=== PATIENT | female | born 1965 | race African-American/Black ===

== ENCOUNTER 2017-07-26 10:49 | Inpatient (IN) ==
[2017-07-26] MEDS ORDERED: DEXTROSE 50% 25 GM/50 ML VIAL IV PRN (11:08)
[2017-07-26] MEDS ORDERED: GLUCAGON 1 MG VIAL IM PRN (11:08)
[2017-07-26 11:20] LABS: Basophils % 0.2 % (0.0-0.8); Eosinophils # 0.2 10*3/uL (0.0-0.87); Eosinophils % 2.7 % (0.00-10.9); Hematocrit 28.1 VOL% (35.7-47.0); Hemoglobin 8.8 GM/DL (12.0-16.0); Immature Granulocytes % 0.4 %; Immature Granulocytes Absolute 0.03 #; Lymphocytes # 1.5 10*3/uL (1.4-4.0); Lymphocytes % 17.8 % (21.3-54.2); Mean Corpuscular HGB Conc 31.3 GM/DL (32-36); Mean Corpuscular Hemoglobin 27 PG (27-34); Mean Corpuscular Volume 84.9 FL (87-102); Mean Platelet Volume 12.2 FL (9.6-12.0); Monocytes # 0.7 10*3/uL (0.11-0.8); Monocytes % 8.3 % (1.7-12.7); Neutrophils # 5.8 10*3/uL (1.4-7.4); Neutrophils % 70.6 % (38.7-73.9); Platelet Count 317 T/CUMM (130-400); Red Blood Count 3.31 MC/CUMM (3.8-5.5); White Blood Count 8.2 T/CUMM (4-12)
[2017-07-26 11:27] LABS: PT Patient Result 10.2 SECS
[2017-07-26 11:50] LABS: Alanine Aminotransferase 20 U/L (13-56); Albumin 2.9 G/DL (3.4-5.0); Alkaline Phosphatase 105 U/L (45-117); Aspartate Amino Transferase 25 U/L (0-37); Bilirubin,Total < 0.39 MG/DL (0.2-1.0); Blood Urea Nitrogen 36 MG/DL (7-18); Calcium 8.4 MG/DL (8.5-10.1); Glucose 142 MG/DL (74-106); Osmolality,Calculated 290.3 MOS/KG (273-304); Sodium 141 MMOL/L (136-145); Total Protein 7.3 G/DL (6.4-8.3)
[2017-07-26 11:57] LABS: Apearance,Urine CLEAR (Clear); Bilirubin,Urine Negative (Negative); Blood, Urine Small mg/dL (Negative); Glucose,Urine (UA) 50 mg/dL (Negative); Ketones,Urine Negative (Negative); Nitrite,Urine Negative (Negative); Protein,Urine 100 MG/DL; RBC,Urine 1 /HPF (0-4); Squamous Epithelial Cell,Urine Occasional /HPF (0-10); Urine Color Straw (Yellow); Urine Specific Gravity 1.006 (1.001-1.035); Urine Urobilinogen < 2.0 EU/DL (0.2-1.0); WBC,Urine <1 /HPF (0-6)
[2017-07-26 12:37] LABS: Barbiturates Screen,Urine Negative (Negative); Benzodiazepines Screen,Urine Negative (Negative); Cannabinoid Screen,Urine Positive (Negative); Opiate Screen,Urine Negative (Negative); Phencyclidine Screen,Urine Negative (Negative)
[2017-07-26] MEDS ORDERED: DEXTROSE 50% 25 GM/50 ML SYRINGE IV ONE (13:14)
[2017-07-26] MEDS ORDERED: DEXTROSE 5% NACL 0.45% 1,000 ML IV SCH (14:00)
[2017-07-26] MEDS ORDERED: LABETALOL 20 MG/4 ML SYRINGE IV PRN ×2 (17:27→19:54)
[2017-07-26] MEDS ORDERED: amLODIPine 10 MG TABLET PO SCH (18:00)
[2017-07-26 18:25] LABS: Microalbum/Creat Ratio Random 2052.6 RATIO (0-30)
[2017-07-26] MEDS ORDERED: MORPHINE 4 MG/1 ML VIAL IV PRN (19:54)
[2017-07-26] MEDS ORDERED: DOCUSATE SODIUM 100 MG CAPSULE PO PRN (19:54)
[2017-07-26] MEDS ORDERED: ACETAMINOPHEN 325 MG TABLET PO PRN (19:54)
[2017-07-26] MEDS ORDERED: LACTULOSE 20 GM/30 ML UDCUP PO PRN (19:54)
[2017-07-26] MEDS: PANTOPRAZOLE 40 MG TABLET PO SCH (20:47)
[2017-07-27] MEDS: OLOPATADINE 0.1% OPH SOLN 5 ML BOTTLE LEFT EYE SCH ×4 (00:36→21:02)
[2017-07-27 05:57] LABS: Basophils % 0.4 % (0.0-0.8); Eosinophils # 0.3 10*3/uL (0.0-0.87); Eosinophils % 3.3 % (0.00-10.9); Eosinophils % 4.2 % (0.00-10.9); Hematocrit 25.9 VOL% (35.7-47.0); Hematocrit 26.5 VOL% (35.7-47.0); Hemoglobin 8.4 GM/DL (12.0-16.0); Immature Granulocytes % 0.3 %; Immature Granulocytes % 0.8 %; Immature Granulocytes Absolute 0.02 #; Immature Granulocytes Absolute 0.06 #; Lymphocytes # 1.7 10*3/uL (1.4-4.0); Lymphocytes # 1.8 10*3/uL (1.4-4.0); Lymphocytes % 23.5 % (21.3-54.2); Lymphocytes % 23.8 % (21.3-54.2); Mean Corpuscular HGB Conc 30.9 GM/DL (32-36); Mean Corpuscular HGB Conc 31.7 GM/DL (32-36); Mean Corpuscular Hemoglobin 27 PG (27-34); Mean Corpuscular Volume 85.8 FL (87-102); Mean Platelet Volume 11.8 FL (9.6-12.0); Mean Platelet Volume 12.1 FL (9.6-12.0); Monocytes # 0.6 10*3/uL (0.11-0.8); Monocytes # 0.7 10*3/uL (0.11-0.8); Monocytes % 8.4 % (1.7-12.7); Monocytes % 9.2 % (1.7-12.7); Neutrophils # 4.5 10*3/uL (1.4-7.4); Neutrophils # 4.7 10*3/uL (1.4-7.4); Neutrophils % 62.8 % (38.7-73.9); Neutrophils % 62.9 % (38.7-73.9); Platelet Count 264 T/CUMM (130-400); Platelet Count 272 T/CUMM (130-400); Red Blood Count 3.02 MC/CUMM (3.8-5.5); Red Blood Count 3.09 MC/CUMM (3.8-5.5); Red Cell Distribution Width 16.7 % (9.3-17.3); Red Cell Distribution Width 16.9 % (9.3-17.3); White Blood Count 7.2 T/CUMM (4-12); White Blood Count 7.5 T/CUMM (4-12)
[2017-07-27 06:19] LABS: % Iron Saturation 7.6 % (18-50); Ferritin 8.2 ng/ml (8-252)
[2017-07-27 06:26] LABS: Calcium 7.6 MG/DL (8.5-10.1); Osmolality,Calculated 300.8 MOS/KG (273-304); Potassium 4.4 MMOL/L (3.5-5.1); Thyroid Stimulating Hormone 1.92 uIU/ml (0.358-3.74)
[2017-07-27 06:27] LABS: Hypochromasia 2+; Microcytosis 2+; Platelet Estimate Adequate
[2017-07-27 06:36] LABS: Folate 9.3 NG/ML (5.4-24.0); Vitamin B12 313 PG/ML (211-911)
[2017-07-27 08:21] LABS: Sedimentation Rate-Westergren 118 MM/HR (0-30)
[2017-07-27 08:54] LABS: Hemoglobin A1 (Alkaline) 98.2 % (96.5-98.5); Hemoglobin A2 (Alkaline) 1.8 % (1.5-3.5)
[2017-07-27] MEDS: amLODIPine 10 MG TABLET PO SCH (09:07)
[2017-07-27] MEDS: VALSARTAN 160 MG TABLET PO SCH (09:08)
[2017-07-27] MEDS: INSULIN REGULAR 100 UNIT/ML SUBCUT SCH ×4 (09:09→21:02)
[2017-07-27] MEDS: PANTOPRAZOLE 40 MG TABLET PO SCH (09:09)
[2017-07-27] MEDS ORDERED: INSULIN NPH 100 UNIT/ML SUBCUT ONE (10:30)
[2017-07-27] MEDS ORDERED: FERROUS GLUCONATE 240 MG TABLET PO SCH (10:30)
[2017-07-27] MEDS: NICOTINE 21 MG/24 HR PATCH TRANSDERM SCH (13:03)
[2017-07-27] MEDS: INSULIN NPH/REGULAR 70/30 100 UNIT/ML SUBCUT SCH ×2 (13:10→17:01)
[2017-07-27] MEDS: CARVEDILOL 12.5 MG TABLET PO SCH (21:01)
[2017-07-28] MEDS: INSULIN REGULAR 100 UNIT/ML SUBCUT SCH ×5 (00:39→21:25)
[2017-07-28] MEDS: amLODIPine 10 MG TABLET PO SCH (08:41)
[2017-07-28] MEDS: VALSARTAN 160 MG TABLET PO SCH (08:42)
[2017-07-28] MEDS: PANTOPRAZOLE 40 MG TABLET PO SCH (08:42)
[2017-07-28] MEDS: NICOTINE 21 MG/24 HR PATCH TRANSDERM SCH (08:42)
[2017-07-28] MEDS: CARVEDILOL 12.5 MG TABLET PO SCH ×2 (08:42→17:13)
[2017-07-28] MEDS: ONDANSETRON 4 MG/2 ML VIAL IV PRN (08:42)
[2017-07-28] MEDS: OLOPATADINE 0.1% OPH SOLN 5 ML BOTTLE LEFT EYE SCH ×2 (08:57→21:25)
[2017-07-28] MEDS: CALCITRIOL 0.25 MCG CAPSULE PO SCH (13:10)
[2017-07-28] MEDS ORDERED: SODIUM PHOSPHATE ENEMA 133 ML BOTTLE RECTAL ONE (13:40)
[2017-07-28] MEDS ORDERED: SENNA 8.6 MG TABLET PO ONE (13:40)
[2017-07-28] MEDS: DOCUSATE SODIUM 100 MG CAPSULE PO SCH ×2 (14:20→21:25)
[2017-07-28] MEDS: IRON SUCROSE 200 MG in SODIUM CHLORIDE 0.9% 100 ML IV SCH (14:20)
[2017-07-28] MEDS: POLYETHYLENE GLYCOL POWDER 17 GM PACK PO SCH (21:25)
[2017-07-29 05:33] LABS: Basophils % 0.1 % (0.0-0.8); Eosinophils # 0.3 10*3/uL (0.0-0.87); Eosinophils % 2.5 % (0.00-10.9); Hematocrit 26.4 VOL% (35.7-47.0); Hemoglobin 8.1 GM/DL (12.0-16.0); Immature Granulocytes % 0.3 %; Immature Granulocytes Absolute 0.03 #; Lymphocytes # 1.3 10*3/uL (1.4-4.0); Lymphocytes % 12.8 % (21.3-54.2); Mean Corpuscular HGB Conc 30.7 GM/DL (32-36); Mean Corpuscular Hemoglobin 26 PG (27-34); Mean Corpuscular Volume 84.3 FL (87-102); Mean Platelet Volume 12.4 FL (9.6-12.0); Monocytes # 0.6 10*3/uL (0.11-0.8); Monocytes % 5.6 % (1.7-12.7); Neutrophils % 78.7 % (38.7-73.9); Platelet Count 306 T/CUMM (130-400); Red Blood Count 3.13 MC/CUMM (3.8-5.5); Red Cell Distribution Width 16.7 % (9.3-17.3); White Blood Count 10.2 T/CUMM (4-12)
[2017-07-29 06:02] LABS: Calcium 7.9 MG/DL (8.5-10.1); Osmolality,Calculated 294.8 MOS/KG (273-304); Potassium 4.5 MMOL/L (3.5-5.1)
[2017-07-29] MEDS: POLYETHYLENE GLYCOL POWDER 17 GM PACK PO SCH ×2 (08:22→22:40)
[2017-07-29] MEDS: CARVEDILOL 12.5 MG TABLET PO SCH (08:59)
[2017-07-29] MEDS: DOCUSATE SODIUM 100 MG CAPSULE PO SCH ×2 (08:59→21:10)
[2017-07-29] MEDS ORDERED: SODIUM PHOSPHATE ENEMA 133 ML BOTTLE RECTAL ONE (09:00)
[2017-07-29] MEDS: CALCITRIOL 0.25 MCG CAPSULE PO SCH (09:00)
[2017-07-29] MEDS: PANTOPRAZOLE 40 MG TABLET PO SCH (09:00)
[2017-07-29] MEDS: VALSARTAN 160 MG TABLET PO SCH (09:01)
[2017-07-29] MEDS: amLODIPine 10 MG TABLET PO SCH (09:01)
[2017-07-29] MEDS: NICOTINE 21 MG/24 HR PATCH TRANSDERM SCH (09:02)
[2017-07-29] MEDS: IRON SUCROSE 200 MG in SODIUM CHLORIDE 0.9% 100 ML IV SCH (09:03)
[2017-07-29] MEDS: INSULIN REGULAR 100 UNIT/ML SUBCUT SCH ×4 (09:03→22:40)
[2017-07-29] MEDS: INSULIN NPH/REGULAR 70/30 100 UNIT/ML SUBCUT SCH (09:04)
[2017-07-29] MEDS: OLOPATADINE 0.1% OPH SOLN 5 ML BOTTLE LEFT EYE SCH ×2 (09:05→21:13)
[2017-07-29] MEDS ORDERED: EPOETIN ALFA 10,000 UNIT/1 ML VIAL SUBCUT ONE (09:22)
[2017-07-29] MEDS: ONDANSETRON 4 MG/2 ML VIAL IV PRN (14:15)
[2017-07-29] MEDS ORDERED: INSULIN NPH 100 UNIT/ML SUBCUT ONE ×2 (16:25)
[2017-07-29] MEDS ORDERED: INSULIN NPH/REGULAR 70/30 100 UNIT/ML SUBCUT SCH (16:30)
[2017-07-29] MEDS: CARVEDILOL 6.25 MG TABLET PO SCH (17:10)
[2017-07-30] MEDS: INSULIN REGULAR 100 UNIT/ML SUBCUT SCH ×2 (09:41→11:51)
[2017-07-30] MEDS: INSULIN NPH/REGULAR 70/30 100 UNIT/ML SUBCUT SCH (09:42)
[2017-07-30] MEDS: DOCUSATE SODIUM 100 MG CAPSULE PO SCH (09:43)
[2017-07-30] MEDS: CALCITRIOL 0.25 MCG CAPSULE PO SCH (09:43)
[2017-07-30] MEDS: amLODIPine 10 MG TABLET PO SCH (09:43)
[2017-07-30] MEDS: PANTOPRAZOLE 40 MG TABLET PO SCH (09:43)
[2017-07-30] MEDS: CARVEDILOL 6.25 MG TABLET PO SCH (09:43)
[2017-07-30] MEDS: VALSARTAN 160 MG TABLET PO SCH (09:43)
[2017-07-30] MEDS: NICOTINE 21 MG/24 HR PATCH TRANSDERM SCH (09:44)
[2017-07-30] MEDS: IRON SUCROSE 200 MG in SODIUM CHLORIDE 0.9% 100 ML IV SCH (09:44)
[2017-07-30] MEDS: POLYETHYLENE GLYCOL POWDER 17 GM PACK PO SCH (09:45)
[2017-07-30] MEDS: OLOPATADINE 0.1% OPH SOLN 5 ML BOTTLE LEFT EYE SCH (09:45)
[2017-07-30 13:43] VITALS: BP 122/63
== END 2017-07-30 14:45 | disposition home or self-care (01) | DRG 638 ==
LOC: EDUNIT# → EDBD → N.ED 10:49 → N.EDINP 13:27 → N.ICU 14:30 → N.4E 19:47
PROVIDERS: ADMIT Hospitalist; ATTEND Hospitalist

== ENCOUNTER 2018-06-04 13:04 | Inpatient (IN) ==
[2018-06-04] MEDS ORDERED: ASPIRIN 325 MG TABLET PO STA (13:45)
[2018-06-04] MEDS ORDERED: METOPROLOL TARTRATE 5 MG/5 ML VIAL IV STA (13:45)
[2018-06-04 14:21] LABS: Basophils % 0.3 % (0.0-0.8); Eosinophils # 0.2 10*3/uL (0.0-0.87); Eosinophils % 2.6 % (0.00-10.9); Hemoglobin 9.3 GM/DL (12.0-16.0); Immature Granulocytes % 0.3 %; Immature Granulocytes Absolute 0.02 #; Lymphocytes # 1.7 10*3/uL (1.4-4.0); Mean Corpuscular Hemoglobin 27 PG (27-34); Mean Corpuscular Volume 86.2 FL (87-102); Mean Platelet Volume 11.7 FL (9.6-12.0); Monocytes # 0.5 10*3/uL (0.11-0.8); Monocytes % 6.7 % (1.7-12.7); Neutrophils # 5.3 10*3/uL (1.4-7.4); Neutrophils % 68.1 % (38.7-73.9); Platelet Count 304 T/CUMM (130-400); Red Blood Count 3.48 MC/CUMM (3.8-5.5); Red Cell Distribution Width 15.7 % (9.3-17.3); White Blood Count 7.7 T/CUMM (4-12)
[2018-06-04 14:30] LABS: Apearance,Urine CLEAR (Clear); Bilirubin,Urine Negative (Negative); Blood, Urine Small mg/dL (Negative); Glucose,Urine (UA) 150 mg/dL (Negative); Ketones,Urine Negative (Negative); Nitrite,Urine Negative (Negative); Protein,Urine 100 MG/DL; RBC,Urine 1 /HPF (0-4); Squamous Epithelial Cell,Urine Occasional /HPF (0-10); Urine Color Straw (Yellow); Urine Specific Gravity 1.009 (1.001-1.035); Urine Urobilinogen < 2.0 EU/DL (0.2-1.0); WBC,Urine 1 /HPF (0-6)
[2018-06-04 14:36] LABS: Barbiturates Screen,Urine Negative (Negative); Benzodiazepines Screen,Urine Negative (Negative); Cannabinoid Screen,Urine Negative (Negative); Opiate Screen,Urine Negative (Negative); Phencyclidine Screen,Urine Negative (Negative)
[2018-06-04 14:40] LABS: INR 0.9; PT Patient Result 10.1 SECS; Partial Thromboplastin Time 25.2 SECS (0-40)
[2018-06-04 14:46] LABS: Alanine Aminotransferase 25 U/L (13-56); Albumin 3.6 G/DL (3.4-5.0); Alkaline Phosphatase 131 U/L (45-117); Aspartate Amino Transferase 11 U/L (0-37); Bilirubin,Total < 0.39 MG/DL (0.2-1.0); Blood Urea Nitrogen 60 MG/DL (7-18); Calcium 7.1 MG/DL (8.5-10.1); Glucose 142 MG/DL (74-106); Osmolality,Calculated 299.3 MOS/KG (273-304); Potassium 4.2 MMOL/L (3.5-5.1); Sodium 141 MMOL/L (136-145); Total Protein 7.3 G/DL (6.4-8.3)
[2018-06-04] MEDS ORDERED: GLUCAGON 1 MG VIAL IM PRN (15:02)
[2018-06-04] MEDS ORDERED: ACETAMINOPHEN 325 MG TABLET PO PRN (15:02)
[2018-06-04] MEDS ORDERED: PROMETHAZINE 25 MG/1 ML VIAL IM PRN (15:02)
[2018-06-04] MEDS ORDERED: DEXTROSE 50% 25 GM/50 ML VIAL IV PRN (15:02)
[2018-06-04] MEDS ORDERED: ISOSORBIDE MONONITRATE 30 MG TABLET PO SCH (17:07)
[2018-06-04] MEDS: INSULIN LISPRO 100 UNIT/ML SUBCUT SCH ×2 (17:20→21:54)
[2018-06-04] MEDS: SODIUM CHLORIDE 0.9% 1,000 ML IV SCH (17:21)
[2018-06-04] MEDS: ISOSORBIDE MONONITRATE 30 MG TABLET PO SCH (18:14)
[2018-06-04] MEDS: HEPARIN 5,000 UNIT/1 ML VIAL SUBCUT SCH (18:14)
[2018-06-04] MEDS ORDERED: CARVEDILOL 12.5 MG TABLET PO SCH (21:00)
[2018-06-04] MEDS: ATORVASTATIN 40 MG TABLET PO SCH (21:55)
[2018-06-04] MEDS: CARVEDILOL 25 MG TABLET PO SCH (21:55)
[2018-06-05] MEDS: HEPARIN 5,000 UNIT/1 ML VIAL SUBCUT SCH ×3 (01:55→16:47)
[2018-06-05 05:16] LABS: Basophils % 0.5 % (0.0-0.8); Eosinophils # 0.2 10*3/uL (0.0-0.87); Eosinophils % 3.2 % (0.00-10.9); Hematocrit 23.5 VOL% (35.7-47.0); Immature Granulocytes % 0.2 %; Immature Granulocytes Absolute 0.01 #; Lymphocytes # 2.4 10*3/uL (1.4-4.0); Lymphocytes % 36.8 % (21.3-54.2); Mean Corpuscular HGB Conc 30.6 GM/DL (32-36); Mean Corpuscular Hemoglobin 27 PG (27-34); Mean Corpuscular Volume 88.3 FL (87-102); Mean Platelet Volume 12.3 FL (9.6-12.0); Monocytes # 0.5 10*3/uL (0.11-0.8); Monocytes % 7.7 % (1.7-12.7); Neutrophils # 3.3 10*3/uL (1.4-7.4); Neutrophils % 51.6 % (38.7-73.9); White Blood Count 6.5 T/CUMM (4-12)
[2018-06-05 05:38] LABS: Hemoglobin 7.2 GM/DL (12.0-16.0); Platelet Count 241 T/CUMM (130-400); Red Blood Count 2.66 MC/CUMM (3.8-5.5)
[2018-06-05 05:46] LABS: Calcium 6.4 MG/DL (8.5-10.1); Osmolality,Calculated 306.4 MOS/KG (273-304); Potassium 4.6 MMOL/L (3.5-5.1); Risk Ratio 2.69; VLDL CHOLESTEROL 24.6 MG/DL
[2018-06-05] MEDS: SODIUM CHLORIDE 0.9% 1,000 ML IV SCH (06:40)
[2018-06-05] MEDS ORDERED: INSULIN NPH/REGULAR 70/30 100 UNIT/ML SUBCUT SCH (07:30)
[2018-06-05] MEDS ORDERED: ASPIRIN 325 MG TABLET PO SCH (09:00)
[2018-06-05] MEDS ORDERED: VALSARTAN 160 MG TABLET PO SCH (09:00)
[2018-06-05] MEDS: INSULIN LISPRO 100 UNIT/ML SUBCUT SCH ×4 (09:05→21:32)
[2018-06-05] MEDS: amLODIPine 10 MG TABLET PO SCH (09:06)
[2018-06-05] MEDS: ISOSORBIDE MONONITRATE 30 MG TABLET PO SCH (09:06)
[2018-06-05] MEDS: CARVEDILOL 25 MG TABLET PO SCH ×2 (09:07→21:32)
[2018-06-05] MEDS: PANTOPRAZOLE 40 MG TABLET PO SCH (09:07)
[2018-06-05] MEDS: ONDANSETRON 4 MG/2 ML VIAL IV PRN (11:41)
[2018-06-05 12:49] LABS: Hematocrit 25.1 VOL% (35.7-47.0); Hemoglobin 7.7 GM/DL (12.0-16.0)
[2018-06-05] MEDS ORDERED: SODIUM CHLORIDE 0.9% 1,000 ML IV PRN (13:04)
[2018-06-05 14:23] LABS: % Iron Saturation 11.3 % (18-50); Ferritin 3.4 ng/ml (8-252)
[2018-06-05 14:30] LABS: Folate 7.7 NG/ML (5.4-24.0)
[2018-06-05] MEDS: INSULIN NPH/REGULAR 70/30 100 UNIT/ML SUBCUT SCH (15:56)
[2018-06-05 20:34] LABS: Hematocrit 28.1 VOL% (35.7-47.0); Hemoglobin 8.7 GM/DL (12.0-16.0)
[2018-06-05] MEDS: ATORVASTATIN 40 MG TABLET PO SCH (21:31)
[2018-06-06] MEDS: HEPARIN 5,000 UNIT/1 ML VIAL SUBCUT SCH ×3 (01:02→18:34)
[2018-06-06 04:44] LABS: Basophils % 0.1 % (0.0-0.8); Eosinophils # 0.2 10*3/uL (0.0-0.87); Hematocrit 26.5 VOL% (35.7-47.0); Hemoglobin 8.1 GM/DL (12.0-16.0); Immature Granulocytes % 0.6 %; Immature Granulocytes Absolute 0.05 #; Lymphocytes # 2.2 10*3/uL (1.4-4.0); Lymphocytes % 24.3 % (21.3-54.2); Mean Corpuscular HGB Conc 30.6 GM/DL (32-36); Mean Corpuscular Hemoglobin 27 PG (27-34); Mean Corpuscular Volume 89.5 FL (87-102); Mean Platelet Volume 12.6 FL (9.6-12.0); Monocytes # 0.6 10*3/uL (0.11-0.8); Monocytes % 7.1 % (1.7-12.7); Neutrophils # 5.8 10*3/uL (1.4-7.4); Neutrophils % 65.9 % (38.7-73.9); Platelet Count 238 T/CUMM (130-400); Red Blood Count 2.96 MC/CUMM (3.8-5.5); Red Cell Distribution Width 15.7 % (9.3-17.3); White Blood Count 8.8 T/CUMM (4-12)
[2018-06-06] MEDS: INSULIN LISPRO 100 UNIT/ML SUBCUT SCH ×4 (07:17→21:14)
[2018-06-06] MEDS: amLODIPine 10 MG TABLET PO SCH (08:49)
[2018-06-06] MEDS: ISOSORBIDE MONONITRATE 30 MG TABLET PO SCH (08:50)
[2018-06-06] MEDS: CARVEDILOL 25 MG TABLET PO SCH ×2 (08:50→21:14)
[2018-06-06] MEDS: PANTOPRAZOLE 40 MG TABLET PO SCH (08:50)
[2018-06-06] MEDS: IRON SUCROSE 200 MG in SODIUM CHLORIDE 0.9% 100 ML IV SCH (08:53)
[2018-06-06] MEDS: INSULIN NPH/REGULAR 70/30 100 UNIT/ML SUBCUT SCH ×2 (09:10→18:34)
[2018-06-06] MEDS: ASPIRIN EC 81 MG TABLET PO SCH (10:04)
[2018-06-06] MEDS: ONDANSETRON 4 MG/2 ML VIAL IV PRN (11:02)
[2018-06-06] MEDS: SODIUM CHLORIDE 0.9% 1,000 ML IV SCH (11:17)
[2018-06-06] MEDS: ATORVASTATIN 40 MG TABLET PO SCH (21:14)
[2018-06-07] MEDS: HEPARIN 5,000 UNIT/1 ML VIAL SUBCUT SCH ×2 (02:01→08:35)
[2018-06-07 05:13] LABS: Basophils % 0.3 % (0.0-0.8); Eosinophils # 0.2 10*3/uL (0.0-0.87); Eosinophils % 1.7 % (0.00-10.9); Hematocrit 25.1 VOL% (35.7-47.0); Hemoglobin 7.6 GM/DL (12.0-16.0); Immature Granulocytes % 0.5 %; Immature Granulocytes Absolute 0.05 #; Lymphocytes # 1.8 10*3/uL (1.4-4.0); Lymphocytes % 19.7 % (21.3-54.2); Mean Corpuscular HGB Conc 30.3 GM/DL (32-36); Mean Corpuscular Hemoglobin 27 PG (27-34); Mean Corpuscular Volume 89.6 FL (87-102); Mean Platelet Volume 12.3 FL (9.6-12.0); Monocytes # 0.8 10*3/uL (0.11-0.8); Monocytes % 8.6 % (1.7-12.7); Neutrophils # 6.4 10*3/uL (1.4-7.4); Neutrophils % 69.2 % (38.7-73.9); Platelet Count 230 T/CUMM (130-400); Red Cell Distribution Width 15.7 % (9.3-17.3); White Blood Count 9.3 T/CUMM (4-12)
[2018-06-07 05:40] LABS: Osmolality,Calculated 305.4 MOS/KG (273-304); Potassium 4.6 MMOL/L (3.5-5.1)
[2018-06-07] MEDS ORDERED: INSULIN NPH/REGULAR 70/30 100 UNIT/ML SUBCUT SCH (08:04)
[2018-06-07] MEDS: INSULIN NPH/REGULAR 70/30 100 UNIT/ML SUBCUT SCH (08:33)
[2018-06-07] MEDS: SODIUM CHLORIDE 0.9% 1,000 ML IV SCH ×2 (08:35→13:05)
[2018-06-07] MEDS: INSULIN LISPRO 100 UNIT/ML SUBCUT SCH ×3 (08:51→16:23)
[2018-06-07] MEDS: CARVEDILOL 25 MG TABLET PO SCH (08:52)
[2018-06-07] MEDS: IRON SUCROSE 200 MG in SODIUM CHLORIDE 0.9% 100 ML IV SCH (08:52)
[2018-06-07] MEDS: PANTOPRAZOLE 40 MG TABLET PO SCH (08:52)
[2018-06-07] MEDS: ISOSORBIDE MONONITRATE 30 MG TABLET PO SCH (08:52)
[2018-06-07] MEDS: ASPIRIN EC 81 MG TABLET PO SCH (08:52)
[2018-06-07 11:10] VITALS: BP 103/52
[2018-06-07] MEDS ORDERED: INSULIN ASPART PROTAMINE/ASPART 70/30 100 UNIT/ML SUBCUT SCH (11:30)
[2018-06-07] MEDS ORDERED: INSULIN LISPRO 100 UNIT/ML SUBCUT SCH (12:00)
[2018-06-07] MEDS ORDERED: INSULIN REGULAR 100 UNIT/ML IV ONE (12:51)
== END 2018-06-07 16:59 | disposition home or self-care (01) | DRG 812 ==
LOC: N.ED 13:04 → N.EDINP 13:04 → N.3E 16:45 → SUATTDRO 06-06 14:49
PROVIDERS: ADMIT Emergency Medicine; ATTEND Internal Medicine

== ENCOUNTER 2019-02-10 09:10 | Observation (INO) ==
[2019-02-10] MEDS ORDERED: SODIUM CHLORIDE 0.9% 1,000 ML IV STA (10:25)
[2019-02-10 10:35] LABS: Basophils % 0.3 % (0.0-0.8); Eosinophils # 0.1 10*3/uL (0.0-0.87); Eosinophils % 1.3 % (0.00-10.9); Hematocrit 26.8 VOL% (35.7-47.0); Hemoglobin 7.8 GM/DL (12.0-16.0); Immature Granulocytes % 0.3 %; Immature Granulocytes Absolute 0.02 #; Lymphocytes % 13.7 % (21.3-54.2); Mean Corpuscular HGB Conc 29.1 GM/DL (32-36); Mean Corpuscular Volume 79.8 FL (87-102); Mean Platelet Volume 12.4 FL (9.6-12.0); Monocytes % 4.2 % (1.7-12.7); Neutrophils % 80.2 % (38.7-73.9); Platelet Count 276 T/CUMM (130-400); Red Blood Count 3.36 MC/CUMM (3.8-5.5); Red Cell Distribution Width 19.5 % (9.3-17.3); White Blood Count 7.5 T/CUMM (4-12)
[2019-02-10 11:03] LABS: Alanine Aminotransferase 24 U/L (13-56); Albumin 2.9 G/DL (3.4-5.0); Alkaline Phosphatase 135 U/L (45-117); Aspartate Amino Transferase 25 U/L (0-37); Bilirubin,Total < 0.39 MG/DL (0.2-1.0); Blood Urea Nitrogen 74 MG/DL (7-18); Estimated Glom Filtration Rate 5 ML/MIN; Osmolality,Calculated 316.8 MOS/KG (273-304); Total Protein 6.6 G/DL (6.4-8.3)
[2019-02-10 11:06] LABS: Calcium 5.8 MG/DL (8.5-10.1); Glucose 730 MG/DL (74-106)
[2019-02-10] MEDS ORDERED: INSULIN REGULAR 100 UNIT/ML IV STA (11:07)
[2019-02-10 11:25] LABS: % Iron Saturation 7.3 % (18-50)
[2019-02-10] MEDS ORDERED: NICOTINE 21 MG/24 HR PATCH TRANSDERM PRN (12:08)
[2019-02-10] MEDS ORDERED: ACETAMINOPHEN 325 MG TABLET PO PRN (12:08)
[2019-02-10] MEDS ORDERED: GLUCAGON 1 MG VIAL IM PRN (12:08)
[2019-02-10] MEDS ORDERED: DEXTROSE 50% 25 GM/50 ML VIAL IV PRN (12:08)
[2019-02-10] MEDS ORDERED: ONDANSETRON 4 MG/2 ML VIAL IV PRN (12:08)
[2019-02-10] MEDS ORDERED: hydrALAZINE 20 MG/1 ML VIAL IV PRN (12:12)
[2019-02-10] MEDS ORDERED: PROMETHAZINE 25 MG TABLET PO PRN (12:13)
[2019-02-10] MEDS ORDERED: IRON SUCROSE 200 MG IV SCH (12:15)
[2019-02-10] MEDS ORDERED: ERGOCALCIFEROL 50,000 UNIT CAPSULE PO SCH (12:30)
[2019-02-10] MEDS ORDERED: hydrALAZINE 20 MG/1 ML VIAL ONE (12:53)
[2019-02-10] MEDS ORDERED: IRON SUCROSE 200 MG in SODIUM CHLORIDE 0.9% 100 ML IV ONE (13:00)
[2019-02-10] MEDS: SODIUM CHLORIDE 0.9% 1,000 ML IV SCH ×2 (13:45→21:41)
[2019-02-10 14:43] LABS: Folate 7.7 NG/ML (5.4-24.0)
[2019-02-10] MEDS: INSULIN REGULAR 100 UNIT/ML SUBCUT SCH ×3 (15:34→21:40)
[2019-02-10] MEDS: METOCLOPRAMIDE 10 MG TABLET PO SCH ×2 (16:21→21:37)
[2019-02-10] MEDS: carvediloL 25 MG TABLET PO SCH (21:37)
[2019-02-10] MEDS: CALCIUM CARBONATE CHEW 500 MG TABLET PO SCH (21:38)
[2019-02-11] MEDS: INSULIN REGULAR 100 UNIT/ML SUBCUT SCH ×8 (02:41→22:15)
[2019-02-11] MEDS: SODIUM CHLORIDE 0.9% 1,000 ML IV SCH ×3 (05:20→21:35)
[2019-02-11 05:52] LABS: Calcium 5.9 MG/DL (8.5-10.1); Osmolality,Calculated 309.4 MOS/KG (273-304)
[2019-02-11] MEDS: INSULIN NPH/REGULAR 70/30 100 UNIT/ML SUBCUT SCH (08:42)
[2019-02-11] MEDS: carvediloL 25 MG TABLET PO SCH ×2 (09:34→20:30)
[2019-02-11] MEDS: METOCLOPRAMIDE 10 MG TABLET PO SCH ×4 (09:34→20:30)
[2019-02-11] MEDS: amLODIPine 10 MG TABLET PO SCH (09:34)
[2019-02-11 12:50] LABS: ABG Base Excess -11.1 MMOL/L (-2.5-2.5); ABG HCO3 15.5 MMOL/L (20-26); ABG PH 7.312 (7.35-7.45); ABG TCO2 13.6 MMOL/L (23-27)
[2019-02-11] MEDS: CYANOCOBALAMIN 500 MCG TABLET PO SCH (12:58)
[2019-02-11] MEDS: ASCORBIC ACID 500 MG TABLET PO SCH (12:59)
[2019-02-11] MEDS: CALCIUM CARBONATE CHEW 500 MG TABLET PO SCH ×2 (12:59→20:29)
[2019-02-11] MEDS: PANTOPRAZOLE 40 MG TABLET PO SCH (12:59)
[2019-02-11 15:38] LABS: Calcium 6.1 MG/DL (8.5-10.1); Osmolality,Calculated 296.8 MOS/KG (273-304)
[2019-02-11] MEDS ORDERED: PROMETHAZINE INJ 12.5 MG in SODIUM CHLORIDE 0.9% 50 ML IV PRN (16:27)
[2019-02-11] MEDS ORDERED: INSULIN NPH/REGULAR 70/30 100 UNIT/ML SUBCUT SCH (16:30)
[2019-02-12] MEDS: INSULIN REGULAR 100 UNIT/ML SUBCUT SCH ×3 (02:10→10:05)
[2019-02-12] MEDS: SODIUM CHLORIDE 0.9% 1,000 ML IV SCH (07:40)
[2019-02-12] MEDS: METOCLOPRAMIDE 10 MG TABLET PO SCH (07:48)
[2019-02-12 07:56] VITALS: BP 117/64
[2019-02-12] MEDS: INSULIN NPH/REGULAR 70/30 100 UNIT/ML SUBCUT SCH (10:03)
[2019-02-12] MEDS: amLODIPine 10 MG TABLET PO SCH (10:04)
[2019-02-12] MEDS: carvediloL 25 MG TABLET PO SCH (10:04)
[2019-02-12] MEDS: CYANOCOBALAMIN 500 MCG TABLET PO SCH (10:05)
[2019-02-12] MEDS: CALCIUM CARBONATE CHEW 500 MG TABLET PO SCH (10:05)
[2019-02-12] MEDS: PANTOPRAZOLE 40 MG TABLET PO SCH (10:05)
[2019-02-12] MEDS: ASCORBIC ACID 500 MG TABLET PO SCH (10:06)
[2019-02-15] MEDS ORDERED: IRON SUCROSE 200 MG in SODIUM CHLORIDE 0.9% 100 ML IV SCH (09:00)
== END 2019-02-12 11:10 | disposition home or self-care (01) ==
LOC: N.ED 09:10 → N.EDINP 09:10 → N.2W 12:46
PROVIDERS: ADMIT Internal Medicine Geriatric Medicine; ATTEND Internal Medicine Geriatric Medicine

== ENCOUNTER 2019-04-17 10:08 | Inpatient (IN) ==
[2019-04-17] MEDS ORDERED: ONDANSETRON 4 MG/2 ML VIAL IV STA (10:45)
[2019-04-17] MEDS ORDERED: SODIUM CHLORIDE 0.9% 1,000 ML IV STA ×2 (10:45→11:13)
[2019-04-17] MEDS ORDERED: METOCLOPRAMIDE 10 MG/2 ML VIAL IV STA (10:47)
[2019-04-17 10:56] LABS: Basophils % 0.2 % (0.0-0.8); Eosinophils # 0.1 10*3/uL (0.0-0.87); Eosinophils % 1.5 % (0.00-10.9); Hematocrit 24.6 VOL% (35.7-47.0); Hemoglobin 7.4 GM/DL (12.0-16.0); Immature Granulocytes % 0.2 %; Immature Granulocytes Absolute 0.02 #; Lymphocytes # 1.1 10*3/uL (1.4-4.0); Lymphocytes % 13.7 % (21.3-54.2); Mean Corpuscular HGB Conc 30.1 GM/DL (32-36); Mean Corpuscular Volume 78.1 FL (87-102); Mean Platelet Volume 11.6 FL (9.6-12.0); Monocytes % 7.1 % (1.7-12.7); Neutrophils % 77.3 % (38.7-73.9); Platelet Count 379 T/CUMM (130-400); Red Blood Count 3.15 MC/CUMM (3.8-5.5); Red Cell Distribution Width 19.5 % (9.3-17.3); White Blood Count 8.2 T/CUMM (4-12)
[2019-04-17 11:02] LABS: Apearance,Urine CLEAR (Clear); Bacteria,Urine Occasional /HPF (Few); Bilirubin,Urine Negative (Negative); Blood, Urine Small mg/dL (Negative); Glucose,Urine (UA) >=500 mg/dL (Negative); Ketones,Urine 5 mg/dL (Negative); Mucus,Urine Occasional /LPF (Occasional); Nitrite,Urine Negative (Negative); Protein,Urine 30 MG/DL; RBC,Urine <1 /HPF (0-4); Squamous Epithelial Cell,Urine Occasional /HPF (0-10); Urine Color Straw (Yellow); Urine Specific Gravity 1.013 (1.001-1.035); Urine Urobilinogen < 2.0 EU/DL (0.2-1.0); WBC,Urine <1 /HPF (0-6)
[2019-04-17 11:06] LABS: INR 0.9; PT Patient Result 10.2 SECS (9.6-12.2); Partial Thromboplastin Time 22.4 SECS (20.8-36.0)
[2019-04-17 11:08] LABS: Alanine Aminotransferase 15 U/L (13-56); Albumin 2.4 G/DL (3.4-5.0); Alkaline Phosphatase 87 U/L (45-117); Aspartate Amino Transferase 12 U/L (0-37); Bilirubin,Total < 0.39 MG/DL (0.2-1.0); Blood Urea Nitrogen 72 MG/DL (7-18); Calcium 5.9 MG/DL (8.5-10.1); Estimated Glom Filtration Rate 6 ML/MIN; Osmolality,Calculated 313.9 MOS/KG (273-304); Total Protein 5.7 G/DL (6.4-8.3)
[2019-04-17 11:10] LABS: Troponin I 0.162 NG/ML (0.00-0.045)
[2019-04-17 11:11] LABS: Glucose 732 MG/DL (74-106)
[2019-04-17] MEDS ORDERED: INSULIN REGULAR 100 UNIT/ML IV ONE (11:13)
[2019-04-17 11:23] LABS: Barbiturates Screen,Urine Negative (Negative); Benzodiazepines Screen,Urine Negative (Negative); Cannabinoid Screen,Urine Negative (Negative); Opiate Screen,Urine Negative (Negative); Phencyclidine Screen,Urine Negative (Negative)
[2019-04-17] MEDS ORDERED: MAGNESIUM SULF RIDER 2 GM in PREMIX 1 EACH IV PRN (12:07)
[2019-04-17] MEDS ORDERED: SODIUM BICARB INJ 100 MEQ in STERILE WATER INJ 400 ML IV PRN (12:07)
[2019-04-17] MEDS ORDERED: MAGNESIUM SULF RIDER 4 GM in PREMIX 1 EACH IV PRN (12:07)
[2019-04-17] MEDS ORDERED: SODIUM PHOSPHATE INJ 15 MMOL in SODIUM CHLORIDE 0.9% 250 ML IV PRN (12:07)
[2019-04-17] MEDS ORDERED: DEXTROSE 10% 25 GM/250 ML BAG IV PRN ×2 (12:07)
[2019-04-17] MEDS ORDERED: ONDANSETRON 4 MG/2 ML VIAL IV PRN (12:12)
[2019-04-17] MEDS ORDERED: MORPHINE 4 MG/1 ML VIAL IV PRN (12:12)
[2019-04-17] MEDS: SODIUM CHLORIDE 0.9% 1,000 ML IV SCH ×4 (13:10→17:42)
[2019-04-17] MEDS: HEPARIN 5,000 UNIT/1 ML VIAL SUBCUT SCH (13:15)
[2019-04-17] MEDS: amLODIPine 10 MG TABLET PO SCH (13:15)
[2019-04-17] MEDS ORDERED: hydrALAZINE 20 MG/1 ML VIAL IV PRN (13:17)
[2019-04-17] MEDS: SODIUM CHLORIDE 0.45% 1,000 ML IV SCH ×2 (13:17→17:42)
[2019-04-17] MEDS ORDERED: INSULIN REGULAR DRIP 100 ML IV SCH (13:30)
[2019-04-17 14:05] LABS: Calcium 5.6 MG/DL (8.5-10.1)
[2019-04-17] MEDS ORDERED: METOCLOPRAMIDE 10 MG/10 ML UDCUP PO SCH (16:30)
[2019-04-17] MEDS ORDERED: SODIUM CHLORIDE 0.9% 1,000 ML IV SCH (17:07)
[2019-04-17 17:18] LABS: Osmolality,Calculated 317.5 MOS/KG (273-304)
[2019-04-17 17:23] LABS: Calcium 5.7 MG/DL (8.5-10.1)
[2019-04-17] MEDS: METOCLOPRAMIDE 10 MG/10 ML UDCUP PO SCH ×2 (18:06→20:51)
[2019-04-17 19:57] LABS: Osmolality,Calculated 303.7 MOS/KG (273-304)
[2019-04-17 20:00] LABS: Calcium 5.1 MG/DL (8.5-10.1)
[2019-04-17] MEDS ORDERED: CALCIUM GLUCONATE 2,000 MG in SODIUM CHLORIDE 0.9% 100 ML IV ONE (20:33)
[2019-04-17] MEDS: SODIUM CHLOR 0.45% KCL 20 MEQ 20 MEQ/1,000 ML BAG IV SCH (20:48)
[2019-04-17] MEDS: POTASSIUM CHLORIDE RIDER 10 MEQ in PREMIX 1 EACH IV PRN ×3 (21:02→23:11)
[2019-04-17 22:10] LABS: ABG Base Excess -8.6 MMOL/L (-2.5-2.5); ABG HCO3 17.4 MMOL/L (20-26); ABG Oxygen Saturation 98.7 % (95-100); ABG PCO2 31.4 MM HG (35-48); ABG PH 7.329 (7.35-7.45); ABG TCO2 15.6 MMOL/L (23-27); Allen Test Positive; Pt O2 Delivery Device Room Air
[2019-04-17] MEDS: DEXT 5% NACL 0.45% KCL 20 MEQ 20 MEQ/1,000 ML BAG IV SCH (22:25)
[2019-04-18 00:44] LABS: Osmolality,Calculated 304.4 MOS/KG (273-304)
[2019-04-18 00:48] LABS: Calcium 5.8 MG/DL (8.5-10.1)
[2019-04-18] MEDS: HEPARIN 5,000 UNIT/1 ML VIAL SUBCUT SCH ×2 (01:09→14:01)
[2019-04-18 01:44] LABS: Amorphous Crystals,Urine Moderate /HPF (Few); Apearance,Urine Slightly Hazy (Clear); Bilirubin,Urine Negative (Negative); Blood, Urine Small mg/dL (Negative); Glucose,Urine (UA) 150 mg/dL (Negative); Ketones,Urine Negative (Negative); Mucus,Urine Occasional /LPF (Occasional); Nitrite,Urine Negative (Negative); Protein,Urine 30 MG/DL; RBC,Urine 1 /HPF (0-4); Squamous Epithelial Cell,Urine Occasional /HPF (0-10); Urine Color Straw (Yellow); Urine Specific Gravity 1.009 (1.001-1.035); Urine Urobilinogen < 2.0 EU/DL (0.2-1.0); WBC,Urine 1 /HPF (0-6)
[2019-04-18 04:51] LABS: Basophils % 0.4 % (0.0-0.8); Eosinophils # 0.2 10*3/uL (0.0-0.87); Eosinophils % 2.4 % (0.00-10.9); Hemoglobin 7.2 GM/DL (12.0-16.0); Immature Granulocytes % 0.3 %; Immature Granulocytes Absolute 0.02 #; Lymphocytes # 2.1 10*3/uL (1.4-4.0); Lymphocytes % 27.7 % (21.3-54.2); Mean Corpuscular Volume 77.7 FL (87-102); Mean Platelet Volume 11.8 FL (9.6-12.0); Monocytes % 8.1 % (1.7-12.7); Neutrophils % 61.1 % (38.7-73.9); Platelet Count 350 T/CUMM (130-400); Red Blood Count 3.09 MC/CUMM (3.8-5.5); Red Cell Distribution Width 18.5 % (9.3-17.3); White Blood Count 7.6 T/CUMM (4-12)
[2019-04-18] MEDS ORDERED: SODIUM CHLORIDE 0.45% 1,000 ML IV SCH (05:07)
[2019-04-18] MEDS: SODIUM CHLOR 0.45% KCL 20 MEQ 20 MEQ/1,000 ML BAG IV SCH (05:15)
[2019-04-18 05:22] LABS: Calcium 6.2 MG/DL (8.5-10.1); Osmolality,Calculated 301.8 MOS/KG (273-304)
[2019-04-18 05:42] LABS: Parathyroid Hormone Intact 571.8 PG/ML (18.4-80.1)
[2019-04-18] MEDS: DEXT 5% NACL 0.45% KCL 20 MEQ 20 MEQ/1,000 ML BAG IV SCH (05:59)
[2019-04-18] MEDS ORDERED: DEXTROSE 50% 25 GM/50 ML VIAL IV PRN (07:46)
[2019-04-18] MEDS ORDERED: GLUCAGON 1 MG VIAL IM PRN (07:46)
[2019-04-18] MEDS: METOCLOPRAMIDE 10 MG/10 ML UDCUP PO SCH ×4 (08:46→20:10)
[2019-04-18] MEDS: amLODIPine 10 MG TABLET PO SCH (08:46)
[2019-04-18] MEDS: INSULIN NPH/REGULAR 70/30 100 UNIT/ML SUBCUT SCH ×2 (08:46→21:48)
[2019-04-18] MEDS: ASCORBIC ACID 500 MG TABLET PO SCH (08:46)
[2019-04-18 09:30] LABS: Calcium 5.9 MG/DL (8.5-10.1); Osmolality,Calculated 295.5 MOS/KG (273-304)
[2019-04-18] MEDS: INSULIN LISPRO 100 UNIT/ML SUBCUT SCH ×3 (12:15→21:47)
[2019-04-19] MEDS: HEPARIN 5,000 UNIT/1 ML VIAL SUBCUT SCH ×2 (04:38→15:17)
[2019-04-19 05:40] LABS: Basophils % 0.2 % (0.0-0.8); Eosinophils # 0.1 10*3/uL (0.0-0.87); Eosinophils % 2.1 % (0.00-10.9); Hematocrit 19.8 VOL% (35.7-47.0); Immature Granulocytes % 0.5 %; Immature Granulocytes Absolute 0.03 #; Lymphocytes # 1.6 10*3/uL (1.4-4.0); Lymphocytes % 25.9 % (21.3-54.2); Mean Corpuscular HGB Conc 30.3 GM/DL (32-36); Mean Corpuscular Volume 77.6 FL (87-102); Mean Platelet Volume 11.5 FL (9.6-12.0); Monocytes % 9.4 % (1.7-12.7); Neutrophils % 61.9 % (38.7-73.9); Platelet Count 288 T/CUMM (130-400); Red Blood Count 2.55 MC/CUMM (3.8-5.5); Red Cell Distribution Width 18.8 % (9.3-17.3); White Blood Count 6.3 T/CUMM (4-12)
[2019-04-19 05:43] LABS: Osmolality,Calculated 298.5 MOS/KG (273-304)
[2019-04-19] MEDS ORDERED: SODIUM CHLORIDE 0.9% 1,000 ML IV PRN ×2 (06:06→08:48)
[2019-04-19] MEDS: INSULIN LISPRO 100 UNIT/ML SUBCUT SCH ×4 (08:29→20:28)
[2019-04-19] MEDS: amLODIPine 10 MG TABLET PO SCH (08:56)
[2019-04-19] MEDS: METOCLOPRAMIDE 10 MG/10 ML UDCUP PO SCH ×4 (08:56→20:13)
[2019-04-19] MEDS: ASCORBIC ACID 500 MG TABLET PO SCH (08:56)
[2019-04-19] MEDS: PANTOPRAZOLE 40 MG TABLET PO SCH ×2 (08:56→20:12)
[2019-04-19] MEDS: INSULIN NPH/REGULAR 70/30 100 UNIT/ML SUBCUT SCH (08:58)
[2019-04-19] MEDS ORDERED: IRON SUCROSE 200 MG in SODIUM CHLORIDE 0.9% 100 ML IV ONE (09:30)
[2019-04-19] MEDS ORDERED: INSULIN NPH/REGULAR 70/30 100 UNIT/ML SUBCUT SCH (16:30)
[2019-04-20] MEDS: HEPARIN 5,000 UNIT/1 ML VIAL SUBCUT SCH (02:06)
[2019-04-20 05:06] LABS: Basophils % 0.3 % (0.0-0.8); Eosinophils # 0.2 10*3/uL (0.0-0.87); Eosinophils % 2.5 % (0.00-10.9); Hematocrit 23.7 VOL% (35.7-47.0); Hemoglobin 7.1 GM/DL (12.0-16.0); Immature Granulocytes % 0.8 %; Immature Granulocytes Absolute 0.06 #; Lymphocytes # 1.8 10*3/uL (1.4-4.0); Lymphocytes % 23.4 % (21.3-54.2); Mean Corpuscular Volume 79.3 FL (87-102); Mean Platelet Volume 11.4 FL (9.6-12.0); NRBC # 0.02 10*3/uL; Platelet Count 276 T/CUMM (130-400); Red Blood Count 2.99 MC/CUMM (3.8-5.5); Red Cell Distribution Width 18.2 % (9.3-17.3); White Blood Count 7.6 T/CUMM (4-12)
[2019-04-20] MEDS: PANTOPRAZOLE 40 MG TABLET PO SCH (06:10)
[2019-04-20] MEDS: INSULIN LISPRO 100 UNIT/ML SUBCUT SCH ×2 (08:32→11:07)
[2019-04-20] MEDS: ASCORBIC ACID 500 MG TABLET PO SCH (09:05)
[2019-04-20] MEDS: amLODIPine 10 MG TABLET PO SCH (09:06)
[2019-04-20] MEDS: METOCLOPRAMIDE 10 MG/10 ML UDCUP PO SCH ×2 (09:07→11:07)
[2019-04-20] MEDS: INSULIN NPH/REGULAR 70/30 100 UNIT/ML SUBCUT SCH (11:00)
[2019-04-20 12:19] VITALS: BP 139/83
== END 2019-04-20 14:20 | disposition home or self-care (01) | DRG 638 ==
LOC: N.ED 10:08 → N.EDINP 12:07 → N.CC 14:47 → N.4E 04-18 10:45
PROVIDERS: ADMIT Internal Medicine; ATTEND Internal Medicine

== ENCOUNTER 2019-10-20 10:30 | Inpatient (IN) ==
[2019-10-20 11:33] LABS: Basophils % 0.1 % (0.0-0.8); Eosinophils % 0.4 % (0.00-10.9); Immature Granulocytes % 0.9 %; Immature Granulocytes Absolute 0.07 #; Lymphocytes # 0.8 10*3/uL (1.4-4.0); Lymphocytes % 10.2 % (21.3-54.2); Mean Corpuscular HGB Conc 24.7 GM/DL (32-36); Mean Corpuscular Volume 64.2 FL (87-102); Monocytes % 8.1 % (1.7-12.7); NRBC # 0.27 10*3/uL; Neutrophils % 80.3 % (38.7-73.9); Osmolality,Calculated 315.7 MOS/KG (273-304); Platelet Count 363 T/CUMM (130-400); Red Blood Count 2.46 MC/CUMM (3.8-5.5); Red Cell Distribution Width 22.2 % (9.3-17.3); White Blood Count 8.1 T/CUMM (4-12)
[2019-10-20 11:37] LABS: Hematocrit 15.8 VOL% (35.7-47.0); Hemoglobin 3.9 GM/DL (12.0-16.0)
[2019-10-20 11:40] LABS: Burr Cells Slight; Hypochromasia 2+; Ovalocytes Slight; Platelet Estimate Adequate
[2019-10-20 11:41] LABS: Microcytosis Slight
[2019-10-20] MEDS ORDERED: INSULIN REGULAR 100 UNIT/ML IV STA (11:52)
[2019-10-20 12:32] LABS: Albumin 2.8 G/DL (3.4-5.0); Bilirubin,Total 1.1 MG/DL (0.2-1.0); Osmolality,Calculated 317.5 MOS/KG (273-304); Total Protein 6.9 G/DL (6.4-8.3)
[2019-10-20] MEDS ORDERED: hydrALAZINE 20 MG/1 ML VIAL IV PRN (12:38)
[2019-10-20] MEDS ORDERED: DEXTROSE 50% 25 GM/50 ML VIAL IV PRN ×2 (12:38)
[2019-10-20] MEDS ORDERED: guaiFENesin/DM ER 600-30 MG TABLET PO PRN (12:38)
[2019-10-20] MEDS ORDERED: ZALEPLON 5 MG CAPSULE PO PRN (12:38)
[2019-10-20] MEDS ORDERED: GLUCAGON 1 MG VIAL IM PRN (12:38)
[2019-10-20] MEDS ORDERED: SODIUM CHLORIDE 0.9% 1,000 ML IV PRN (12:38)
[2019-10-20] MEDS ORDERED: SIMETHICONE CHEW 125 MG TABLET PO PRN (12:38)
[2019-10-20] MEDS ORDERED: BISACODYL 5 MG TABLET PO PRN (12:38)
[2019-10-20] MEDS ORDERED: ONDANSETRON 4 MG/2 ML VIAL IV PRN (12:38)
[2019-10-20] MEDS ORDERED: LACTULOSE 20 GM/30 ML UDCUP PO PRN (12:38)
[2019-10-20] MEDS ORDERED: traZODone 50 MG TABLET PO PRN (12:38)
[2019-10-20] MEDS ORDERED: ACETAMINOPHEN 325 MG TABLET PO PRN (12:38)
[2019-10-20] MEDS ORDERED: SODIUM POLYSTYRENE SULFATE 15 GM/60 ML BOTTLE PO STA (12:52)
[2019-10-20] MEDS ORDERED: FUROSEMIDE 40 MG/4 ML VIAL IV SCH (13:00)
[2019-10-20] MEDS: FUROSEMIDE 40 MG/4 ML VIAL IV SCH ×2 (13:48→21:02)
[2019-10-20] MEDS: HEPARIN 5,000 UNIT/1 ML VIAL SUBCUT SCH ×2 (13:48→21:03)
[2019-10-20] MEDS: diphenhydrAMINE CAP 25 MG CAPSULE PO PRN (16:15)
[2019-10-20] MEDS: INSULIN REGULAR 100 UNIT/ML SUBCUT SCH ×2 (16:21→21:05)
[2019-10-20] MEDS: CALCIUM (CARBONATE)/VITAMIN D 500 MG-200 UNIT TABLET PO SCH ×2 (17:06→21:03)
[2019-10-20] MEDS: SODIUM BICARBONATE 650 MG TABLET PO SCH (21:04)
[2019-10-21] MEDS: HEPARIN 5,000 UNIT/1 ML VIAL SUBCUT SCH ×4 (02:32→20:56)
[2019-10-21] MEDS: FUROSEMIDE 40 MG/4 ML VIAL IV SCH ×4 (06:02→21:16)
[2019-10-21] MEDS: diphenhydrAMINE CAP 25 MG CAPSULE PO PRN ×2 (06:02→16:37)
[2019-10-21 06:27] LABS: Basophils # 0.1 10*3/uL (0.0-0.2); Basophils % 0.5 % (0.0-0.8); Eosinophils # 0.2 10*3/uL (0.0-0.87); Eosinophils % 1.6 % (0.00-10.9); Hematocrit 23.4 VOL% (35.7-47.0); Hemoglobin 6.7 GM/DL (12.0-16.0); Immature Granulocytes % 0.8 %; Immature Granulocytes Absolute 0.08 #; Lymphocytes # 1.2 10*3/uL (1.4-4.0); Lymphocytes % 11.7 % (21.3-54.2); Mean Corpuscular HGB Conc 28.6 GM/DL (32-36); Mean Corpuscular Volume 73.1 FL (87-102); Monocytes % 8.3 % (1.7-12.7); NRBC # 0.45 10*3/uL; Neutrophils % 77.1 % (38.7-73.9); Platelet Count 337 T/CUMM (130-400); Red Cell Distribution Width 27.9 % (9.3-17.3); White Blood Count 10.1 T/CUMM (4-12)
[2019-10-21 06:28] LABS: % Iron Saturation 5.8 % (18-50); Albumin 2.7 G/DL (3.4-5.0); Bilirubin,Direct 0.41 MG/DL (0.0-0.20); Bilirubin,Indirect 0.6 MG/DL (0.0-1.0); Ferritin 11.1 ng/ml (8-252); Total Protein 6.6 G/DL (6.4-8.3)
[2019-10-21 06:33] LABS: Parathyroid Hormone Intact 904.3 PG/ML (18.4-80.1); Risk Ratio 1.91; Thyroid Stimulating Hormone 3.89 uIU/ml (0.358-3.74)
[2019-10-21 07:35] LABS: Sedimentation Rate-Westergren 40 MM/HR (0-30)
[2019-10-21] MEDS ORDERED: hydrOXYzine HCL 10 MG TABLET PO PRN (08:49)
[2019-10-21] MEDS ORDERED: EPOETIN ALFA-EPBX 10,000 UNIT/ML VIAL SUBCUT ONE (09:00)
[2019-10-21 09:30] LABS: Folate 8.2 NG/ML (5.4-24.0); Vitamin B12 > 2000 PG/ML (211-911)
[2019-10-21] MEDS: CALCIUM (CARBONATE)/VITAMIN D 500 MG-200 UNIT TABLET PO SCH ×5 (09:41→20:57)
[2019-10-21] MEDS: INSULIN REGULAR 100 UNIT/ML SUBCUT SCH ×4 (09:41→20:56)
[2019-10-21] MEDS: SODIUM BICARBONATE 650 MG TABLET PO SCH ×4 (09:41→20:57)
[2019-10-21] MEDS: PANTOPRAZOLE 40 MG TABLET PO SCH (09:42)
[2019-10-21] MEDS: IRON SUCROSE 200 MG in SODIUM CHLORIDE 0.9% 100 ML IV SCH (09:43)
[2019-10-21] MEDS: INSULIN NPH/REGULAR 70/30 100 UNIT/ML SUBCUT SCH ×2 (09:43→20:56)
[2019-10-21] MEDS: HYDROCORTISONE 2.5% CREAM 30 GM TUBE TOP PRN (10:05)
[2019-10-21] MEDS: calcitrioL 0.25 MCG CAPSULE PO SCH (18:22)
[2019-10-21] MEDS: SEVELAMER CARBONATE 800 MG TABLET PO SCH (18:22)
[2019-10-21] MEDS: FUROSEMIDE 80 MG TABLET PO SCH (22:05)
[2019-10-22 04:13] LABS: Basophils % 0.2 % (0.0-0.8); Eosinophils # 0.2 10*3/uL (0.0-0.87); Eosinophils % 1.6 % (0.00-10.9); Hematocrit 24.8 VOL% (35.7-47.0); Hemoglobin 7.1 GM/DL (12.0-16.0); Immature Granulocytes % 1.7 %; Immature Granulocytes Absolute 0.21 #; Lymphocytes # 0.8 10*3/uL (1.4-4.0); Lymphocytes % 6.6 % (21.3-54.2); Mean Corpuscular HGB Conc 28.6 GM/DL (32-36); Mean Corpuscular Volume 72.9 FL (87-102); Monocytes % 8.1 % (1.7-12.7); NRBC # 0.49 10*3/uL; Neutrophils % 81.8 % (38.7-73.9); Platelet Count 339 T/CUMM (130-400); White Blood Count 12.6 T/CUMM (4-12)
[2019-10-22 04:17] LABS: Osmolality,Calculated 310.7 MOS/KG (273-304)
[2019-10-22 04:18] LABS: Calcium 5.4 MG/DL (8.5-10.1)
[2019-10-22 04:28] LABS: Albumin 2.5 G/DL (3.4-5.0); Bilirubin,Direct 0.25 MG/DL (0.0-0.20); Bilirubin,Indirect 0.5 MG/DL (0.0-1.0); Bilirubin,Total 0.7 MG/DL (0.2-1.0); Total Protein 6.5 G/DL (6.4-8.3)
[2019-10-22 04:32] LABS: Hypochromasia 2+; Platelet Estimate Adequate
[2019-10-22 04:33] LABS: Burr Cells Slight; Microcytosis Slight; Ovalocytes Slight
[2019-10-22] MEDS: HEPARIN 5,000 UNIT/1 ML VIAL SUBCUT SCH ×3 (05:01→21:43)
[2019-10-22] MEDS: FUROSEMIDE 80 MG TABLET PO SCH ×3 (05:22→21:41)
[2019-10-22] MEDS ORDERED: CALCIUM GLUCONATE 2,000 MG in SODIUM CHLORIDE 0.9% 100 ML IV ONE (07:00)
[2019-10-22] MEDS: INSULIN NPH/REGULAR 70/30 100 UNIT/ML SUBCUT SCH ×2 (08:49→20:09)
[2019-10-22] MEDS: PANTOPRAZOLE 40 MG TABLET PO SCH (08:50)
[2019-10-22] MEDS: SEVELAMER CARBONATE 800 MG TABLET PO SCH ×3 (08:50→16:50)
[2019-10-22] MEDS: INSULIN REGULAR 100 UNIT/ML SUBCUT SCH ×4 (08:50→20:09)
[2019-10-22] MEDS: SODIUM BICARBONATE 650 MG TABLET PO SCH ×4 (08:50→21:44)
[2019-10-22] MEDS: CALCIUM (CARBONATE)/VITAMIN D 500 MG-200 UNIT TABLET PO SCH ×4 (08:50→21:41)
[2019-10-22] MEDS: calcitrioL 0.25 MCG CAPSULE PO SCH (08:52)
[2019-10-22 09:38] LABS: Hemoglobin A1 (Alkaline) 97.4 % (96.5-98.5); Hemoglobin A2 (Alkaline) 2.6 % (1.5-3.5)
[2019-10-22] MEDS: IRON SUCROSE 200 MG in SODIUM CHLORIDE 0.9% 100 ML IV SCH (10:39)
[2019-10-22] MEDS: HYDROCORTISONE 2.5% CREAM 30 GM TUBE TOP PRN (14:35)
[2019-10-22] MEDS: diphenhydrAMINE CAP 25 MG CAPSULE PO PRN (16:49)
[2019-10-22] MEDS: DOCUSATE SODIUM 100 MG CAPSULE PO SCH (21:42)
[2019-10-22] MEDS: POLYETHYLENE GLYCOL POWDER 17 GM PACK PO SCH (21:44)
[2019-10-23] MEDS: diphenhydrAMINE CAP 25 MG CAPSULE PO PRN (01:03)
[2019-10-23] MEDS: HEPARIN 5,000 UNIT/1 ML VIAL SUBCUT SCH (05:09)
[2019-10-23 05:35] LABS: Basophils % 0.2 % (0.0-0.8); Eosinophils # 0.2 10*3/uL (0.0-0.87); Eosinophils % 1.3 % (0.00-10.9); Hematocrit 24.7 VOL% (35.7-47.0); Hemoglobin 6.9 GM/DL (12.0-16.0); Immature Granulocytes Absolute 0.25 #; Lymphocytes # 1.2 10*3/uL (1.4-4.0); Lymphocytes % 9.6 % (21.3-54.2); Mean Corpuscular HGB Conc 27.9 GM/DL (32-36); Mean Corpuscular Volume 74.6 FL (87-102); Monocytes % 10.4 % (1.7-12.7); NRBC # 0.32 10*3/uL; Neutrophils % 76.5 % (38.7-73.9); Platelet Count 331 T/CUMM (130-400); Red Blood Count 3.31 MC/CUMM (3.8-5.5); Red Cell Distribution Width 29.8 % (9.3-17.3); White Blood Count 12.7 T/CUMM (4-12)
[2019-10-23 05:51] LABS: Albumin 2.2 G/DL (3.4-5.0); Bilirubin,Direct 0.23 MG/DL (0.0-0.20); Bilirubin,Indirect 0.4 MG/DL (0.0-1.0); Bilirubin,Total 0.6 MG/DL (0.2-1.0); Total Protein 6.2 G/DL (6.4-8.3)
[2019-10-23 06:08] LABS: Hypochromasia 2+; Ovalocytes Slight; Platelet Estimate Adequate
[2019-10-23 06:09] LABS: Microcytosis Slight
[2019-10-23] MEDS: FUROSEMIDE 80 MG TABLET PO SCH (08:53)
[2019-10-23] MEDS: DOCUSATE SODIUM 100 MG CAPSULE PO SCH (08:53)
[2019-10-23] MEDS: PANTOPRAZOLE 40 MG TABLET PO SCH (08:53)
[2019-10-23] MEDS: SEVELAMER CARBONATE 800 MG TABLET PO SCH ×2 (08:54→12:04)
[2019-10-23] MEDS: CALCIUM (CARBONATE)/VITAMIN D 500 MG-200 UNIT TABLET PO SCH (08:54)
[2019-10-23] MEDS: SODIUM BICARBONATE 650 MG TABLET PO SCH (08:55)
[2019-10-23] MEDS: INSULIN NPH/REGULAR 70/30 100 UNIT/ML SUBCUT SCH (08:55)
[2019-10-23] MEDS: IRON SUCROSE 200 MG in SODIUM CHLORIDE 0.9% 100 ML IV SCH (08:55)
[2019-10-23] MEDS: INSULIN REGULAR 100 UNIT/ML SUBCUT SCH ×2 (08:55→12:12)
[2019-10-23] MEDS: POLYETHYLENE GLYCOL POWDER 17 GM PACK PO SCH (08:56)
[2019-10-23] MEDS ORDERED: calcitrioL 0.25 MCG CAPSULE PO SCH (09:00)
[2019-10-23 13:10] VITALS: BP 155/86
== END 2019-10-23 14:30 | disposition home or self-care (01) | DRG 682 ==
LOC: N.ED 10:30 → N.EDINP 12:38 → N.2E 13:46
PROVIDERS: ADMIT Hospitalist; ATTEND Hospitalist

== ENCOUNTER 2019-11-21 15:15 | Observation (INO) ==
[2019-11-21] MEDS ORDERED: SODIUM CHLORIDE 0.9% 500 ML IV STA (17:23)
[2019-11-21 17:51] LABS: Basophils % 0.5 % (0.0-0.8); Eosinophils # 0.1 10*3/uL (0.0-0.87); Eosinophils % 0.8 % (0.00-10.9); Hematocrit 27.3 VOL% (35.7-47.0); Hemoglobin 7.8 GM/DL (12.0-16.0); Immature Granulocytes % 0.5 %; Immature Granulocytes Absolute 0.03 #; Lymphocytes # 0.9 10*3/uL (1.4-4.0); Lymphocytes % 14.9 % (21.3-54.2); Mean Corpuscular HGB Conc 28.6 GM/DL (32-36); Mean Corpuscular Volume 80.1 FL (87-102); Monocytes % 7.7 % (1.7-12.7); NRBC # 0.04 10*3/uL; Neutrophils % 75.6 % (38.7-73.9); Platelet Count 329 T/CUMM (130-400); Red Blood Count 3.41 MC/CUMM (3.8-5.5); Red Cell Distribution Width 27.3 % (9.3-17.3)
[2019-11-21 17:57] LABS: Albumin 2.9 G/DL (3.4-5.0); Bilirubin,Total 0.5 MG/DL (0.2-1.0); Osmolality,Calculated 316.5 MOS/KG (273-304); Total Protein 7.2 G/DL (6.4-8.3)
[2019-11-21 18:02] LABS: Calcium 5.5 MG/DL (8.5-10.1)
[2019-11-21] MEDS ORDERED: INSULIN REGULAR 100 UNIT/ML IV STA ×2 (18:09→19:40)
[2019-11-21] MEDS ORDERED: INSULIN LISPRO 100 UNIT/ML SUBCUT STA (18:10)
[2019-11-21] MEDS ORDERED: DEXTROSE 50% 25 GM/50 ML VIAL IV PRN (20:05)
[2019-11-21] MEDS ORDERED: GLUCAGON 1 MG VIAL IM PRN (20:05)
[2019-11-21] MEDS ORDERED: ONDANSETRON 4 MG/2 ML VIAL IV PRN (20:10)
[2019-11-21] MEDS ORDERED: hydrALAZINE 20 MG/1 ML VIAL IV PRN (20:10)
[2019-11-21] MEDS ORDERED: NICOTINE 21 MG/24 HR PATCH TRANSDERM PRN (20:10)
[2019-11-21] MEDS ORDERED: ACETAMINOPHEN 325 MG TABLET PO PRN (20:10)
[2019-11-21] MEDS ORDERED: PROMETHAZINE 25 MG TABLET PO PRN (20:27)
[2019-11-21] MEDS ORDERED: HYDROCORTISONE 2.5% CREAM 30 GM TUBE TOP PRN (22:00)
[2019-11-21] MEDS: INSULIN NPH/REGULAR 70/30 100 UNIT/ML SUBCUT SCH (22:04)
[2019-11-21] MEDS: MORPHINE 4 MG/1 ML VIAL IV PRN (22:21)
[2019-11-21] MEDS: FUROSEMIDE 80 MG TABLET PO SCH (22:22)
[2019-11-21] MEDS: CALCIUM (CARBONATE)/VITAMIN D 500 MG-200 UNIT TABLET PO SCH (22:22)
[2019-11-21] MEDS: SODIUM BICARBONATE 650 MG TABLET PO SCH (22:22)
[2019-11-22] MEDS: INSULIN REGULAR 100 UNIT/ML SUBCUT SCH ×5 (00:11→20:19)
[2019-11-22] MEDS: MORPHINE 4 MG/1 ML VIAL IV PRN ×3 (01:22→22:50)
[2019-11-22] MEDS: hydrOXYzine HCL 10 MG TABLET PO PRN ×2 (03:17→12:35)
[2019-11-22] MEDS: FUROSEMIDE 80 MG TABLET PO SCH ×3 (05:28→21:21)
[2019-11-22 06:02] LABS: Basophils % 0.4 % (0.0-0.8); Eosinophils # 0.3 10*3/uL (0.0-0.87); Eosinophils % 3.6 % (0.00-10.9); Hematocrit 25.8 VOL% (35.7-47.0); Hemoglobin 7.5 GM/DL (12.0-16.0); Immature Granulocytes % 0.3 %; Immature Granulocytes Absolute 0.02 #; Lymphocytes # 1.5 10*3/uL (1.4-4.0); Lymphocytes % 20.4 % (21.3-54.2); Mean Corpuscular HGB Conc 29.1 GM/DL (32-36); Mean Corpuscular Volume 77.2 FL (87-102); Monocytes % 10.2 % (1.7-12.7); NRBC # 0.02 10*3/uL; Neutrophils % 65.1 % (38.7-73.9); Platelet Count 298 T/CUMM (130-400); Red Blood Count 3.34 MC/CUMM (3.8-5.5); Red Cell Distribution Width 26.8 % (9.3-17.3); White Blood Count 7.2 T/CUMM (4-12)
[2019-11-22 06:43] LABS: Anisocytosis 1+; Hypochromasia 1+; Microcytosis 1+; Ovalocytes Few; Polychromasia Slight; Target Cells Slight
[2019-11-22 06:44] LABS: Acanthocytes Few; Platelet Estimate Normal
[2019-11-22 06:51] LABS: Albumin 2.5 G/DL (3.4-5.0); Osmolality,Calculated 300.5 MOS/KG (273-304); Total Protein 6.4 G/DL (6.4-8.3)
[2019-11-22 06:56] LABS: Calcium 5.7 MG/DL (8.5-10.1)
[2019-11-22] MEDS ORDERED: CALCIUM GLUCONATE 2,000 MG in SODIUM CHLORIDE 0.9% 100 ML IV ONE ×2 (08:00→10:25)
[2019-11-22] MEDS: SEVELAMER CARBONATE 800 MG TABLET PO SCH ×3 (09:11→16:21)
[2019-11-22] MEDS: CALCIUM (CARBONATE)/VITAMIN D 500 MG-200 UNIT TABLET PO SCH ×4 (09:11→20:18)
[2019-11-22] MEDS: SODIUM BICARBONATE 650 MG TABLET PO SCH ×3 (09:12→20:19)
[2019-11-22] MEDS: PANTOPRAZOLE 40 MG TABLET PO SCH (09:12)
[2019-11-22] MEDS: INSULIN NPH/REGULAR 70/30 100 UNIT/ML SUBCUT SCH ×2 (09:18→20:19)
[2019-11-22] MEDS: IRON SUCROSE 200 MG in SODIUM CHLORIDE 0.9% 100 ML IV SCH (12:47)
[2019-11-23] MEDS: MORPHINE 4 MG/1 ML VIAL IV PRN ×2 (01:59→05:22)
[2019-11-23] MEDS: FUROSEMIDE 80 MG TABLET PO SCH (05:35)
[2019-11-23] MEDS: INSULIN REGULAR 100 UNIT/ML SUBCUT SCH ×2 (08:27→11:11)
[2019-11-23] MEDS ORDERED: POLYETHYLENE GLYCOL POWDER 17 GM PACK PO SCH (09:00)
[2019-11-23] MEDS: CALCIUM (CARBONATE)/VITAMIN D 500 MG-200 UNIT TABLET PO SCH (09:01)
[2019-11-23] MEDS: SEVELAMER CARBONATE 800 MG TABLET PO SCH ×2 (09:01→11:12)
[2019-11-23] MEDS: PANTOPRAZOLE 40 MG TABLET PO SCH (09:01)
[2019-11-23] MEDS: IRON SUCROSE 200 MG in SODIUM CHLORIDE 0.9% 100 ML IV SCH (09:02)
[2019-11-23] MEDS: SODIUM BICARBONATE 650 MG TABLET PO SCH (09:02)
[2019-11-23] MEDS: INSULIN NPH/REGULAR 70/30 100 UNIT/ML SUBCUT SCH (09:03)
[2019-11-23 11:09] LABS: Basophils % 0.4 % (0.0-0.8); Hematocrit 27.5 VOL% (35.7-47.0); Neutrophils % 75.2 % (38.7-73.9)
[2019-11-23 11:14] LABS: Eosinophils # 0.2 10*3/uL (0.0-0.87); Eosinophils % 3.1 % (0.00-10.9); Immature Granulocytes % 0.3 %; Immature Granulocytes Absolute 0.02 #; Lymphocytes # 0.8 10*3/uL (1.4-4.0); Lymphocytes % 11.5 % (21.3-54.2); Mean Corpuscular HGB Conc 29.1 GM/DL (32-36); Mean Corpuscular Volume 77.9 FL (87-102); Monocytes % 9.5 % (1.7-12.7); NRBC # 0.04 10*3/uL; Platelet Count 300 T/CUMM (130-400); Red Blood Count 3.53 MC/CUMM (3.8-5.5); Red Cell Distribution Width 27.2 % (9.3-17.3); White Blood Count 7.3 T/CUMM (4-12)
[2019-11-23] MEDS: hydrOXYzine HCL 10 MG TABLET PO PRN (11:15)
[2019-11-23 11:37] LABS: Alanine Aminotransferase 30 U/L (13-56); Albumin 2.6 G/DL (3.4-5.0); Alkaline Phosphatase 170 U/L (45-117); Aspartate Amino Transferase 20 U/L (0-37); Bilirubin,Total < 0.39 MG/DL (0.2-1.0); Blood Urea Nitrogen 75 MG/DL (7-18); Calcium 6.3 MG/DL (8.5-10.1); Estimated Glom Filtration Rate 5 ML/MIN; Glucose 188 MG/DL (74-106); Osmolality,Calculated 305.4 MOS/KG (273-304); Total Protein 6.5 G/DL (6.4-8.3)
[2019-11-23 11:59] LABS: Hypochromasia 2+
[2019-11-23 12:00] LABS: Microcytosis 1+; Ovalocytes Few; Polychromasia Slight
[2019-11-23 12:01] LABS: Acanthocytes Few; Platelet Estimate Normal
[2019-11-23 12:21] VITALS: BP 111/75
== END 2019-11-23 12:56 | disposition home or self-care (01) ==
LOC: N.ED 15:15 → N.EDINP 15:15 → N.TELEN 21:19
PROVIDERS: ADMIT Emergency Medicine; ATTEND Emergency Medicine

== ENCOUNTER 2020-01-20 09:32 | Inpatient (IN) ==
[2020-01-20] MEDS ORDERED: cloNIDine 0.1 MG TABLET PO STA (10:02)
[2020-01-20 10:21] LABS: Basophils % 0.5 % (0.0-0.8); Eosinophils # 0.1 10*3/uL (0.0-0.87); Eosinophils % 1.8 % (0.00-10.9); Hematocrit 29.8 VOL% (35.7-47.0); Hemoglobin 8.6 GM/DL (12.0-16.0); Immature Granulocytes % 0.3 %; Immature Granulocytes Absolute 0.02 #; Lymphocytes # 0.8 10*3/uL (1.4-4.0); Lymphocytes % 12.9 % (21.3-54.2); Mean Corpuscular HGB Conc 28.9 GM/DL (32-36); Mean Corpuscular Volume 77.8 FL (87-102); Mean Platelet Volume 10.5 FL (9.6-12.0); Monocytes % 8.3 % (1.7-12.7); Neutrophils % 76.2 % (38.7-73.9); Platelet Count 360 T/CUMM (130-400); Red Blood Count 3.83 MC/CUMM (3.8-5.5); Red Cell Distribution Width 22.8 % (9.3-17.3); White Blood Count 6.1 T/CUMM (4-12)
[2020-01-20 10:46] LABS: Hypochromasia 2+
[2020-01-20 10:47] LABS: Acanthocytes Few; Anisocytosis 1+; Microcytosis 1+; Ovalocytes Few; Platelet Estimate Normal; Poikilocytosis 1+; Target Cells Few
[2020-01-20 10:48] LABS: Alanine Aminotransferase 31 U/L (13-56); Albumin 2.7 G/DL (3.4-5.0); Alkaline Phosphatase 142 U/L (45-117); Aspartate Amino Transferase 29 U/L (0-37); Bilirubin,Total < 0.39 MG/DL (0.2-1.0); Blood Urea Nitrogen 100 MG/DL (7-18); Calcium 6.3 MG/DL (8.5-10.1); Estimated Glom Filtration Rate 4 ML/MIN; Glucose 164 MG/DL (74-106); Osmolality,Calculated 315.3 MOS/KG (273-304); Total Protein 6.7 G/DL (6.4-8.3)
[2020-01-20] MEDS ORDERED: BUPIVACAINE MPF 0.25% 30 ML VIAL ONE (12:09)
[2020-01-20] MEDS ORDERED: LIDOCAINE 1%/EPI INJ 20 ML VIAL ONE (12:09)
[2020-01-20] MEDS ORDERED: DEXMEDETOMIDINE 200 MCG/2 ML VIAL ONE (12:20)
[2020-01-20] MEDS ORDERED: CLINDAMYCIN 600 MG/4 ML VIAL ONE (12:52)
[2020-01-20] MEDS ORDERED: MIDAZOLAM 2 MG/2 ML VIAL ONE (13:14)
[2020-01-20 16:10] LABS: Hepatitis B Core IgM Quant 0.09 Index; Hepatitis B Surface Ag Quant < 0.10 Index; Hepatitis B Surface Ag Result Negative (Negative); Hepatitis C Virus Ab Quant 0.11 Index; Hepatitis C Virus Ab Result Negative (Negative)
[2020-01-20] MEDS ORDERED: GLUCAGON 1 MG VIAL IM PRN (16:44)
[2020-01-20] MEDS ORDERED: NICOTINE 21 MG/24 HR PATCH TRANSDERM PRN (16:44)
[2020-01-20] MEDS ORDERED: ACETAMINOPHEN 325 MG TABLET PO PRN (16:44)
[2020-01-20] MEDS ORDERED: CALCIUM CARBONATE CHEW 500 MG TABLET PO PRN (16:44)
[2020-01-20] MEDS ORDERED: DOCUSATE SODIUM 100 MG CAPSULE PO PRN (16:44)
[2020-01-20] MEDS ORDERED: MORPHINE 4 MG/1 ML VIAL IV PRN (16:44)
[2020-01-20] MEDS ORDERED: SIMETHICONE CHEW 125 MG TABLET PO PRN (16:44)
[2020-01-20] MEDS ORDERED: DEXTROSE 50% 25 GM/50 ML SYRINGE IV PRN (16:44)
[2020-01-20] MEDS ORDERED: HEPARIN 10,000 UNIT/10 ML VIAL ONE (18:29)
[2020-01-20] MEDS ORDERED: HEPARIN 10,000 UNIT/10 ML VIAL IV SCH (18:45)
[2020-01-20] MEDS: HEPARIN 5,000 UNIT/1 ML VIAL SUBCUT SCH (20:52)
[2020-01-20] MEDS: INSULIN LISPRO 100 UNIT/ML SUBCUT SCH (20:55)
[2020-01-21] MEDS: HEPARIN 5,000 UNIT/1 ML VIAL SUBCUT SCH ×3 (04:13→21:36)
[2020-01-21 05:03] LABS: Basophils % 0.4 % (0.0-0.8); Eosinophils # 0.2 10*3/uL (0.0-0.87); Eosinophils % 2.1 % (0.00-10.9); Hematocrit 26.2 VOL% (35.7-47.0); Hemoglobin 7.7 GM/DL (12.0-16.0); Immature Granulocytes % 0.3 %; Immature Granulocytes Absolute 0.02 #; Lymphocytes % 13.4 % (21.3-54.2); Mean Corpuscular HGB Conc 29.4 GM/DL (32-36); Mean Corpuscular Volume 77.7 FL (87-102); Mean Platelet Volume 11.2 FL (9.6-12.0); Monocytes % 11.7 % (1.7-12.7); Neutrophils % 72.1 % (38.7-73.9); Red Blood Count 3.37 MC/CUMM (3.8-5.5); Red Cell Distribution Width 22.7 % (9.3-17.3); White Blood Count 7.3 T/CUMM (4-12)
[2020-01-21 05:07] LABS: Platelet Count 282 T/CUMM (130-400)
[2020-01-21 05:26] LABS: Hypochromasia 2+; Microcytosis 1+; Ovalocytes Slight; Platelet Estimate Adequate
[2020-01-21 05:36] LABS: Albumin 2.1 G/DL (3.4-5.0); Bilirubin,Total 0.9 MG/DL (0.2-1.0); Calcium 5.9 MG/DL (8.5-10.1); Osmolality,Calculated 312.5 MOS/KG (273-304); Risk Ratio 2.38; Thyroid Stimulating Hormone 2.23 uIU/ml (0.358-3.74); Total Protein 5.5 G/DL (6.4-8.3); VLDL CHOLESTEROL 24.8 MG/DL
[2020-01-21] MEDS: INSULIN LISPRO 100 UNIT/ML SUBCUT SCH ×4 (09:57→21:31)
[2020-01-21] MEDS ORDERED: HEPARIN 10,000 UNIT/10 ML VIAL ONE (10:23)
[2020-01-22] MEDS: HEPARIN 5,000 UNIT/1 ML VIAL SUBCUT SCH ×3 (05:29→21:11)
[2020-01-22 06:18] LABS: Basophils % 0.5 % (0.0-0.8); Eosinophils # 0.1 10*3/uL (0.0-0.87); Eosinophils % 2.1 % (0.00-10.9); Immature Granulocytes % 0.3 %; Immature Granulocytes Absolute 0.02 #; Lymphocytes # 0.9 10*3/uL (1.4-4.0); Lymphocytes % 14.7 % (21.3-54.2); Mean Corpuscular HGB Conc 29.6 GM/DL (32-36); Mean Corpuscular Volume 77.6 FL (87-102); Monocytes % 14.2 % (1.7-12.7); Neutrophils % 68.2 % (38.7-73.9); Platelet Count 244 T/CUMM (130-400); Red Blood Count 3.48 MC/CUMM (3.8-5.5); Red Cell Distribution Width 22.7 % (9.3-17.3); White Blood Count 6.1 T/CUMM (4-12)
[2020-01-22 06:29] LABS: Albumin 2.2 G/DL (3.4-5.0); Bilirubin,Total 0.4 MG/DL (0.2-1.0); Calcium 6.6 MG/DL (8.5-10.1); Osmolality,Calculated 306.3 MOS/KG (273-304); Total Protein 5.8 G/DL (6.4-8.3)
[2020-01-22 06:40] LABS: Hypochromasia 2+; Microcytosis 1+; Ovalocytes Slight; Platelet Estimate Adequate
[2020-01-22] MEDS ORDERED: METHOCARBAMOL 500 MG TABLET PO PRN (08:41)
[2020-01-22] MEDS ORDERED: ONDANSETRON 4 MG/2 ML VIAL IV PRN (08:57)
[2020-01-22] MEDS: INSULIN LISPRO 100 UNIT/ML SUBCUT SCH ×4 (09:19→21:05)
[2020-01-22] MEDS: CALCIUM CARBONATE CHEW 500 MG TABLET PO SCH ×2 (17:26→21:04)
[2020-01-23 05:14] LABS: Albumin 2.3 G/DL (3.4-5.0); Basophils % 0.4 % (0.0-0.8); Bilirubin,Total 0.5 MG/DL (0.2-1.0); Calcium 6.7 MG/DL (8.5-10.1); Eosinophils # 0.2 10*3/uL (0.0-0.87); Eosinophils % 2.2 % (0.00-10.9); Hematocrit 27.7 VOL% (35.7-47.0); Hemoglobin 8.2 GM/DL (12.0-16.0); Immature Granulocytes % 0.3 %; Immature Granulocytes Absolute 0.02 #; Lymphocytes # 1.3 10*3/uL (1.4-4.0); Lymphocytes % 18.9 % (21.3-54.2); Mean Corpuscular HGB Conc 29.6 GM/DL (32-36); Mean Corpuscular Volume 78.9 FL (87-102); Mean Platelet Volume 11.9 FL (9.6-12.0); Monocytes % 14.5 % (1.7-12.7); Neutrophils % 63.7 % (38.7-73.9); Osmolality,Calculated 303.3 MOS/KG (273-304); Platelet Count 299 T/CUMM (130-400); Red Blood Count 3.51 MC/CUMM (3.8-5.5); Red Cell Distribution Width 22.7 % (9.3-17.3); Total Protein 5.9 G/DL (6.4-8.3); White Blood Count 6.7 T/CUMM (4-12)
[2020-01-23 05:33] LABS: Hypochromasia 1+; Microcytosis Slight; Ovalocytes Slight; Platelet Estimate Adequate
[2020-01-23] MEDS: HEPARIN 5,000 UNIT/1 ML VIAL SUBCUT SCH ×2 (05:59→15:47)
[2020-01-23] MEDS: CALCIUM CARBONATE CHEW 500 MG TABLET PO SCH ×2 (08:34→15:47)
[2020-01-23] MEDS: INSULIN LISPRO 100 UNIT/ML SUBCUT SCH ×2 (08:34→12:55)
[2020-01-23] MEDS ORDERED: MULTIVITAMIN (CENTRUM) TABLET PO SCH (09:00)
[2020-01-23 11:27] VITALS: BP 162/99
[2020-01-23] MEDS ORDERED: HEPARIN 10,000 UNIT/10 ML VIAL ONE (13:46)
== END 2020-01-23 16:22 | disposition home or self-care (01) | DRG 291 ==
LOC: N.ED 09:32 → N.EDINP 12:33 → SUATTDRO 14:25 → N.5E 18:41
PROVIDERS: ADMIT Hospitalist; ATTEND Internal Medicine

== ENCOUNTER 2020-02-23 06:42 | Inpatient (IN) ==
[2020-02-23] MEDS ORDERED: ONDANSETRON 4 MG/2 ML VIAL IV STA (07:08)
[2020-02-23] MEDS ORDERED: METOPROLOL TARTRATE 5 MG/5 ML VIAL IV STA (07:09)
[2020-02-23] MEDS ORDERED: DEXAMETHASONE 4 MG/1 ML VIAL IV STA (08:27)
[2020-02-23] MEDS ORDERED: LEVOFLOXACIN INJ 500 MG in PREMIX 1 EACH IV STA (08:28)
[2020-02-23] MEDS ORDERED: ALBUTEROL 2.5 MG/3 ML NEB RESP TX PRN (08:29)
[2020-02-23] MEDS ORDERED: DILTIAZEM 50 MG/10 ML VIAL IV STA (08:32)
[2020-02-23] MEDS ORDERED: FAMOTIDINE 20 MG TABLET PO SCH (09:00)
[2020-02-23] MEDS ORDERED: dilTIAZem Drip 125 MG/125 ML PREMIX IV SCH (09:00)
[2020-02-23 09:17] LABS: Basophils % 0.3 % (0.0-0.8); Eosinophils % 0.1 % (0.00-10.9); Hematocrit 39.2 VOL% (35.7-47.0); Immature Granulocytes % 0.3 %; Immature Granulocytes Absolute 0.03 #; Lymphocytes # 0.3 10*3/uL (1.4-4.0); Mean Corpuscular HGB Conc 28.6 GM/DL (32-36); Mean Corpuscular Volume 86.7 FL (87-102); Mean Platelet Volume 11.4 FL (9.6-12.0); Monocytes % 5.2 % (1.7-12.7); Neutrophils % 91.1 % (38.7-73.9); Platelet Count 320 T/CUMM (130-400); Red Blood Count 4.52 MC/CUMM (3.8-5.5)
[2020-02-23 09:19] LABS: Hemoglobin 11.2 GM/DL (12.0-16.0)
[2020-02-23 09:39] LABS: Band Neutrophils 2 % (0-10); Hypochromasia 1+; Lymphocytes 2 % (20-55); Microcytosis Slight; Nucleated Red Blood Cells 1 (0-5); Ovalocytes Slight; Platelet Estimate Adequate; Segmented Neutrophils 89 % (50-85); Total Cells Counted 100
[2020-02-23] MEDS: DEXAMETHASONE 4 MG/1 ML VIAL IV SCH (09:44)
[2020-02-23 10:25] LABS: Albumin 2.7 G/DL (3.4-5.0); Bilirubin,Total 0.6 MG/DL (0.2-1.0); Calcium 7.4 MG/DL (8.5-10.1); Osmolality,Calculated 292.8 MOS/KG (273-304); Total Protein 6.8 G/DL (6.4-8.3)
[2020-02-23] MEDS ORDERED: SODIUM CHLORIDE 0.9% 1,000 ML IV PRN (11:15)
[2020-02-23] MEDS: ALBUTEROL INHALER 18 GM INH SCH ×2 (11:17→14:19)
[2020-02-23 11:28] LABS: ABG Base Excess 1.2 MMOL/L (-2.5-2.5); ABG HCO3 25.3 MMOL/L (20-26); ABG Oxygen Saturation 93.1 % (95-100); ABG PCO2 52.3 MM HG (35-48); ABG PH 7.334 (7.35-7.45); ABG PO2 75.7 MM HG (80-95); ABG TCO2 25.2 MMOL/L (23-27)
[2020-02-23] MEDS ORDERED: ENOXAPARIN 100 MG/ML SYRINGE SUBCUT SCH (12:30)
[2020-02-23] MEDS ORDERED: DEXTROSE 50% 25 GM/50 ML VIAL IV PRN (12:37)
[2020-02-23] MEDS: INSULIN LISPRO 100 UNIT/ML SUBCUT SCH ×3 (12:44→23:57)
[2020-02-23] MEDS: HEPARIN 5,000 UNIT/1 ML VIAL SUBCUT SCH ×2 (14:17→20:20)
[2020-02-23] MEDS: carvediloL 6.25 MG TABLET PO SCH (20:20)
[2020-02-23] MEDS: diphenhydrAMINE CAP 25 MG CAPSULE PO PRN (20:40)
[2020-02-24] MEDS: ONDANSETRON 4 MG/2 ML VIAL IV PRN (03:26)
[2020-02-24] MEDS: HEPARIN 5,000 UNIT/1 ML VIAL SUBCUT SCH ×3 (04:09→20:50)
[2020-02-24 04:31] LABS: Albumin 2.5 G/DL (3.4-5.0); Bilirubin,Total 0.6 MG/DL (0.2-1.0); Calcium 7.6 MG/DL (8.5-10.1); Total Protein 7.1 G/DL (6.4-8.3)
[2020-02-24 04:42] LABS: Basophils % 0.3 % (0.0-0.8); Eosinophils % 0.1 % (0.00-10.9); Hematocrit 40.3 VOL% (35.7-47.0); Hemoglobin 11.8 GM/DL (12.0-16.0); Immature Granulocytes % 0.3 %; Immature Granulocytes Absolute 0.02 #; Lymphocytes # 0.9 10*3/uL (1.4-4.0); Lymphocytes % 11.8 % (21.3-54.2); Mean Corpuscular HGB Conc 29.3 GM/DL (32-36); Mean Corpuscular Volume 85.4 FL (87-102); Monocytes % 9.7 % (1.7-12.7); Neutrophils % 77.8 % (38.7-73.9); Platelet Count 273 T/CUMM (130-400); Red Blood Count 4.72 MC/CUMM (3.8-5.5); Red Cell Distribution Width 25.9 % (9.3-17.3); White Blood Count 7.6 T/CUMM (4-12)
[2020-02-24 04:48] LABS: Hypochromasia Slight; Ovalocytes Slight; Platelet Estimate Adequate
[2020-02-24 04:49] LABS: Burr Cells Slight; Microcytosis Slight
[2020-02-24] MEDS: INSULIN LISPRO 100 UNIT/ML SUBCUT SCH ×4 (05:16→23:23)
[2020-02-24] MEDS: DEXAMETHASONE 4 MG/1 ML VIAL IV SCH (08:15)
[2020-02-24] MEDS: carvediloL 6.25 MG TABLET PO SCH ×2 (08:16→20:40)
[2020-02-24] MEDS: FAMOTIDINE 20 MG TABLET PO SCH (08:16)
[2020-02-24] MEDS: ALBUTEROL INHALER 18 GM INH SCH ×3 (09:10→20:04)
[2020-02-24 15:35] LABS: Hepatitis B Core IgM Quant 0.11 Index; Hepatitis B Surface Ag Quant < 0.10 Index; Hepatitis B Surface Ag Result Negative (Negative); Hepatitis C Virus Ab Quant 0.04 Index; Hepatitis C Virus Ab Result Negative (Negative)
[2020-02-24] MEDS: diphenhydrAMINE CAP 25 MG CAPSULE PO PRN (20:50)
[2020-02-25] MEDS: ALBUTEROL INHALER 18 GM INH SCH ×4 (01:05→19:28)
[2020-02-25 04:21] LABS: Basophils % 0.2 % (0.0-0.8); Eosinophils % 0.2 % (0.00-10.9); Hematocrit 35.1 VOL% (35.7-47.0); Hemoglobin 10.4 GM/DL (12.0-16.0); Immature Granulocytes % 0.3 %; Immature Granulocytes Absolute 0.02 #; Lymphocytes # 0.7 10*3/uL (1.4-4.0); Lymphocytes % 11.7 % (21.3-54.2); Mean Corpuscular HGB Conc 29.6 GM/DL (32-36); Mean Corpuscular Volume 85.8 FL (87-102); Mean Platelet Volume 11.4 FL (9.6-12.0); Monocytes % 8.8 % (1.7-12.7); Neutrophils % 78.8 % (38.7-73.9); Platelet Count 246 T/CUMM (130-400); Red Blood Count 4.09 MC/CUMM (3.8-5.5); Red Cell Distribution Width 25.1 % (9.3-17.3); White Blood Count 6.2 T/CUMM (4-12)
[2020-02-25] MEDS: HEPARIN 5,000 UNIT/1 ML VIAL SUBCUT SCH ×3 (04:38→22:15)
[2020-02-25 04:43] LABS: Osmolality,Calculated 292.7 MOS/KG (273-304)
[2020-02-25 04:47] LABS: Microcytosis Slight; Platelet Estimate Adequate
[2020-02-25] MEDS: INSULIN LISPRO 100 UNIT/ML SUBCUT SCH ×3 (06:01→17:22)
[2020-02-25] MEDS: DEXAMETHASONE 4 MG/1 ML VIAL IV SCH (08:01)
[2020-02-25] MEDS: carvediloL 6.25 MG TABLET PO SCH ×2 (08:02→22:15)
[2020-02-25] MEDS: FAMOTIDINE 20 MG TABLET PO SCH (08:02)
[2020-02-25] MEDS: ONDANSETRON 4 MG/2 ML VIAL IV PRN (15:51)
[2020-02-25] MEDS: ACETAMINOPHEN 500 MG TABLET PO PRN (17:59)
[2020-02-26] MEDS: ALBUTEROL INHALER 18 GM INH SCH ×4 (00:30→18:23)
[2020-02-26] MEDS: INSULIN LISPRO 100 UNIT/ML SUBCUT SCH ×4 (00:30→18:23)
[2020-02-26] MEDS: HEPARIN 5,000 UNIT/1 ML VIAL SUBCUT SCH ×3 (04:20→20:54)
[2020-02-26 06:13] LABS: Hematocrit 33.1 VOL% (35.7-47.0); Hemoglobin 9.7 GM/DL (12.0-16.0); Immature Granulocytes % 0.6 %; Immature Granulocytes Absolute 0.03 #; Lymphocytes # 0.5 10*3/uL (1.4-4.0); Lymphocytes % 8.7 % (21.3-54.2); Mean Corpuscular HGB Conc 29.3 GM/DL (32-36); Mean Corpuscular Volume 85.3 FL (87-102); Monocytes % 7.2 % (1.7-12.7); Neutrophils % 83.5 % (38.7-73.9); Platelet Count 181 T/CUMM (130-400); Red Blood Count 3.88 MC/CUMM (3.8-5.5); Red Cell Distribution Width 24.9 % (9.3-17.3); White Blood Count 5.3 T/CUMM (4-12)
[2020-02-26 06:30] LABS: Calcium 6.9 MG/DL (8.5-10.1); Osmolality,Calculated 290.5 MOS/KG (273-304)
[2020-02-26 06:36] LABS: Hypochromasia 1+
[2020-02-26 06:37] LABS: Microcytosis 1+; Ovalocytes Slight; Platelet Estimate Adequate
[2020-02-26] MEDS: FAMOTIDINE 20 MG TABLET PO SCH (08:30)
[2020-02-26] MEDS: DEXAMETHASONE 4 MG/1 ML VIAL IV SCH (08:30)
[2020-02-26] MEDS: carvediloL 6.25 MG TABLET PO SCH ×2 (08:35→20:30)
[2020-02-26] MEDS: ONDANSETRON 4 MG/2 ML VIAL IV PRN ×2 (11:20→17:59)
[2020-02-27] MEDS: INSULIN LISPRO 100 UNIT/ML SUBCUT SCH ×4 (00:52→17:00)
[2020-02-27] MEDS: ONDANSETRON 4 MG/2 ML VIAL IV PRN ×3 (01:25→22:05)
[2020-02-27] MEDS: ALBUTEROL INHALER 18 GM INH SCH ×4 (01:34→18:10)
[2020-02-27] MEDS: HEPARIN 5,000 UNIT/1 ML VIAL SUBCUT SCH ×3 (04:53→21:26)
[2020-02-27] MEDS: ACETAMINOPHEN 500 MG TABLET PO PRN (05:20)
[2020-02-27] MEDS: carvediloL 6.25 MG TABLET PO SCH ×2 (08:29→21:27)
[2020-02-27] MEDS: FAMOTIDINE 20 MG TABLET PO SCH (08:29)
[2020-02-27] MEDS: DEXAMETHASONE 4 MG/1 ML VIAL IV SCH (08:30)
[2020-02-28] MEDS: HEPARIN 5,000 UNIT/1 ML VIAL SUBCUT SCH ×3 (04:27→20:48)
[2020-02-28] MEDS: INSULIN LISPRO 100 UNIT/ML SUBCUT SCH ×5 (05:49→23:55)
[2020-02-28] MEDS: ALBUTEROL INHALER 18 GM INH SCH ×4 (06:05→18:10)
[2020-02-28 06:19] LABS: Hematocrit 32.5 VOL% (35.7-47.0); Hemoglobin 9.9 GM/DL (12.0-16.0); Immature Granulocytes % 0.4 %; Immature Granulocytes Absolute 0.02 #; Lymphocytes # 0.4 10*3/uL (1.4-4.0); Lymphocytes % 8.7 % (21.3-54.2); Mean Corpuscular HGB Conc 30.5 GM/DL (32-36); Mean Corpuscular Volume 81.3 FL (87-102); Monocytes % 4.7 % (1.7-12.7); NRBC # 0.03 10*3/uL; Neutrophils % 86.2 % (38.7-73.9); Platelet Count 158 T/CUMM (130-400); Red Cell Distribution Width 24.4 % (9.3-17.3); White Blood Count 4.7 T/CUMM (4-12)
[2020-02-28 06:35] LABS: Calcium 6.7 MG/DL (8.5-10.1); Osmolality,Calculated 295.4 MOS/KG (273-304)
[2020-02-28 07:06] LABS: Band Neutrophils 4 % (0-10); Lymphocytes 4 % (20-55); Nucleated Red Blood Cells 1 (0-5); Platelet Estimate Normal; Segmented Neutrophils 89 % (50-85); Total Cells Counted 100
[2020-02-28 07:07] LABS: Hypochromasia Slight; Microcytosis Slight
[2020-02-28] MEDS: carvediloL 6.25 MG TABLET PO SCH ×2 (08:03→20:48)
[2020-02-28] MEDS: FAMOTIDINE 20 MG TABLET PO SCH (08:18)
[2020-02-28] MEDS: DEXAMETHASONE 4 MG/1 ML VIAL IV SCH (08:18)
[2020-02-28] MEDS: ONDANSETRON 4 MG/2 ML VIAL IV PRN ×2 (08:26→19:35)
[2020-02-28] MEDS ORDERED: HEPARIN 10,000 UNIT/10 ML VIAL IV SCH (15:00)
[2020-02-29] MEDS: ONDANSETRON 4 MG/2 ML VIAL IV PRN ×4 (01:18→13:24)
[2020-02-29] MEDS: ALBUTEROL INHALER 18 GM INH SCH ×4 (01:24→18:11)
[2020-02-29] MEDS: INSULIN LISPRO 100 UNIT/ML SUBCUT SCH ×3 (05:25→17:43)
[2020-02-29] MEDS: HEPARIN 5,000 UNIT/1 ML VIAL SUBCUT SCH ×3 (05:25→21:17)
[2020-02-29 06:12] LABS: Basophils % 0.2 % (0.0-0.8); Hematocrit 35.1 VOL% (35.7-47.0); Hemoglobin 10.9 GM/DL (12.0-16.0); Immature Granulocytes % 0.2 %; Immature Granulocytes Absolute 0.01 #; Lymphocytes # 0.3 10*3/uL (1.4-4.0); Lymphocytes % 6.9 % (21.3-54.2); Mean Corpuscular HGB Conc 31.1 GM/DL (32-36); Mean Corpuscular Volume 80.5 FL (87-102); NRBC # 0.07 10*3/uL; Neutrophils % 88.7 % (38.7-73.9); Platelet Count 159 T/CUMM (130-400); Red Blood Count 4.36 MC/CUMM (3.8-5.5); Red Cell Distribution Width 24.5 % (9.3-17.3); White Blood Count 4.5 T/CUMM (4-12)
[2020-02-29 06:42] LABS: Calcium 6.6 MG/DL (8.5-10.1)
[2020-02-29 06:57] LABS: Hypochromasia 1+
[2020-02-29 06:58] LABS: Acanthocytes Few; Microcytosis 1+; Ovalocytes Slight; Polychromasia Slight
[2020-02-29 06:59] LABS: Anisocytosis 1+; Target Cells Slight
[2020-02-29 07:00] LABS: Platelet Estimate Adequate
[2020-02-29] MEDS: DEXAMETHASONE 4 MG/1 ML VIAL IV SCH (08:15)
[2020-02-29] MEDS: carvediloL 6.25 MG TABLET PO SCH ×2 (08:15→21:17)
[2020-02-29] MEDS: FAMOTIDINE 20 MG TABLET PO SCH (08:15)
[2020-02-29] MEDS: ACETAMINOPHEN 500 MG TABLET PO PRN (12:50)
[2020-02-29 15:23] LABS: ABG Base Excess -1.1 MMOL/L (-2.5-2.5); ABG HCO3 23.4 MMOL/L (20-26); ABG Oxygen Saturation 90.5 % (95-100); ABG PCO2 38.4 MM HG (35-48); ABG PH 7.395 (7.35-7.45); ABG PO2 68.8 MM HG (80-95); ABG TCO2 21.3 MMOL/L (23-27)
[2020-02-29] MEDS: diphenhydrAMINE CAP 25 MG CAPSULE PO PRN (15:52)
[2020-02-29] MEDS: DOXYCYCLINE HYCLATE INJ 100 MG in SODIUM CHLORIDE 0.9% 100 ML IV SCH (16:41)
[2020-03-01] MEDS: ONDANSETRON 4 MG/2 ML VIAL IV PRN ×4 (00:14→18:45)
[2020-03-01] MEDS: INSULIN LISPRO 100 UNIT/ML SUBCUT SCH ×4 (00:20→19:00)
[2020-03-01] MEDS: ALBUTEROL INHALER 18 GM INH SCH ×4 (00:21→19:01)
[2020-03-01] MEDS: HEPARIN 5,000 UNIT/1 ML VIAL SUBCUT SCH ×3 (03:57→20:35)
[2020-03-01] MEDS: DOXYCYCLINE HYCLATE INJ 100 MG in SODIUM CHLORIDE 0.9% 100 ML IV SCH ×2 (04:02→16:40)
[2020-03-01 06:18] LABS: Hematocrit 33.8 VOL% (35.7-47.0); Hemoglobin 10.5 GM/DL (12.0-16.0); Immature Granulocytes % 0.2 %; Immature Granulocytes Absolute 0.01 #; Lymphocytes # 0.3 10*3/uL (1.4-4.0); Lymphocytes % 5.8 % (21.3-54.2); Mean Corpuscular HGB Conc 31.1 GM/DL (32-36); Mean Corpuscular Volume 79.9 FL (87-102); Monocytes % 3.9 % (1.7-12.7); NRBC # 0.03 10*3/uL; Neutrophils % 90.1 % (38.7-73.9); Platelet Count 170 T/CUMM (130-400); Red Blood Count 4.23 MC/CUMM (3.8-5.5); Red Cell Distribution Width 23.9 % (9.3-17.3); White Blood Count 4.9 T/CUMM (4-12)
[2020-03-01 06:35] LABS: Calcium 6.2 MG/DL (8.5-10.1); Osmolality,Calculated 293.2 MOS/KG (273-304)
[2020-03-01 06:41] LABS: Burr Cells Slight; Hypochromasia 1+; Microcytosis 1+; Ovalocytes Slight; Platelet Estimate Adequate
[2020-03-01] MEDS: DEXAMETHASONE 4 MG/1 ML VIAL IV SCH (09:46)
[2020-03-01] MEDS: carvediloL 6.25 MG TABLET PO SCH ×2 (09:46→20:35)
[2020-03-01] MEDS: FAMOTIDINE 20 MG TABLET PO SCH (09:46)
[2020-03-01] MEDS ORDERED: LORazepam 2 MG/1 ML VIAL IV PRN (10:05)
[2020-03-02] MEDS: INSULIN LISPRO 100 UNIT/ML SUBCUT SCH ×4 (00:59→17:24)
[2020-03-02] MEDS: ALBUTEROL INHALER 18 GM INH SCH ×4 (00:59→18:30)
[2020-03-02] MEDS: diphenhydrAMINE CAP 25 MG CAPSULE PO PRN (01:00)
[2020-03-02] MEDS: HEPARIN 5,000 UNIT/1 ML VIAL SUBCUT SCH ×3 (04:30→21:27)
[2020-03-02] MEDS: DOXYCYCLINE HYCLATE INJ 100 MG in SODIUM CHLORIDE 0.9% 100 ML IV SCH ×2 (04:30→15:43)
[2020-03-02 06:33] LABS: Hematocrit 33.9 VOL% (35.7-47.0); Hemoglobin 10.6 GM/DL (12.0-16.0); Immature Granulocytes % 0.3 %; Immature Granulocytes Absolute 0.02 #; Lymphocytes # 0.3 10*3/uL (1.4-4.0); Lymphocytes % 4.9 % (21.3-54.2); Mean Corpuscular HGB Conc 31.3 GM/DL (32-36); Mean Corpuscular Volume 79.4 FL (87-102); Monocytes % 2.6 % (1.7-12.7); NRBC # 0.03 10*3/uL; Neutrophils % 92.2 % (38.7-73.9); Platelet Count 195 T/CUMM (130-400); Red Blood Count 4.27 MC/CUMM (3.8-5.5); Red Cell Distribution Width 24.5 % (9.3-17.3); White Blood Count 6.6 T/CUMM (4-12)
[2020-03-02 06:49] LABS: Calcium 6.2 MG/DL (8.5-10.1); Osmolality,Calculated 298.2 MOS/KG (273-304)
[2020-03-02 07:03] LABS: Band Neutrophils 2 % (0-10); Hypochromasia 1+; Lymphocytes 5 % (20-55); Microcytosis 1+; Nucleated Red Blood Cells 1 (0-5); Ovalocytes Slight; Platelet Estimate Adequate; Segmented Neutrophils 92 % (50-85); Total Cells Counted 100
[2020-03-02] MEDS: carvediloL 6.25 MG TABLET PO SCH ×3 (10:37→21:27)
[2020-03-02] MEDS: DEXAMETHASONE 4 MG/1 ML VIAL IV SCH (10:38)
[2020-03-02 13:58] LABS: ABG Base Excess 0.6 MMOL/L (-2.5-2.5); ABG HCO3 24.7 MMOL/L (20-26); ABG Oxygen Saturation 84.5 % (95-100); ABG PCO2 33.1 MM HG (35-48); ABG PH 7.463 (7.35-7.45); ABG PO2 53.9 MM HG (80-95); ABG TCO2 20.9 MMOL/L (23-27)
[2020-03-02] MEDS: FAMOTIDINE 20 MG TABLET PO SCH (15:43)
[2020-03-02 17:41] LABS: ABG Base Excess -0.6 MMOL/L (-2.5-2.5); ABG HCO3 23.8 MMOL/L (20-26); ABG Oxygen Saturation 94.1 % (95-100); ABG PCO2 30.1 MM HG (35-48); ABG PH 7.472 (7.35-7.45); ABG PO2 74.2 MM HG (80-95); ABG TCO2 19.1 MMOL/L (23-27); Allen Test Positive
[2020-03-02] MEDS: ONDANSETRON 4 MG/2 ML VIAL IV PRN (21:27)
[2020-03-02] MEDS: ACETAMINOPHEN 500 MG TABLET PO PRN ×2 (21:27→21:57)
[2020-03-03] MEDS: ALBUTEROL INHALER 18 GM INH SCH ×4 (01:13→20:26)
[2020-03-03] MEDS: INSULIN LISPRO 100 UNIT/ML SUBCUT SCH ×4 (01:13→18:18)
[2020-03-03] MEDS: HEPARIN 5,000 UNIT/1 ML VIAL SUBCUT SCH ×3 (04:33→20:25)
[2020-03-03] MEDS: DOXYCYCLINE HYCLATE INJ 100 MG in SODIUM CHLORIDE 0.9% 100 ML IV SCH ×2 (04:35→17:25)
[2020-03-03 06:40] LABS: Calcium 6.7 MG/DL (8.5-10.1); Osmolality,Calculated 291.2 MOS/KG (273-304)
[2020-03-03 06:49] LABS: Hematocrit 32.8 VOL% (35.7-47.0); Hemoglobin 10.2 GM/DL (12.0-16.0); Immature Granulocytes % 0.4 %; Immature Granulocytes Absolute 0.03 #; Lymphocytes # 0.3 10*3/uL (1.4-4.0); Lymphocytes % 3.6 % (21.3-54.2); Mean Corpuscular HGB Conc 31.1 GM/DL (32-36); Mean Corpuscular Volume 79.8 FL (87-102); Monocytes % 1.8 % (1.7-12.7); NRBC # 0.02 10*3/uL; Neutrophils % 94.2 % (38.7-73.9); Platelet Count 157 T/CUMM (130-400); Red Blood Count 4.11 MC/CUMM (3.8-5.5); Red Cell Distribution Width 23.9 % (9.3-17.3); White Blood Count 7.4 T/CUMM (4-12)
[2020-03-03 07:25] LABS: Band Neutrophils 1 % (0-10); Lymphocytes 1 % (20-55); Platelet Estimate Adequate; Segmented Neutrophils 98 % (50-85); Total Cells Counted 100
[2020-03-03 07:26] LABS: Hypochromasia 1+; Microcytosis 1+; Ovalocytes Slight
[2020-03-03] MEDS: carvediloL 6.25 MG TABLET PO SCH ×2 (09:12→20:24)
[2020-03-03] MEDS: FAMOTIDINE 20 MG TABLET PO SCH (09:12)
[2020-03-03] MEDS: DEXAMETHASONE 4 MG/1 ML VIAL IV SCH (09:12)
[2020-03-03] MEDS: ONDANSETRON 4 MG/2 ML VIAL IV PRN (11:04)
[2020-03-03] MEDS: ZINC GLUCONATE 50 MG TABLET PO SCH (17:25)
[2020-03-03] MEDS: CHOLECALCIFEROL 1,000 UNIT TABLET PO SCH (17:25)
[2020-03-04] MEDS: INSULIN LISPRO 100 UNIT/ML SUBCUT SCH ×5 (00:04→20:27)
[2020-03-04] MEDS: ALBUTEROL INHALER 18 GM INH SCH ×4 (02:52→20:13)
[2020-03-04 03:17] LABS: ABG Base Excess -8.4 MMOL/L (-2.5-2.5); ABG HCO3 17.7 MMOL/L (20-26); ABG Oxygen Saturation 98.8 % (95-100); ABG PCO2 33.8 MM HG (35-48); ABG TCO2 15.5 MMOL/L (23-27)
[2020-03-04] MEDS: DOXYCYCLINE HYCLATE INJ 100 MG in SODIUM CHLORIDE 0.9% 100 ML IV SCH ×2 (04:00→16:45)
[2020-03-04] MEDS: HEPARIN 5,000 UNIT/1 ML VIAL SUBCUT SCH ×3 (05:35→20:13)
[2020-03-04 05:40] LABS: Hematocrit 34.3 VOL% (35.7-47.0); Hemoglobin 10.5 GM/DL (12.0-16.0); Immature Granulocytes % 0.3 %; Immature Granulocytes Absolute 0.02 #; Lymphocytes # 0.2 10*3/uL (1.4-4.0); Lymphocytes % 3.2 % (21.3-54.2); Mean Corpuscular HGB Conc 30.6 GM/DL (32-36); Mean Corpuscular Volume 81.5 FL (87-102); Monocytes % 1.6 % (1.7-12.7); Neutrophils % 94.9 % (38.7-73.9); Platelet Count 161 T/CUMM (130-400); Red Blood Count 4.21 MC/CUMM (3.8-5.5); Red Cell Distribution Width 24.1 % (9.3-17.3); White Blood Count 7.4 T/CUMM (4-12)
[2020-03-04 05:53] LABS: Albumin 2.2 G/DL (3.4-5.0); Calcium 6.7 MG/DL (8.5-10.1); Osmolality,Calculated 298.7 MOS/KG (273-304); Total Protein 6.5 G/DL (6.4-8.3)
[2020-03-04 06:05] LABS: Burr Cells Slight; Hypochromasia 1+; Lymphocytes 3 % (20-55); Nucleated Red Blood Cells 1 (0-5); Ovalocytes Slight; Platelet Estimate Adequate; Segmented Neutrophils 94 % (50-85); Total Cells Counted 100
[2020-03-04 06:06] LABS: Microcytosis 1+
[2020-03-04] MEDS ORDERED: DEXAMETHASONE 4 MG/1 ML VIAL IV SCH (07:30)
[2020-03-04] MEDS: ASCORBIC ACID 500 MG TABLET PO SCH (08:09)
[2020-03-04] MEDS: FAMOTIDINE 20 MG TABLET PO SCH (08:09)
[2020-03-04] MEDS: carvediloL 6.25 MG TABLET PO SCH ×2 (08:09→20:12)
[2020-03-04] MEDS: ZINC GLUCONATE 50 MG TABLET PO SCH (08:10)
[2020-03-04] MEDS: CHOLECALCIFEROL 1,000 UNIT TABLET PO SCH (08:10)
[2020-03-04] MEDS: CETIRIZINE 10 MG TABLET PO SCH (08:13)
[2020-03-04] MEDS: SEVELAMER CARBONATE 800 MG TABLET PO SCH ×2 (12:30→17:30)
[2020-03-04] MEDS: VANCOMYCIN 50 MG/ML 60 ML/BOTTLE PO SCH ×3 (12:30→23:40)
[2020-03-05] MEDS: ALBUTEROL INHALER 18 GM INH SCH ×4 (02:23→20:00)
[2020-03-05] MEDS: DOXYCYCLINE HYCLATE INJ 100 MG in SODIUM CHLORIDE 0.9% 100 ML IV SCH ×2 (04:15→16:08)
[2020-03-05] MEDS: HEPARIN 5,000 UNIT/1 ML VIAL SUBCUT SCH ×2 (04:15→12:13)
[2020-03-05 04:23] LABS: ABG Base Excess -8.3 MMOL/L (-2.5-2.5); ABG HCO3 17.6 MMOL/L (20-26); ABG Oxygen Saturation 90.7 % (95-100); ABG PCO2 28.1 MM HG (35-48); ABG PH 7.363 (7.35-7.45); ABG PO2 68.5 MM HG (80-95); ABG TCO2 14.5 MMOL/L (23-27); Allen Test Positive; Pt O2 Delivery Device Other
[2020-03-05 04:26] LABS: Basophils % 0.1 % (0.0-0.8); Eosinophils % 0.3 % (0.00-10.9); Hematocrit 34.2 VOL% (35.7-47.0); Hemoglobin 10.5 GM/DL (12.0-16.0); Immature Granulocytes % 0.6 %; Immature Granulocytes Absolute 0.05 #; Lymphocytes # 0.3 10*3/uL (1.4-4.0); Lymphocytes % 2.8 % (21.3-54.2); Mean Corpuscular HGB Conc 30.7 GM/DL (32-36); Mean Corpuscular Volume 80.5 FL (87-102); Monocytes % 1.2 % (1.7-12.7); Platelet Count 162 T/CUMM (130-400); Red Blood Count 4.25 MC/CUMM (3.8-5.5); Red Cell Distribution Width 24.4 % (9.3-17.3); White Blood Count 8.9 T/CUMM (4-12)
[2020-03-05 04:56] LABS: Platelet Estimate Adequate; Segmented Neutrophils 98 % (50-85); Total Cells Counted 100
[2020-03-05 04:57] LABS: Burr Cells Slight; Hypochromasia 1+; Microcytosis 1+; Ovalocytes Slight
[2020-03-05 05:52] LABS: Calcium 6.6 MG/DL (8.5-10.1); Ferritin 538.1 ng/ml (8-252); Osmolality,Calculated 301.1 MOS/KG (273-304)
[2020-03-05] MEDS: VANCOMYCIN 50 MG/ML 60 ML/BOTTLE PO SCH ×3 (05:57→17:23)
[2020-03-05] MEDS: INSULIN LISPRO 100 UNIT/ML SUBCUT SCH ×4 (08:59→21:45)
[2020-03-05] MEDS: CHOLECALCIFEROL 1,000 UNIT TABLET PO SCH (09:00)
[2020-03-05] MEDS: ZINC GLUCONATE 50 MG TABLET PO SCH (09:00)
[2020-03-05] MEDS: CETIRIZINE 10 MG TABLET PO SCH (09:00)
[2020-03-05] MEDS: carvediloL 6.25 MG TABLET PO SCH ×2 (09:00→21:44)
[2020-03-05] MEDS: FAMOTIDINE 20 MG TABLET PO SCH (09:00)
[2020-03-05] MEDS: ASCORBIC ACID 500 MG TABLET PO SCH (09:00)
[2020-03-05] MEDS: SEVELAMER CARBONATE 800 MG TABLET PO SCH ×3 (09:00→16:09)
[2020-03-05] MEDS ORDERED: ENOXAPARIN 60 MG/0.6 ML SYRINGE SUBCUT SCH (12:30)
[2020-03-05] MEDS ORDERED: ENOXAPARIN 60 MG/0.6 ML SYRINGE ONE (12:45)
[2020-03-05] MEDS ORDERED: HEPARIN DRIP 25,000 UNITS/500 ML PREMIX IV SCH (13:00)
[2020-03-05] MEDS: DEXAMETHASONE 4 MG/1 ML VIAL IV SCH (15:29)
[2020-03-05] MEDS: INSULIN GLARGINE 100 UNIT/ML SUBCUT SCH (15:29)
[2020-03-05] MEDS: FERROUS SULFATE 325 MG TABLET PO SCH (21:44)
[2020-03-06] MEDS: VANCOMYCIN 50 MG/ML 60 ML/BOTTLE PO SCH ×5 (00:10→23:00)
[2020-03-06] MEDS: ALBUTEROL INHALER 18 GM INH SCH ×4 (00:40→20:00)
[2020-03-06 01:54] LABS: Albumin 1.9 G/DL (3.4-5.0); Bilirubin,Total 0.5 MG/DL (0.2-1.0); Calcium 6.2 MG/DL (8.5-10.1); Osmolality,Calculated 300.5 MOS/KG (273-304); Total Protein 5.8 G/DL (6.4-8.3)
[2020-03-06 02:19] LABS: Hemoglobin 9.1 GM/DL (12.0-16.0); Immature Granulocytes % 0.5 %; Immature Granulocytes Absolute 0.03 #; Lymphocytes # 0.4 10*3/uL (1.4-4.0); Mean Corpuscular HGB Conc 31.4 GM/DL (32-36); Mean Corpuscular Volume 79.5 FL (87-102); Monocytes % 1.7 % (1.7-12.7); Neutrophils % 90.8 % (38.7-73.9); Platelet Count 156 T/CUMM (130-400); Red Blood Count 3.65 MC/CUMM (3.8-5.5); Red Cell Distribution Width 23.9 % (9.3-17.3); White Blood Count 5.7 T/CUMM (4-12)
[2020-03-06] MEDS: HEPARIN DRIP 25,000 UNITS/500 ML PREMIX IV SCH (02:28)
[2020-03-06] MEDS: DOXYCYCLINE HYCLATE INJ 100 MG in SODIUM CHLORIDE 0.9% 100 ML IV SCH ×2 (03:09→16:54)
[2020-03-06 04:49] LABS: Band Neutrophils 2 % (0-10); Lymphocytes 6 % (20-55); Platelet Estimate Adequate; Segmented Neutrophils 90 % (50-85); Total Cells Counted 100
[2020-03-06] MEDS: INSULIN LISPRO 100 UNIT/ML SUBCUT SCH ×4 (08:06→20:36)
[2020-03-06] MEDS: INSULIN NPH/REGULAR 70/30 100 UNIT/ML SUBCUT SCH (08:06)
[2020-03-06] MEDS: FERROUS SULFATE 325 MG TABLET PO SCH ×2 (08:07→22:41)
[2020-03-06] MEDS: CHOLECALCIFEROL 1,000 UNIT TABLET PO SCH (08:07)
[2020-03-06] MEDS: carvediloL 6.25 MG TABLET PO SCH ×3 (08:07→22:41)
[2020-03-06] MEDS: INSULIN GLARGINE 100 UNIT/ML SUBCUT SCH (08:07)
[2020-03-06] MEDS: ASCORBIC ACID 500 MG TABLET PO SCH (08:07)
[2020-03-06] MEDS: FAMOTIDINE 20 MG TABLET PO SCH (08:07)
[2020-03-06] MEDS: CETIRIZINE 10 MG TABLET PO SCH (08:07)
[2020-03-06] MEDS: SEVELAMER CARBONATE 800 MG TABLET PO SCH ×3 (08:07→16:55)
[2020-03-06] MEDS: ZINC GLUCONATE 50 MG TABLET PO SCH (08:07)
[2020-03-06] MEDS: DEXAMETHASONE 4 MG/1 ML VIAL IV SCH (13:57)
[2020-03-07] MEDS: ALBUTEROL INHALER 18 GM INH SCH ×4 (00:30→20:00)
[2020-03-07] MEDS: HEPARIN DRIP 25,000 UNITS/500 ML PREMIX IV SCH (02:11)
[2020-03-07] MEDS: DOXYCYCLINE HYCLATE INJ 100 MG in SODIUM CHLORIDE 0.9% 100 ML IV SCH ×3 (05:05→17:13)
[2020-03-07] MEDS: VANCOMYCIN 50 MG/ML 60 ML/BOTTLE PO SCH ×4 (05:06→23:06)
[2020-03-07] MEDS: FAMOTIDINE 20 MG TABLET PO SCH (09:33)
[2020-03-07] MEDS: INSULIN LISPRO 100 UNIT/ML SUBCUT SCH ×4 (09:33→20:53)
[2020-03-07] MEDS: INSULIN NPH/REGULAR 70/30 100 UNIT/ML SUBCUT SCH (09:33)
[2020-03-07] MEDS: CHOLECALCIFEROL 1,000 UNIT TABLET PO SCH (09:33)
[2020-03-07] MEDS: ASCORBIC ACID 500 MG TABLET PO SCH (09:33)
[2020-03-07] MEDS: carvediloL 6.25 MG TABLET PO SCH ×2 (09:34→23:06)
[2020-03-07] MEDS: SEVELAMER CARBONATE 800 MG TABLET PO SCH ×3 (09:34→16:47)
[2020-03-07] MEDS: INSULIN GLARGINE 100 UNIT/ML SUBCUT SCH (09:34)
[2020-03-07] MEDS: FERROUS SULFATE 325 MG TABLET PO SCH ×2 (09:34→23:06)
[2020-03-07] MEDS: CETIRIZINE 10 MG TABLET PO SCH (09:36)
[2020-03-07] MEDS: ZINC GLUCONATE 50 MG TABLET PO SCH (10:01)
[2020-03-07] MEDS: DEXAMETHASONE 4 MG/1 ML VIAL IV SCH (15:02)
[2020-03-08] MEDS: HEPARIN DRIP 25,000 UNITS/500 ML PREMIX IV SCH (00:29)
[2020-03-08] MEDS: ALBUTEROL INHALER 18 GM INH SCH ×5 (00:30→18:09)
[2020-03-08] MEDS: VANCOMYCIN 50 MG/ML 60 ML/BOTTLE PO SCH ×4 (06:15→18:45)
[2020-03-08 06:40] LABS: Eosinophils % 0.1 % (0.00-10.9); Hematocrit 36.8 VOL% (35.7-47.0); Hemoglobin 11.4 GM/DL (12.0-16.0); Immature Granulocytes % 0.6 %; Immature Granulocytes Absolute 0.04 #; Lymphocytes # 0.5 10*3/uL (1.4-4.0); Lymphocytes % 7.9 % (21.3-54.2); Mean Corpuscular Volume 80.2 FL (87-102); Monocytes % 1.6 % (1.7-12.7); Neutrophils % 89.8 % (38.7-73.9); Platelet Count 176 T/CUMM (130-400); Red Blood Count 4.59 MC/CUMM (3.8-5.5); Red Cell Distribution Width 23.7 % (9.3-17.3); White Blood Count 6.8 T/CUMM (4-12)
[2020-03-08 07:03] LABS: Calcium 7.2 MG/DL (8.5-10.1); Osmolality,Calculated 291.7 MOS/KG (273-304)
[2020-03-08 07:34] LABS: Anisocytosis 3+; Hypochromasia 1+; Macrocytosis 1+; Platelet Estimate Normal; Poikilocytosis 1+
[2020-03-08 07:35] LABS: Burr Cells Few; Target Cells Few
[2020-03-08] MEDS: FAMOTIDINE 20 MG TABLET PO SCH ×2 (09:31→10:23)
[2020-03-08] MEDS: ZINC GLUCONATE 50 MG TABLET PO SCH ×2 (09:31→10:23)
[2020-03-08] MEDS: ASCORBIC ACID 500 MG TABLET PO SCH ×2 (09:31→10:23)
[2020-03-08] MEDS: SEVELAMER CARBONATE 800 MG TABLET PO SCH ×4 (09:31→16:29)
[2020-03-08] MEDS: CHOLECALCIFEROL 1,000 UNIT TABLET PO SCH ×2 (09:31→10:23)
[2020-03-08] MEDS: carvediloL 6.25 MG TABLET PO SCH ×3 (09:31→20:35)
[2020-03-08] MEDS: FERROUS SULFATE 325 MG TABLET PO SCH ×3 (09:31→20:35)
[2020-03-08] MEDS: CETIRIZINE 10 MG TABLET PO SCH ×2 (09:31→10:23)
[2020-03-08] MEDS: INSULIN NPH/REGULAR 70/30 100 UNIT/ML SUBCUT SCH (09:31)
[2020-03-08] MEDS: INSULIN GLARGINE 100 UNIT/ML SUBCUT SCH (09:32)
[2020-03-08] MEDS: INSULIN LISPRO 100 UNIT/ML SUBCUT SCH ×4 (09:32→22:11)
[2020-03-08] MEDS ORDERED: HEPARIN 5,000 UNIT/1 ML VIAL IV ONE (11:00)
[2020-03-08] MEDS ORDERED: HEPARIN 5,000 UNIT/1 ML VIAL IV PRN (17:49)
[2020-03-09] MEDS: VANCOMYCIN 50 MG/ML 60 ML/BOTTLE PO SCH ×4 (00:02→17:56)
[2020-03-09] MEDS: HEPARIN DRIP 25,000 UNITS/500 ML PREMIX IV SCH (00:03)
[2020-03-09] MEDS: ALBUTEROL INHALER 18 GM INH SCH ×4 (01:41→18:30)
[2020-03-09 01:43] LABS: Osmolality,Calculated 301.7 MOS/KG (273-304)
[2020-03-09] MEDS: ONDANSETRON 4 MG/2 ML VIAL IV PRN ×2 (05:24→20:25)
[2020-03-09] MEDS: ACETAMINOPHEN 500 MG TABLET PO PRN (05:24)
[2020-03-09] MEDS: INSULIN GLARGINE 100 UNIT/ML SUBCUT SCH (08:35)
[2020-03-09] MEDS: INSULIN NPH/REGULAR 70/30 100 UNIT/ML SUBCUT SCH (08:35)
[2020-03-09] MEDS: SEVELAMER CARBONATE 800 MG TABLET PO SCH ×3 (08:36→16:13)
[2020-03-09] MEDS: CETIRIZINE 10 MG TABLET PO SCH (08:36)
[2020-03-09] MEDS: ASCORBIC ACID 500 MG TABLET PO SCH (08:36)
[2020-03-09] MEDS: CHOLECALCIFEROL 1,000 UNIT TABLET PO SCH (08:36)
[2020-03-09] MEDS: FERROUS SULFATE 325 MG TABLET PO SCH ×2 (08:36→20:25)
[2020-03-09] MEDS: ZINC GLUCONATE 50 MG TABLET PO SCH (08:36)
[2020-03-09] MEDS: carvediloL 6.25 MG TABLET PO SCH ×2 (09:27→20:25)
[2020-03-09] MEDS: FAMOTIDINE 20 MG TABLET PO SCH (09:28)
[2020-03-09] MEDS: INSULIN LISPRO 100 UNIT/ML SUBCUT SCH ×4 (10:00→22:12)
[2020-03-10] MEDS: VANCOMYCIN 50 MG/ML 60 ML/BOTTLE PO SCH ×5 (00:35→23:15)
[2020-03-10] MEDS: HEPARIN DRIP 25,000 UNITS/500 ML PREMIX IV SCH (01:04)
[2020-03-10] MEDS: ALBUTEROL INHALER 18 GM INH SCH ×4 (01:05→20:15)
[2020-03-10] MEDS: INSULIN LISPRO 100 UNIT/ML SUBCUT SCH ×4 (06:32→20:46)
[2020-03-10] MEDS: FERROUS SULFATE 325 MG TABLET PO SCH ×2 (08:37→20:46)
[2020-03-10] MEDS: FAMOTIDINE 20 MG TABLET PO SCH (08:37)
[2020-03-10] MEDS: ASCORBIC ACID 500 MG TABLET PO SCH (08:37)
[2020-03-10] MEDS: CHOLECALCIFEROL 1,000 UNIT TABLET PO SCH (08:37)
[2020-03-10] MEDS: carvediloL 6.25 MG TABLET PO SCH ×2 (08:37→20:46)
[2020-03-10] MEDS: SEVELAMER CARBONATE 800 MG TABLET PO SCH ×3 (08:37→16:53)
[2020-03-10] MEDS: CETIRIZINE 10 MG TABLET PO SCH (08:38)
[2020-03-10] MEDS: INSULIN NPH/REGULAR 70/30 100 UNIT/ML SUBCUT SCH (08:48)
[2020-03-10] MEDS: ZINC GLUCONATE 50 MG TABLET PO SCH (08:48)
[2020-03-10] MEDS: INSULIN GLARGINE 100 UNIT/ML SUBCUT SCH (08:48)
[2020-03-10 09:09] LABS: Basophils % 0.1 % (0.0-0.8); Eosinophils # 0.1 10*3/uL (0.0-0.87); Eosinophils % 0.9 % (0.00-10.9); Hematocrit 37.3 VOL% (35.7-47.0); Hemoglobin 11.5 GM/DL (12.0-16.0); Immature Granulocytes % 0.5 %; Immature Granulocytes Absolute 0.04 #; Lymphocytes # 0.5 10*3/uL (1.4-4.0); Lymphocytes % 6.5 % (21.3-54.2); Mean Corpuscular HGB Conc 30.8 GM/DL (32-36); Mean Corpuscular Volume 80.6 FL (87-102); Monocytes % 2.2 % (1.7-12.7); Neutrophils % 89.8 % (38.7-73.9); Platelet Count 221 T/CUMM (130-400); Red Blood Count 4.63 MC/CUMM (3.8-5.5); Red Cell Distribution Width 23.1 % (9.3-17.3); White Blood Count 7.7 T/CUMM (4-12)
[2020-03-10 09:28] LABS: Band Neutrophils 2 % (0-10); Lymphocytes 9 % (20-55); Platelet Estimate Adequate; Segmented Neutrophils 86 % (50-85); Total Cells Counted 100
[2020-03-10 09:29] LABS: Hypochromasia 1+; Microcytosis 1+; Ovalocytes Slight
[2020-03-10 09:31] LABS: Osmolality,Calculated 280.2 MOS/KG (273-304)
[2020-03-10] MEDS: ONDANSETRON 4 MG/2 ML VIAL IV PRN (15:52)
[2020-03-11] MEDS: ALBUTEROL INHALER 18 GM INH SCH ×4 (00:45→18:07)
[2020-03-11 05:44] LABS: Basophils % 0.1 % (0.0-0.8); Eosinophils # 0.1 10*3/uL (0.0-0.87); Eosinophils % 1.6 % (0.00-10.9); Hemoglobin 11.3 GM/DL (12.0-16.0); Immature Granulocytes % 0.4 %; Immature Granulocytes Absolute 0.03 #; Lymphocytes # 0.4 10*3/uL (1.4-4.0); Lymphocytes % 5.8 % (21.3-54.2); Mean Corpuscular HGB Conc 30.5 GM/DL (32-36); Mean Corpuscular Volume 81.9 FL (87-102); Monocytes % 3.3 % (1.7-12.7); Neutrophils % 88.8 % (38.7-73.9); Platelet Count 176 T/CUMM (130-400); Red Blood Count 4.52 MC/CUMM (3.8-5.5); White Blood Count 7.5 T/CUMM (4-12)
[2020-03-11] MEDS: VANCOMYCIN 50 MG/ML 60 ML/BOTTLE PO SCH ×4 (05:52→23:59)
[2020-03-11 05:58] LABS: Calcium 8.3 MG/DL (8.5-10.1); Osmolality,Calculated 276.4 MOS/KG (273-304)
[2020-03-11] MEDS: CETIRIZINE 10 MG TABLET PO SCH (08:56)
[2020-03-11] MEDS: ZINC GLUCONATE 50 MG TABLET PO SCH (08:56)
[2020-03-11] MEDS: CHOLECALCIFEROL 1,000 UNIT TABLET PO SCH (08:56)
[2020-03-11] MEDS: FAMOTIDINE 20 MG TABLET PO SCH (08:56)
[2020-03-11] MEDS: carvediloL 6.25 MG TABLET PO SCH ×2 (08:56→20:52)
[2020-03-11] MEDS: SEVELAMER CARBONATE 800 MG TABLET PO SCH ×3 (08:56→18:00)
[2020-03-11] MEDS: FERROUS SULFATE 325 MG TABLET PO SCH ×2 (08:56→20:52)
[2020-03-11] MEDS: ASCORBIC ACID 500 MG TABLET PO SCH (08:57)
[2020-03-11] MEDS: INSULIN LISPRO 100 UNIT/ML SUBCUT SCH ×4 (08:59→20:52)
[2020-03-11] MEDS: INSULIN NPH/REGULAR 70/30 100 UNIT/ML SUBCUT SCH (08:59)
[2020-03-11] MEDS: INSULIN GLARGINE 100 UNIT/ML SUBCUT SCH (09:05)
[2020-03-11] MEDS: HEPARIN 5,000 UNIT/1 ML VIAL SUBCUT SCH ×2 (09:05→18:04)
[2020-03-11] MEDS: ONDANSETRON 4 MG/2 ML VIAL IV PRN ×3 (10:12→22:49)
[2020-03-12 05:11] LABS: Basophils % 0.2 % (0.0-0.8); Eosinophils # 0.1 10*3/uL (0.0-0.87); Eosinophils % 1.7 % (0.00-10.9); Hematocrit 31.9 VOL% (35.7-47.0); Hemoglobin 9.9 GM/DL (12.0-16.0); Immature Granulocytes % 0.3 %; Immature Granulocytes Absolute 0.02 #; Lymphocytes # 0.6 10*3/uL (1.4-4.0); Lymphocytes % 9.9 % (21.3-54.2); Mean Corpuscular Volume 80.8 FL (87-102); Mean Platelet Volume 10.9 FL (9.6-12.0); Monocytes % 4.1 % (1.7-12.7); Neutrophils % 83.8 % (38.7-73.9); Platelet Count 218 T/CUMM (130-400); Red Blood Count 3.95 MC/CUMM (3.8-5.5); Red Cell Distribution Width 22.6 % (9.3-17.3); White Blood Count 6.4 T/CUMM (4-12)
[2020-03-12 05:28] LABS: Calcium 7.7 MG/DL (8.5-10.1)
[2020-03-12 05:40] LABS: Hypochromasia Slight
[2020-03-12 05:41] LABS: Microcytosis Slight; Platelet Estimate Normal
[2020-03-12] MEDS: HEPARIN 5,000 UNIT/1 ML VIAL SUBCUT SCH (06:15)
[2020-03-12] MEDS: VANCOMYCIN 50 MG/ML 60 ML/BOTTLE PO SCH (06:15)
[2020-03-12] MEDS: ALBUTEROL INHALER 18 GM INH SCH ×2 (06:16)
[2020-03-12] MEDS: INSULIN NPH/REGULAR 70/30 100 UNIT/ML SUBCUT SCH (07:57)
[2020-03-12] MEDS ORDERED: INSULIN NPH/REGULAR 70/30 100 UNIT/ML SUBCUT SCH (08:00)
[2020-03-12 08:24] VITALS: BP 144/78
[2020-03-12] MEDS: CHOLECALCIFEROL 1,000 UNIT TABLET PO SCH (09:44)
[2020-03-12] MEDS: CETIRIZINE 10 MG TABLET PO SCH (09:44)
[2020-03-12] MEDS: INSULIN LISPRO 100 UNIT/ML SUBCUT SCH (09:44)
[2020-03-12] MEDS: SEVELAMER CARBONATE 800 MG TABLET PO SCH (09:44)
[2020-03-12] MEDS: ZINC GLUCONATE 50 MG TABLET PO SCH (09:44)
[2020-03-12] MEDS: FERROUS SULFATE 325 MG TABLET PO SCH (09:44)
[2020-03-12] MEDS: carvediloL 6.25 MG TABLET PO SCH (09:45)
[2020-03-12] MEDS: ASCORBIC ACID 500 MG TABLET PO SCH (09:45)
== END 2020-03-12 11:24 | disposition home health service (06) | DRG 177 ==
LOC: N.ED 06:42 → N.EDINP 08:05 → SUATTDRO 08:05 → N.CC 10:21 → N.2E 02-25 17:08 → N.CC 03-03 11:23 → N.2E 03-05 19:46 → N.5E 03-10 17:41
PROVIDERS: ADMIT Internal Medicine; ATTEND Emergency Medicine

== ENCOUNTER 2020-03-17 21:45 | Inpatient (IN) ==
[2020-03-17] MEDS ORDERED: SODIUM CHLORIDE 0.9% 500 ML IV STA (23:22)
[2020-03-17 23:29] LABS: Basophils % 0.1 % (0.0-0.8); Lymphocytes # 0.4 10*3/uL (1.4-4.0); Mean Corpuscular Volume 91.3 FL (87-102)
[2020-03-17 23:46] LABS: Alanine Aminotransferase 28 U/L (13-56); Albumin 2.5 G/DL (3.4-5.0); Alkaline Phosphatase 439 U/L (45-117); Amylase 270 U/L (25-115); Aspartate Amino Transferase 27 U/L (0-37); Blood Urea Nitrogen 67 MG/DL (7-18); Calcium 7.4 MG/DL (8.5-10.1); Estimated Glom Filtration Rate 7 ML/MIN; Osmolality,Calculated 320.1 MOS/KG (273-304); Total Protein 7.3 G/DL (6.4-8.3)
[2020-03-17 23:50] LABS: Glucose 909 MG/DL (74-106)
[2020-03-17 23:51] LABS: Hematocrit 29.5 VOL% (35.7-47.0); Immature Granulocytes % 0.7 %; Immature Granulocytes Absolute 0.05 #; Lymphocytes % 5.9 % (21.3-54.2); Mean Corpuscular HGB Conc 27.8 GM/DL (32-36); Mean Platelet Volume 12.2 FL (9.6-12.0); Monocytes % 8.7 % (1.7-12.7); Neutrophils % 84.6 % (38.7-73.9); Platelet Count 248 T/CUMM (130-400); Red Blood Count 3.23 MC/CUMM (3.8-5.5); Red Cell Distribution Width 23.4 % (9.3-17.3); White Blood Count 7.3 T/CUMM (4-12)
[2020-03-17 23:53] LABS: Hemoglobin 8.2 GM/DL (12.0-16.0)
[2020-03-18] MEDS ORDERED: ONDANSETRON 4 MG/2 ML VIAL IV STA (00:16)
[2020-03-18] MEDS ORDERED: INSULIN REGULAR 100 UNIT/ML IV ONE ×3 (00:46→12:35)
[2020-03-18] MEDS ORDERED: SODIUM CHLORIDE 0.9% 1,000 ML IV STA (00:46)
[2020-03-18 01:06] LABS: Amorphous Crystals,Urine Few /HPF (Few); Bilirubin,Urine Negative (Negative); Blood, Urine Small mg/dL (Negative); Glucose,Urine (UA) >=500 mg/dL (Negative); Ketones,Urine 80 mg/dL (Negative); Nitrite,Urine Negative (Negative); Protein,Urine >=500 MG/DL; Squamous Epithelial Cell,Urine Occasional /HPF (0-10); Urine Appearance Slightly Hazy (Clear); Urine Color Yellow (Yellow); Urine Specific Gravity 1.017 (1.001-1.035); Urine Urobilinogen < 2.0 EU/DL (0.2-1.0); WBC,Urine 5 /HPF (0-6)
[2020-03-18 01:10] LABS: Allen Test Positive
[2020-03-18 01:11] LABS: ABG Base Excess -23.6 MMOL/L (-2.5-2.5); ABG HCO3 7.2 MMOL/L (20-26); ABG Oxygen Saturation 89.3 % (95-100); ABG PO2 80.9 MM HG (80-95)
[2020-03-18 01:13] LABS: ABG PCO2 17.3 MM HG (35-48); ABG PH 7.078 (7.35-7.45)
[2020-03-18] MEDS ORDERED: MAGNESIUM SULF RIDER 4 GM in PREMIX 1 EACH IV PRN (01:18)
[2020-03-18] MEDS ORDERED: POTASSIUM CHLORIDE RIDER 10 MEQ in PREMIX 1 EACH IV PRN (01:18)
[2020-03-18] MEDS ORDERED: MAGNESIUM SULF RIDER 2 GM in PREMIX 1 EACH IV PRN (01:18)
[2020-03-18] MEDS ORDERED: DEXTROSE 50% 25 GM/50 ML VIAL IV PRN ×2 (01:18)
[2020-03-18] MEDS ORDERED: SODIUM PHOSPHATE INJ 14.7 MMOL in SODIUM CHLORIDE 0.9% 250 ML IV PRN (01:18)
[2020-03-18] MEDS ORDERED: DOCUSATE SODIUM 100 MG CAPSULE PO PRN (01:27)
[2020-03-18] MEDS ORDERED: ACETAMINOPHEN 325 MG TABLET PO PRN (01:27)
[2020-03-18] MEDS ORDERED: ONDANSETRON 4 MG/2 ML VIAL IV PRN (01:27)
[2020-03-18] MEDS ORDERED: ALBUTEROL 2.5 MG/3 ML NEB RESP TX PRN (01:27)
[2020-03-18] MEDS ORDERED: hydrALAZINE 20 MG/1 ML VIAL IV PRN (01:27)
[2020-03-18] MEDS ORDERED: PROMETHAZINE 25 MG/1 ML VIAL IM PRN (01:27)
[2020-03-18] MEDS ORDERED: INSULIN REGULAR DRIP 100 ML IV SCH (01:30)
[2020-03-18 01:46] VITALS: BP 129/72
[2020-03-18 03:19] LABS: Allen Test Positive
[2020-03-18 03:20] LABS: ABG Base Excess -19.2 MMOL/L (-2.5-2.5); ABG HCO3 7.7 MMOL/L (20-26); ABG Oxygen Saturation 90.2 % (95-100); ABG PCO2 21.9 MM HG (35-48); ABG PO2 78.1 MM HG (80-95); ABG TCO2 8.4 MMOL/L (23-27)
[2020-03-18 03:22] LABS: ABG PH 7.164 (7.35-7.45)
[2020-03-18 03:27] LABS: Calcium 6.8 MG/DL (8.5-10.1); Osmolality,Calculated 320.1 MOS/KG (273-304)
[2020-03-18 04:30] LABS: Basophils % 0.1 % (0.0-0.8); Hematocrit 24.4 VOL% (35.7-47.0); Immature Granulocytes % 0.7 %; Immature Granulocytes Absolute 0.05 #; Lymphocytes # 0.4 10*3/uL (1.4-4.0); Lymphocytes % 5.9 % (21.3-54.2); Mean Corpuscular HGB Conc 28.7 GM/DL (32-36); Mean Corpuscular Volume 89.4 FL (87-102); Mean Platelet Volume 10.9 FL (9.6-12.0); Monocytes % 7.7 % (1.7-12.7); Neutrophils % 85.6 % (38.7-73.9); Platelet Count 207 T/CUMM (130-400); Red Blood Count 2.73 MC/CUMM (3.8-5.5); White Blood Count 7.2 T/CUMM (4-12)
[2020-03-18] MEDS: PANTOPRAZOLE 40 MG VIAL IV SCH (04:35)
[2020-03-18 04:56] LABS: Osmolality,Calculated 317.9 MOS/KG (273-304)
[2020-03-18 05:04] LABS: Hypochromasia Slight; Microcytosis Slight; Ovalocytes Few; Platelet Estimate Normal
[2020-03-18 05:19] LABS: Allen Test Positive
[2020-03-18 05:21] LABS: ABG Base Excess -16.6 MMOL/L (-2.5-2.5); ABG HCO3 11.6 MMOL/L (20-26); ABG TCO2 10.1 MMOL/L (23-27)
[2020-03-18 05:22] LABS: ABG PH 7.194 (7.35-7.45)
[2020-03-18 07:30] LABS: Calcium 7.1 MG/DL (8.5-10.1); Osmolality,Calculated 313.8 MOS/KG (273-304)
[2020-03-18 10:23] LABS: Calcium 7.3 MG/DL (8.5-10.1); Osmolality,Calculated 309.7 MOS/KG (273-304)
[2020-03-18] MEDS ORDERED: HEPARIN 10,000 UNIT/10 ML VIAL IV SCH ×2 (14:00→15:30)
[2020-03-18 14:24] LABS: Calcium 8.1 MG/DL (8.5-10.1); Osmolality,Calculated 287.1 MOS/KG (273-304)
[2020-03-18] MEDS: INSULIN REGULAR 100 UNIT/ML SUBCUT SCH (17:11)
[2020-03-18] MEDS ORDERED: INSULIN GLARGINE 100 UNIT/ML SUBCUT SCH (21:00)
[2020-03-18 21:31] LABS: Calcium 7.4 MG/DL (8.5-10.1); Osmolality,Calculated 289.5 MOS/KG (273-304)
[2020-03-19] MEDS: PANTOPRAZOLE 40 MG VIAL IV SCH (02:03)
[2020-03-19] MEDS ORDERED: HEPARIN 5,000 UNIT/1 ML VIAL IV SCH (05:00)
[2020-03-19] MEDS ORDERED: HEPARIN 10,000 UNIT/10 ML VIAL IV SCH (05:30)
[2020-03-19 05:55] LABS: Basophils % 0.4 % (0.0-0.8); Eosinophils # 0.1 10*3/uL (0.0-0.87); Eosinophils % 1.2 % (0.00-10.9); Hematocrit 26.3 VOL% (35.7-47.0); Hemoglobin 8.5 GM/DL (12.0-16.0); Immature Granulocytes % 0.4 %; Immature Granulocytes Absolute 0.03 #; Lymphocytes # 0.9 10*3/uL (1.4-4.0); Lymphocytes % 10.6 % (21.3-54.2); Mean Corpuscular HGB Conc 32.3 GM/DL (32-36); Mean Corpuscular Volume 80.7 FL (87-102); Mean Platelet Volume 10.7 FL (9.6-12.0); Monocytes % 6.3 % (1.7-12.7); Neutrophils % 81.1 % (38.7-73.9); Platelet Count 246 T/CUMM (130-400); Red Blood Count 3.26 MC/CUMM (3.8-5.5); Red Cell Distribution Width 22.5 % (9.3-17.3); White Blood Count 8.5 T/CUMM (4-12)
[2020-03-19 06:03] LABS: Calcium 7.6 MG/DL (8.5-10.1)
[2020-03-19 06:19] LABS: Platelet Estimate Normal
[2020-03-19 06:20] LABS: Anisocytosis 2+; Ovalocytes Few; Target Cells Few
[2020-03-19 06:21] LABS: Macrocytosis Slight; Tear Drop Cells Few
[2020-03-19] MEDS: INSULIN REGULAR 100 UNIT/ML SUBCUT SCH ×4 (07:15→18:24)
== END 2020-03-19 20:55 | disposition home or self-care (01) | DRG 637 ==
LOC: EDBD → EDUNIT# → N.ED 21:45 → SUATTDRO 03-18 01:16 → N.EDINP 03-18 01:16 → N.CC 03-18 02:30
PROVIDERS: ADMIT Internal Medicine; ATTEND Internal Medicine

== ENCOUNTER 2020-03-22 14:28 | Inpatient (IN) ==
[2020-03-22 15:25] LABS: Basophils % 0.2 % (0.0-0.8); Eosinophils % 0.2 % (0.00-10.9); Hematocrit 25.5 VOL% (35.7-47.0); Hemoglobin 7.3 GM/DL (12.0-16.0); Immature Granulocytes % 0.7 %; Immature Granulocytes Absolute 0.04 #; Lymphocytes # 0.5 10*3/uL (1.4-4.0); Lymphocytes % 9.1 % (21.3-54.2); Mean Corpuscular HGB Conc 28.6 GM/DL (32-36); Mean Corpuscular Volume 91.1 FL (87-102); Monocytes % 9.3 % (1.7-12.7); NRBC # 0.05 10*3/uL; Neutrophils % 80.5 % (38.7-73.9); Platelet Count 262 T/CUMM (130-400); Red Cell Distribution Width 22.9 % (9.3-17.3); White Blood Count 5.7 T/CUMM (4-12)
[2020-03-22 15:42] LABS: Albumin 2.3 G/DL (3.4-5.0); Bilirubin,Total 0.6 MG/DL (0.2-1.0); Calcium 6.5 MG/DL (8.5-10.1); Osmolality,Calculated 318.5 MOS/KG (273-304)
[2020-03-22] MEDS ORDERED: SODIUM CHLORIDE 0.9% 250 ML IV STA (15:46)
[2020-03-22] MEDS ORDERED: INSULIN REGULAR 100 UNIT/ML IV STA (15:46)
[2020-03-22] MEDS ORDERED: CALCIUM CHLORIDE 1,000 MG/10 ML SYRINGE IV STA (15:48)
[2020-03-22] MEDS ORDERED: SODIUM BICARB INJ 100 MEQ in STERILE WATER INJ 400 ML IV ONE (16:06)
[2020-03-22] MEDS ORDERED: ALBUTEROL 2.5 MG/3 ML NEB RESP TX PRN (16:08)
[2020-03-22] MEDS ORDERED: DEXTROSE 50% 25 GM/50 ML VIAL IV PRN (16:08)
[2020-03-22] MEDS ORDERED: ONDANSETRON 4 MG/2 ML VIAL IV PRN (16:08)
[2020-03-22] MEDS ORDERED: GLUCAGON 1 MG VIAL IM PRN (16:08)
[2020-03-22] MEDS ORDERED: cloNIDine 0.1 MG TABLET PO PRN (16:13)
[2020-03-22 16:17] LABS: ABG Base Excess -5.7 MMOL/L (-2.5-2.5); ABG HCO3 19.6 MMOL/L (20-26); ABG Oxygen Saturation 93.3 % (95-100); ABG PCO2 39.4 MM HG (35-48); ABG PH 7.313 (7.35-7.45); ABG PO2 74.3 MM HG (80-95)
[2020-03-22] MEDS: PANTOPRAZOLE 40 MG TABLET PO SCH (16:36)
[2020-03-22] MEDS: INSULIN NPH/REGULAR 70/30 100 UNIT/ML SUBCUT SCH (17:30)
[2020-03-22] MEDS: SEVELAMER CARBONATE 800 MG TABLET PO SCH (17:30)
[2020-03-22 17:35] LABS: Anisocytosis 2+; Hypochromasia 1+; Platelet Estimate Normal; Polychromasia 1+
[2020-03-22 17:36] LABS: Ovalocytes Few; Schistocytes Few; Toxic Granulation 1+
[2020-03-22] MEDS: INSULIN LISPRO 100 UNIT/ML SUBCUT SCH ×2 (17:47→21:42)
[2020-03-22] MEDS: ENOXAPARIN 30 MG/0.3 ML SYRINGE SUBCUT SCH (17:56)
[2020-03-22] MEDS: ALBUTEROL 2.5 MG/3 ML NEB RESP TX SCH (19:44)
[2020-03-22 20:06] LABS: Osmolality,Calculated 309.1 MOS/KG (273-304)
[2020-03-22] MEDS: GABAPENTIN 100 MG CAPSULE PO SCH (21:33)
[2020-03-22] MEDS: carvediloL 6.25 MG TABLET PO SCH (21:33)
[2020-03-22 22:46] LABS: Calcium 7.2 MG/DL (8.5-10.1); Osmolality,Calculated 300.7 MOS/KG (273-304)
[2020-03-23] MEDS: ALBUTEROL 2.5 MG/3 ML NEB RESP TX SCH ×4 (01:25→19:13)
[2020-03-23] MEDS: INSULIN LISPRO 100 UNIT/ML SUBCUT SCH ×6 (02:46→22:21)
[2020-03-23 03:50] LABS: Albumin 1.9 G/DL (3.4-5.0); Bilirubin,Total 0.5 MG/DL (0.2-1.0); Osmolality,Calculated 285.4 MOS/KG (273-304); Thyroid Stimulating Hormone 4.91 uIU/ml (0.358-3.74); Total Protein 5.6 G/DL (6.4-8.3)
[2020-03-23] MEDS ORDERED: CALCIUM CHLORIDE 1,000 MG/10 ML SYRINGE IV ONE (04:09)
[2020-03-23] MEDS: INSULIN NPH/REGULAR 70/30 100 UNIT/ML SUBCUT SCH ×2 (08:40→16:02)
[2020-03-23] MEDS: PANTOPRAZOLE 40 MG TABLET PO SCH (08:41)
[2020-03-23] MEDS: carvediloL 6.25 MG TABLET PO SCH ×2 (08:41→20:28)
[2020-03-23] MEDS: SEVELAMER CARBONATE 800 MG TABLET PO SCH ×3 (08:41→18:18)
[2020-03-23] MEDS: ENOXAPARIN 30 MG/0.3 ML SYRINGE SUBCUT SCH (18:18)
[2020-03-23] MEDS: GABAPENTIN 100 MG CAPSULE PO SCH (20:28)
[2020-03-24] MEDS ORDERED: MEPERIDINE 25 MG/1 ML VIAL IM ONE (00:20)
[2020-03-24] MEDS: ALBUTEROL 2.5 MG/3 ML NEB RESP TX SCH ×4 (00:33→19:27)
[2020-03-24] MEDS: INSULIN LISPRO 100 UNIT/ML SUBCUT SCH ×6 (03:00→21:00)
[2020-03-24 06:18] LABS: Calcium 6.9 MG/DL (8.5-10.1)
[2020-03-24] MEDS: INSULIN NPH/REGULAR 70/30 100 UNIT/ML SUBCUT SCH (08:03)
[2020-03-24 09:24] LABS: Basophils % 0.5 % (0.0-0.8); Eosinophils # 0.2 10*3/uL (0.0-0.87); Eosinophils % 2.9 % (0.00-10.9); Hematocrit 32.7 VOL% (35.7-47.0); Hemoglobin 10.1 GM/DL (12.0-16.0); Immature Granulocytes % 0.5 %; Immature Granulocytes Absolute 0.03 #; Lymphocytes # 0.7 10*3/uL (1.4-4.0); Lymphocytes % 13.1 % (21.3-54.2); Mean Corpuscular HGB Conc 30.9 GM/DL (32-36); Mean Corpuscular Volume 84.5 FL (87-102); Mean Platelet Volume 10.6 FL (9.6-12.0); Monocytes % 13.4 % (1.7-12.7); NRBC # 0.04 10*3/uL; Neutrophils % 69.6 % (38.7-73.9); Platelet Count 369 T/CUMM (130-400); Red Blood Count 3.87 MC/CUMM (3.8-5.5); Red Cell Distribution Width 24.1 % (9.3-17.3); White Blood Count 5.6 T/CUMM (4-12)
[2020-03-24] MEDS ORDERED: HEPARIN 10,000 UNIT/10 ML VIAL IV PRN (11:10)
[2020-03-24] MEDS: SEVELAMER CARBONATE 800 MG TABLET PO SCH ×3 (11:21→17:48)
[2020-03-24] MEDS: carvediloL 6.25 MG TABLET PO SCH ×2 (11:21→21:00)
[2020-03-24] MEDS: PANTOPRAZOLE 40 MG TABLET PO SCH (11:21)
[2020-03-24] MEDS: MENTHOL/ZINC OXIDE OINT 71 GM JAR TOP SCH ×2 (15:41→20:59)
[2020-03-24] MEDS ORDERED: INSULIN NPH/REGULAR 70/30 100 UNIT/ML SUBCUT SCH (16:30)
[2020-03-24] MEDS: ENOXAPARIN 30 MG/0.3 ML SYRINGE SUBCUT SCH (17:48)
[2020-03-24] MEDS: GABAPENTIN 100 MG CAPSULE PO SCH (21:01)
[2020-03-25] MEDS: ALBUTEROL 2.5 MG/3 ML NEB RESP TX SCH ×2 (00:42→07:12)
[2020-03-25] MEDS: INSULIN LISPRO 100 UNIT/ML SUBCUT SCH ×2 (01:16→05:27)
[2020-03-25] MEDS ORDERED: INSULIN NPH/REGULAR 70/30 100 UNIT/ML SUBCUT SCH (07:30)
[2020-03-25 07:57] VITALS: BP 114/69
[2020-03-25 07:59] LABS: Calcium 6.8 MG/DL (8.5-10.1); Osmolality,Calculated 289.7 MOS/KG (273-304)
[2020-03-25 08:20] LABS: Basophils % 0.2 % (0.0-0.8); Eosinophils # 0.1 10*3/uL (0.0-0.87); Eosinophils % 1.4 % (0.00-10.9); Hematocrit 28.5 VOL% (35.7-47.0); Hemoglobin 8.6 GM/DL (12.0-16.0); Immature Granulocytes % 0.4 %; Immature Granulocytes Absolute 0.02 #; Lymphocytes # 0.7 10*3/uL (1.4-4.0); Lymphocytes % 13.3 % (21.3-54.2); Mean Corpuscular HGB Conc 30.2 GM/DL (32-36); Mean Corpuscular Volume 88.2 FL (87-102); Mean Platelet Volume 10.1 FL (9.6-12.0); Monocytes % 12.9 % (1.7-12.7); Neutrophils % 71.8 % (38.7-73.9); Platelet Count 302 T/CUMM (130-400); Red Blood Count 3.23 MC/CUMM (3.8-5.5); Red Cell Distribution Width 24.8 % (9.3-17.3); White Blood Count 5.1 T/CUMM (4-12)
[2020-03-25] MEDS ORDERED: INSULIN LISPRO 100 UNIT/ML SUBCUT SCH (11:30)
[2020-03-25] MEDS: SEVELAMER CARBONATE 800 MG TABLET PO SCH ×2 (12:45→12:51)
[2020-03-25] MEDS: MENTHOL/ZINC OXIDE OINT 71 GM JAR TOP SCH (12:45)
[2020-03-25] MEDS: carvediloL 6.25 MG TABLET PO SCH (12:46)
[2020-03-25] MEDS: PANTOPRAZOLE 40 MG TABLET PO SCH (12:46)
== END 2020-03-25 16:15 | disposition home health service (06) | DRG 637 ==
LOC: EDBD → EDUNIT# → N.ED 14:28 → N.EDINP 16:08 → SUATTDRO 16:08 → N.ICU 20:35 → N.3E 03-23 13:04
PROVIDERS: ADMIT Internal Medicine; ATTEND Internal Medicine

== ENCOUNTER 2020-04-03 09:45 | Inpatient (IN) ==
[2020-04-03] MEDS ORDERED: MORPHINE 10 MG/1 ML VIAL IV STA (10:05)
[2020-04-03] MEDS ORDERED: MORPHINE 4 MG/1 ML VIAL IV STA (10:06)
[2020-04-03 10:41] LABS: Basophils # 0.1 10*3/uL (0.0-0.2); Basophils % 0.5 % (0.0-0.8); Eosinophils # 0.1 10*3/uL (0.0-0.87); Eosinophils % 0.9 % (0.00-10.9); Hematocrit 28.8 VOL% (35.7-47.0); Hemoglobin 8.7 GM/DL (12.0-16.0); Immature Granulocytes % 0.4 %; Immature Granulocytes Absolute 0.04 #; Lymphocytes # 1.3 10*3/uL (1.4-4.0); Lymphocytes % 14.1 % (21.3-54.2); Mean Corpuscular HGB Conc 30.2 GM/DL (32-36); Mean Corpuscular Volume 90.6 FL (87-102); Mean Platelet Volume 10.6 FL (9.6-12.0); Monocytes % 6.5 % (1.7-12.7); Neutrophils % 77.6 % (38.7-73.9); Platelet Count 359 T/CUMM (130-400); Red Blood Count 3.18 MC/CUMM (3.8-5.5); Red Cell Distribution Width 23.3 % (9.3-17.3); White Blood Count 9.2 T/CUMM (4-12)
[2020-04-03 11:00] LABS: Albumin 2.6 G/DL (3.4-5.0); Bilirubin,Total 0.6 MG/DL (0.2-1.0); Calcium 7.2 MG/DL (8.5-10.1); Osmolality,Calculated 304.3 MOS/KG (273-304)
[2020-04-03 11:02] LABS: Troponin I 0.339 NG/ML (0.00-0.045)
[2020-04-03 11:06] LABS: Anisocytosis 2+; Hypochromasia 2+; Macrocytosis 1+; Platelet Estimate Normal; Poikilocytosis 1+
[2020-04-03] MEDS ORDERED: GLUCAGON 1 MG VIAL IM PRN (11:35)
[2020-04-03] MEDS ORDERED: DEXTROSE 50% 25 GM/50 ML VIAL IV PRN (11:35)
[2020-04-03] MEDS ORDERED: ACETAMINOPHEN 325 MG TABLET PO PRN (11:35)
[2020-04-03] MEDS: INSULIN LISPRO 100 UNIT/ML SUBCUT SCH ×2 (17:03→20:32)
[2020-04-03 17:18] LABS: Troponin I 0.423 NG/ML (0.00-0.045)
[2020-04-03] MEDS: hydrALAZINE 20 MG/1 ML VIAL IV PRN (17:43)
[2020-04-03] MEDS ORDERED: KETOROLAC 30 MG/1 ML VIAL IV ONE (19:32)
[2020-04-03] MEDS: ONDANSETRON 4 MG/2 ML VIAL IV PRN (19:57)
[2020-04-04] MEDS: PANTOPRAZOLE 40 MG TABLET PO SCH (05:41)
[2020-04-04 06:03] LABS: Basophils # 0.1 10*3/uL (0.0-0.2); Basophils % 0.7 % (0.0-0.8); Eosinophils # 0.2 10*3/uL (0.0-0.87); Hematocrit 29.2 VOL% (35.7-47.0); Hemoglobin 8.8 GM/DL (12.0-16.0); Immature Granulocytes % 0.3 %; Immature Granulocytes Absolute 0.03 #; Lymphocytes % 19.5 % (21.3-54.2); Mean Corpuscular HGB Conc 30.1 GM/DL (32-36); Mean Corpuscular Volume 91.8 FL (87-102); Mean Platelet Volume 10.5 FL (9.6-12.0); Monocytes % 9.1 % (1.7-12.7); Neutrophils % 68.4 % (38.7-73.9); Platelet Count 359 T/CUMM (130-400); Red Blood Count 3.18 MC/CUMM (3.8-5.5); Red Cell Distribution Width 23.1 % (9.3-17.3); White Blood Count 10.1 T/CUMM (4-12)
[2020-04-04 06:32] LABS: Calcium 7.4 MG/DL (8.5-10.1); Osmolality,Calculated 288.1 MOS/KG (273-304); Thyroid Stimulating Hormone 5.21 uIU/ml (0.358-3.74)
[2020-04-04 06:49] LABS: Platelet Estimate Normal
[2020-04-04 06:50] LABS: Anisocytosis 2+; Hypochromasia 1+; Poikilocytosis 1+; Target Cells Few
[2020-04-04 06:51] LABS: Burr Cells Few; Ovalocytes Few
[2020-04-04 07:23] LABS: Troponin I 0.335 NG/ML (0.00-0.045)
[2020-04-04] MEDS: INSULIN LISPRO 100 UNIT/ML SUBCUT SCH ×4 (07:54→21:35)
[2020-04-04] MEDS: MULTIVITAMIN (BEROCCA) TABLET PO SCH (11:32)
[2020-04-04] MEDS ORDERED: SEVELAMER CARBONATE 800 MG TABLET PO SCH (12:00)
[2020-04-04] MEDS: SEVELAMER CARBONATE 800 MG TABLET PO SCH ×2 (13:17→17:23)
[2020-04-04] MEDS: ALBUTEROL 2.5 MG/3 ML NEB RESP TX SCH ×2 (14:39→19:37)
[2020-04-04] MEDS: INSULIN NPH/REGULAR 70/30 100 UNIT/ML SUBCUT SCH (16:01)
[2020-04-04] MEDS ORDERED: TORSEMIDE 20 MG TABLET PO SCH (17:00)
[2020-04-04] MEDS ORDERED: INSULIN LISPRO 100 UNIT/ML SUBCUT ONE (18:59)
[2020-04-04] MEDS ORDERED: FERROUS SULFATE 325 MG TABLET PO SCH (21:00)
[2020-04-04] MEDS ORDERED: GABAPENTIN 100 MG CAPSULE PO SCH (21:00)
[2020-04-04] MEDS ORDERED: carvediloL 6.25 MG TABLET PO SCH (21:00)
[2020-04-04] MEDS: TORSEMIDE 20 MG TABLET PO SCH (21:37)
[2020-04-04] MEDS: carvediloL 6.25 MG TABLET PO SCH (21:37)
[2020-04-04] MEDS: FERROUS SULFATE 325 MG TABLET PO SCH (21:37)
[2020-04-04] MEDS: GABAPENTIN 100 MG CAPSULE PO SCH (21:37)
[2020-04-04] MEDS: ONDANSETRON 4 MG/2 ML VIAL IV PRN (22:04)
[2020-04-05] MEDS: ALBUTEROL 2.5 MG/3 ML NEB RESP TX SCH ×4 (01:06→19:32)
[2020-04-05] MEDS: ONDANSETRON 4 MG/2 ML VIAL IV PRN ×2 (02:14→22:36)
[2020-04-05 05:37] LABS: Basophils # 0.1 10*3/uL (0.0-0.2); Basophils % 0.5 % (0.0-0.8); Eosinophils # 0.3 10*3/uL (0.0-0.87); Eosinophils % 2.2 % (0.00-10.9); Hemoglobin 8.1 GM/DL (12.0-16.0); Immature Granulocytes % 0.4 %; Immature Granulocytes Absolute 0.05 #; Lymphocytes # 1.9 10*3/uL (1.4-4.0); Lymphocytes % 15.4 % (21.3-54.2); Mean Corpuscular HGB Conc 28.9 GM/DL (32-36); Mean Corpuscular Volume 94.9 FL (87-102); Monocytes % 9.4 % (1.7-12.7); Neutrophils % 72.1 % (38.7-73.9); Platelet Count 308 T/CUMM (130-400); Red Blood Count 2.95 MC/CUMM (3.8-5.5); Red Cell Distribution Width 22.5 % (9.3-17.3); White Blood Count 12.5 T/CUMM (4-12)
[2020-04-05 05:48] LABS: Calcium 7.1 MG/DL (8.5-10.1); Osmolality,Calculated 285.4 MOS/KG (273-304)
[2020-04-05 06:10] LABS: Free T4 (Free Thyroxine) 0.9 NG/DL (0.76-1.46)
[2020-04-05] MEDS: PANTOPRAZOLE 40 MG TABLET PO SCH (06:12)
[2020-04-05 08:27] LABS: Hypochromasia 2+; Microcytosis Slight; Platelet Estimate Normal; Polychromasia Slight
[2020-04-05] MEDS ORDERED: PANTOPRAZOLE 40 MG TABLET PO SCH (09:00)
[2020-04-05] MEDS ORDERED: ASCORBIC ACID 500 MG TABLET PO SCH (09:00)
[2020-04-05] MEDS ORDERED: ZINC GLUCONATE 50 MG TABLET PO SCH (09:00)
[2020-04-05] MEDS: carvediloL 6.25 MG TABLET PO SCH ×2 (09:36→20:38)
[2020-04-05] MEDS: SEVELAMER CARBONATE 800 MG TABLET PO SCH ×3 (09:36→18:51)
[2020-04-05] MEDS: ZINC GLUCONATE 50 MG TABLET PO SCH (09:36)
[2020-04-05] MEDS: MULTIVITAMIN (BEROCCA) TABLET PO SCH (09:37)
[2020-04-05] MEDS: ASCORBIC ACID 500 MG TABLET PO SCH (09:37)
[2020-04-05] MEDS: FERROUS SULFATE 325 MG TABLET PO SCH ×2 (09:37→20:38)
[2020-04-05] MEDS: INSULIN LISPRO 100 UNIT/ML SUBCUT SCH ×4 (09:37→20:37)
[2020-04-05] MEDS: INSULIN NPH/REGULAR 70/30 100 UNIT/ML SUBCUT SCH ×3 (09:37→18:51)
[2020-04-05] MEDS: TORSEMIDE 20 MG TABLET PO SCH ×2 (09:43→20:38)
[2020-04-05] MEDS: MENTHOL/ZINC OXIDE OINT 71 GM JAR TOP SCH ×2 (18:50→20:42)
[2020-04-05] MEDS: GABAPENTIN 100 MG CAPSULE PO SCH (20:38)
[2020-04-06] MEDS: ALBUTEROL 2.5 MG/3 ML NEB RESP TX SCH ×4 (01:06→20:10)
[2020-04-06] MEDS: PANTOPRAZOLE 40 MG TABLET PO SCH (05:49)
[2020-04-06 06:11] LABS: Basophils % 0.3 % (0.0-0.8); Eosinophils # 0.3 10*3/uL (0.0-0.87); Eosinophils % 2.3 % (0.00-10.9); Hematocrit 26.9 VOL% (35.7-47.0); Hemoglobin 7.8 GM/DL (12.0-16.0); Immature Granulocytes % 0.3 %; Immature Granulocytes Absolute 0.04 #; Lymphocytes # 1.4 10*3/uL (1.4-4.0); Lymphocytes % 11.4 % (21.3-54.2); Mean Corpuscular Volume 94.7 FL (87-102); Mean Platelet Volume 10.7 FL (9.6-12.0); Neutrophils % 77.7 % (38.7-73.9); Platelet Count 271 T/CUMM (130-400); Red Blood Count 2.84 MC/CUMM (3.8-5.5); Red Cell Distribution Width 22.5 % (9.3-17.3); White Blood Count 12.1 T/CUMM (4-12)
[2020-04-06 06:44] LABS: Calcium 6.9 MG/DL (8.5-10.1); Osmolality,Calculated 301.1 MOS/KG (273-304)
[2020-04-06 07:30] LABS: Anisocytosis 2+; Platelet Estimate Normal
[2020-04-06 07:31] LABS: Macrocytosis 1+; Ovalocytes Few; Tear Drop Cells Few
[2020-04-06] MEDS: INSULIN LISPRO 100 UNIT/ML SUBCUT SCH ×4 (07:58→20:58)
[2020-04-06] MEDS: INSULIN NPH/REGULAR 70/30 100 UNIT/ML SUBCUT SCH ×2 (07:58→16:42)
[2020-04-06] MEDS ORDERED: HEPARIN 10,000 UNIT/10 ML VIAL IV PRN (11:05)
[2020-04-06] MEDS: SEVELAMER CARBONATE 800 MG TABLET PO SCH ×3 (13:30→16:42)
[2020-04-06] MEDS: carvediloL 6.25 MG TABLET PO SCH ×2 (13:45→20:27)
[2020-04-06] MEDS: FERROUS SULFATE 325 MG TABLET PO SCH ×2 (13:45→20:27)
[2020-04-06] MEDS: ASCORBIC ACID 500 MG TABLET PO SCH (13:46)
[2020-04-06] MEDS: MULTIVITAMIN (BEROCCA) TABLET PO SCH (13:46)
[2020-04-06] MEDS: TORSEMIDE 20 MG TABLET PO SCH ×2 (13:46→20:27)
[2020-04-06] MEDS: ZINC GLUCONATE 50 MG TABLET PO SCH (13:46)
[2020-04-06] MEDS: MENTHOL/ZINC OXIDE OINT 71 GM JAR TOP SCH ×2 (13:46→20:27)
[2020-04-06] MEDS: ONDANSETRON 4 MG/2 ML VIAL IV PRN (16:48)
[2020-04-06] MEDS: GABAPENTIN 100 MG CAPSULE PO SCH (20:27)
[2020-04-06] MEDS: MAGNESIUM CITRATE 300 ML BOTTLE PO ONE ×2 (22:54→22:56)
[2020-04-06] MEDS ORDERED: BISACODYL 5 MG TABLET PO ONE (23:46)
[2020-04-07] MEDS: ONDANSETRON 4 MG/2 ML VIAL IV PRN ×2 (01:47→22:57)
[2020-04-07] MEDS: ALBUTEROL 2.5 MG/3 ML NEB RESP TX SCH ×4 (02:26→19:29)
[2020-04-07] MEDS: PANTOPRAZOLE 40 MG TABLET PO SCH (05:31)
[2020-04-07 08:07] LABS: Basophils # 0.1 10*3/uL (0.0-0.2); Basophils % 0.5 % (0.0-0.8); Eosinophils # 0.1 10*3/uL (0.0-0.87); Eosinophils % 1.3 % (0.00-10.9); Hematocrit 26.7 VOL% (35.7-47.0); Hemoglobin 7.6 GM/DL (12.0-16.0); Immature Granulocytes % 0.3 %; Immature Granulocytes Absolute 0.03 #; Lymphocytes # 1.2 10*3/uL (1.4-4.0); Lymphocytes % 12.3 % (21.3-54.2); Mean Corpuscular HGB Conc 28.5 GM/DL (32-36); Mean Corpuscular Volume 98.2 FL (87-102); Monocytes % 7.1 % (1.7-12.7); Neutrophils % 78.5 % (38.7-73.9); Platelet Count 260 T/CUMM (130-400); Red Blood Count 2.72 MC/CUMM (3.8-5.5); Red Cell Distribution Width 22.2 % (9.3-17.3); White Blood Count 9.4 T/CUMM (4-12)
[2020-04-07] MEDS: ZINC GLUCONATE 50 MG TABLET PO SCH (08:21)
[2020-04-07] MEDS: ASCORBIC ACID 500 MG TABLET PO SCH (08:21)
[2020-04-07] MEDS: MULTIVITAMIN (BEROCCA) TABLET PO SCH (08:21)
[2020-04-07] MEDS: carvediloL 6.25 MG TABLET PO SCH ×2 (08:22→22:56)
[2020-04-07] MEDS: SEVELAMER CARBONATE 800 MG TABLET PO SCH ×3 (08:22→17:12)
[2020-04-07] MEDS: TORSEMIDE 20 MG TABLET PO SCH ×2 (08:22→22:56)
[2020-04-07] MEDS: FERROUS SULFATE 325 MG TABLET PO SCH ×2 (08:22→22:57)
[2020-04-07] MEDS: INSULIN LISPRO 100 UNIT/ML SUBCUT SCH ×4 (08:22→21:19)
[2020-04-07] MEDS: INSULIN NPH/REGULAR 70/30 100 UNIT/ML SUBCUT SCH ×2 (08:23→17:12)
[2020-04-07] MEDS: MENTHOL/ZINC OXIDE OINT 71 GM JAR TOP SCH ×2 (08:23→22:56)
[2020-04-07 08:48] LABS: Atypical Lymphocytes Few; Hypochromasia 2+; Microcytosis 1+; Platelet Estimate Normal; Polychromasia Slight
[2020-04-07] MEDS ORDERED: INSULIN LISPRO 100 UNIT/ML SUBCUT SCH (12:00)
[2020-04-07] MEDS: GABAPENTIN 100 MG CAPSULE PO SCH (22:56)
[2020-04-08] MEDS: ALBUTEROL 2.5 MG/3 ML NEB RESP TX SCH ×4 (01:22→20:07)
[2020-04-08] MEDS: INSULIN LISPRO 100 UNIT/ML SUBCUT SCH ×6 (02:10→20:45)
[2020-04-08] MEDS: PANTOPRAZOLE 40 MG TABLET PO SCH (05:41)
[2020-04-08 05:51] LABS: Basophils # 0.1 10*3/uL (0.0-0.2); Basophils % 0.5 % (0.0-0.8); Eosinophils # 0.3 10*3/uL (0.0-0.87); Hematocrit 25.6 VOL% (35.7-47.0); Hemoglobin 7.6 GM/DL (12.0-16.0); Immature Granulocytes % 0.4 %; Immature Granulocytes Absolute 0.04 #; Lymphocytes # 2.1 10*3/uL (1.4-4.0); Lymphocytes % 21.4 % (21.3-54.2); Mean Corpuscular HGB Conc 29.7 GM/DL (32-36); Mean Corpuscular Volume 95.5 FL (87-102); Monocytes % 9.4 % (1.7-12.7); Neutrophils % 65.3 % (38.7-73.9); Platelet Count 302 T/CUMM (130-400); Red Blood Count 2.68 MC/CUMM (3.8-5.5); Red Cell Distribution Width 21.7 % (9.3-17.3); White Blood Count 9.6 T/CUMM (4-12)
[2020-04-08 06:21] LABS: Calcium 7.2 MG/DL (8.5-10.1); Osmolality,Calculated 303.4 MOS/KG (273-304)
[2020-04-08] MEDS ORDERED: SODIUM CHLORIDE 0.9% 1,000 ML IV PRN (07:49)
[2020-04-08] MEDS: hydrALAZINE 20 MG/1 ML VIAL IV PRN (10:00)
[2020-04-08] MEDS: MENTHOL/ZINC OXIDE OINT 71 GM JAR TOP SCH ×2 (12:01→20:46)
[2020-04-08] MEDS: ONDANSETRON 4 MG/2 ML VIAL IV PRN (12:01)
[2020-04-08] MEDS: SEVELAMER CARBONATE 800 MG TABLET PO SCH ×3 (12:20→17:13)
[2020-04-08] MEDS: INSULIN NPH/REGULAR 70/30 100 UNIT/ML SUBCUT SCH ×3 (12:20→17:13)
[2020-04-08] MEDS: MULTIVITAMIN (BEROCCA) TABLET PO SCH (12:21)
[2020-04-08 12:30] LABS: Hemoglobin 10.8 GM/DL (12.0-16.0)
[2020-04-08] MEDS: carvediloL 6.25 MG TABLET PO SCH ×2 (12:36→20:43)
[2020-04-08] MEDS: TORSEMIDE 20 MG TABLET PO SCH ×2 (12:42→20:43)
[2020-04-08] MEDS: FERROUS SULFATE 325 MG TABLET PO SCH ×2 (12:43→20:43)
[2020-04-08] MEDS: ZINC GLUCONATE 50 MG TABLET PO SCH (12:43)
[2020-04-08] MEDS: ASCORBIC ACID 500 MG TABLET PO SCH (12:43)
[2020-04-08] MEDS: GABAPENTIN 100 MG CAPSULE PO SCH (20:44)
[2020-04-09] MEDS: ALBUTEROL 2.5 MG/3 ML NEB RESP TX SCH ×4 (00:22→20:15)
[2020-04-09] MEDS: INSULIN LISPRO 100 UNIT/ML SUBCUT SCH ×6 (00:28→21:18)
[2020-04-09] MEDS: hydrALAZINE 20 MG/1 ML VIAL IV PRN (05:19)
[2020-04-09] MEDS: PANTOPRAZOLE 40 MG TABLET PO SCH (05:33)
[2020-04-09 07:42] LABS: Basophils # 0.1 10*3/uL (0.0-0.2); Basophils % 0.8 % (0.0-0.8); Eosinophils # 0.3 10*3/uL (0.0-0.87); Eosinophils % 2.9 % (0.00-10.9); Hemoglobin 9.5 GM/DL (12.0-16.0); Immature Granulocytes % 0.4 %; Immature Granulocytes Absolute 0.03 #; Lymphocytes # 1.8 10*3/uL (1.4-4.0); Lymphocytes % 21.3 % (21.3-54.2); Mean Corpuscular HGB Conc 30.6 GM/DL (32-36); Mean Corpuscular Volume 90.9 FL (87-102); Mean Platelet Volume 10.7 FL (9.6-12.0); Monocytes % 10.4 % (1.7-12.7); Neutrophils % 64.2 % (38.7-73.9); Platelet Count 273 T/CUMM (130-400); Red Blood Count 3.41 MC/CUMM (3.8-5.5); Red Cell Distribution Width 21.8 % (9.3-17.3); White Blood Count 8.6 T/CUMM (4-12)
[2020-04-09 08:03] LABS: Calcium 7.3 MG/DL (8.5-10.1); Osmolality,Calculated 295.4 MOS/KG (273-304)
[2020-04-09] MEDS: SEVELAMER CARBONATE 800 MG TABLET PO SCH ×3 (10:12→18:00)
[2020-04-09] MEDS: ZINC GLUCONATE 50 MG TABLET PO SCH (10:12)
[2020-04-09] MEDS: MULTIVITAMIN (BEROCCA) TABLET PO SCH (10:12)
[2020-04-09] MEDS: carvediloL 6.25 MG TABLET PO SCH ×2 (10:13→21:17)
[2020-04-09] MEDS: ASCORBIC ACID 500 MG TABLET PO SCH (10:13)
[2020-04-09] MEDS: TORSEMIDE 20 MG TABLET PO SCH ×2 (10:14→21:17)
[2020-04-09] MEDS: MENTHOL/ZINC OXIDE OINT 71 GM JAR TOP SCH ×2 (10:20→21:18)
[2020-04-09] MEDS: INSULIN NPH/REGULAR 70/30 100 UNIT/ML SUBCUT SCH ×2 (10:25→18:01)
[2020-04-09] MEDS: FERROUS SULFATE 325 MG TABLET PO SCH ×2 (10:27→21:19)
[2020-04-09] MEDS: FLUTICASONE 50 MCG NASAL SPRAY 16 GM BOTTLE BOTH NARES SCH (11:50)
[2020-04-09] MEDS: GABAPENTIN 100 MG CAPSULE PO SCH (21:19)
[2020-04-10] MEDS: INSULIN LISPRO 100 UNIT/ML SUBCUT SCH ×6 (00:04→21:10)
[2020-04-10] MEDS: ONDANSETRON 4 MG/2 ML VIAL IV PRN ×2 (00:05→14:06)
[2020-04-10] MEDS: ALBUTEROL 2.5 MG/3 ML NEB RESP TX SCH ×4 (00:36→20:59)
[2020-04-10] MEDS ORDERED: MONTELUKAST 10 MG TABLET PO ONE (00:46)
[2020-04-10 05:59] LABS: Basophils # 0.1 10*3/uL (0.0-0.2); Basophils % 1.2 % (0.0-0.8); Eosinophils # 0.3 10*3/uL (0.0-0.87); Eosinophils % 3.6 % (0.00-10.9); Hematocrit 28.5 VOL% (35.7-47.0); Hemoglobin 8.7 GM/DL (12.0-16.0); Immature Granulocytes % 0.3 %; Immature Granulocytes Absolute 0.02 #; Mean Corpuscular HGB Conc 30.5 GM/DL (32-36); Mean Corpuscular Volume 91.6 FL (87-102); Mean Platelet Volume 11.5 FL (9.6-12.0); Monocytes % 12.2 % (1.7-12.7); Neutrophils % 56.7 % (38.7-73.9); Platelet Count 271 T/CUMM (130-400); Red Blood Count 3.11 MC/CUMM (3.8-5.5); Red Cell Distribution Width 21.4 % (9.3-17.3); White Blood Count 7.7 T/CUMM (4-12)
[2020-04-10] MEDS: PANTOPRAZOLE 40 MG TABLET PO SCH (06:06)
[2020-04-10 06:44] LABS: Calcium 7.6 MG/DL (8.5-10.1); Osmolality,Calculated 299.3 MOS/KG (273-304)
[2020-04-10] MEDS: SEVELAMER CARBONATE 800 MG TABLET PO SCH ×3 (09:54→16:33)
[2020-04-10] MEDS: INSULIN NPH/REGULAR 70/30 100 UNIT/ML SUBCUT SCH ×2 (09:55→16:32)
[2020-04-10] MEDS: ZINC GLUCONATE 50 MG TABLET PO SCH (09:55)
[2020-04-10] MEDS: MULTIVITAMIN (BEROCCA) TABLET PO SCH ×2 (09:55→14:05)
[2020-04-10] MEDS: ASCORBIC ACID 500 MG TABLET PO SCH ×2 (09:55→14:06)
[2020-04-10] MEDS: TORSEMIDE 20 MG TABLET PO SCH ×2 (09:55→21:10)
[2020-04-10] MEDS: carvediloL 6.25 MG TABLET PO SCH ×2 (09:55→21:10)
[2020-04-10] MEDS: FLUTICASONE 50 MCG NASAL SPRAY 16 GM BOTTLE BOTH NARES SCH (09:56)
[2020-04-10] MEDS: MENTHOL/ZINC OXIDE OINT 71 GM JAR TOP SCH ×2 (09:56→21:10)
[2020-04-10] MEDS: FERROUS SULFATE 325 MG TABLET PO SCH ×2 (09:56→20:57)
[2020-04-10] MEDS: CETIRIZINE 5 MG TABLET PO SCH (11:43)
[2020-04-10] MEDS: hydrALAZINE 20 MG/1 ML VIAL IV PRN (11:48)
[2020-04-10] MEDS: GABAPENTIN 100 MG CAPSULE PO SCH (20:56)
[2020-04-11] MEDS: INSULIN LISPRO 100 UNIT/ML SUBCUT SCH ×6 (01:20→20:22)
[2020-04-11] MEDS: ONDANSETRON 4 MG/2 ML VIAL IV PRN (01:52)
[2020-04-11] MEDS: ALBUTEROL 2.5 MG/3 ML NEB RESP TX SCH ×4 (03:50→20:33)
[2020-04-11] MEDS: PANTOPRAZOLE 40 MG TABLET PO SCH (06:04)
[2020-04-11 07:45] LABS: Basophils # 0.1 10*3/uL (0.0-0.2); Basophils % 0.7 % (0.0-0.8); Eosinophils # 0.3 10*3/uL (0.0-0.87); Eosinophils % 2.9 % (0.00-10.9); Hematocrit 28.8 VOL% (35.7-47.0); Hemoglobin 8.7 GM/DL (12.0-16.0); Immature Granulocytes % 0.2 %; Immature Granulocytes Absolute 0.02 #; Lymphocytes # 1.5 10*3/uL (1.4-4.0); Lymphocytes % 17.7 % (21.3-54.2); Mean Corpuscular HGB Conc 30.2 GM/DL (32-36); Mean Corpuscular Volume 93.2 FL (87-102); Mean Platelet Volume 11.3 FL (9.6-12.0); Monocytes % 9.8 % (1.7-12.7); Neutrophils % 68.7 % (38.7-73.9); Platelet Count 262 T/CUMM (130-400); Red Blood Count 3.09 MC/CUMM (3.8-5.5); Red Cell Distribution Width 21.3 % (9.3-17.3); White Blood Count 8.6 T/CUMM (4-12)
[2020-04-11] MEDS: INSULIN NPH/REGULAR 70/30 100 UNIT/ML SUBCUT SCH ×2 (08:00→16:59)
[2020-04-11 08:01] LABS: Calcium 7.5 MG/DL (8.5-10.1); Osmolality,Calculated 314.1 MOS/KG (273-304)
[2020-04-11] MEDS: MULTIVITAMIN (BEROCCA) TABLET PO SCH (09:58)
[2020-04-11] MEDS: SEVELAMER CARBONATE 800 MG TABLET PO SCH ×3 (09:58→17:00)
[2020-04-11] MEDS: FERROUS SULFATE 325 MG TABLET PO SCH ×2 (09:59→20:20)
[2020-04-11] MEDS: TORSEMIDE 20 MG TABLET PO SCH ×2 (09:59→20:21)
[2020-04-11] MEDS: carvediloL 6.25 MG TABLET PO SCH ×2 (09:59→20:22)
[2020-04-11] MEDS: CETIRIZINE 5 MG TABLET PO SCH (10:00)
[2020-04-11] MEDS: ZINC GLUCONATE 50 MG TABLET PO SCH (10:00)
[2020-04-11] MEDS: MONTELUKAST 10 MG TABLET PO SCH (10:00)
[2020-04-11] MEDS: MENTHOL/ZINC OXIDE OINT 71 GM JAR TOP SCH ×2 (10:01→20:23)
[2020-04-11] MEDS: FLUTICASONE 50 MCG NASAL SPRAY 16 GM BOTTLE BOTH NARES SCH (12:43)
[2020-04-11] MEDS: ASCORBIC ACID 500 MG TABLET PO SCH (12:43)
[2020-04-11] MEDS: GABAPENTIN 100 MG CAPSULE PO SCH (20:21)
[2020-04-12] MEDS: ONDANSETRON 4 MG/2 ML VIAL IV PRN ×3 (00:59→21:34)
[2020-04-12] MEDS: INSULIN LISPRO 100 UNIT/ML SUBCUT SCH ×6 (02:35→21:23)
[2020-04-12 06:38] LABS: Basophils # 0.1 10*3/uL (0.0-0.2); Basophils % 0.7 % (0.0-0.8); Eosinophils # 0.4 10*3/uL (0.0-0.87); Eosinophils % 4.6 % (0.00-10.9); Hematocrit 26.2 VOL% (35.7-47.0); Immature Granulocytes % 0.1 %; Immature Granulocytes Absolute 0.01 #; Lymphocytes # 1.7 10*3/uL (1.4-4.0); Lymphocytes % 22.4 % (21.3-54.2); Mean Corpuscular HGB Conc 30.5 GM/DL (32-36); Mean Corpuscular Volume 92.6 FL (87-102); Mean Platelet Volume 10.9 FL (9.6-12.0); Monocytes % 12.5 % (1.7-12.7); Neutrophils % 59.7 % (38.7-73.9); Platelet Count 255 T/CUMM (130-400); Red Blood Count 2.83 MC/CUMM (3.8-5.5); Red Cell Distribution Width 21.1 % (9.3-17.3); White Blood Count 7.5 T/CUMM (4-12)
[2020-04-12 06:56] LABS: Calcium 7.6 MG/DL (8.5-10.1); Osmolality,Calculated 297.3 MOS/KG (273-304)
[2020-04-12] MEDS: ALBUTEROL 2.5 MG/3 ML NEB RESP TX SCH ×4 (07:02→19:44)
[2020-04-12] MEDS: PANTOPRAZOLE 40 MG TABLET PO SCH (07:26)
[2020-04-12] MEDS ORDERED: SODIUM POLYSTYRENE SULFATE 15 GM/60 ML BOTTLE PO ONE (08:30)
[2020-04-12] MEDS: ZINC GLUCONATE 50 MG TABLET PO SCH (09:50)
[2020-04-12] MEDS: CETIRIZINE 5 MG TABLET PO SCH (09:50)
[2020-04-12] MEDS: carvediloL 6.25 MG TABLET PO SCH ×2 (09:50→21:23)
[2020-04-12] MEDS: MULTIVITAMIN (BEROCCA) TABLET PO SCH (09:50)
[2020-04-12] MEDS: TORSEMIDE 20 MG TABLET PO SCH ×2 (09:50→21:23)
[2020-04-12] MEDS: MONTELUKAST 10 MG TABLET PO SCH (09:50)
[2020-04-12] MEDS: FERROUS SULFATE 325 MG TABLET PO SCH ×2 (09:50→21:23)
[2020-04-12] MEDS: INSULIN NPH/REGULAR 70/30 100 UNIT/ML SUBCUT SCH ×2 (09:51→17:12)
[2020-04-12] MEDS: SEVELAMER CARBONATE 800 MG TABLET PO SCH ×3 (10:16→16:13)
[2020-04-12] MEDS: MENTHOL/ZINC OXIDE OINT 71 GM JAR TOP SCH ×2 (10:43→21:23)
[2020-04-12] MEDS: FLUTICASONE 50 MCG NASAL SPRAY 16 GM BOTTLE BOTH NARES SCH (10:44)
[2020-04-12] MEDS: ASCORBIC ACID 500 MG TABLET PO SCH (13:02)
[2020-04-12] MEDS: GABAPENTIN 100 MG CAPSULE PO SCH (21:23)
[2020-04-13] MEDS: INSULIN LISPRO 100 UNIT/ML SUBCUT SCH ×5 (02:05→19:38)
[2020-04-13] MEDS: ALBUTEROL 2.5 MG/3 ML NEB RESP TX SCH ×4 (03:01→19:32)
[2020-04-13] MEDS: PANTOPRAZOLE 40 MG TABLET PO SCH (05:32)
[2020-04-13 05:42] LABS: Basophils # 0.1 10*3/uL (0.0-0.2); Basophils % 0.8 % (0.0-0.8); Eosinophils # 0.3 10*3/uL (0.0-0.87); Eosinophils % 4.2 % (0.00-10.9); Hemoglobin 7.6 GM/DL (12.0-16.0); Immature Granulocytes % 0.5 %; Immature Granulocytes Absolute 0.04 #; Lymphocytes # 1.6 10*3/uL (1.4-4.0); Lymphocytes % 22.4 % (21.3-54.2); Mean Corpuscular HGB Conc 30.4 GM/DL (32-36); Monocytes % 12.2 % (1.7-12.7); Neutrophils % 59.9 % (38.7-73.9); Platelet Count 254 T/CUMM (130-400); Red Blood Count 2.66 MC/CUMM (3.8-5.5); White Blood Count 7.3 T/CUMM (4-12)
[2020-04-13 05:56] LABS: Calcium 7.5 MG/DL (8.5-10.1); Osmolality,Calculated 301.4 MOS/KG (273-304)
[2020-04-13] MEDS ORDERED: SODIUM POLYSTYRENE SULFATE 15 GM/60 ML BOTTLE PO ONE (08:30)
[2020-04-13] MEDS: INSULIN NPH/REGULAR 70/30 100 UNIT/ML SUBCUT SCH ×2 (12:07→17:16)
[2020-04-13] MEDS: SEVELAMER CARBONATE 800 MG TABLET PO SCH ×2 (12:08→17:58)
[2020-04-13] MEDS: ZINC GLUCONATE 50 MG TABLET PO SCH (12:29)
[2020-04-13] MEDS: TORSEMIDE 20 MG TABLET PO SCH ×2 (12:29→20:22)
[2020-04-13] MEDS: MONTELUKAST 10 MG TABLET PO SCH (12:30)
[2020-04-13] MEDS: MENTHOL/ZINC OXIDE OINT 71 GM JAR TOP SCH ×2 (12:30→20:21)
[2020-04-13] MEDS: FLUTICASONE 50 MCG NASAL SPRAY 16 GM BOTTLE BOTH NARES SCH (12:30)
[2020-04-13] MEDS: MULTIVITAMIN (BEROCCA) TABLET PO SCH (12:30)
[2020-04-13] MEDS: carvediloL 6.25 MG TABLET PO SCH ×2 (12:30→20:22)
[2020-04-13] MEDS: CETIRIZINE 5 MG TABLET PO SCH (12:36)
[2020-04-13] MEDS: FERROUS SULFATE 325 MG TABLET PO SCH ×2 (16:05→20:22)
[2020-04-13] MEDS: ASCORBIC ACID 500 MG TABLET PO SCH (16:05)
[2020-04-13] MEDS: GABAPENTIN 100 MG CAPSULE PO SCH (20:22)
[2020-04-13 20:52] VITALS: BP 168/82
== END 2020-04-13 20:45 | disposition home health service (06) | DRG 291 ==
LOC: EDBD → EDUNIT# → N.ED 09:45 → SUATTDRO 11:34 → N.EDINP 11:34 → N.3E 13:23
PROVIDERS: ADMIT Internal Medicine; ATTEND Internal Medicine

== ENCOUNTER 2020-04-20 10:29 | Inpatient (IN) ==
[2020-04-20] MEDS ORDERED: ONDANSETRON 4 MG/2 ML VIAL IV STA (11:21)
[2020-04-20 12:27] LABS: Albumin 2.3 G/DL (3.4-5.0); Bilirubin,Total 0.6 MG/DL (0.2-1.0); Calcium 7.1 MG/DL (8.5-10.1); Osmolality,Calculated 300.4 MOS/KG (273-304); Potassium 4.7 MMOL/L (3.5-5.1); Total Protein 6.2 G/DL (6.4-8.3)
[2020-04-20 12:47] LABS: Basophils % 0.1 % (0.0-0.8); Eosinophils # 0.1 10*3/uL (0.0-0.87); Eosinophils % 1.2 % (0.00-10.9); Immature Granulocytes % 0.7 %; Immature Granulocytes Absolute 0.08 #; Lymphocytes # 1.6 10*3/uL (1.4-4.0); Lymphocytes % 14.5 % (21.3-54.2); Mean Corpuscular HGB Conc 29.6 GM/DL (32-36); Mean Platelet Volume 11.3 FL (9.6-12.0); NRBC # 0.06 10*3/uL; Neutrophils % 78.5 % (38.7-73.9); Platelet Count 345 T/CUMM (130-400); Red Blood Count 1.15 MC/CUMM (3.8-5.5); Red Cell Distribution Width 21.8 % (9.3-17.3); White Blood Count 11.3 T/CUMM (4-12)
[2020-04-20 12:49] LABS: Hemoglobin 3.4 GM/DL (12.0-16.0)
[2020-04-20 12:50] LABS: Hematocrit 11.5 VOL% (35.7-47.0)
[2020-04-20] MEDS ORDERED: SODIUM CHLORIDE 0.9% 1,000 ML IV PRN ×2 (13:08→13:56)
[2020-04-20 13:13] LABS: Anisocytosis 2+; Platelet Estimate Normal
[2020-04-20 13:14] LABS: Macrocytosis Slight; Tear Drop Cells Few
[2020-04-20] MEDS ORDERED: ACETAMINOPHEN 325 MG TABLET PO PRN (13:52)
[2020-04-20] MEDS ORDERED: GLUCAGON 1 MG VIAL IM PRN (13:52)
[2020-04-20] MEDS ORDERED: DEXTROSE 50% 25 GM/50 ML VIAL IV PRN (13:52)
[2020-04-20] MEDS: INSULIN LISPRO 100 UNIT/ML SUBCUT SCH ×2 (18:00→20:51)
[2020-04-20] MEDS: SEVELAMER CARBONATE 800 MG TABLET PO SCH (18:11)
[2020-04-20] MEDS: PANTOPRAZOLE 40 MG VIAL IV SCH ×2 (18:15→20:14)
[2020-04-20] MEDS: ALBUTEROL 2.5 MG/3 ML NEB RESP TX SCH (19:28)
[2020-04-20] MEDS: ONDANSETRON 4 MG/2 ML VIAL IV PRN (20:16)
[2020-04-20] MEDS: GABAPENTIN 100 MG CAPSULE PO SCH (21:00)
[2020-04-20] MEDS: MONTELUKAST 10 MG TABLET PO SCH (21:00)
[2020-04-20] MEDS: carvediloL 6.25 MG TABLET PO SCH (21:00)
[2020-04-20 23:08] LABS: Hemoglobin 5.6 GM/DL (12.0-16.0)
[2020-04-20 23:09] LABS: Hematocrit 16.7 VOL% (35.7-47.0)
[2020-04-21] MEDS: ALBUTEROL 2.5 MG/3 ML NEB RESP TX SCH ×4 (01:40→20:10)
[2020-04-21 05:19] LABS: Basophils % 0.2 % (0.0-0.8); Eosinophils # 0.3 10*3/uL (0.0-0.87); Eosinophils % 3.2 % (0.00-10.9); Immature Granulocytes % 0.5 %; Immature Granulocytes Absolute 0.05 #; Lymphocytes % 19.8 % (21.3-54.2); Mean Corpuscular HGB Conc 32.7 GM/DL (32-36); Mean Corpuscular Volume 90.9 FL (87-102); Monocytes % 9.6 % (1.7-12.7); NRBC # 0.06 10*3/uL; Neutrophils % 66.7 % (38.7-73.9); Platelet Count 298 T/CUMM (130-400); Red Blood Count 1.75 MC/CUMM (3.8-5.5); Red Cell Distribution Width 19.8 % (9.3-17.3); White Blood Count 9.9 T/CUMM (4-12)
[2020-04-21 05:34] LABS: Hematocrit 15.9 VOL% (35.7-47.0); Hemoglobin 5.2 GM/DL (12.0-16.0)
[2020-04-21 06:15] LABS: Bilirubin,Total 0.6 MG/DL (0.2-1.0); Calcium 6.8 MG/DL (8.5-10.1); Osmolality,Calculated 310.4 MOS/KG (273-304); Potassium 5.1 MMOL/L (3.5-5.1); Total Protein 5.4 G/DL (6.4-8.3)
[2020-04-21 07:52] LABS: Hematocrit 17.2 VOL% (35.7-47.0); Hemoglobin 5.6 GM/DL (12.0-16.0)
[2020-04-21] MEDS ORDERED: SODIUM CHLORIDE 0.9% 1,000 ML IV PRN (08:42)
[2020-04-21] MEDS: INSULIN LISPRO 100 UNIT/ML SUBCUT SCH ×4 (08:47→20:42)
[2020-04-21] MEDS: SEVELAMER CARBONATE 800 MG TABLET PO SCH ×3 (08:48→16:36)
[2020-04-21] MEDS: PANTOPRAZOLE 40 MG VIAL IV SCH ×2 (08:57→20:29)
[2020-04-21] MEDS ORDERED: EPOETIN ALFA 2,000 UNIT/1 ML VIAL IV PRN (10:47)
[2020-04-21] MEDS ORDERED: HEPARIN 10,000 UNIT/10 ML VIAL IV PRN (10:49)
[2020-04-21] MEDS: carvediloL 6.25 MG TABLET PO SCH ×2 (11:17→20:24)
[2020-04-21] MEDS ORDERED: cloNIDine 0.1 MG TABLET PO PRN (13:11)
[2020-04-21] MEDS: amLODIPine 5 MG TABLET PO SCH (13:46)
[2020-04-21 13:49] LABS: Hematocrit 24.5 VOL% (35.7-47.0); Hemoglobin 8.2 GM/DL (12.0-16.0)
[2020-04-21] MEDS: ONDANSETRON 4 MG/2 ML VIAL IV PRN ×2 (15:40→22:34)
[2020-04-21] MEDS: MONTELUKAST 10 MG TABLET PO SCH (20:24)
[2020-04-21] MEDS: GABAPENTIN 100 MG CAPSULE PO SCH (20:24)
[2020-04-22] MEDS: INSULIN LISPRO 100 UNIT/ML SUBCUT SCH ×5 (00:14→20:56)
[2020-04-22] MEDS: ALBUTEROL 2.5 MG/3 ML NEB RESP TX SCH ×4 (01:37→20:28)
[2020-04-22] MEDS: SEVELAMER CARBONATE 800 MG TABLET PO SCH ×3 (07:56→16:11)
[2020-04-22] MEDS ORDERED: SODIUM CHLORIDE 0.9% 1,000 ML IV SCH (08:00)
[2020-04-22] MEDS: amLODIPine 5 MG TABLET PO SCH (08:04)
[2020-04-22] MEDS: carvediloL 6.25 MG TABLET PO SCH ×2 (08:04→20:55)
[2020-04-22 08:34] LABS: Basophils % 0.3 % (0.0-0.8); Eosinophils # 0.4 10*3/uL (0.0-0.87); Eosinophils % 4.1 % (0.00-10.9); Hematocrit 25.1 VOL% (35.7-47.0); Hemoglobin 8.3 GM/DL (12.0-16.0); Immature Granulocytes % 0.7 %; Immature Granulocytes Absolute 0.07 #; Lymphocytes # 1.3 10*3/uL (1.4-4.0); Mean Corpuscular HGB Conc 33.1 GM/DL (32-36); Mean Corpuscular Volume 88.1 FL (87-102); Mean Platelet Volume 10.3 FL (9.6-12.0); Monocytes % 8.7 % (1.7-12.7); NRBC # 0.02 10*3/uL; Neutrophils % 74.2 % (38.7-73.9); Platelet Count 331 T/CUMM (130-400); Red Blood Count 2.85 MC/CUMM (3.8-5.5); Red Cell Distribution Width 21.9 % (9.3-17.3); White Blood Count 10.5 T/CUMM (4-12)
[2020-04-22] MEDS: PANTOPRAZOLE 40 MG VIAL IV SCH ×2 (08:35→20:02)
[2020-04-22 08:56] LABS: Alanine Aminotransferase 28 U/L (13-56); Albumin 2.3 G/DL (3.4-5.0); Alkaline Phosphatase 182 U/L (45-117); Aspartate Amino Transferase 20 U/L (0-37); Bilirubin,Total < 0.39 MG/DL (0.2-1.0); Blood Urea Nitrogen 53 MG/DL (7-18); Calcium 7.4 MG/DL (8.5-10.1); Carbon Dioxide 27 MMOL/L (21-32); Estimated Glom Filtration Rate 12 ML/MIN; Glucose 198 MG/DL (74-106); Osmolality,Calculated 294.7 MOS/KG (273-304); Sodium 138 MMOL/L (136-145); Total Protein 6.2 G/DL (6.4-8.3)
[2020-04-22] MEDS ORDERED: EPOETIN ALFA-EPBX 2,000 UNIT/ML VIAL IV PRN (09:00)
[2020-04-22] MEDS ORDERED: propofoL 200 MG/20 ML VIAL IV ONE (12:50)
[2020-04-22] MEDS ORDERED: LIDOCAINE 2% 5 ML VIAL ONE (12:50)
[2020-04-22] MEDS ORDERED: BISACODYL 5 MG TABLET PO ONE (15:00)
[2020-04-22] MEDS: INSULIN NPH/REGULAR 70/30 100 UNIT/ML SUBCUT SCH (16:10)
[2020-04-22] MEDS: ONDANSETRON 4 MG/2 ML VIAL IV PRN (16:14)
[2020-04-22] MEDS ORDERED: POLYETHYLENE GLYCOL POWDER 255 GM BOTTLE PO ONE (18:00)
[2020-04-22] MEDS: ZINC OXIDE 16% PASTE 57 GM TUBE TOP SCH ×2 (20:54→20:59)
[2020-04-22] MEDS: GABAPENTIN 100 MG CAPSULE PO SCH (20:55)
[2020-04-22] MEDS: MONTELUKAST 10 MG TABLET PO SCH (20:55)
[2020-04-23] MEDS: ALBUTEROL 2.5 MG/3 ML NEB RESP TX SCH ×4 (00:33→19:21)
[2020-04-23 05:44] LABS: Basophils % 0.3 % (0.0-0.8); Eosinophils # 0.5 10*3/uL (0.0-0.87); Eosinophils % 4.6 % (0.00-10.9); Hematocrit 26.4 VOL% (35.7-47.0); Hemoglobin 8.3 GM/DL (12.0-16.0); Immature Granulocytes % 0.4 %; Immature Granulocytes Absolute 0.04 #; Lymphocytes # 1.6 10*3/uL (1.4-4.0); Lymphocytes % 14.1 % (21.3-54.2); Mean Corpuscular HGB Conc 31.4 GM/DL (32-36); Mean Corpuscular Volume 90.7 FL (87-102); Mean Platelet Volume 10.8 FL (9.6-12.0); Monocytes % 10.2 % (1.7-12.7); NRBC # 0.02 10*3/uL; Neutrophils % 70.4 % (38.7-73.9); Platelet Count 370 T/CUMM (130-400); Red Blood Count 2.91 MC/CUMM (3.8-5.5); Red Cell Distribution Width 22.3 % (9.3-17.3); White Blood Count 11.3 T/CUMM (4-12)
[2020-04-23 06:07] LABS: Albumin 2.3 G/DL (3.4-5.0); Bilirubin,Total 0.5 MG/DL (0.2-1.0); Calcium 7.6 MG/DL (8.5-10.1); Osmolality,Calculated 298.5 MOS/KG (273-304); Potassium 4.5 MMOL/L (3.5-5.1); Total Protein 6.1 G/DL (6.4-8.3)
[2020-04-23 06:26] LABS: Platelet Estimate Normal
[2020-04-23 06:27] LABS: Anisocytosis 3+; Burr Cells Few; Poikilocytosis Slight
[2020-04-23] MEDS ORDERED: SODIUM CHLORIDE 0.9% 1,000 ML IV SCH (08:00)
[2020-04-23] MEDS: PANTOPRAZOLE 40 MG VIAL IV SCH ×2 (09:47→21:48)
[2020-04-23] MEDS: SEVELAMER CARBONATE 800 MG TABLET PO SCH ×3 (09:48→19:42)
[2020-04-23] MEDS: carvediloL 6.25 MG TABLET PO SCH ×2 (09:48→21:47)
[2020-04-23] MEDS: amLODIPine 5 MG TABLET PO SCH (09:48)
[2020-04-23] MEDS: INSULIN LISPRO 100 UNIT/ML SUBCUT SCH ×4 (09:49→21:51)
[2020-04-23] MEDS: ZINC OXIDE 16% PASTE 57 GM TUBE TOP SCH ×2 (09:49→21:46)
[2020-04-23] MEDS: INSULIN NPH/REGULAR 70/30 100 UNIT/ML SUBCUT SCH ×2 (09:49→19:42)
[2020-04-23] MEDS: ONDANSETRON 4 MG/2 ML VIAL IV PRN ×2 (12:28→22:14)
[2020-04-23] MEDS: GABAPENTIN 100 MG CAPSULE PO SCH (21:47)
[2020-04-23] MEDS: MONTELUKAST 10 MG TABLET PO SCH (21:51)
[2020-04-24] MEDS: ALBUTEROL 2.5 MG/3 ML NEB RESP TX SCH ×4 (01:04→18:59)
[2020-04-24 05:46] LABS: Basophils % 0.3 % (0.0-0.8); Eosinophils # 0.5 10*3/uL (0.0-0.87); Eosinophils % 4.3 % (0.00-10.9); Hematocrit 24.2 VOL% (35.7-47.0); Hemoglobin 7.5 GM/DL (12.0-16.0); Immature Granulocytes % 0.5 %; Immature Granulocytes Absolute 0.06 #; Lymphocytes # 1.7 10*3/uL (1.4-4.0); Lymphocytes % 14.5 % (21.3-54.2); Mean Corpuscular Volume 93.4 FL (87-102); Mean Platelet Volume 10.2 FL (9.6-12.0); NRBC # 0.03 10*3/uL; Neutrophils % 69.4 % (38.7-73.9); Platelet Count 353 T/CUMM (130-400); Red Blood Count 2.59 MC/CUMM (3.8-5.5); Red Cell Distribution Width 23.1 % (9.3-17.3); White Blood Count 11.6 T/CUMM (4-12)
[2020-04-24 06:00] LABS: Calcium 7.2 MG/DL (8.5-10.1); Osmolality,Calculated 303.8 MOS/KG (273-304); Potassium 4.7 MMOL/L (3.5-5.1)
[2020-04-24 06:20] LABS: Hypochromasia 1+; Platelet Estimate Adequate
[2020-04-24] MEDS: INSULIN NPH/REGULAR 70/30 100 UNIT/ML SUBCUT SCH ×2 (08:45→16:57)
[2020-04-24] MEDS: INSULIN LISPRO 100 UNIT/ML SUBCUT SCH ×4 (08:46→23:37)
[2020-04-24] MEDS: amLODIPine 5 MG TABLET PO SCH (08:46)
[2020-04-24] MEDS: SEVELAMER CARBONATE 800 MG TABLET PO SCH ×3 (08:46→16:57)
[2020-04-24] MEDS: PANTOPRAZOLE 40 MG VIAL IV SCH ×2 (08:46→21:38)
[2020-04-24] MEDS: carvediloL 6.25 MG TABLET PO SCH ×2 (08:46→21:37)
[2020-04-24] MEDS: ZINC OXIDE 16% PASTE 57 GM TUBE TOP SCH ×2 (08:47→21:40)
[2020-04-24] MEDS: ONDANSETRON 4 MG/2 ML VIAL IV PRN ×2 (15:12→21:40)
[2020-04-24] MEDS: GABAPENTIN 100 MG CAPSULE PO SCH (21:37)
[2020-04-24] MEDS: MONTELUKAST 10 MG TABLET PO SCH (21:40)
[2020-04-25] MEDS: ALBUTEROL 2.5 MG/3 ML NEB RESP TX SCH ×4 (01:34→19:28)
[2020-04-25 05:18] LABS: Basophils % 0.2 % (0.0-0.8); Eosinophils # 0.5 10*3/uL (0.0-0.87); Eosinophils % 4.7 % (0.00-10.9); Hematocrit 24.1 VOL% (35.7-47.0); Hemoglobin 7.3 GM/DL (12.0-16.0); Immature Granulocytes % 0.7 %; Immature Granulocytes Absolute 0.07 #; Lymphocytes # 1.7 10*3/uL (1.4-4.0); Lymphocytes % 17.5 % (21.3-54.2); Mean Corpuscular HGB Conc 30.3 GM/DL (32-36); Mean Corpuscular Volume 95.6 FL (87-102); Mean Platelet Volume 10.4 FL (9.6-12.0); Monocytes % 13.2 % (1.7-12.7); NRBC # 0.03 10*3/uL; Neutrophils % 63.7 % (38.7-73.9); Platelet Count 351 T/CUMM (130-400); Red Blood Count 2.52 MC/CUMM (3.8-5.5); Red Cell Distribution Width 22.7 % (9.3-17.3); White Blood Count 9.9 T/CUMM (4-12)
[2020-04-25 05:37] LABS: Calcium 6.9 MG/DL (8.5-10.1); Osmolality,Calculated 301.4 MOS/KG (273-304); Potassium 5.5 MMOL/L (3.5-5.1)
[2020-04-25 06:17] LABS: Hypochromasia 2+; Microcytosis 1+; Ovalocytes Slight; Platelet Estimate Adequate
[2020-04-25] MEDS ORDERED: SODIUM CHLORIDE 0.9% 1,000 ML IV PRN (08:53)
[2020-04-25] MEDS: PANTOPRAZOLE 40 MG VIAL IV SCH ×2 (10:29→21:24)
[2020-04-25] MEDS: amLODIPine 5 MG TABLET PO SCH (10:30)
[2020-04-25] MEDS: ZINC OXIDE 16% PASTE 57 GM TUBE TOP SCH ×2 (10:30→21:35)
[2020-04-25] MEDS: carvediloL 6.25 MG TABLET PO SCH ×2 (10:30→21:24)
[2020-04-25] MEDS: SEVELAMER CARBONATE 800 MG TABLET PO SCH ×4 (10:30→17:54)
[2020-04-25] MEDS: INSULIN LISPRO 100 UNIT/ML SUBCUT SCH ×4 (10:35→21:25)
[2020-04-25] MEDS: INSULIN NPH/REGULAR 70/30 100 UNIT/ML SUBCUT SCH ×2 (10:35→17:52)
[2020-04-25] MEDS ORDERED: BISACODYL 5 MG TABLET PO ONE (12:00)
[2020-04-25] MEDS ORDERED: POLYETHYLENE GLYCOL POWDER 255 GM BOTTLE PO ONE (18:00)
[2020-04-25] MEDS: MONTELUKAST 10 MG TABLET PO SCH (21:24)
[2020-04-25] MEDS: GABAPENTIN 100 MG CAPSULE PO SCH (21:24)
[2020-04-25] MEDS: ONDANSETRON 4 MG/2 ML VIAL IV PRN (21:26)
[2020-04-25] MEDS ORDERED: PROMETHAZINE 25 MG/1 ML VIAL IM ONE (22:36)
[2020-04-26] MEDS: ALBUTEROL 2.5 MG/3 ML NEB RESP TX SCH ×4 (01:34→19:25)
[2020-04-26 06:40] LABS: Basophils % 0.3 % (0.0-0.8); Eosinophils # 0.6 10*3/uL (0.0-0.87); Eosinophils % 6.7 % (0.00-10.9); Hematocrit 27.7 VOL% (35.7-47.0); Hemoglobin 8.4 GM/DL (12.0-16.0); Immature Granulocytes % 0.5 %; Immature Granulocytes Absolute 0.05 #; Lymphocytes # 1.7 10*3/uL (1.4-4.0); Lymphocytes % 18.3 % (21.3-54.2); Mean Corpuscular HGB Conc 30.3 GM/DL (32-36); Mean Corpuscular Volume 96.5 FL (87-102); Mean Platelet Volume 10.3 FL (9.6-12.0); Monocytes % 11.5 % (1.7-12.7); Neutrophils % 62.7 % (38.7-73.9); Platelet Count 398 T/CUMM (130-400); Red Blood Count 2.87 MC/CUMM (3.8-5.5); Red Cell Distribution Width 21.9 % (9.3-17.3); White Blood Count 9.4 T/CUMM (4-12)
[2020-04-26 07:01] LABS: Calcium 7.2 MG/DL (8.5-10.1); Osmolality,Calculated 295.4 MOS/KG (273-304); Potassium 5.8 MMOL/L (3.5-5.1)
[2020-04-26] MEDS: SEVELAMER CARBONATE 800 MG TABLET PO SCH ×3 (07:39→16:18)
[2020-04-26] MEDS ORDERED: SODIUM CHLORIDE 0.9% 1,000 ML IV SCH (08:00)
[2020-04-26] MEDS: INSULIN NPH/REGULAR 70/30 100 UNIT/ML SUBCUT SCH ×2 (08:13→16:18)
[2020-04-26] MEDS: INSULIN LISPRO 100 UNIT/ML SUBCUT SCH ×4 (08:13→21:15)
[2020-04-26] MEDS: amLODIPine 5 MG TABLET PO SCH (08:17)
[2020-04-26] MEDS: PANTOPRAZOLE 40 MG VIAL IV SCH ×2 (08:18→21:17)
[2020-04-26] MEDS: carvediloL 6.25 MG TABLET PO SCH ×2 (08:18→21:14)
[2020-04-26] MEDS: ZINC OXIDE 16% PASTE 57 GM TUBE TOP SCH ×2 (08:18→21:15)
[2020-04-26] MEDS ORDERED: propofoL 200 MG/20 ML VIAL IV ONE ×2 (12:35→13:20)
[2020-04-26] MEDS ORDERED: LIDOCAINE 2% 5 ML VIAL ONE (12:35)
[2020-04-26 16:57] LABS: Hematocrit 35.9 VOL% (35.7-47.0); Hemoglobin 11.1 GM/DL (12.0-16.0)
[2020-04-26] MEDS: GABAPENTIN 100 MG CAPSULE PO SCH (21:14)
[2020-04-26] MEDS: MONTELUKAST 10 MG TABLET PO SCH (21:14)
[2020-04-26] MEDS: ONDANSETRON 4 MG/2 ML VIAL IV PRN (21:17)
[2020-04-27] MEDS: ALBUTEROL 2.5 MG/3 ML NEB RESP TX SCH ×2 (00:14→07:09)
[2020-04-27] MEDS: INSULIN LISPRO 100 UNIT/ML SUBCUT SCH ×5 (04:06→22:25)
[2020-04-27 05:09] LABS: Basophils % 0.3 % (0.0-0.8); Eosinophils # 0.3 10*3/uL (0.0-0.87); Eosinophils % 3.4 % (0.00-10.9); Hematocrit 28.7 VOL% (35.7-47.0); Hemoglobin 9.2 GM/DL (12.0-16.0); Immature Granulocytes % 0.4 %; Immature Granulocytes Absolute 0.04 #; Lymphocytes # 1.4 10*3/uL (1.4-4.0); Lymphocytes % 15.9 % (21.3-54.2); Mean Corpuscular HGB Conc 32.1 GM/DL (32-36); Mean Platelet Volume 10.3 FL (9.6-12.0); Monocytes % 10.9 % (1.7-12.7); Neutrophils % 69.1 % (38.7-73.9); Platelet Count 347 T/CUMM (130-400); Red Blood Count 3.12 MC/CUMM (3.8-5.5); Red Cell Distribution Width 20.5 % (9.3-17.3)
[2020-04-27 05:35] LABS: Potassium 5.2 MMOL/L (3.5-5.1)
[2020-04-27 05:39] LABS: Calcium 7.3 MG/DL (8.5-10.1)
[2020-04-27] MEDS: SEVELAMER CARBONATE 800 MG TABLET PO SCH ×3 (08:05→17:57)
[2020-04-27] MEDS: carvediloL 6.25 MG TABLET PO SCH ×2 (08:05→22:21)
[2020-04-27] MEDS: INSULIN NPH/REGULAR 70/30 100 UNIT/ML SUBCUT SCH ×2 (08:06→17:56)
[2020-04-27] MEDS: amLODIPine 5 MG TABLET PO SCH (08:06)
[2020-04-27] MEDS: PANTOPRAZOLE 40 MG VIAL IV SCH ×2 (08:07→22:34)
[2020-04-27] MEDS: ZINC OXIDE 16% PASTE 57 GM TUBE TOP SCH ×2 (08:23→22:34)
[2020-04-27] MEDS: ONDANSETRON 4 MG/2 ML VIAL IV PRN ×2 (13:54→22:30)
[2020-04-27] MEDS: GABAPENTIN 100 MG CAPSULE PO SCH (22:22)
[2020-04-27] MEDS: MONTELUKAST 10 MG TABLET PO SCH (22:22)
[2020-04-28 05:39] LABS: Basophils % 0.3 % (0.0-0.8); Eosinophils # 0.5 10*3/uL (0.0-0.87); Eosinophils % 5.4 % (0.00-10.9); Hematocrit 30.7 VOL% (35.7-47.0); Hemoglobin 9.4 GM/DL (12.0-16.0); Immature Granulocytes % 0.4 %; Immature Granulocytes Absolute 0.04 #; Lymphocytes # 1.9 10*3/uL (1.4-4.0); Lymphocytes % 20.6 % (21.3-54.2); Mean Corpuscular HGB Conc 30.6 GM/DL (32-36); Mean Platelet Volume 10.1 FL (9.6-12.0); Monocytes % 14.9 % (1.7-12.7); Neutrophils % 58.4 % (38.7-73.9); Platelet Count 365 T/CUMM (130-400); Red Cell Distribution Width 19.6 % (9.3-17.3); White Blood Count 9.3 T/CUMM (4-12)
[2020-04-28 05:57] LABS: Calcium 7.6 MG/DL (8.5-10.1); Potassium 4.6 MMOL/L (3.5-5.1)
[2020-04-28] MEDS: carvediloL 6.25 MG TABLET PO SCH (08:32)
[2020-04-28] MEDS: SEVELAMER CARBONATE 800 MG TABLET PO SCH ×3 (08:32→17:05)
[2020-04-28] MEDS: INSULIN NPH/REGULAR 70/30 100 UNIT/ML SUBCUT SCH ×2 (08:36→17:05)
[2020-04-28] MEDS: ZINC OXIDE 16% PASTE 57 GM TUBE TOP SCH (08:36)
[2020-04-28] MEDS: amLODIPine 5 MG TABLET PO SCH (08:36)
[2020-04-28] MEDS: INSULIN LISPRO 100 UNIT/ML SUBCUT SCH ×3 (08:37→17:05)
[2020-04-28 16:28] VITALS: BP 151/90
[2020-04-29] MEDS ORDERED: PANTOPRAZOLE 40 MG TABLET PO SCH (06:30)
== END 2020-04-28 17:45 | disposition home health service (06) | DRG 377 ==
LOC: N.ED 10:29 → SUATTDRO 13:52 → N.ICU 14:23 → N.5E 04-21 15:04
PROVIDERS: ADMIT Internal Medicine; ATTEND Internal Medicine

== ENCOUNTER 2020-04-29 08:29 | Inpatient (IN) ==
[2020-04-29] MEDS ORDERED: FUROSEMIDE 40 MG/4 ML VIAL IV STA (08:50)
[2020-04-29 09:01] LABS: Basophils % 0.2 % (0.0-0.8); Eosinophils # 0.1 10*3/uL (0.0-0.87); Eosinophils % 0.8 % (0.00-10.9); Hematocrit 34.3 VOL% (35.7-47.0); Hemoglobin 10.2 GM/DL (12.0-16.0); Immature Granulocytes % 0.5 %; Immature Granulocytes Absolute 0.06 #; Lymphocytes # 1.5 10*3/uL (1.4-4.0); Lymphocytes % 11.7 % (21.3-54.2); Mean Corpuscular HGB Conc 29.7 GM/DL (32-36); Mean Corpuscular Volume 95.5 FL (87-102); Mean Platelet Volume 10.1 FL (9.6-12.0); Monocytes % 4.2 % (1.7-12.7); Neutrophils % 82.6 % (38.7-73.9); Platelet Count 382 T/CUMM (130-400); Red Blood Count 3.59 MC/CUMM (3.8-5.5); Red Cell Distribution Width 19.3 % (9.3-17.3)
[2020-04-29 09:11] LABS: ABG Base Excess -4.4 MMOL/L (-2.5-2.5); ABG HCO3 20.6 MMOL/L (20-26); ABG Oxygen Saturation 88.4 % (95-100); ABG PCO2 60.6 MM HG (35-48); ABG PH 7.212 (7.35-7.45); ABG PO2 67.9 MM HG (80-95); ABG TCO2 22.7 MMOL/L (23-27)
[2020-04-29 09:40] LABS: Albumin 2.6 G/DL (3.4-5.0); Bilirubin,Total 0.5 MG/DL (0.2-1.0); Calcium 7.3 MG/DL (8.5-10.1); Osmolality,Calculated 318.4 MOS/KG (273-304); Total Protein 7.4 G/DL (6.4-8.3)
[2020-04-29] MEDS ORDERED: INSULIN REGULAR 100 UNIT/ML IV STA (09:45)
[2020-04-29] MEDS ORDERED: ALBUTEROL 2.5 MG/3 ML NEB RESP TX PRN (09:59)
[2020-04-29] MEDS ORDERED: PANTOPRAZOLE 40 MG VIAL IV SCH (10:00)
[2020-04-29 10:01] LABS: ABG Base Excess -4.5 MMOL/L (-2.5-2.5); ABG HCO3 20.7 MMOL/L (20-26); ABG PCO2 52.2 MM HG (35-48); ABG PH 7.253 (7.35-7.45); ABG TCO2 21.3 MMOL/L (23-27)
[2020-04-29] MEDS: NITROGLYCERIN DRIP 50 MG/250 ML BOTTLE IV SCH ×2 (10:06→18:02)
[2020-04-29] MEDS ORDERED: DEXTROSE 50% 25 GM/50 ML VIAL IV PRN ×2 (10:07)
[2020-04-29] MEDS ORDERED: INSULIN REGULAR 100 UNIT/ML IV ONE (10:07)
[2020-04-29] MEDS ORDERED: amLODIPine 5 MG TABLET PO SCH (10:30)
[2020-04-29] MEDS ORDERED: INSULIN REGULAR DRIP 100 ML IV SCH (10:30)
[2020-04-29] MEDS ORDERED: INSULIN REGULAR DRIP 100 ML IV PRN (10:50)
[2020-04-29 10:58] LABS: Barbiturates Screen,Urine Negative (Negative); Benzodiazepines Screen,Urine Negative (Negative); Cannabinoid Screen,Urine Negative (Negative); Opiate Screen,Urine Negative (Negative); Phencyclidine Screen,Urine Negative (Negative)
[2020-04-29 11:36] LABS: Bacteria,Urine Occasional /HPF (Few); Bilirubin,Urine Negative (Negative); Blood, Urine Negative (Negative); Glucose,Urine (UA) >=500 mg/dL (Negative); Ketones,Urine Negative (Negative); Mucus,Urine Occasional /LPF (Occasional); Nitrite,Urine Negative (Negative); Protein,Urine 100 MG/DL; RBC,Urine 1 /HPF (0-4); Squamous Epithelial Cell,Urine Occasional /HPF (0-10); Urine Appearance CLEAR (Clear); Urine Color Straw (Yellow); Urine Specific Gravity 1.009 (1.001-1.035); Urine Urobilinogen < 2.0 EU/DL (0.2-1.0); WBC,Urine <1 /HPF (0-6)
[2020-04-29] MEDS: amLODIPine 5 MG TABLET PO SCH (12:08)
[2020-04-29] MEDS: carvediloL 6.25 MG TABLET PO SCH (12:08)
[2020-04-29 13:07] LABS: Calcium 7.2 MG/DL (8.5-10.1); Osmolality,Calculated 307.1 MOS/KG (273-304)
[2020-04-29 14:27] LABS: Calcium 7.2 MG/DL (8.5-10.1); Osmolality,Calculated 302.1 MOS/KG (273-304)
[2020-04-29] MEDS ORDERED: ETOMIDATE 20 MG/10 ML VIAL IV ONE (15:46)
[2020-04-29] MEDS ORDERED: ROCURONIUM 100 MG/10 ML VIAL IV ONE (15:47)
[2020-04-29] MEDS ORDERED: HEPARIN LOCK FLUSH 500 UNIT/5 ML SYRINGE IV ONE (16:44)
[2020-04-29 20:21] LABS: Calcium 7.3 MG/DL (8.5-10.1)
[2020-04-30] MEDS: carvediloL 6.25 MG TABLET PO SCH ×3 (00:48→21:52)
[2020-04-30 03:16] LABS: Calcium 7.7 MG/DL (8.5-10.1); Osmolality,Calculated 282.8 MOS/KG (273-304)
[2020-04-30 03:30] LABS: ABG HCO3 24.8 MMOL/L (20-26); ABG Oxygen Saturation 99.1 % (95-100); ABG PCO2 32.1 MM HG (35-48); ABG PH 7.506 (7.35-7.45); ABG PO2 193.9 MM HG (80-95); ABG TCO2 25.8 MMOL/L (23-27); Allen Test Positive; Pt O2 Delivery Device Ventilator
[2020-04-30] MEDS ORDERED: DEXTROSE 50% 25 GM/50 ML VIAL IV PRN (05:09)
[2020-04-30] MEDS ORDERED: GLUCAGON 1 MG VIAL IM PRN (05:09)
[2020-04-30 05:13] LABS: Basophils % 0.2 % (0.0-0.8); Eosinophils # 0.3 10*3/uL (0.0-0.87); Hematocrit 31.8 VOL% (35.7-47.0); Hemoglobin 9.7 GM/DL (12.0-16.0); Immature Granulocytes % 0.5 %; Immature Granulocytes Absolute 0.07 #; Lymphocytes % 7.8 % (21.3-54.2); Mean Corpuscular HGB Conc 30.5 GM/DL (32-36); Mean Corpuscular Volume 91.6 FL (87-102); Mean Platelet Volume 10.1 FL (9.6-12.0); Monocytes % 7.4 % (1.7-12.7); Neutrophils % 82.1 % (38.7-73.9); Platelet Count 314 T/CUMM (130-400); Red Blood Count 3.47 MC/CUMM (3.8-5.5); Red Cell Distribution Width 18.4 % (9.3-17.3); White Blood Count 13.3 T/CUMM (4-12)
[2020-04-30 05:38] LABS: Calcium 7.7 MG/DL (8.5-10.1); Osmolality,Calculated 281.1 MOS/KG (273-304)
[2020-04-30] MEDS: amLODIPine 5 MG TABLET PO SCH (08:01)
[2020-04-30] MEDS: INSULIN REGULAR 100 UNIT/ML SUBCUT SCH ×4 (08:02→21:51)
[2020-04-30] MEDS: PANTOPRAZOLE 40 MG TABLET PO SCH (10:07)
[2020-04-30] MEDS: SEVELAMER CARBONATE 800 MG TABLET PO SCH ×2 (11:11→18:21)
[2020-04-30] MEDS ORDERED: VANCOMYCIN INJ 500 MG in SODIUM CHLORIDE 0.9% 100 ML IV PRN (12:05)
[2020-04-30] MEDS: ALBUTEROL 2.5 MG/3 ML NEB RESP TX SCH ×2 (12:25→19:48)
[2020-04-30] MEDS ORDERED: VANCOMYCIN INJ 1,250 MG in SODIUM CHLORIDE 0.9% 250 ML IV ONE (13:00)
[2020-04-30] MEDS: SKIN HEALING OINT (AQUAPHOR) 50 GM TUBE TOP SCH (13:50)
[2020-04-30] MEDS: INSULIN NPH/REGULAR 70/30 100 UNIT/ML SUBCUT SCH (17:11)
[2020-04-30 17:18] LABS: Hepatitis B Core IgM Quant 0.07 Index; Hepatitis C Virus Ab Quant < 0.02 Index; Hepatitis C Virus Ab Result Negative (Negative)
[2020-04-30 17:53] LABS: Hepatitis B Surface Ag Quant < 0.10 Index; Hepatitis B Surface Ag Result Negative (Negative)
[2020-04-30] MEDS: TORSEMIDE 20 MG TABLET PO SCH (18:21)
[2020-04-30] MEDS: FERROUS SULFATE 325 MG TABLET PO SCH (21:52)
[2020-04-30] MEDS: GABAPENTIN 100 MG CAPSULE PO SCH (21:52)
[2020-04-30] MEDS: MONTELUKAST 10 MG TABLET PO SCH (21:52)
[2020-04-30] MEDS: ONDANSETRON 4 MG/2 ML VIAL IV PRN (23:03)
[2020-05-01] MEDS: ALBUTEROL 2.5 MG/3 ML NEB RESP TX SCH ×4 (00:38→20:00)
[2020-05-01] MEDS: INSULIN REGULAR 100 UNIT/ML SUBCUT SCH ×6 (00:42→21:10)
[2020-05-01 07:10] LABS: Basophils % 0.3 % (0.0-0.8); Eosinophils # 0.3 10*3/uL (0.0-0.87); Hematocrit 27.8 VOL% (35.7-47.0); Hemoglobin 8.7 GM/DL (12.0-16.0); Immature Granulocytes % 0.3 %; Immature Granulocytes Absolute 0.03 #; Lymphocytes # 1.3 10*3/uL (1.4-4.0); Mean Corpuscular HGB Conc 31.3 GM/DL (32-36); Mean Corpuscular Volume 91.1 FL (87-102); Mean Platelet Volume 10.5 FL (9.6-12.0); Monocytes % 12.8 % (1.7-12.7); Neutrophils % 70.6 % (38.7-73.9); Platelet Count 298 T/CUMM (130-400); Red Blood Count 3.05 MC/CUMM (3.8-5.5); Red Cell Distribution Width 18.5 % (9.3-17.3); White Blood Count 10.3 T/CUMM (4-12)
[2020-05-01 07:37] LABS: Calcium 7.2 MG/DL (8.5-10.1)
[2020-05-01] MEDS: SEVELAMER CARBONATE 800 MG TABLET PO SCH ×4 (08:11→17:18)
[2020-05-01] MEDS: INSULIN NPH/REGULAR 70/30 100 UNIT/ML SUBCUT SCH ×2 (12:49→17:16)
[2020-05-01] MEDS: FERROUS SULFATE 325 MG TABLET PO SCH ×2 (12:50→22:09)
[2020-05-01] MEDS: amLODIPine 5 MG TABLET PO SCH (12:50)
[2020-05-01] MEDS: PANTOPRAZOLE 40 MG TABLET PO SCH (12:50)
[2020-05-01] MEDS: TORSEMIDE 20 MG TABLET PO SCH ×2 (12:50→17:16)
[2020-05-01] MEDS: carvediloL 6.25 MG TABLET PO SCH ×2 (12:50→22:09)
[2020-05-01] MEDS: ASCORBIC ACID 500 MG TABLET PO SCH (12:50)
[2020-05-01] MEDS: SKIN HEALING OINT (AQUAPHOR) 50 GM TUBE TOP SCH (12:50)
[2020-05-01] MEDS: ZINC GLUCONATE 50 MG TABLET PO SCH (12:50)
[2020-05-01] MEDS: ONDANSETRON 4 MG/2 ML VIAL IV PRN ×2 (15:04→22:10)
[2020-05-01] MEDS ORDERED: VANCOMYCIN INJ 500 MG in SODIUM CHLORIDE 0.9% 100 ML IV ONE (17:00)
[2020-05-01] MEDS: GABAPENTIN 100 MG CAPSULE PO SCH (22:09)
[2020-05-01] MEDS: MONTELUKAST 10 MG TABLET PO SCH (22:09)
[2020-05-02] MEDS: INSULIN REGULAR 100 UNIT/ML SUBCUT SCH ×6 (00:15→21:01)
[2020-05-02] MEDS: ALBUTEROL 2.5 MG/3 ML NEB RESP TX SCH ×4 (00:50→19:56)
[2020-05-02 06:37] LABS: Basophils % 0.4 % (0.0-0.8); Eosinophils # 0.4 10*3/uL (0.0-0.87); Eosinophils % 3.8 % (0.00-10.9); Hematocrit 31.5 VOL% (35.7-47.0); Hemoglobin 9.2 GM/DL (12.0-16.0); Immature Granulocytes % 0.3 %; Immature Granulocytes Absolute 0.03 #; Lymphocytes # 1.2 10*3/uL (1.4-4.0); Lymphocytes % 12.3 % (21.3-54.2); Mean Corpuscular HGB Conc 29.2 GM/DL (32-36); Mean Corpuscular Volume 93.8 FL (87-102); Mean Platelet Volume 10.4 FL (9.6-12.0); Monocytes % 11.7 % (1.7-12.7); Neutrophils % 71.5 % (38.7-73.9); Platelet Count 305 T/CUMM (130-400); Red Blood Count 3.36 MC/CUMM (3.8-5.5); Red Cell Distribution Width 18.2 % (9.3-17.3)
[2020-05-02 06:56] LABS: Calcium 7.8 MG/DL (8.5-10.1); Osmolality,Calculated 301.3 MOS/KG (273-304)
[2020-05-02] MEDS: INSULIN NPH/REGULAR 70/30 100 UNIT/ML SUBCUT SCH ×2 (08:52→17:34)
[2020-05-02] MEDS: ASCORBIC ACID 500 MG TABLET PO SCH (08:53)
[2020-05-02] MEDS: ZINC GLUCONATE 50 MG TABLET PO SCH (08:53)
[2020-05-02] MEDS: PANTOPRAZOLE 40 MG TABLET PO SCH (08:53)
[2020-05-02] MEDS: FERROUS SULFATE 325 MG TABLET PO SCH ×2 (08:53→20:59)
[2020-05-02] MEDS: amLODIPine 5 MG TABLET PO SCH (08:53)
[2020-05-02] MEDS: SKIN HEALING OINT (AQUAPHOR) 50 GM TUBE TOP SCH (08:53)
[2020-05-02] MEDS: carvediloL 6.25 MG TABLET PO SCH ×2 (08:53→20:59)
[2020-05-02] MEDS: TORSEMIDE 20 MG TABLET PO SCH ×2 (08:53→17:33)
[2020-05-02] MEDS: SEVELAMER CARBONATE 800 MG TABLET PO SCH ×3 (08:54→17:10)
[2020-05-02] MEDS: ONDANSETRON 4 MG/2 ML VIAL IV PRN ×2 (15:30→20:59)
[2020-05-02] MEDS: GABAPENTIN 100 MG CAPSULE PO SCH (20:59)
[2020-05-02] MEDS: MONTELUKAST 10 MG TABLET PO SCH (20:59)
[2020-05-03] MEDS: ALBUTEROL 2.5 MG/3 ML NEB RESP TX SCH ×6 (00:10→20:23)
[2020-05-03] MEDS: INSULIN REGULAR 100 UNIT/ML SUBCUT SCH ×6 (00:23→21:17)
[2020-05-03 07:42] LABS: Basophils % 0.4 % (0.0-0.8); Eosinophils # 0.5 10*3/uL (0.0-0.87); Eosinophils % 4.6 % (0.00-10.9); Hematocrit 28.7 VOL% (35.7-47.0); Hemoglobin 8.7 GM/DL (12.0-16.0); Immature Granulocytes % 0.5 %; Immature Granulocytes Absolute 0.05 #; Lymphocytes # 1.2 10*3/uL (1.4-4.0); Mean Corpuscular HGB Conc 30.3 GM/DL (32-36); Mean Corpuscular Volume 92.9 FL (87-102); Mean Platelet Volume 9.7 FL (9.6-12.0); Monocytes % 8.1 % (1.7-12.7); Neutrophils % 75.4 % (38.7-73.9); Platelet Count 300 T/CUMM (130-400); Red Blood Count 3.09 MC/CUMM (3.8-5.5); Red Cell Distribution Width 18.2 % (9.3-17.3); White Blood Count 10.6 T/CUMM (4-12)
[2020-05-03 08:16] LABS: Calcium 7.7 MG/DL (8.5-10.1); Osmolality,Calculated 294.8 MOS/KG (273-304)
[2020-05-03] MEDS ORDERED: SODIUM POLYSTYRENE SULFATE 15 GM/60 ML BOTTLE PO ONE (08:30)
[2020-05-03] MEDS: PANTOPRAZOLE 40 MG TABLET PO SCH (09:18)
[2020-05-03] MEDS: ASCORBIC ACID 500 MG TABLET PO SCH (09:18)
[2020-05-03] MEDS: SEVELAMER CARBONATE 800 MG TABLET PO SCH ×3 (09:18→17:03)
[2020-05-03] MEDS: FERROUS SULFATE 325 MG TABLET PO SCH ×2 (09:18→21:17)
[2020-05-03] MEDS: amLODIPine 5 MG TABLET PO SCH (09:18)
[2020-05-03] MEDS: ZINC GLUCONATE 50 MG TABLET PO SCH (09:19)
[2020-05-03] MEDS: TORSEMIDE 20 MG TABLET PO SCH ×2 (09:19→17:04)
[2020-05-03] MEDS: carvediloL 6.25 MG TABLET PO SCH ×2 (09:19→21:17)
[2020-05-03] MEDS: ONDANSETRON 4 MG/2 ML VIAL IV PRN ×3 (09:19→21:25)
[2020-05-03] MEDS: INSULIN NPH/REGULAR 70/30 100 UNIT/ML SUBCUT SCH ×2 (09:20→18:41)
[2020-05-03] MEDS: SKIN HEALING OINT (AQUAPHOR) 50 GM TUBE TOP SCH (12:15)
[2020-05-03] MEDS: ACETAMINOPHEN 325 MG TABLET PO PRN (17:04)
[2020-05-03] MEDS ORDERED: IBUPROFEN 600 MG TABLET PO ONE (18:52)
[2020-05-03] MEDS: GABAPENTIN 100 MG CAPSULE PO SCH (21:17)
[2020-05-03] MEDS: MONTELUKAST 10 MG TABLET PO SCH (21:17)
[2020-05-04] MEDS ORDERED: INSULIN REGULAR 100 UNIT/ML SUBCUT ONE (00:08)
[2020-05-04] MEDS: ALBUTEROL 2.5 MG/3 ML NEB RESP TX SCH ×4 (01:12→19:18)
[2020-05-04 05:12] LABS: Basophils # 0.1 10*3/uL (0.0-0.2); Basophils % 0.5 % (0.0-0.8); Eosinophils # 0.5 10*3/uL (0.0-0.87); Eosinophils % 5.1 % (0.00-10.9); Hematocrit 24.9 VOL% (35.7-47.0); Hemoglobin 7.5 GM/DL (12.0-16.0); Immature Granulocytes % 0.5 %; Immature Granulocytes Absolute 0.05 #; Lymphocytes # 1.7 10*3/uL (1.4-4.0); Lymphocytes % 17.1 % (21.3-54.2); Mean Corpuscular HGB Conc 30.1 GM/DL (32-36); Mean Corpuscular Volume 92.2 FL (87-102); Mean Platelet Volume 9.9 FL (9.6-12.0); Monocytes % 11.5 % (1.7-12.7); Neutrophils % 65.3 % (38.7-73.9); Platelet Count 303 T/CUMM (130-400); Red Cell Distribution Width 18.1 % (9.3-17.3); White Blood Count 9.7 T/CUMM (4-12)
[2020-05-04 05:36] LABS: Calcium 7.4 MG/DL (8.5-10.1); Osmolality,Calculated 305.4 MOS/KG (273-304)
[2020-05-04] MEDS: ACETAMINOPHEN 325 MG TABLET PO PRN (08:44)
[2020-05-04] MEDS: SEVELAMER CARBONATE 800 MG TABLET PO SCH ×3 (10:25→17:34)
[2020-05-04] MEDS: INSULIN REGULAR 100 UNIT/ML SUBCUT SCH ×4 (10:25→21:20)
[2020-05-04] MEDS: TORSEMIDE 20 MG TABLET PO SCH ×2 (10:25→17:34)
[2020-05-04] MEDS: INSULIN NPH/REGULAR 70/30 100 UNIT/ML SUBCUT SCH ×2 (10:25→17:34)
[2020-05-04] MEDS: FERROUS SULFATE 325 MG TABLET PO SCH ×2 (10:26→21:21)
[2020-05-04] MEDS ORDERED: HEPARIN 10,000 UNIT/10 ML VIAL IV SCH (10:30)
[2020-05-04] MEDS: carvediloL 6.25 MG TABLET PO SCH ×2 (13:46→21:21)
[2020-05-04] MEDS: amLODIPine 5 MG TABLET PO SCH (13:46)
[2020-05-04] MEDS: SKIN HEALING OINT (AQUAPHOR) 50 GM TUBE TOP SCH (13:47)
[2020-05-04] MEDS ORDERED: VANCOMYCIN INJ 500 MG in SODIUM CHLORIDE 0.9% 100 ML IV ONE (17:00)
[2020-05-04] MEDS: PANTOPRAZOLE 40 MG TABLET PO SCH (17:13)
[2020-05-04] MEDS: ASCORBIC ACID 500 MG TABLET PO SCH (17:14)
[2020-05-04] MEDS: ZINC GLUCONATE 50 MG TABLET PO SCH (17:14)
[2020-05-04] MEDS: ONDANSETRON 4 MG/2 ML VIAL IV PRN ×2 (17:33→23:16)
[2020-05-04] MEDS: MONTELUKAST 10 MG TABLET PO SCH (21:21)
[2020-05-04] MEDS: GABAPENTIN 100 MG CAPSULE PO SCH (21:21)
[2020-05-05] MEDS: ALBUTEROL 2.5 MG/3 ML NEB RESP TX SCH ×3 (01:37→12:00)
[2020-05-05 05:47] LABS: Basophils % 0.4 % (0.0-0.8); Eosinophils # 0.4 10*3/uL (0.0-0.87); Eosinophils % 4.1 % (0.00-10.9); Hematocrit 25.1 VOL% (35.7-47.0); Hemoglobin 7.2 GM/DL (12.0-16.0); Immature Granulocytes % 0.6 %; Immature Granulocytes Absolute 0.06 #; Lymphocytes # 1.7 10*3/uL (1.4-4.0); Lymphocytes % 17.5 % (21.3-54.2); Mean Corpuscular HGB Conc 28.7 GM/DL (32-36); Mean Corpuscular Volume 95.8 FL (87-102); Mean Platelet Volume 10.7 FL (9.6-12.0); Monocytes % 11.9 % (1.7-12.7); Neutrophils % 65.5 % (38.7-73.9); Platelet Count 316 T/CUMM (130-400); Red Blood Count 2.62 MC/CUMM (3.8-5.5); White Blood Count 9.7 T/CUMM (4-12)
[2020-05-05 06:09] LABS: Hypochromasia 1+; Microcytosis 1+; Ovalocytes Slight; Platelet Estimate Adequate
[2020-05-05 06:11] LABS: Calcium 7.9 MG/DL (8.5-10.1); Osmolality,Calculated 296.4 MOS/KG (273-304)
[2020-05-05] MEDS: INSULIN REGULAR 100 UNIT/ML SUBCUT SCH ×4 (07:33→21:24)
[2020-05-05] MEDS ORDERED: SODIUM CHLORIDE 0.9% 1,000 ML IV PRN (07:46)
[2020-05-05] MEDS: SEVELAMER CARBONATE 800 MG TABLET PO SCH ×4 (08:44→16:37)
[2020-05-05] MEDS: FERROUS SULFATE 325 MG TABLET PO SCH ×2 (08:44→21:23)
[2020-05-05] MEDS: carvediloL 6.25 MG TABLET PO SCH ×2 (08:45→21:23)
[2020-05-05] MEDS: TORSEMIDE 20 MG TABLET PO SCH ×2 (08:45→16:37)
[2020-05-05] MEDS: amLODIPine 5 MG TABLET PO SCH (08:45)
[2020-05-05] MEDS: INSULIN NPH/REGULAR 70/30 100 UNIT/ML SUBCUT SCH ×2 (08:46→16:37)
[2020-05-05] MEDS: SKIN HEALING OINT (AQUAPHOR) 50 GM TUBE TOP SCH (08:47)
[2020-05-05] MEDS: ZINC GLUCONATE 50 MG TABLET PO SCH (08:48)
[2020-05-05] MEDS: PANTOPRAZOLE 40 MG TABLET PO SCH (08:48)
[2020-05-05] MEDS: ASCORBIC ACID 500 MG TABLET PO SCH (08:48)
[2020-05-05] MEDS: ONDANSETRON 4 MG/2 ML VIAL IV PRN ×2 (11:54→21:27)
[2020-05-05] MEDS: GABAPENTIN 100 MG CAPSULE PO SCH (21:23)
[2020-05-05] MEDS: MONTELUKAST 10 MG TABLET PO SCH (21:24)
[2020-05-06] MEDS: ONDANSETRON 4 MG/2 ML VIAL IV PRN ×3 (05:38→20:29)
[2020-05-06 05:41] LABS: Basophils % 0.4 % (0.0-0.8); Eosinophils # 0.3 10*3/uL (0.0-0.87); Hematocrit 24.6 VOL% (35.7-47.0); Hemoglobin 7.3 GM/DL (12.0-16.0); Immature Granulocytes % 1.3 %; Immature Granulocytes Absolute 0.13 #; Lymphocytes # 1.3 10*3/uL (1.4-4.0); Lymphocytes % 13.1 % (21.3-54.2); Mean Corpuscular HGB Conc 29.7 GM/DL (32-36); Mean Corpuscular Volume 93.5 FL (87-102); Mean Platelet Volume 10.2 FL (9.6-12.0); Monocytes % 8.5 % (1.7-12.7); Neutrophils % 73.7 % (38.7-73.9); Platelet Count 316 T/CUMM (130-400); Red Blood Count 2.63 MC/CUMM (3.8-5.5); Red Cell Distribution Width 18.2 % (9.3-17.3)
[2020-05-06 06:05] LABS: Calcium 7.9 MG/DL (8.5-10.1)
[2020-05-06 06:54] LABS: Osmolality,Calculated 308.4 MOS/KG (273-304)
[2020-05-06] MEDS: INSULIN REGULAR 100 UNIT/ML SUBCUT SCH ×4 (08:02→20:32)
[2020-05-06] MEDS: PANTOPRAZOLE 40 MG TABLET PO SCH (08:12)
[2020-05-06] MEDS: SEVELAMER CARBONATE 800 MG TABLET PO SCH ×3 (09:50→18:07)
[2020-05-06] MEDS: ZINC GLUCONATE 50 MG TABLET PO SCH (09:50)
[2020-05-06] MEDS: TORSEMIDE 20 MG TABLET PO SCH ×2 (09:50→18:07)
[2020-05-06] MEDS: carvediloL 6.25 MG TABLET PO SCH ×2 (09:51→20:37)
[2020-05-06] MEDS: amLODIPine 5 MG TABLET PO SCH (09:51)
[2020-05-06] MEDS: FERROUS SULFATE 325 MG TABLET PO SCH ×2 (09:51→20:34)
[2020-05-06] MEDS: ASCORBIC ACID 500 MG TABLET PO SCH (09:51)
[2020-05-06] MEDS: SKIN HEALING OINT (AQUAPHOR) 50 GM TUBE TOP SCH (09:52)
[2020-05-06] MEDS: INSULIN NPH/REGULAR 70/30 100 UNIT/ML SUBCUT SCH ×2 (09:59→18:29)
[2020-05-06] MEDS: GABAPENTIN 100 MG CAPSULE PO SCH (20:34)
[2020-05-06] MEDS: MONTELUKAST 10 MG TABLET PO SCH (20:34)
[2020-05-07 05:27] LABS: Basophils # 0.1 10*3/uL (0.0-0.2); Basophils % 0.5 % (0.0-0.8); Eosinophils # 0.4 10*3/uL (0.0-0.87); Eosinophils % 3.7 % (0.00-10.9); Hematocrit 29.9 VOL% (35.7-47.0); Hemoglobin 8.8 GM/DL (12.0-16.0); Immature Granulocytes % 0.3 %; Immature Granulocytes Absolute 0.03 #; Lymphocytes # 1.6 10*3/uL (1.4-4.0); Lymphocytes % 17.2 % (21.3-54.2); Mean Corpuscular HGB Conc 29.4 GM/DL (32-36); Mean Corpuscular Volume 94.6 FL (87-102); Mean Platelet Volume 10.1 FL (9.6-12.0); Monocytes % 12.5 % (1.7-12.7); Neutrophils % 65.8 % (38.7-73.9); Platelet Count 327 T/CUMM (130-400); Red Blood Count 3.16 MC/CUMM (3.8-5.5); White Blood Count 9.3 T/CUMM (4-12)
[2020-05-07 05:42] LABS: Calcium 8.2 MG/DL (8.5-10.1); Osmolality,Calculated 291.5 MOS/KG (273-304)
[2020-05-07] MEDS: INSULIN NPH/REGULAR 70/30 100 UNIT/ML SUBCUT SCH (09:44)
[2020-05-07] MEDS: INSULIN REGULAR 100 UNIT/ML SUBCUT SCH ×3 (09:44→12:40)
[2020-05-07] MEDS: SEVELAMER CARBONATE 800 MG TABLET PO SCH ×2 (09:47→12:42)
[2020-05-07] MEDS: carvediloL 6.25 MG TABLET PO SCH (09:48)
[2020-05-07] MEDS: amLODIPine 5 MG TABLET PO SCH (09:48)
[2020-05-07] MEDS: PANTOPRAZOLE 40 MG TABLET PO SCH (09:49)
[2020-05-07 11:14] VITALS: BP 166/88
[2020-05-07] MEDS: TORSEMIDE 20 MG TABLET PO SCH (12:41)
[2020-05-07] MEDS: ASCORBIC ACID 500 MG TABLET PO SCH (12:42)
[2020-05-07] MEDS: FERROUS SULFATE 325 MG TABLET PO SCH (12:42)
[2020-05-07] MEDS: ZINC GLUCONATE 50 MG TABLET PO SCH (12:42)
[2020-05-07] MEDS: SKIN HEALING OINT (AQUAPHOR) 50 GM TUBE TOP SCH (12:50)
== END 2020-05-07 15:38 | disposition home or self-care (01) | DRG 208 ==
LOC: EDBD → EDUNIT# → N.ED 08:29 → SUATTDRO 09:59 → N.EDINP 09:59 → N.ICU 23:58 → N.3E 04-30 12:47
PROVIDERS: ADMIT Family Medicine; ATTEND Internal Medicine

== ENCOUNTER 2020-05-15 09:39 | Observation (INO) ==
[2020-05-15] MEDS ORDERED: NITROGLYCERIN 2% OINT 1 INCH/GM PACK TOP STA (10:00)
[2020-05-15] MEDS ORDERED: ASPIRIN 325 MG TABLET PO STA (10:00)
[2020-05-15 10:15] LABS: Basophils % 0.4 % (0.0-0.8); Eosinophils # 0.1 10*3/uL (0.0-0.87); Eosinophils % 0.6 % (0.00-10.9); Hematocrit 28.8 VOL% (35.7-47.0); Hemoglobin 8.4 GM/DL (12.0-16.0); Immature Granulocytes % 0.5 %; Immature Granulocytes Absolute 0.04 #; Lymphocytes # 0.8 10*3/uL (1.4-4.0); Lymphocytes % 9.3 % (21.3-54.2); Mean Corpuscular HGB Conc 29.2 GM/DL (32-36); Mean Corpuscular Volume 97.6 FL (87-102); Mean Platelet Volume 10.6 FL (9.6-12.0); Neutrophils % 84.2 % (38.7-73.9); Platelet Count 398 T/CUMM (130-400); Red Blood Count 2.95 MC/CUMM (3.8-5.5); Red Cell Distribution Width 17.2 % (9.3-17.3); White Blood Count 8.4 T/CUMM (4-12)
[2020-05-15 10:27] LABS: INR 1.1; PT Patient Result 11.3 SECS (9.8-11.9); Partial Thromboplastin Time 42.9 SECS (23.9-33.8)
[2020-05-15] MEDS ORDERED: INSULIN REGULAR 100 UNIT/ML IV STA ×3 (10:31→14:19)
[2020-05-15] MEDS ORDERED: hydrALAZINE 20 MG/1 ML VIAL ONE (11:21)
[2020-05-15] MEDS ORDERED: hydrALAZINE 20 MG/1 ML VIAL IV STA ×2 (11:22→12:03)
[2020-05-15 11:59] LABS: Albumin 2.8 G/DL (3.4-5.0); Bilirubin,Total 0.6 MG/DL (0.2-1.0); Calcium 7.6 MG/DL (8.5-10.1); Osmolality,Calculated 306.9 MOS/KG (273-304); Total Protein 7.4 G/DL (6.4-8.3)
[2020-05-15] MEDS ORDERED: cloNIDine 0.1 MG TABLET PO STA (12:03)
[2020-05-15 14:45] LABS: ABG Base Excess -0.4 MMOL/L (-2.5-2.5); ABG Oxygen Saturation 93.4 % (95-100); ABG PH 7.393 (7.35-7.45); ABG PO2 70.5 MM HG (80-95); ABG TCO2 22.6 MMOL/L (23-27)
[2020-05-15 14:59] LABS: Bilirubin,Urine Negative (Negative); Blood, Urine Negative (Negative); Glucose,Urine (UA) >=500 mg/dL (Negative); Ketones,Urine 5 mg/dL (Negative); Mucus,Urine Occasional /LPF (Occasional); Nitrite,Urine Negative (Negative); Protein,Urine >=500 MG/DL; RBC,Urine <1 /HPF (0-4); Squamous Epithelial Cell,Urine Occasional /HPF (0-10); Urine Appearance CLEAR (Clear); Urine Color Yellow (Yellow); Urine Specific Gravity 1.012 (1.001-1.035); Urine Urobilinogen < 2.0 EU/DL (0.2-1.0); WBC,Urine 1 /HPF (0-6)
[2020-05-15] MEDS ORDERED: DEXTROSE 50% 25 GM/50 ML VIAL IV PRN ×2 (15:58)
[2020-05-15] MEDS ORDERED: GLUCAGON 1 MG VIAL IM PRN ×2 (15:58)
[2020-05-15] MEDS ORDERED: ALBUTEROL 2.5 MG/3 ML NEB RESP TX PRN (16:02)
[2020-05-15] MEDS ORDERED: INSULIN GLARGINE 100 UNIT/ML SUBCUT ONE (16:07)
[2020-05-15 16:26] LABS: Calcium 7.7 MG/DL (8.5-10.1); Osmolality,Calculated 299.7 MOS/KG (273-304); Potassium 4.9 MMOL/L (3.5-5.1)
[2020-05-15] MEDS ORDERED: INSULIN NPH/REGULAR 70/30 100 UNIT/ML SUBCUT SCH (17:00)
[2020-05-15] MEDS ORDERED: HEPARIN 10,000 UNIT/10 ML VIAL IV SCH (17:30)
[2020-05-15] MEDS: PROMETHAZINE 25 MG/1 ML VIAL IM PRN (22:45)
[2020-05-15] MEDS: MONTELUKAST 10 MG TABLET PO SCH (22:53)
[2020-05-15] MEDS: GABAPENTIN 100 MG CAPSULE PO SCH (22:53)
[2020-05-15] MEDS: FERROUS SULFATE 325 MG TABLET PO SCH (22:53)
[2020-05-15] MEDS: INSULIN REGULAR 100 UNIT/ML SUBCUT SCH (23:29)
[2020-05-15] MEDS: carvediloL 6.25 MG TABLET PO SCH (23:33)
[2020-05-15] MEDS: HEPARIN 5,000 UNIT/1 ML VIAL SUBCUT SCH (23:35)
[2020-05-15] MEDS: amLODIPine 5 MG TABLET PO SCH (23:36)
[2020-05-15] MEDS: FUROSEMIDE 100 MG/10 ML VIAL IV SCH (23:36)
[2020-05-16] MEDS: hydrALAZINE 20 MG/1 ML VIAL IV PRN ×2 (00:42→06:13)
[2020-05-16] MEDS: FUROSEMIDE 100 MG/10 ML VIAL IV SCH ×3 (00:46→16:13)
[2020-05-16] MEDS: INSULIN REGULAR 100 UNIT/ML SUBCUT SCH ×5 (02:00→21:28)
[2020-05-16] MEDS: HEPARIN 5,000 UNIT/1 ML VIAL SUBCUT SCH ×3 (06:19→21:08)
[2020-05-16 06:39] LABS: Basophils # 0.1 10*3/uL (0.0-0.2); Basophils % 0.6 % (0.0-0.8); Eosinophils # 0.2 10*3/uL (0.0-0.87); Eosinophils % 1.8 % (0.00-10.9); Hematocrit 26.6 VOL% (35.7-47.0); Hemoglobin 8.5 GM/DL (12.0-16.0); Immature Granulocytes % 0.3 %; Immature Granulocytes Absolute 0.03 #; Lymphocytes # 1.3 10*3/uL (1.4-4.0); Lymphocytes % 14.7 % (21.3-54.2); Mean Corpuscular Volume 91.4 FL (87-102); Monocytes % 8.3 % (1.7-12.7); Neutrophils % 74.3 % (38.7-73.9); Platelet Count 408 T/CUMM (130-400); Red Blood Count 2.91 MC/CUMM (3.8-5.5); Red Cell Distribution Width 16.9 % (9.3-17.3)
[2020-05-16 07:01] LABS: Albumin 2.9 G/DL (3.4-5.0); Calcium 8.4 MG/DL (8.5-10.1); Osmolality,Calculated 292.4 MOS/KG (273-304); Potassium 4.2 MMOL/L (3.5-5.1); Total Protein 7.4 G/DL (6.4-8.3)
[2020-05-16] MEDS: INSULIN NPH/REGULAR 70/30 100 UNIT/ML SUBCUT SCH ×2 (08:50→17:46)
[2020-05-16] MEDS: FERROUS SULFATE 325 MG TABLET PO SCH ×3 (08:50→20:20)
[2020-05-16] MEDS: amLODIPine 5 MG TABLET PO SCH (08:50)
[2020-05-16] MEDS: PANTOPRAZOLE 40 MG TABLET PO SCH (08:50)
[2020-05-16] MEDS: SEVELAMER CARBONATE 800 MG TABLET PO SCH ×3 (08:50→17:46)
[2020-05-16] MEDS: PROMETHAZINE 25 MG/1 ML VIAL IM PRN ×2 (09:06→22:04)
[2020-05-16] MEDS: carvediloL 6.25 MG TABLET PO SCH (09:06)
[2020-05-16] MEDS: CHOLECALCIFEROL 1,000 UNIT TABLET PO SCH (10:03)
[2020-05-16] MEDS: ASCORBIC ACID 500 MG TABLET PO SCH (10:03)
[2020-05-16] MEDS ORDERED: amLODIPine 10 MG TABLET PO SCH (11:01)
[2020-05-16] MEDS: carvediloL 12.5 MG TABLET PO SCH (17:38)
[2020-05-16] MEDS: MONTELUKAST 10 MG TABLET PO SCH (20:20)
[2020-05-16] MEDS: GABAPENTIN 100 MG CAPSULE PO SCH (20:20)
[2020-05-17] MEDS: FUROSEMIDE 100 MG/10 ML VIAL IV SCH ×2 (00:09→08:50)
[2020-05-17] MEDS: HEPARIN 5,000 UNIT/1 ML VIAL SUBCUT SCH ×2 (05:05→14:20)
[2020-05-17 06:36] LABS: Basophils % 0.4 % (0.0-0.8); Eosinophils # 0.2 10*3/uL (0.0-0.87); Eosinophils % 3.2 % (0.00-10.9); Hematocrit 27.7 VOL% (35.7-47.0); Hemoglobin 8.9 GM/DL (12.0-16.0); Immature Granulocytes % 0.3 %; Immature Granulocytes Absolute 0.02 #; Lymphocytes # 1.5 10*3/uL (1.4-4.0); Lymphocytes % 21.2 % (21.3-54.2); Mean Corpuscular HGB Conc 32.1 GM/DL (32-36); Mean Corpuscular Volume 91.1 FL (87-102); Mean Platelet Volume 10.4 FL (9.6-12.0); Monocytes % 10.5 % (1.7-12.7); Neutrophils % 64.4 % (38.7-73.9); Platelet Count 453 T/CUMM (130-400); Red Blood Count 3.04 MC/CUMM (3.8-5.5); Red Cell Distribution Width 17.3 % (9.3-17.3); White Blood Count 7.2 T/CUMM (4-12)
[2020-05-17 07:00] LABS: Calcium 7.7 MG/DL (8.5-10.1); Osmolality,Calculated 293.8 MOS/KG (273-304); Potassium 4.3 MMOL/L (3.5-5.1)
[2020-05-17] MEDS: SEVELAMER CARBONATE 800 MG TABLET PO SCH ×3 (08:49→18:21)
[2020-05-17] MEDS: PANTOPRAZOLE 40 MG TABLET PO SCH (08:50)
[2020-05-17] MEDS: carvediloL 12.5 MG TABLET PO SCH ×2 (08:50→18:21)
[2020-05-17] MEDS: FERROUS SULFATE 325 MG TABLET PO SCH (08:50)
[2020-05-17] MEDS: INSULIN REGULAR 100 UNIT/ML SUBCUT SCH ×3 (08:50→17:37)
[2020-05-17] MEDS: ASCORBIC ACID 500 MG TABLET PO SCH (08:51)
[2020-05-17] MEDS: CHOLECALCIFEROL 1,000 UNIT TABLET PO SCH (08:51)
[2020-05-17] MEDS: PROMETHAZINE 25 MG/1 ML VIAL IM PRN (09:06)
[2020-05-17] MEDS: INSULIN NPH/REGULAR 70/30 100 UNIT/ML SUBCUT SCH ×2 (09:07→17:37)
[2020-05-17 13:02] VITALS: BP 157/81
[2020-05-17] MEDS ORDERED: TORSEMIDE 20 MG TABLET PO SCH ×2 (16:00)
== END 2020-05-17 19:58 | disposition home or self-care (01) ==
LOC: EDBD → EDUNIT# → N.EDINP 09:39 → N.ED 09:39 → SUATTDRO 15:58 → N.EDINP 16:28 → N.TELEN 20:00
PROVIDERS: ADMIT Internal Medicine; ATTEND Internal Medicine

== ENCOUNTER 2020-05-24 07:37 | Inpatient (IN) ==
[2020-05-24 08:34] LABS: Calcium 7.4 MG/DL (8.5-10.1); Osmolality,Calculated 323.5 MOS/KG (273-304)
[2020-05-24 08:37] LABS: Basophils % 0.3 % (0.0-0.8); Eosinophils % 0.1 % (0.00-10.9); Hematocrit 28.4 VOL% (35.7-47.0); Hemoglobin 7.6 GM/DL (12.0-16.0); Immature Granulocytes % 1.8 %; Immature Granulocytes Absolute 0.13 #; Lymphocytes # 0.5 10*3/uL (1.4-4.0); Lymphocytes % 6.6 % (21.3-54.2); Mean Corpuscular HGB Conc 26.8 GM/DL (32-36); Mean Platelet Volume 11.9 FL (9.6-12.0); Monocytes % 8.1 % (1.7-12.7); Neutrophils % 83.1 % (38.7-73.9); Platelet Count 280 T/CUMM (130-400); Red Blood Count 2.63 MC/CUMM (3.8-5.5); Red Cell Distribution Width 16.5 % (9.3-17.3); White Blood Count 7.4 T/CUMM (4-12)
[2020-05-24] MEDS ORDERED: INSULIN REGULAR 100 UNIT/ML IV STA (08:45)
[2020-05-24] MEDS ORDERED: INSULIN REGULAR 100 UNIT/ML IV ONE (09:19)
[2020-05-24] MEDS ORDERED: DEXTROSE 50% 25 GM/50 ML VIAL IV PRN ×2 (09:19)
[2020-05-24] MEDS ORDERED: ONDANSETRON ODT 4 MG TABLET PO PRN (09:23)
[2020-05-24] MEDS ORDERED: ALBUTEROL 2.5 MG/3 ML NEB RESP TX PRN (09:23)
[2020-05-24] MEDS ORDERED: INSULIN REGULAR DRIP 100 ML IV SCH (09:30)
[2020-05-24] MEDS: SODIUM CHLORIDE 0.9% 1,000 ML IV SCH (09:35)
[2020-05-24] MEDS: amLODIPine 10 MG TABLET PO SCH (09:56)
[2020-05-24 11:47] LABS: Calcium 7.1 MG/DL (8.5-10.1); Osmolality,Calculated 320.5 MOS/KG (273-304); Potassium 4.1 MMOL/L (3.5-5.1)
[2020-05-24] MEDS ORDERED: SEVELAMER CARBONATE 800 MG TABLET PO SCH (12:00)
[2020-05-24] MEDS: hydrALAZINE 20 MG/1 ML VIAL IV PRN (12:50)
[2020-05-24 12:55] LABS: Calcium 7.3 MG/DL (8.5-10.1); Osmolality,Calculated 322.2 MOS/KG (273-304); Potassium 4.1 MMOL/L (3.5-5.1)
[2020-05-24] MEDS ORDERED: ZALEPLON 5 MG CAPSULE PO PRN (13:32)
[2020-05-24] MEDS ORDERED: ONDANSETRON 4 MG/2 ML VIAL ONE (13:41)
[2020-05-24] MEDS ORDERED: cloNIDine 0.1 MG TABLET PO PRN (15:03)
[2020-05-24] MEDS: SEVELAMER CARBONATE 800 MG TABLET PO SCH (16:11)
[2020-05-24] MEDS: carvediloL 12.5 MG TABLET PO SCH (16:15)
[2020-05-24 18:04] LABS: Calcium 7.3 MG/DL (8.5-10.1); Osmolality,Calculated 315.6 MOS/KG (273-304); Potassium 3.9 MMOL/L (3.5-5.1)
[2020-05-24] MEDS: GABAPENTIN 100 MG CAPSULE PO SCH (21:31)
[2020-05-24] MEDS: HEPARIN 5,000 UNIT/1 ML VIAL SUBCUT SCH (21:31)
[2020-05-24] MEDS: MONTELUKAST 10 MG TABLET PO SCH (21:31)
[2020-05-24] MEDS: FERROUS SULFATE 325 MG TABLET PO SCH (21:31)
[2020-05-24 22:33] LABS: Calcium 7.4 MG/DL (8.5-10.1); Osmolality,Calculated 305.8 MOS/KG (273-304); Potassium 4.1 MMOL/L (3.5-5.1)
[2020-05-25] MEDS: hydrALAZINE 20 MG/1 ML VIAL IV PRN (00:07)
[2020-05-25] MEDS: SODIUM CHLORIDE 0.9% 1,000 ML IV SCH ×3 (00:53→20:58)
[2020-05-25 01:49] LABS: Calcium 7.4 MG/DL (8.5-10.1); Osmolality,Calculated 303.8 MOS/KG (273-304); Potassium 3.7 MMOL/L (3.5-5.1)
[2020-05-25 05:13] LABS: Basophils % 0.1 % (0.0-0.8); Eosinophils # 0.1 10*3/uL (0.0-0.87); Eosinophils % 1.1 % (0.00-10.9); Hematocrit 21.4 VOL% (35.7-47.0); Immature Granulocytes % 0.5 %; Immature Granulocytes Absolute 0.04 #; Lymphocytes # 0.9 10*3/uL (1.4-4.0); Lymphocytes % 10.6 % (21.3-54.2); Mean Corpuscular HGB Conc 32.7 GM/DL (32-36); Mean Corpuscular Volume 88.8 FL (87-102); Mean Platelet Volume 12.4 FL (9.6-12.0); Monocytes % 7.4 % (1.7-12.7); Neutrophils % 80.3 % (38.7-73.9); Platelet Count 177 T/CUMM (130-400); Red Blood Count 2.41 MC/CUMM (3.8-5.5); White Blood Count 8.4 T/CUMM (4-12)
[2020-05-25 05:34] LABS: Albumin 2.2 G/DL (3.4-5.0); Bilirubin,Total 0.5 MG/DL (0.2-1.0); Calcium 7.3 MG/DL (8.5-10.1); Osmolality,Calculated 292.9 MOS/KG (273-304); Potassium 5.9 MMOL/L (3.5-5.1); Total Protein 6.5 G/DL (6.4-8.3)
[2020-05-25 05:56] LABS: Risk Ratio 3.02
[2020-05-25 07:47] LABS: Calcium 7.4 MG/DL (8.5-10.1); Osmolality,Calculated 299.5 MOS/KG (273-304); Potassium 5.1 MMOL/L (3.5-5.1)
[2020-05-25] MEDS ORDERED: DEXTROSE 50% 25 GM/50 ML VIAL IV PRN ×2 (08:38→13:58)
[2020-05-25] MEDS ORDERED: GLUCAGON 1 MG VIAL IM PRN ×2 (08:38→13:58)
[2020-05-25] MEDS: carvediloL 12.5 MG TABLET PO SCH ×2 (09:51→17:10)
[2020-05-25] MEDS: FERROUS SULFATE 325 MG TABLET PO SCH ×2 (09:52→20:59)
[2020-05-25] MEDS: amLODIPine 10 MG TABLET PO SCH (09:52)
[2020-05-25] MEDS: HEPARIN 5,000 UNIT/1 ML VIAL SUBCUT SCH ×3 (09:52→21:14)
[2020-05-25] MEDS: ASCORBIC ACID 500 MG TABLET PO SCH (09:52)
[2020-05-25] MEDS: SEVELAMER CARBONATE 800 MG TABLET PO SCH ×4 (09:52→17:10)
[2020-05-25] MEDS: CHOLECALCIFEROL 1,000 UNIT TABLET PO SCH (09:52)
[2020-05-25] MEDS: INSULIN NPH 100 UNIT/ML SUBCUT SCH ×2 (09:52→17:10)
[2020-05-25] MEDS: INSULIN LISPRO 100 UNIT/ML SUBCUT SCH ×4 (09:52→21:14)
[2020-05-25] MEDS ORDERED: ONDANSETRON 4 MG/2 ML VIAL ONE (11:56)
[2020-05-25] MEDS: ONDANSETRON 4 MG/2 ML VIAL IV PRN ×3 (12:27→22:34)
[2020-05-25] MEDS: GABAPENTIN 100 MG CAPSULE PO SCH (20:59)
[2020-05-25] MEDS: MONTELUKAST 10 MG TABLET PO SCH (21:00)
[2020-05-26] MEDS: INSULIN LISPRO 100 UNIT/ML SUBCUT SCH ×3 (08:49→18:54)
[2020-05-26] MEDS: INSULIN NPH 100 UNIT/ML SUBCUT SCH ×2 (08:50→18:04)
[2020-05-26] MEDS: HEPARIN 5,000 UNIT/1 ML VIAL SUBCUT SCH ×2 (08:51→21:10)
[2020-05-26] MEDS: FERROUS SULFATE 325 MG TABLET PO SCH ×2 (08:52→21:10)
[2020-05-26] MEDS: carvediloL 12.5 MG TABLET PO SCH ×2 (08:52→18:02)
[2020-05-26] MEDS: amLODIPine 10 MG TABLET PO SCH (08:52)
[2020-05-26] MEDS: SEVELAMER CARBONATE 800 MG TABLET PO SCH ×3 (08:53→18:03)
[2020-05-26] MEDS: ONDANSETRON 4 MG/2 ML VIAL IV PRN ×3 (08:58→22:46)
[2020-05-26] MEDS: ASCORBIC ACID 500 MG TABLET PO SCH ×2 (09:15→12:40)
[2020-05-26] MEDS: CHOLECALCIFEROL 1,000 UNIT TABLET PO SCH ×2 (09:16→12:40)
[2020-05-26] MEDS: SODIUM CHLORIDE 0.9% 1,000 ML IV SCH (19:12)
[2020-05-26] MEDS: MONTELUKAST 10 MG TABLET PO SCH (21:10)
[2020-05-26] MEDS: GABAPENTIN 100 MG CAPSULE PO SCH (21:10)
[2020-05-26] MEDS ORDERED: ALUMINUM/MAGNES/SIMETH MAX STR 30 ML UDCUP PO PRN (22:06)
[2020-05-27] MEDS: INSULIN LISPRO 100 UNIT/ML SUBCUT SCH ×3 (00:28→15:31)
[2020-05-27 05:34] LABS: Basophils % 0.1 % (0.0-0.8); Eosinophils # 0.1 10*3/uL (0.0-0.87); Eosinophils % 1.4 % (0.00-10.9); Hematocrit 21.2 VOL% (35.7-47.0); Hemoglobin 6.7 GM/DL (12.0-16.0); Immature Granulocytes % 0.6 %; Immature Granulocytes Absolute 0.04 #; Lymphocytes # 1.3 10*3/uL (1.4-4.0); Lymphocytes % 18.9 % (21.3-54.2); Mean Corpuscular HGB Conc 31.6 GM/DL (32-36); Mean Platelet Volume 11.3 FL (9.6-12.0); Monocytes % 13.3 % (1.7-12.7); Neutrophils % 65.7 % (38.7-73.9); Platelet Count 302 T/CUMM (130-400); Red Blood Count 2.33 MC/CUMM (3.8-5.5); Red Cell Distribution Width 17.3 % (9.3-17.3)
[2020-05-27 05:56] LABS: Calcium 7.1 MG/DL (8.5-10.1); Osmolality,Calculated 285.2 MOS/KG (273-304); Potassium 3.5 MMOL/L (3.5-5.1)
[2020-05-27 08:05] VITALS: BP 141/81
[2020-05-27] MEDS: INSULIN NPH 100 UNIT/ML SUBCUT SCH (09:28)
[2020-05-27] MEDS ORDERED: HEPARIN 10,000 UNIT/10 ML VIAL IV PRN (13:39)
[2020-05-27] MEDS: carvediloL 12.5 MG TABLET PO SCH (15:29)
[2020-05-27] MEDS: SEVELAMER CARBONATE 800 MG TABLET PO SCH (15:29)
[2020-05-27] MEDS: FERROUS SULFATE 325 MG TABLET PO SCH (15:30)
[2020-05-27] MEDS: HEPARIN 5,000 UNIT/1 ML VIAL SUBCUT SCH (15:30)
[2020-05-27] MEDS: CHOLECALCIFEROL 1,000 UNIT TABLET PO SCH (15:31)
[2020-05-27] MEDS: ASCORBIC ACID 500 MG TABLET PO SCH (15:31)
[2020-05-27] MEDS: amLODIPine 10 MG TABLET PO SCH (15:31)
== END 2020-05-27 16:11 | disposition home or self-care (01) | DRG 637 ==
LOC: EDBD → EDUNIT# → N.ED 07:37 → N.EDINP 09:19 → SUATTDRO 09:19 → N.ICU 11:45 → N.TELEN 05-26 15:06
PROVIDERS: ADMIT Internal Medicine; ATTEND Internal Medicine

== ENCOUNTER 2020-06-01 11:38 | Inpatient (IN) ==
[2020-06-01] MEDS ORDERED: niCARdipine INJ 25 MG in SODIUM CHLORIDE 0.9% 240 ML IV PRN (12:01)
[2020-06-01] MEDS ORDERED: niCARdipine 25 MG/10 ML VIAL IV ONE (12:24)
[2020-06-01 12:45] LABS: Basophils % 0.2 % (0.0-0.8); Eosinophils # 0.1 10*3/uL (0.0-0.87); Eosinophils % 1.3 % (0.00-10.9); Hemoglobin 7.7 GM/DL (12.0-16.0); Immature Granulocytes % 0.7 %; Immature Granulocytes Absolute 0.06 #; Lymphocytes # 1.2 10*3/uL (1.4-4.0); Lymphocytes % 15.1 % (21.3-54.2); Mean Corpuscular HGB Conc 29.6 GM/DL (32-36); Mean Corpuscular Volume 98.1 FL (87-102); Monocytes % 10.8 % (1.7-12.7); NRBC # 0.02 10*3/uL; Neutrophils % 71.9 % (38.7-73.9); Platelet Count 374 T/CUMM (130-400); Red Blood Count 2.65 MC/CUMM (3.8-5.5); Red Cell Distribution Width 20.8 % (9.3-17.3); White Blood Count 8.2 T/CUMM (4-12)
[2020-06-01 13:02] LABS: Bilirubin,Total 0.5 MG/DL (0.2-1.0); Calcium 7.1 MG/DL (8.5-10.1); Osmolality,Calculated 306.2 MOS/KG (273-304); Potassium 4.6 MMOL/L (3.5-5.1); Total Protein 7.7 G/DL (6.4-8.3)
[2020-06-01] MEDS ORDERED: INSULIN LISPRO 100 UNIT/ML SUBCUT STA (13:24)
[2020-06-01 13:34] LABS: ABG Base Excess -1.5 MMOL/L (-2.5-2.5); ABG HCO3 23.2 MMOL/L (20-26); ABG PCO2 47.4 MM HG (35-48); ABG PH 7.328 (7.35-7.45); ABG TCO2 22.4 MMOL/L (23-27)
[2020-06-01] MEDS ORDERED: ETOMIDATE 20 MG/10 ML VIAL IV ONE (13:39)
[2020-06-01] MEDS ORDERED: ROCURONIUM 100 MG/10 ML VIAL IV ONE (13:40)
[2020-06-01] MEDS ORDERED: ALBUTEROL 2.5 MG/3 ML NEB RESP TX PRN ×2 (13:41→15:11)
[2020-06-01] MEDS: FAMOTIDINE 20 MG/2 ML VIAL IV SCH (14:15)
[2020-06-01] MEDS: ENOXAPARIN 30 MG/0.3 ML SYRINGE SUBCUT SCH (14:15)
[2020-06-01] MEDS ORDERED: FUROSEMIDE 40 MG/4 ML VIAL IV ONE (16:03)
[2020-06-01] MEDS ORDERED: INSULIN NPH 100 UNIT/ML SUBCUT ONE (18:28)
[2020-06-01] MEDS: SEVELAMER CARBONATE 800 MG TABLET PO SCH (18:31)
[2020-06-01] MEDS: INSULIN LISPRO 100 UNIT/ML SUBCUT SCH ×3 (18:59→23:37)
[2020-06-01] MEDS: amLODIPine 10 MG TABLET PO SCH (18:59)
[2020-06-01] MEDS: carvediloL 12.5 MG TABLET PO SCH (19:00)
[2020-06-01] MEDS: TORSEMIDE 20 MG TABLET PO SCH (19:00)
[2020-06-01] MEDS: FERROUS SULFATE 325 MG TABLET PO SCH (20:15)
[2020-06-01] MEDS: GABAPENTIN 100 MG CAPSULE PO SCH (20:15)
[2020-06-01 22:59] LABS: ABG Base Excess 3.2 MMOL/L (-2.5-2.5); ABG HCO3 27.3 MMOL/L (20-26); ABG PCO2 42.3 MM HG (35-48); ABG PH 7.426 (7.35-7.45); ABG TCO2 26.3 MMOL/L (23-27); Allen Test Positive; Pt O2 Delivery Device Ventilator
[2020-06-02 03:16] LABS: ABG HCO3 27.4 MMOL/L (20-26); ABG Oxygen Saturation 97.7 % (95-100); ABG PCO2 35.4 MM HG (35-48); ABG PH 7.506 (7.35-7.45); ABG TCO2 28.4 MMOL/L (23-27)
[2020-06-02] MEDS ORDERED: DEXTROSE 50% 25 GM/50 ML VIAL IV ONE (05:07)
[2020-06-02] MEDS: INSULIN LISPRO 100 UNIT/ML SUBCUT SCH ×5 (05:18→20:08)
[2020-06-02 05:35] LABS: Basophils % 0.2 % (0.0-0.8); Eosinophils # 0.2 10*3/uL (0.0-0.87); Eosinophils % 3.5 % (0.00-10.9); Hematocrit 22.3 VOL% (35.7-47.0); Hemoglobin 6.9 GM/DL (12.0-16.0); Immature Granulocytes % 0.8 %; Immature Granulocytes Absolute 0.05 #; Lymphocytes # 1.5 10*3/uL (1.4-4.0); Lymphocytes % 23.6 % (21.3-54.2); Mean Corpuscular HGB Conc 30.9 GM/DL (32-36); Mean Corpuscular Volume 92.9 FL (87-102); Mean Platelet Volume 10.7 FL (9.6-12.0); Monocytes % 14.4 % (1.7-12.7); NRBC # 0.02 10*3/uL; Neutrophils % 57.5 % (38.7-73.9); Platelet Count 328 T/CUMM (130-400); Red Cell Distribution Width 19.8 % (9.3-17.3); White Blood Count 6.3 T/CUMM (4-12)
[2020-06-02 06:02] LABS: Bilirubin,Total 1.1 MG/DL (0.2-1.0); Calcium 7.8 MG/DL (8.5-10.1); Osmolality,Calculated 268.2 MOS/KG (273-304); Potassium 3.1 MMOL/L (3.5-5.1); Total Protein 5.8 G/DL (6.4-8.3)
[2020-06-02] MEDS ORDERED: HEPARIN 10,000 UNIT/10 ML VIAL IV PRN (06:31)
[2020-06-02] MEDS: DEXTROSE 50% 25 GM/50 ML VIAL IV PRN ×2 (08:08→12:19)
[2020-06-02] MEDS: INSULIN NPH 100 UNIT/ML SUBCUT SCH ×2 (08:54→15:59)
[2020-06-02] MEDS: TORSEMIDE 20 MG TABLET PO SCH ×4 (08:55→18:20)
[2020-06-02] MEDS: FERROUS SULFATE 325 MG TABLET PO SCH ×2 (08:55→20:26)
[2020-06-02] MEDS: ASCORBIC ACID 500 MG TABLET PO SCH (08:55)
[2020-06-02] MEDS: amLODIPine 10 MG TABLET PO SCH (08:55)
[2020-06-02] MEDS: CHOLECALCIFEROL 1,000 UNIT TABLET PO SCH (08:55)
[2020-06-02] MEDS: carvediloL 12.5 MG TABLET PO SCH ×4 (08:55→18:20)
[2020-06-02] MEDS: SEVELAMER CARBONATE 800 MG TABLET PO SCH ×3 (08:56→17:43)
[2020-06-02] MEDS ORDERED: SODIUM CHLORIDE 0.9% 1,000 ML IV PRN (09:57)
[2020-06-02] MEDS: DEXTROSE 5% 1,000 ML IV SCH (11:34)
[2020-06-02] MEDS ORDERED: MIDAZOLAM 100 MG in SODIUM CHLORIDE 0.9% 80 ML IV PRN (13:59)
[2020-06-02] MEDS: ENOXAPARIN 30 MG/0.3 ML SYRINGE SUBCUT SCH (14:29)
[2020-06-02] MEDS: FAMOTIDINE 20 MG/2 ML VIAL IV SCH (14:29)
[2020-06-02 16:25] LABS: Hepatitis B Core IgM Quant < 0.05 Index; Hepatitis B Surface Ag Quant 0.25 Index; Hepatitis B Surface Ag Result Non-Reactive (NonReactive); Hepatitis C Virus Ab Quant 0.07 Index; Hepatitis C Virus Ab Result Non-Reactive (NonReactive)
[2020-06-02] MEDS: GABAPENTIN 100 MG CAPSULE PO SCH (20:26)
[2020-06-03] MEDS: INSULIN LISPRO 100 UNIT/ML SUBCUT SCH ×6 (00:07→21:56)
[2020-06-03 04:04] LABS: Basophils % 0.1 % (0.0-0.8); Eosinophils % 2.5 % (0.00-10.9); Hematocrit 31.8 VOL% (35.7-47.0); Hemoglobin 10.3 GM/DL (12.0-16.0); Immature Granulocytes % 0.4 %; Lymphocytes % 17.3 % (21.3-54.2); Mean Corpuscular HGB Conc 32.4 GM/DL (32-36); Mean Corpuscular Volume 91.1 FL (87-102); Mean Platelet Volume 9.9 FL (9.6-12.0); Monocytes % 10.6 % (1.7-12.7); Neutrophils % 69.1 % (38.7-73.9); Platelet Count 296 T/CUMM (130-400); Red Blood Count 3.49 MC/CUMM (3.8-5.5); Red Cell Distribution Width 20.1 % (9.3-17.3); White Blood Count 7.2 T/CUMM (4-12)
[2020-06-03 04:05] LABS: Eosinophils # 0.2 10*3/uL (0.0-0.87); Immature Granulocytes Absolute 0.03 #; Lymphocytes # 1.2 10*3/uL (1.4-4.0); NRBC # 0.02 10*3/uL
[2020-06-03 04:31] LABS: Calcium 7.3 MG/DL (8.5-10.1); Osmolality,Calculated 272.2 MOS/KG (273-304); Potassium 3.6 MMOL/L (3.5-5.1)
[2020-06-03 04:38] LABS: ABG Base Excess 1.7 MMOL/L (-2.5-2.5); ABG HCO3 25.9 MMOL/L (20-26); ABG Oxygen Saturation 99.4 % (95-100); ABG PCO2 39.6 MM HG (35-48); ABG PH 7.426 (7.35-7.45); ABG TCO2 23.3 MMOL/L (23-27); Allen Test Positive; Pt O2 Delivery Device Ventilator
[2020-06-03] MEDS: DEXTROSE 5% 1,000 ML IV SCH (05:00)
[2020-06-03] MEDS: ASCORBIC ACID 500 MG TABLET PO SCH (08:46)
[2020-06-03] MEDS: TORSEMIDE 20 MG TABLET PO SCH ×2 (08:46→16:28)
[2020-06-03] MEDS: FERROUS SULFATE 325 MG TABLET PO SCH ×2 (08:46→20:28)
[2020-06-03] MEDS: carvediloL 12.5 MG TABLET PO SCH ×2 (08:46→16:28)
[2020-06-03] MEDS: CHOLECALCIFEROL 1,000 UNIT TABLET PO SCH (08:46)
[2020-06-03] MEDS: amLODIPine 10 MG TABLET PO SCH (08:46)
[2020-06-03] MEDS: SEVELAMER CARBONATE 800 MG TABLET PO SCH ×3 (08:46→16:28)
[2020-06-03] MEDS: INSULIN NPH 100 UNIT/ML SUBCUT SCH ×2 (08:47→16:29)
[2020-06-03] MEDS: FAMOTIDINE 20 MG/2 ML VIAL IV SCH (14:26)
[2020-06-03] MEDS: ONDANSETRON 4 MG/2 ML VIAL IV PRN ×2 (14:26→20:35)
[2020-06-03] MEDS: ENOXAPARIN 30 MG/0.3 ML SYRINGE SUBCUT SCH ×2 (14:27→14:31)
[2020-06-03] MEDS ORDERED: ACETAMINOPHEN 325 MG TABLET PO PRN (16:22)
[2020-06-03] MEDS: GABAPENTIN 100 MG CAPSULE PO SCH (20:28)
[2020-06-04] MEDS: INSULIN LISPRO 100 UNIT/ML SUBCUT SCH ×6 (00:02→22:17)
[2020-06-04 04:47] LABS: Basophils % 0.3 % (0.0-0.8); Eosinophils # 0.1 10*3/uL (0.0-0.87); Eosinophils % 1.8 % (0.00-10.9); Hematocrit 29.4 VOL% (35.7-47.0); Hemoglobin 8.9 GM/DL (12.0-16.0); Immature Granulocytes % 0.3 %; Immature Granulocytes Absolute 0.02 #; Lymphocytes # 1.2 10*3/uL (1.4-4.0); Lymphocytes % 17.7 % (21.3-54.2); Mean Corpuscular HGB Conc 30.3 GM/DL (32-36); Mean Corpuscular Volume 94.8 FL (87-102); Mean Platelet Volume 10.4 FL (9.6-12.0); Monocytes % 13.8 % (1.7-12.7); Neutrophils % 66.1 % (38.7-73.9); Platelet Count 248 T/CUMM (130-400); Red Cell Distribution Width 20.2 % (9.3-17.3); White Blood Count 6.7 T/CUMM (4-12)
[2020-06-04 05:01] LABS: Calcium 7.4 MG/DL (8.5-10.1); Osmolality,Calculated 277.2 MOS/KG (273-304); Potassium 3.8 MMOL/L (3.5-5.1)
[2020-06-04] MEDS: TORSEMIDE 20 MG TABLET PO SCH ×2 (08:09→16:00)
[2020-06-04] MEDS: INSULIN NPH 100 UNIT/ML SUBCUT SCH ×2 (08:09→16:00)
[2020-06-04] MEDS: SEVELAMER CARBONATE 800 MG TABLET PO SCH ×3 (08:09→16:00)
[2020-06-04] MEDS: FERROUS SULFATE 325 MG TABLET PO SCH ×2 (08:09→22:10)
[2020-06-04] MEDS: amLODIPine 10 MG TABLET PO SCH (08:09)
[2020-06-04] MEDS: carvediloL 12.5 MG TABLET PO SCH ×2 (08:09→16:00)
[2020-06-04] MEDS: CHOLECALCIFEROL 1,000 UNIT TABLET PO SCH (09:07)
[2020-06-04] MEDS: ASCORBIC ACID 500 MG TABLET PO SCH (09:07)
[2020-06-04] MEDS: ONDANSETRON 4 MG/2 ML VIAL IV PRN ×2 (10:51→22:50)
[2020-06-04] MEDS ORDERED: ALUMINUM/MAGNES/SIMETH MAX STR 30 ML UDCUP PO PRN (10:57)
[2020-06-04] MEDS: ENOXAPARIN 30 MG/0.3 ML SYRINGE SUBCUT SCH (15:08)
[2020-06-04] MEDS: FAMOTIDINE 20 MG/2 ML VIAL IV SCH (15:08)
[2020-06-04] MEDS: GABAPENTIN 100 MG CAPSULE PO SCH (22:11)
[2020-06-05 06:29] LABS: Calcium 7.6 MG/DL (8.5-10.1); Osmolality,Calculated 303.1 MOS/KG (273-304); Potassium 4.4 MMOL/L (3.5-5.1)
[2020-06-05 06:41] LABS: Basophils % 0.4 % (0.0-0.8); Eosinophils # 0.1 10*3/uL (0.0-0.87); Eosinophils % 1.7 % (0.00-10.9); Immature Granulocytes % 0.6 %; Immature Granulocytes Absolute 0.03 #; Lymphocytes # 1.1 10*3/uL (1.4-4.0); Lymphocytes % 19.7 % (21.3-54.2); Mean Corpuscular HGB Conc 29.7 GM/DL (32-36); Mean Corpuscular Volume 98.7 FL (87-102); Mean Platelet Volume 11.2 FL (9.6-12.0); Monocytes % 11.8 % (1.7-12.7); Neutrophils % 65.8 % (38.7-73.9); Platelet Count 223 T/CUMM (130-400); Red Blood Count 3.04 MC/CUMM (3.8-5.5); Red Cell Distribution Width 19.8 % (9.3-17.3); White Blood Count 5.4 T/CUMM (4-12)
[2020-06-05 06:42] LABS: Hemoglobin 8.9 GM/DL (12.0-16.0)
[2020-06-05] MEDS: INSULIN LISPRO 100 UNIT/ML SUBCUT SCH ×4 (07:12→21:44)
[2020-06-05] MEDS ORDERED: hydrALAZINE 20 MG/1 ML VIAL IV ONE (10:14)
[2020-06-05] MEDS: INSULIN NPH 100 UNIT/ML SUBCUT SCH ×2 (10:18→17:16)
[2020-06-05] MEDS: carvediloL 12.5 MG TABLET PO SCH ×2 (10:19→17:17)
[2020-06-05] MEDS: amLODIPine 10 MG TABLET PO SCH (10:20)
[2020-06-05] MEDS: CHOLECALCIFEROL 1,000 UNIT TABLET PO SCH (13:44)
[2020-06-05] MEDS: SEVELAMER CARBONATE 800 MG TABLET PO SCH ×3 (13:45→17:17)
[2020-06-05] MEDS: TORSEMIDE 20 MG TABLET PO SCH ×2 (13:45→17:17)
[2020-06-05] MEDS: FERROUS SULFATE 325 MG TABLET PO SCH ×2 (13:45→21:44)
[2020-06-05] MEDS: sitaGLIPtin 25 MG TABLET PO SCH (13:45)
[2020-06-05] MEDS: ASCORBIC ACID 500 MG TABLET PO SCH (13:46)
[2020-06-05] MEDS: ENOXAPARIN 30 MG/0.3 ML SYRINGE SUBCUT SCH (13:56)
[2020-06-05] MEDS: FAMOTIDINE 20 MG/2 ML VIAL IV SCH (14:04)
[2020-06-05] MEDS: GABAPENTIN 100 MG CAPSULE PO SCH (21:44)
[2020-06-05] MEDS: ONDANSETRON 4 MG/2 ML VIAL IV PRN (23:01)
[2020-06-06 07:28] LABS: Basophils % 0.4 % (0.0-0.8); Eosinophils # 0.2 10*3/uL (0.0-0.87); Eosinophils % 1.9 % (0.00-10.9); Hematocrit 28.1 VOL% (35.7-47.0); Hemoglobin 8.5 GM/DL (12.0-16.0); Immature Granulocytes % 0.5 %; Immature Granulocytes Absolute 0.04 #; Lymphocytes # 1.4 10*3/uL (1.4-4.0); Lymphocytes % 17.3 % (21.3-54.2); Mean Corpuscular HGB Conc 30.2 GM/DL (32-36); Mean Corpuscular Volume 97.6 FL (87-102); Mean Platelet Volume 10.6 FL (9.6-12.0); Monocytes % 12.1 % (1.7-12.7); NRBC # 0.02 10*3/uL; Neutrophils % 67.8 % (38.7-73.9); Platelet Count 219 T/CUMM (130-400); Red Blood Count 2.88 MC/CUMM (3.8-5.5); Red Cell Distribution Width 19.2 % (9.3-17.3); White Blood Count 7.9 T/CUMM (4-12)
[2020-06-06 07:47] LABS: Calcium 7.7 MG/DL (8.5-10.1); Osmolality,Calculated 279.7 MOS/KG (273-304); Potassium 4.5 MMOL/L (3.5-5.1)
[2020-06-06] MEDS: INSULIN LISPRO 100 UNIT/ML SUBCUT SCH ×2 (07:59→11:15)
[2020-06-06] MEDS: INSULIN NPH 100 UNIT/ML SUBCUT SCH (08:32)
[2020-06-06] MEDS: sitaGLIPtin 25 MG TABLET PO SCH (08:32)
[2020-06-06] MEDS: carvediloL 12.5 MG TABLET PO SCH (08:33)
[2020-06-06] MEDS: amLODIPine 10 MG TABLET PO SCH (08:33)
[2020-06-06] MEDS: TORSEMIDE 20 MG TABLET PO SCH (08:33)
[2020-06-06] MEDS: FERROUS SULFATE 325 MG TABLET PO SCH (10:34)
[2020-06-06] MEDS: CHOLECALCIFEROL 1,000 UNIT TABLET PO SCH (10:34)
[2020-06-06] MEDS: SEVELAMER CARBONATE 800 MG TABLET PO SCH ×2 (10:34→11:15)
[2020-06-06] MEDS: ASCORBIC ACID 500 MG TABLET PO SCH (10:34)
[2020-06-06 11:49] VITALS: BP 182/101
== END 2020-06-06 12:10 | disposition home or self-care (01) | DRG 208 ==
LOC: N.ED 11:38 → SUATTDRO 13:41 → N.ICU 13:41 → N.CC 16:43 → N.5E 06-04 14:54
PROVIDERS: ADMIT Internal Medicine; ATTEND Internal Medicine

== ENCOUNTER 2020-06-12 10:40 | Inpatient (IN) ==
[2020-06-12] MEDS ORDERED: HYDROmorphone 2 MG/1 ML VIAL IV STA (11:08)
[2020-06-12 11:16] LABS: INR 1.1; Partial Thromboplastin Time 27.1 SECS (23.9-33.8)
[2020-06-12 11:24] LABS: Basophils % 0.3 % (0.0-0.8); Eosinophils % 0.2 % (0.00-10.9); Immature Granulocytes % 0.2 %; Immature Granulocytes Absolute 0.01 #; Lymphocytes # 0.9 10*3/uL (1.4-4.0); Lymphocytes % 14.8 % (21.3-54.2); Mean Corpuscular HGB Conc 30.3 GM/DL (32-36); Mean Platelet Volume 10.7 FL (9.6-12.0); Monocytes % 7.6 % (1.7-12.7); Neutrophils % 76.9 % (38.7-73.9); Platelet Count 207 T/CUMM (130-400); Red Cell Distribution Width 16.9 % (9.3-17.3); White Blood Count 5.8 T/CUMM (4-12)
[2020-06-12 11:28] LABS: Hemoglobin 4.6 GM/DL (12.0-16.0)
[2020-06-12 11:29] LABS: Hematocrit 15.2 VOL% (35.7-47.0)
[2020-06-12] MEDS ORDERED: DEXTROSE 50% 25 GM/50 ML VIAL IV PRN ×2 (12:10)
[2020-06-12] MEDS ORDERED: ACETAMINOPHEN 325 MG TABLET PO PRN (12:10)
[2020-06-12] MEDS ORDERED: PROMETHAZINE 25 MG/1 ML VIAL IM PRN (12:10)
[2020-06-12] MEDS ORDERED: GLUCAGON 1 MG VIAL IM PRN ×2 (12:10)
[2020-06-12] MEDS ORDERED: SODIUM CHLORIDE 0.9% 1,000 ML IV PRN (12:16)
[2020-06-12 12:28] LABS: Osmolality,Calculated 314.5 MOS/KG (273-304)
[2020-06-12] MEDS ORDERED: ALBUTEROL 2.5 MG/3 ML NEB RESP TX PRN (12:35)
[2020-06-12] MEDS ORDERED: ZALEPLON 5 MG CAPSULE PO PRN (12:35)
[2020-06-12] MEDS: INSULIN LISPRO 100 UNIT/ML SUBCUT SCH (12:36)
[2020-06-12 12:40] LABS: Bilirubin,Total 0.6 MG/DL (0.2-1.0); Total Protein 6.4 G/DL (6.4-8.3)
[2020-06-12 12:41] LABS: Albumin 2.6 G/DL (3.4-5.0); Calcium 7.3 MG/DL (8.5-10.1)
[2020-06-12 12:42] LABS: Potassium 5.7 MMOL/L (3.5-5.1)
[2020-06-12] MEDS: ONDANSETRON 4 MG/2 ML VIAL IV PRN (16:17)
[2020-06-12] MEDS ORDERED: hydrALAZINE 20 MG/1 ML VIAL IV ONE (16:20)
[2020-06-12] MEDS: GABAPENTIN 100 MG CAPSULE PO SCH (21:22)
[2020-06-12] MEDS: MONTELUKAST 10 MG TABLET PO SCH (21:22)
[2020-06-12] MEDS: cloNIDine 0.1 MG TABLET PO SCH (21:22)
[2020-06-12] MEDS: FERROUS SULFATE 325 MG TABLET PO SCH (21:22)
[2020-06-13 00:13] LABS: Hematocrit 20.5 VOL% (35.7-47.0)
[2020-06-13 00:25] LABS: Hemoglobin 6.6 GM/DL (12.0-16.0)
[2020-06-13 05:34] LABS: Basophils % 0.5 % (0.0-0.8); Eosinophils % 0.6 % (0.00-10.9); Hematocrit 19.6 VOL% (35.7-47.0); Immature Granulocytes % 0.5 %; Immature Granulocytes Absolute 0.03 #; Lymphocytes # 1.1 10*3/uL (1.4-4.0); Lymphocytes % 17.5 % (21.3-54.2); Mean Corpuscular HGB Conc 32.1 GM/DL (32-36); Mean Corpuscular Volume 91.2 FL (87-102); Monocytes % 7.9 % (1.7-12.7); Platelet Count 215 T/CUMM (130-400); Red Blood Count 2.15 MC/CUMM (3.8-5.5); White Blood Count 6.3 T/CUMM (4-12)
[2020-06-13 05:55] LABS: Hemoglobin 6.3 GM/DL (12.0-16.0)
[2020-06-13 06:07] LABS: Calcium 7.5 MG/DL (8.5-10.1); Osmolality,Calculated 307.1 MOS/KG (273-304); Potassium 4.5 MMOL/L (3.5-5.1)
[2020-06-13] MEDS: INSULIN LISPRO 100 UNIT/ML SUBCUT SCH ×6 (07:10→21:50)
[2020-06-13] MEDS: carvediloL 12.5 MG TABLET PO SCH ×3 (07:11→16:56)
[2020-06-13] MEDS: SEVELAMER CARBONATE 800 MG TABLET PO SCH ×4 (07:11→16:56)
[2020-06-13] MEDS ORDERED: SODIUM CHLORIDE 0.9% 1,000 ML IV PRN (07:43)
[2020-06-13] MEDS: INSULIN NPH 100 UNIT/ML SUBCUT SCH (09:02)
[2020-06-13] MEDS: cloNIDine 0.1 MG TABLET PO SCH ×2 (09:03→22:10)
[2020-06-13] MEDS: amLODIPine 10 MG TABLET PO SCH (09:07)
[2020-06-13] MEDS: ASCORBIC ACID 500 MG TABLET PO SCH (09:07)
[2020-06-13] MEDS: PANTOPRAZOLE 40 MG TABLET PO SCH (09:08)
[2020-06-13] MEDS: sitaGLIPtin 25 MG TABLET PO SCH (09:08)
[2020-06-13] MEDS: FERROUS SULFATE 325 MG TABLET PO SCH ×2 (09:08→22:11)
[2020-06-13] MEDS: ONDANSETRON 4 MG/2 ML VIAL IV PRN (10:05)
[2020-06-13] MEDS: GABAPENTIN 100 MG CAPSULE PO SCH (22:10)
[2020-06-13] MEDS: MONTELUKAST 10 MG TABLET PO SCH (22:11)
[2020-06-14] MEDS: ONDANSETRON 4 MG/2 ML VIAL IV PRN ×2 (00:34→10:10)
[2020-06-14 05:56] LABS: Basophils % 0.5 % (0.0-0.8); Eosinophils # 0.1 10*3/uL (0.0-0.87); Eosinophils % 2.2 % (0.00-10.9); Immature Granulocytes % 0.5 %; Immature Granulocytes Absolute 0.03 #; Lymphocytes # 1.1 10*3/uL (1.4-4.0); Lymphocytes % 16.5 % (21.3-54.2); Mean Corpuscular HGB Conc 31.1 GM/DL (32-36); Mean Corpuscular Volume 92.2 FL (87-102); Mean Platelet Volume 10.9 FL (9.6-12.0); Monocytes % 7.5 % (1.7-12.7); Neutrophils % 72.8 % (38.7-73.9); Platelet Count 244 T/CUMM (130-400); Red Blood Count 2.06 MC/CUMM (3.8-5.5); Red Cell Distribution Width 16.7 % (9.3-17.3); White Blood Count 6.4 T/CUMM (4-12)
[2020-06-14 06:00] LABS: Hemoglobin 5.9 GM/DL (12.0-16.0)
[2020-06-14 06:18] LABS: Calcium 7.2 MG/DL (8.5-10.1); Osmolality,Calculated 314.2 MOS/KG (273-304); Potassium 4.5 MMOL/L (3.5-5.1)
[2020-06-14] MEDS ORDERED: SODIUM CHLORIDE 0.9% 1,000 ML IV PRN (08:24)
[2020-06-14] MEDS: INSULIN NPH 100 UNIT/ML SUBCUT SCH (08:34)
[2020-06-14] MEDS: INSULIN LISPRO 100 UNIT/ML SUBCUT SCH ×3 (08:35→18:05)
[2020-06-14] MEDS: PANTOPRAZOLE 40 MG TABLET PO SCH (08:39)
[2020-06-14] MEDS: carvediloL 12.5 MG TABLET PO SCH ×2 (08:39→17:58)
[2020-06-14] MEDS: amLODIPine 10 MG TABLET PO SCH (08:39)
[2020-06-14] MEDS: SEVELAMER CARBONATE 800 MG TABLET PO SCH ×3 (10:26→18:06)
[2020-06-14] MEDS ORDERED: HEPARIN 10,000 UNIT/10 ML VIAL IV SCH (12:00)
[2020-06-14] MEDS: cloNIDine 0.1 MG TABLET PO SCH ×2 (15:14→21:39)
[2020-06-14] MEDS: FERROUS SULFATE 325 MG TABLET PO SCH ×2 (15:15→21:39)
[2020-06-14] MEDS: sitaGLIPtin 25 MG TABLET PO SCH (15:15)
[2020-06-14] MEDS: ASCORBIC ACID 500 MG TABLET PO SCH (15:16)
[2020-06-14] MEDS ORDERED: INSULIN GLARGINE 100 UNIT/ML SUBCUT SCH (21:00)
[2020-06-14] MEDS: MONTELUKAST 10 MG TABLET PO SCH (21:39)
[2020-06-14] MEDS: GABAPENTIN 100 MG CAPSULE PO SCH (21:40)
[2020-06-14 23:03] LABS: Hematocrit 25.9 VOL% (35.7-47.0); Hemoglobin 8.6 GM/DL (12.0-16.0)
[2020-06-15] MEDS: ONDANSETRON 4 MG/2 ML VIAL IV PRN (01:26)
[2020-06-15] MEDS: INSULIN LISPRO 100 UNIT/ML SUBCUT SCH ×5 (03:56→12:27)
[2020-06-15 07:17] LABS: Albumin 2.5 G/DL (3.4-5.0); Bilirubin,Direct 0.13 MG/DL (0.0-0.20); Bilirubin,Indirect 0.7 MG/DL (0.0-1.0); Bilirubin,Total 0.8 MG/DL (0.2-1.0); Total Protein 6.2 G/DL (6.4-8.3)
[2020-06-15] MEDS ORDERED: INSULIN LISPRO 100 UNIT/ML SUBCUT SCH (07:30)
[2020-06-15 08:18] LABS: Basophils % 0.3 % (0.0-0.8); Eosinophils # 0.1 10*3/uL (0.0-0.87); Eosinophils % 1.7 % (0.00-10.9); Hematocrit 26.6 VOL% (35.7-47.0); Hemoglobin 8.5 GM/DL (12.0-16.0); Immature Granulocytes % 0.3 %; Immature Granulocytes Absolute 0.02 #; Lymphocytes # 0.9 10*3/uL (1.4-4.0); Lymphocytes % 14.7 % (21.3-54.2); Mean Corpuscular Volume 92.4 FL (87-102); Mean Platelet Volume 11.1 FL (9.6-12.0); Monocytes % 11.3 % (1.7-12.7); Neutrophils % 71.7 % (38.7-73.9); Platelet Count 250 T/CUMM (130-400); Red Blood Count 2.88 MC/CUMM (3.8-5.5)
[2020-06-15 08:31] LABS: Calcium 7.4 MG/DL (8.5-10.1); Osmolality,Calculated 295.8 MOS/KG (273-304); Potassium 3.7 MMOL/L (3.5-5.1)
[2020-06-15] MEDS: SEVELAMER CARBONATE 800 MG TABLET PO SCH ×2 (09:15→12:26)
[2020-06-15] MEDS: FERROUS SULFATE 325 MG TABLET PO SCH ×2 (09:16→12:26)
[2020-06-15] MEDS: sitaGLIPtin 25 MG TABLET PO SCH (09:16)
[2020-06-15] MEDS: ASCORBIC ACID 500 MG TABLET PO SCH ×2 (09:16→12:26)
[2020-06-15] MEDS: cloNIDine 0.1 MG TABLET PO SCH (09:16)
[2020-06-15] MEDS: amLODIPine 10 MG TABLET PO SCH (09:17)
[2020-06-15] MEDS: carvediloL 12.5 MG TABLET PO SCH (09:17)
[2020-06-15] MEDS: PANTOPRAZOLE 40 MG TABLET PO SCH (09:17)
[2020-06-15] MEDS ORDERED: INSULIN GLARGINE 100 UNIT/ML SUBCUT SCH (09:30)
[2020-06-15 13:27] VITALS: BP 128/68
== END 2020-06-15 14:04 | disposition home health service (06) | DRG 682 ==
LOC: EDBD → EDUNIT# → N.ED 10:40 → N.TELEN 10:40 → SUATTDRO 12:10 → N.TELEN 12:52
PROVIDERS: ADMIT Internal Medicine; ATTEND Emergency Medicine

== ENCOUNTER 2020-07-06 04:37 | Inpatient (IN) ==
[2020-07-06] MEDS ORDERED: ONDANSETRON 4 MG/2 ML VIAL IV STA (04:48)
[2020-07-06] MEDS ORDERED: hydrALAZINE 20 MG/1 ML VIAL IV STA ×2 (04:48→05:47)
[2020-07-06] MEDS ORDERED: NITROGLYCERIN 2% OINT 1 INCH/GM PACK TOP STA (05:11)
[2020-07-06] MEDS ORDERED: MORPHINE 4 MG/1 ML VIAL IV STA (05:12)
[2020-07-06 05:40] LABS: Basophils % 0.2 % (0.0-0.8); Eosinophils # 0.2 10*3/uL (0.0-0.87); Eosinophils % 1.1 % (0.00-10.9); Hematocrit 33.3 VOL% (35.7-47.0); Immature Granulocytes % 0.5 %; Immature Granulocytes Absolute 0.06 #; Lymphocytes # 1.4 10*3/uL (1.4-4.0); Lymphocytes % 10.2 % (21.3-54.2); Mean Corpuscular Volume 97.7 FL (87-102); Mean Platelet Volume 10.6 FL (9.6-12.0); Monocytes % 4.7 % (1.7-12.7); Neutrophils % 83.3 % (38.7-73.9); Platelet Count 345 T/CUMM (130-400); Red Blood Count 3.41 MC/CUMM (3.8-5.5); Red Cell Distribution Width 18.3 % (9.3-17.3); White Blood Count 13.3 T/CUMM (4-12)
[2020-07-06 05:45] LABS: INR 1.1; PT Patient Result 11.5 SECS (9.8-11.9)
[2020-07-06 05:58] LABS: Albumin 3.3 G/DL (3.4-5.0); Bilirubin,Total 0.5 MG/DL (0.2-1.0); Osmolality,Calculated 305.3 MOS/KG (273-304); Potassium 4.1 MMOL/L (3.5-5.1); Total Protein 7.8 G/DL (6.4-8.2)
[2020-07-06] MEDS ORDERED: LORazepam 2 MG/1 ML VIAL IV STA (06:15)
[2020-07-06] MEDS ORDERED: hydrALAZINE 20 MG/1 ML VIAL IV PRN (07:35)
[2020-07-06] MEDS ORDERED: ACETAMINOPHEN 325 MG TABLET PO PRN (07:35)
[2020-07-06] MEDS ORDERED: GLUCAGON 1 MG VIAL IM PRN (07:35)
[2020-07-06] MEDS ORDERED: DEXTROSE 50% 25 GM/50 ML VIAL IV PRN (07:35)
[2020-07-06] MEDS ORDERED: ALBUTEROL 2.5 MG/3 ML NEB RESP TX PRN (07:37)
[2020-07-06 07:57] LABS: ABG Base Excess 1.2 MMOL/L (-2.5-2.5); ABG HCO3 25.5 MMOL/L (20-26); ABG Oxygen Saturation 98.6 % (95-100); ABG PCO2 55.2 MM HG (35-48); ABG PH 7.315 (7.35-7.45); ABG TCO2 26.1 MMOL/L (23-27); Allen Test Positive; Pt O2 Delivery Device BIPAP
[2020-07-06] MEDS ORDERED: carvediloL 12.5 MG TABLET PO SCH (08:00)
[2020-07-06] MEDS ORDERED: INSULIN LISPRO 100 UNIT/ML SUBCUT SCH (08:00)
[2020-07-06] MEDS ORDERED: INSULIN GLARGINE 100 UNIT/ML SUBCUT SCH (09:00)
[2020-07-06] MEDS ORDERED: amLODIPine 10 MG TABLET PO SCH (09:00)
[2020-07-06] MEDS: cloNIDine 0.1 MG TABLET PO SCH ×2 (09:50→21:58)
[2020-07-06] MEDS ORDERED: SEVELAMER CARBONATE 800 MG TABLET PO SCH (11:30)
[2020-07-06] MEDS: INSULIN REGULAR 100 UNIT/ML SUBCUT SCH ×3 (11:53→21:59)
[2020-07-06] MEDS: HEPARIN 5,000 UNIT/1 ML VIAL SUBCUT SCH ×2 (11:53→22:00)
[2020-07-06] MEDS ORDERED: HEPARIN 10,000 UNIT/10 ML VIAL IV PRN (14:40)
[2020-07-06] MEDS: ONDANSETRON 4 MG/2 ML VIAL IV PRN (16:23)
[2020-07-06] MEDS: SEVELAMER CARBONATE 800 MG TABLET PO SCH ×2 (16:36→18:00)
[2020-07-06] MEDS ORDERED: INSULIN NPH 100 UNIT/ML SUBCUT SCH (21:00)
[2020-07-06] MEDS: FERROUS SULFATE 325 MG TABLET PO SCH (21:58)
[2020-07-06] MEDS: GABAPENTIN 100 MG CAPSULE PO SCH (21:59)
[2020-07-06] MEDS: MONTELUKAST 10 MG TABLET PO SCH (21:59)
[2020-07-07 05:13] LABS: Basophils % 0.3 % (0.0-0.8); Eosinophils # 0.2 10*3/uL (0.0-0.87); Eosinophils % 3.4 % (0.00-10.9); Hematocrit 27.7 VOL% (35.7-47.0); Hemoglobin 8.3 GM/DL (12.0-16.0); Immature Granulocytes % 0.2 %; Immature Granulocytes Absolute 0.01 #; Lymphocytes # 1.4 10*3/uL (1.4-4.0); Mean Corpuscular Volume 98.6 FL (87-102); Mean Platelet Volume 10.4 FL (9.6-12.0); Monocytes % 12.6 % (1.7-12.7); Neutrophils % 61.5 % (38.7-73.9); Platelet Count 274 T/CUMM (130-400); Red Blood Count 2.81 MC/CUMM (3.8-5.5); Red Cell Distribution Width 17.7 % (9.3-17.3); White Blood Count 6.1 T/CUMM (4-12)
[2020-07-07 05:33] LABS: Albumin 2.7 G/DL (3.4-5.0); Bilirubin,Total 0.7 MG/DL (0.2-1.0); Calcium 7.8 MG/DL (8.5-10.1); Osmolality,Calculated 301.7 MOS/KG (273-304); Potassium 4.8 MMOL/L (3.5-5.1); Total Protein 6.6 G/DL (6.4-8.2)
[2020-07-07] MEDS ORDERED: amLODIPine 5 MG TABLET PO SCH (09:00)
[2020-07-07] MEDS: INSULIN REGULAR 100 UNIT/ML SUBCUT SCH ×4 (09:29→21:33)
[2020-07-07] MEDS: HEPARIN 5,000 UNIT/1 ML VIAL SUBCUT SCH ×2 (09:34→21:35)
[2020-07-07] MEDS: INSULIN NPH 100 UNIT/ML SUBCUT SCH ×2 (10:47→21:29)
[2020-07-07] MEDS: PANTOPRAZOLE 40 MG TABLET PO SCH (10:48)
[2020-07-07] MEDS: cloNIDine 0.1 MG TABLET PO SCH ×2 (14:41→21:26)
[2020-07-07] MEDS: FERROUS SULFATE 325 MG TABLET PO SCH ×2 (14:42→21:27)
[2020-07-07] MEDS: SEVELAMER CARBONATE 800 MG TABLET PO SCH ×3 (14:42→18:11)
[2020-07-07] MEDS ORDERED: cloNIDine 0.1 MG TABLET PO PRN (16:03)
[2020-07-07] MEDS: MONTELUKAST 10 MG TABLET PO SCH (21:27)
[2020-07-07] MEDS: GABAPENTIN 100 MG CAPSULE PO SCH (21:27)
[2020-07-07] MEDS: ONDANSETRON 4 MG/2 ML VIAL IV PRN (23:57)
[2020-07-08 05:59] LABS: Basophils % 0.3 % (0.0-0.8); Eosinophils # 0.1 10*3/uL (0.0-0.87); Hematocrit 28.3 VOL% (35.7-47.0); Hemoglobin 8.7 GM/DL (12.0-16.0); Immature Granulocytes % 0.3 %; Immature Granulocytes Absolute 0.02 #; Lymphocytes # 1.1 10*3/uL (1.4-4.0); Lymphocytes % 15.5 % (21.3-54.2); Mean Corpuscular HGB Conc 30.7 GM/DL (32-36); Mean Corpuscular Volume 97.3 FL (87-102); Mean Platelet Volume 10.8 FL (9.6-12.0); Monocytes % 12.4 % (1.7-12.7); Neutrophils % 69.5 % (38.7-73.9); Platelet Count 254 T/CUMM (130-400); Red Blood Count 2.91 MC/CUMM (3.8-5.5); White Blood Count 7.1 T/CUMM (4-12)
[2020-07-08 06:16] LABS: Calcium 7.4 MG/DL (8.5-10.1); Osmolality,Calculated 306.5 MOS/KG (273-304)
[2020-07-08] MEDS: INSULIN NPH 100 UNIT/ML SUBCUT SCH (07:30)
[2020-07-08] MEDS: INSULIN REGULAR 100 UNIT/ML SUBCUT SCH ×3 (07:34→17:26)
[2020-07-08] MEDS: PANTOPRAZOLE 40 MG TABLET PO SCH (09:28)
[2020-07-08 09:49] LABS: Free T4 (Free Thyroxine) 0.86 NG/DL (0.76-1.46); Thyroid Stimulating Hormone 2.52 uIU/ml (0.358-3.74)
[2020-07-08] MEDS: FERROUS SULFATE 325 MG TABLET PO SCH (13:34)
[2020-07-08] MEDS: cloNIDine 0.1 MG TABLET PO SCH (13:34)
[2020-07-08] MEDS: SEVELAMER CARBONATE 800 MG TABLET PO SCH ×2 (13:35)
[2020-07-08] MEDS: HEPARIN 5,000 UNIT/1 ML VIAL SUBCUT SCH (13:37)
[2020-07-08 18:41] VITALS: BP 160/84
== END 2020-07-08 19:02 | disposition home or self-care (01) | DRG 291 ==
LOC: N.ED 04:37 → N.EDINP 07:35 → N.TELEN 16:11
PROVIDERS: ADMIT Internal Medicine; ATTEND Internal Medicine

== ENCOUNTER 2020-07-23 22:27 | Inpatient (IN) ==
[2020-07-23] MEDS ORDERED: NITROGLYCERIN SL 0.4 MG TABLET SL ONE (22:42)
[2020-07-23] MEDS ORDERED: NITROGLYCERIN SL 0.4 MG TABLET SL STA (22:54)
[2020-07-23] MEDS ORDERED: FUROSEMIDE 100 MG/10 ML VIAL IV STA (22:55)
[2020-07-23 23:09] LABS: Basophils % 0.5 % (0.0-0.8); Eosinophils # 0.2 10*3/uL (0.0-0.87); Eosinophils % 2.4 % (0.00-10.9); Hematocrit 37.6 VOL% (35.7-47.0); Hemoglobin 11.3 GM/DL (12.0-16.0); Immature Granulocytes % 0.6 %; Immature Granulocytes Absolute 0.04 #; Lymphocytes # 0.8 10*3/uL (1.4-4.0); Lymphocytes % 11.7 % (21.3-54.2); Mean Corpuscular HGB Conc 30.1 GM/DL (32-36); Mean Corpuscular Volume 93.5 FL (87-102); Mean Platelet Volume 10.7 FL (9.6-12.0); Monocytes % 6.2 % (1.7-12.7); Neutrophils % 78.6 % (38.7-73.9); Platelet Count 319 T/CUMM (130-400); Red Blood Count 4.02 MC/CUMM (3.8-5.5); Red Cell Distribution Width 16.2 % (9.3-17.3); White Blood Count 6.7 T/CUMM (4-12)
[2020-07-23 23:17] LABS: ABG Base Excess 1.5 MMOL/L (-2.5-2.5); ABG HCO3 25.7 MMOL/L (20-26); ABG Oxygen Saturation 95.6 % (95-100); ABG PCO2 52.3 MM HG (35-48); ABG PH 7.339 (7.35-7.45); ABG PO2 86.2 MM HG (80-95); ABG TCO2 25.5 MMOL/L (23-27)
[2020-07-23] MEDS: NITROGLYCERIN DRIP 50 MG/250 ML BOTTLE IV SCH (23:33)
[2020-07-23 23:37] LABS: Albumin 3.7 G/DL (3.4-5.0); Bilirubin,Total 0.4 MG/DL (0.2-1.0); Calcium 8.3 MG/DL (8.5-10.1); Osmolality,Calculated 306.2 MOS/KG (273-304); Potassium 4.8 MMOL/L (3.5-5.1); Total Protein 7.9 G/DL (6.4-8.2)
[2020-07-24 00:39] LABS: INR 1.1; PT Patient Result 11.3 SECS (9.8-11.9); Partial Thromboplastin Time 28.3 SECS (23.9-33.8)
[2020-07-24] MEDS ORDERED: DEXTROSE 50% 25 GM/50 ML VIAL IV PRN (01:45)
[2020-07-24] MEDS ORDERED: ALBUTEROL 2.5 MG/3 ML NEB RESP TX PRN (01:45)
[2020-07-24] MEDS ORDERED: hydrALAZINE 20 MG/1 ML VIAL IV PRN (01:45)
[2020-07-24] MEDS ORDERED: ACETAMINOPHEN 325 MG TABLET PO PRN (01:45)
[2020-07-24] MEDS ORDERED: GLUCAGON 1 MG VIAL IM PRN (01:45)
[2020-07-24] MEDS ORDERED: DOCUSATE SODIUM 100 MG CAPSULE PO PRN (01:45)
[2020-07-24] MEDS ORDERED: NIFEdipine 10 MG CAPSULE PO PRN (03:22)
[2020-07-24] MEDS: INSULIN LISPRO 100 UNIT/ML SUBCUT SCH ×4 (05:06→23:49)
[2020-07-24 06:49] LABS: Basophils % 0.4 % (0.0-0.8); Eosinophils # 0.1 10*3/uL (0.0-0.87); Eosinophils % 1.9 % (0.00-10.9); Hematocrit 29.8 VOL% (35.7-47.0); Hemoglobin 9.2 GM/DL (12.0-16.0); Immature Granulocytes % 0.2 %; Immature Granulocytes Absolute 0.01 #; Lymphocytes # 0.7 10*3/uL (1.4-4.0); Lymphocytes % 14.2 % (21.3-54.2); Mean Corpuscular HGB Conc 30.9 GM/DL (32-36); Mean Corpuscular Volume 91.7 FL (87-102); Monocytes % 8.7 % (1.7-12.7); Neutrophils % 74.6 % (38.7-73.9); Platelet Count 245 T/CUMM (130-400); Red Blood Count 3.25 MC/CUMM (3.8-5.5); White Blood Count 4.9 T/CUMM (4-12)
[2020-07-24 07:12] LABS: Bilirubin,Total 1.2 MG/DL (0.2-1.0); Calcium 8.2 MG/DL (8.5-10.1); Osmolality,Calculated 298.8 MOS/KG (273-304); Potassium 4.2 MMOL/L (3.5-5.1); Total Protein 6.7 G/DL (6.4-8.2)
[2020-07-24] MEDS ORDERED: SEVELAMER CARBONATE 800 MG TABLET PO SCH (08:00)
[2020-07-24] MEDS: FERROUS SULFATE 325 MG TABLET PO SCH ×2 (08:15→20:24)
[2020-07-24] MEDS: SEVELAMER CARBONATE 800 MG TABLET PO SCH ×3 (08:15→16:51)
[2020-07-24] MEDS: PANTOPRAZOLE 40 MG TABLET PO SCH (08:15)
[2020-07-24] MEDS: cloNIDine 0.1 MG TABLET PO SCH ×2 (08:15→20:24)
[2020-07-24] MEDS: amLODIPine 5 MG TABLET PO SCH (08:16)
[2020-07-24] MEDS: INSULIN NPH 100 UNIT/ML SUBCUT SCH ×2 (08:16→20:24)
[2020-07-24 11:26] LABS: Hepatitis B Core IgM Quant 0.11 Index; Hepatitis B Surface Ag Quant < 0.10 Index; Hepatitis B Surface Ag Result Non-Reactive (NonReactive); Hepatitis C Virus Ab Quant 0.14 Index; Hepatitis C Virus Ab Result Non-Reactive (NonReactive)
[2020-07-24] MEDS: MONTELUKAST 10 MG TABLET PO SCH (20:24)
[2020-07-24] MEDS: NITROGLYCERIN DRIP 50 MG/250 ML BOTTLE IV SCH (23:32)
[2020-07-25 06:22] LABS: Basophils % 0.2 % (0.0-0.8); Eosinophils # 0.2 10*3/uL (0.0-0.87); Eosinophils % 4.6 % (0.00-10.9); Hematocrit 32.9 VOL% (35.7-47.0); Hemoglobin 9.7 GM/DL (12.0-16.0); Immature Granulocytes % 0.2 %; Immature Granulocytes Absolute 0.01 #; Lymphocytes % 22.5 % (21.3-54.2); Mean Corpuscular HGB Conc 29.5 GM/DL (32-36); Mean Corpuscular Volume 94.5 FL (87-102); Mean Platelet Volume 11.2 FL (9.6-12.0); Monocytes % 12.5 % (1.7-12.7); Platelet Count 266 T/CUMM (130-400); Red Blood Count 3.48 MC/CUMM (3.8-5.5); White Blood Count 4.6 T/CUMM (4-12)
[2020-07-25 06:38] LABS: Albumin 2.8 G/DL (3.4-5.0); Bilirubin,Total 0.7 MG/DL (0.2-1.0); Calcium 7.9 MG/DL (8.5-10.1); Osmolality,Calculated 285.8 MOS/KG (273-304); Potassium 4.7 MMOL/L (3.5-5.1); Total Protein 6.7 G/DL (6.4-8.2)
[2020-07-25] MEDS: INSULIN LISPRO 100 UNIT/ML SUBCUT SCH ×3 (06:40→17:11)
[2020-07-25] MEDS: ONDANSETRON 4 MG/2 ML VIAL IV PRN ×2 (07:34→21:54)
[2020-07-25] MEDS: PANTOPRAZOLE 40 MG TABLET PO SCH (08:19)
[2020-07-25] MEDS: SEVELAMER CARBONATE 800 MG TABLET PO SCH ×3 (08:19→17:11)
[2020-07-25] MEDS: FERROUS SULFATE 325 MG TABLET PO SCH ×2 (08:19→21:53)
[2020-07-25] MEDS: amLODIPine 5 MG TABLET PO SCH (08:19)
[2020-07-25] MEDS: cloNIDine 0.1 MG TABLET PO SCH ×2 (08:19→21:53)
[2020-07-25] MEDS: INSULIN NPH 100 UNIT/ML SUBCUT SCH ×2 (11:14→21:59)
[2020-07-25] MEDS: MONTELUKAST 10 MG TABLET PO SCH (21:53)
[2020-07-26] MEDS: NITROGLYCERIN DRIP 50 MG/250 ML BOTTLE IV SCH (00:36)
[2020-07-26] MEDS: INSULIN LISPRO 100 UNIT/ML SUBCUT SCH ×3 (00:54→12:01)
[2020-07-26] MEDS ORDERED: diphenhydrAMINE CAP 25 MG CAPSULE PO PRN (04:42)
[2020-07-26] MEDS: amLODIPine 5 MG TABLET PO SCH (08:16)
[2020-07-26] MEDS: PANTOPRAZOLE 40 MG TABLET PO SCH (08:16)
[2020-07-26] MEDS: SEVELAMER CARBONATE 800 MG TABLET PO SCH ×2 (08:16→12:01)
[2020-07-26] MEDS: cloNIDine 0.1 MG TABLET PO SCH (08:16)
[2020-07-26] MEDS: FERROUS SULFATE 325 MG TABLET PO SCH (08:16)
[2020-07-26] MEDS ORDERED: INSULIN NPH 100 UNIT/ML SUBCUT SCH (09:00)
[2020-07-26] MEDS ORDERED: HEPARIN 10,000 UNIT/10 ML VIAL IV SCH (12:30)
[2020-07-26 14:23] VITALS: BP 132/77
== END 2020-07-26 14:45 | disposition home or self-care (01) | DRG 291 ==
LOC: EDUNIT# → EDBD → N.ED 22:27 → N.EDINP 07-24 01:14 → SUATTDRO 07-24 01:14 → N.ICU 07-24 02:58 → N.CC 07-24 15:06 → N.5E 07-25 16:58
PROVIDERS: ADMIT Internal Medicine; ATTEND Internal Medicine

== ENCOUNTER 2020-08-21 04:10 | Observation (INO) ==
[2020-08-21] MEDS ORDERED: NITROGLYCERIN 2% OINT 1 INCH/GM PACK TOP ONE (04:22)
[2020-08-21] MEDS ORDERED: NITROGLYCERIN 2% OINT 1 INCH/GM PACK TOP STA (04:23)
[2020-08-21 04:50] LABS: ABG Base Excess -1.3 MMOL/L (-2.5-2.5); ABG HCO3 23.2 MMOL/L (20-26); ABG PH 7.249 (7.35-7.45); ABG PO2 79.8 MM HG (80-95); Allen Test Positive; Pt O2 Delivery Device BIPAP
[2020-08-21 04:56] LABS: Basophils % 0.4 % (0.0-0.8); Eosinophils # 0.3 10*3/uL (0.0-0.87); Eosinophils % 3.5 % (0.00-10.9); Hematocrit 42.8 VOL% (35.7-47.0); Immature Granulocytes % 0.2 %; Immature Granulocytes Absolute 0.02 #; Lymphocytes # 1.2 10*3/uL (1.4-4.0); Lymphocytes % 14.4 % (21.3-54.2); Mean Corpuscular HGB Conc 30.4 GM/DL (32-36); Mean Corpuscular Volume 89.5 FL (87-102); Mean Platelet Volume 10.1 FL (9.6-12.0); Monocytes % 5.4 % (1.7-12.7); Neutrophils % 76.1 % (38.7-73.9); Platelet Count 259 T/CUMM (130-400); Red Blood Count 4.78 MC/CUMM (3.8-5.5); White Blood Count 8.5 T/CUMM (4-12)
[2020-08-21 05:08] LABS: Albumin 4.2 G/DL (3.4-5.0); Bilirubin,Total 0.5 MG/DL (0.2-1.0); Calcium 7.9 MG/DL (8.5-10.1); Osmolality,Calculated 297.8 MOS/KG (273-304); Potassium 4.7 MMOL/L (3.5-5.1); Total Protein 9.2 G/DL (6.4-8.2)
[2020-08-21 05:13] LABS: PT Patient Result 11.1 SECS (10.5-12.0)
[2020-08-21] MEDS ORDERED: GLUCAGON 1 MG VIAL IM PRN (05:59)
[2020-08-21] MEDS ORDERED: DEXTROSE 50% 25 GM/50 ML VIAL IV PRN (05:59)
[2020-08-21] MEDS ORDERED: hydrALAZINE 20 MG/1 ML VIAL IV PRN (05:59)
[2020-08-21] MEDS ORDERED: ONDANSETRON 4 MG/2 ML VIAL IV PRN (05:59)
[2020-08-21] MEDS ORDERED: DOCUSATE SODIUM 100 MG CAPSULE PO PRN (05:59)
[2020-08-21] MEDS ORDERED: ACETAMINOPHEN 325 MG TABLET PO PRN (05:59)
[2020-08-21 11:09] LABS: CKMB % 3.4 %
[2020-08-21 11:10] LABS: Troponin I 0.231 NG/ML (0.00-0.045)
[2020-08-21 13:57] LABS: CKMB % 3.6 %
[2020-08-21 13:58] LABS: Troponin I 0.246 NG/ML (0.00-0.045)
[2020-08-21] MEDS ORDERED: HEPARIN 10,000 UNIT/10 ML VIAL IV SCH (15:15)
[2020-08-21] MEDS: carvediloL 12.5 MG TABLET PO SCH (19:10)
[2020-08-21 20:04] LABS: Troponin I 0.187 NG/ML (0.00-0.045)
[2020-08-21] MEDS: MONTELUKAST 10 MG TABLET PO SCH (20:11)
[2020-08-21] MEDS: cloNIDine 0.1 MG TABLET PO SCH (20:11)
[2020-08-21] MEDS: INSULIN NPH 100 UNIT/ML SUBCUT SCH (20:12)
[2020-08-21] MEDS: FERROUS SULFATE 325 MG TABLET PO SCH (20:12)
[2020-08-22 06:54] LABS: Basophils % 0.2 % (0.0-0.8); Eosinophils # 0.1 10*3/uL (0.0-0.87); Eosinophils % 2.5 % (0.00-10.9); Hematocrit 33.1 VOL% (35.7-47.0); Hemoglobin 9.7 GM/DL (12.0-16.0); Immature Granulocytes % 0.2 %; Immature Granulocytes Absolute 0.01 #; Lymphocytes # 0.6 10*3/uL (1.4-4.0); Lymphocytes % 12.7 % (21.3-54.2); Mean Corpuscular HGB Conc 29.3 GM/DL (32-36); Mean Corpuscular Volume 93.8 FL (87-102); Mean Platelet Volume 12.8 FL (9.6-12.0); Monocytes % 9.8 % (1.7-12.7); Neutrophils % 74.6 % (38.7-73.9); Platelet Count 221 T/CUMM (130-400); Red Blood Count 3.53 MC/CUMM (3.8-5.5); Red Cell Distribution Width 17.3 % (9.3-17.3); White Blood Count 4.8 T/CUMM (4-12)
[2020-08-22 07:14] LABS: Calcium 7.5 MG/DL (8.5-10.1); Osmolality,Calculated 309.8 MOS/KG (273-304); Potassium 5.1 MMOL/L (3.5-5.1)
[2020-08-22] MEDS: INSULIN NPH 100 UNIT/ML SUBCUT SCH (07:40)
[2020-08-22] MEDS: INSULIN REGULAR 100 UNIT/ML SUBCUT SCH ×4 (09:05→21:21)
[2020-08-22] MEDS: carvediloL 12.5 MG TABLET PO SCH ×2 (10:01→16:08)
[2020-08-22] MEDS: GABAPENTIN 100 MG CAPSULE PO SCH (10:01)
[2020-08-22] MEDS: amLODIPine 10 MG TABLET PO SCH (10:01)
[2020-08-22] MEDS: cloNIDine 0.1 MG TABLET PO SCH ×2 (10:01→21:24)
[2020-08-22] MEDS: FERROUS SULFATE 325 MG TABLET PO SCH ×2 (10:01→21:19)
[2020-08-22] MEDS: SEVELAMER CARBONATE 800 MG TABLET PO SCH ×3 (10:53→16:15)
[2020-08-22] MEDS: NOVOLIN N SUBCUT SCH (21:19)
[2020-08-22] MEDS: MONTELUKAST 10 MG TABLET PO SCH (21:19)
[2020-08-23 05:24] LABS: Basophils % 0.4 % (0.0-0.8); Eosinophils # 0.2 10*3/uL (0.0-0.87); Hematocrit 31.5 VOL% (35.7-47.0); Hemoglobin 9.7 GM/DL (12.0-16.0); Immature Granulocytes % 0.4 %; Immature Granulocytes Absolute 0.02 #; Lymphocytes % 17.3 % (21.3-54.2); Mean Corpuscular HGB Conc 30.8 GM/DL (32-36); Mean Platelet Volume 11.7 FL (9.6-12.0); Monocytes % 11.9 % (1.7-12.7); Platelet Count 199 T/CUMM (130-400); Red Cell Distribution Width 16.8 % (9.3-17.3); White Blood Count 5.5 T/CUMM (4-12)
[2020-08-23 05:54] LABS: Calcium 7.3 MG/DL (8.5-10.1); Osmolality,Calculated 297.4 MOS/KG (273-304); Potassium 5.1 MMOL/L (3.5-5.1)
[2020-08-23] MEDS: cloNIDine 0.1 MG TABLET PO SCH (08:45)
[2020-08-23] MEDS: FERROUS SULFATE 325 MG TABLET PO SCH (08:45)
[2020-08-23] MEDS: GABAPENTIN 100 MG CAPSULE PO SCH (08:46)
[2020-08-23] MEDS: amLODIPine 10 MG TABLET PO SCH (08:46)
[2020-08-23] MEDS: INSULIN REGULAR 100 UNIT/ML SUBCUT SCH ×3 (08:46→17:39)
[2020-08-23] MEDS: carvediloL 12.5 MG TABLET PO SCH ×2 (08:46→17:04)
[2020-08-23] MEDS: SEVELAMER CARBONATE 800 MG TABLET PO SCH ×3 (08:47→17:40)
[2020-08-23] MEDS: NOVOLIN N SUBCUT SCH (08:47)
[2020-08-23 17:16] VITALS: BP 161/99
== END 2020-08-23 18:05 | disposition home or self-care (01) ==
LOC: EDBD → EDUNIT# → N.EDINP 04:10 → N.ED 04:10 → SUATTDRO 05:57 → N.EDINP 07:24 → N.5E 07:44
PROVIDERS: ADMIT Internal Medicine; ATTEND Internal Medicine

== ENCOUNTER 2020-08-30 03:25 | Inpatient (IN) ==
[2020-08-30] MEDS ORDERED: PANTOPRAZOLE 40 MG VIAL IV STA (04:08)
[2020-08-30] MEDS ORDERED: MORPHINE 4 MG/1 ML VIAL IV STA (04:08)
[2020-08-30] MEDS ORDERED: ONDANSETRON 4 MG/2 ML VIAL IV STA (04:08)
[2020-08-30] MEDS ORDERED: ALUM/MAG/SIMETH/LIDO VISC 1:1 30 ML BOTTLE PO STA (04:08)
[2020-08-30] MEDS ORDERED: methylPREDNISolone SOD SUC 125 MG/2 ML VIAL IV STA (04:08)
[2020-08-30] MEDS ORDERED: ALBUTEROL/IPRATROPIUM 3 ML NEB RESP TX STA (04:08)
[2020-08-30 04:35] LABS: Albumin 3.4 G/DL (3.4-5.0); Bilirubin,Total 0.5 MG/DL (0.2-1.0); Calcium 7.8 MG/DL (8.5-10.1); Total Protein 8.2 G/DL (6.4-8.2)
[2020-08-30 04:36] LABS: Osmolality,Calculated 315.9 MOS/KG (273-304)
[2020-08-30 04:41] LABS: Potassium 6.4 MMOL/L (3.5-5.1)
[2020-08-30] MEDS ORDERED: INSULIN REGULAR 10 UNIT, CALCIUM GLUCONATE 1,000 MG in DEXTROSE 10% 250 ML IV ONE (04:42)
[2020-08-30] MEDS ORDERED: INSULIN REGULAR 100 UNIT/ML IV STA (04:44)
[2020-08-30 04:45] LABS: Basophils % 0.2 % (0.0-0.8); Eosinophils # 0.1 10*3/uL (0.0-0.87); Eosinophils % 0.9 % (0.00-10.9); Hematocrit 34.6 VOL% (35.7-47.0); Hemoglobin 10.1 GM/DL (12.0-16.0); Immature Granulocytes % 0.5 %; Immature Granulocytes Absolute 0.03 #; Lymphocytes # 0.4 10*3/uL (1.4-4.0); Lymphocytes % 6.8 % (21.3-54.2); Mean Corpuscular HGB Conc 29.2 GM/DL (32-36); Mean Corpuscular Volume 93.5 FL (87-102); Mean Platelet Volume 12.4 FL (9.6-12.0); Monocytes % 7.3 % (1.7-12.7); Neutrophils % 84.3 % (38.7-73.9); Platelet Count 240 T/CUMM (130-400); Red Cell Distribution Width 16.5 % (9.3-17.3); White Blood Count 5.9 T/CUMM (4-12)
[2020-08-30] MEDS ORDERED: VANCOMYCIN INJ 1,000 MG in SODIUM CHLORIDE 0.9% 250 ML IV STA (04:51)
[2020-08-30] MEDS ORDERED: LEVOFLOXACIN INJ 500 MG/100 ML PREMIX IV ONE (04:56)
[2020-08-30 05:07] LABS: ABG Base Excess -6.3 MMOL/L (-2.5-2.5); ABG HCO3 19.1 MMOL/L (20-26); ABG Oxygen Saturation 91.1 % (95-100); ABG PCO2 43.4 MM HG (35-48); ABG PH 7.277 (7.35-7.45); ABG PO2 71.1 MM HG (80-95); ABG TCO2 18.7 MMOL/L (23-27); Allen Test Positive
[2020-08-30 05:54] LABS: Bacteria,Urine Occasional /HPF (Few); Bilirubin,Urine Negative (Negative); Blood, Urine Negative (Negative); Glucose,Urine (UA) >=500 mg/dL (Negative); Ketones,Urine 5 mg/dL (Negative); Nitrite,Urine Negative (Negative); Protein,Urine >=500 MG/DL; RBC,Urine 1 /HPF (0-4); Squamous Epithelial Cell,Urine Few /HPF (0-10); Urine Appearance Slightly Hazy (Clear); Urine Color Yellow (Yellow); Urine Specific Gravity 1.017 (1.001-1.035); Urine Urobilinogen < 2.0 EU/DL (0.2-1.0)
[2020-08-30] MEDS ORDERED: DEXTROSE 50% 25 GM/50 ML VIAL IV PRN ×2 (06:13)
[2020-08-30] MEDS ORDERED: INSULIN REGULAR 100 UNIT/ML IV ONE (06:13)
[2020-08-30] MEDS ORDERED: tiZANidine 4 MG TABLET PO PRN (06:21)
[2020-08-30] MEDS ORDERED: ZALEPLON 5 MG CAPSULE PO PRN (06:21)
[2020-08-30] MEDS ORDERED: LEVOFLOXACIN INJ 250 MG/50 ML PREMIX IV SCH (06:30)
[2020-08-30] MEDS ORDERED: INSULIN REGULAR DRIP 100 ML IV SCH (06:30)
[2020-08-30 06:41] LABS: Calcium 7.8 MG/DL (8.5-10.1); Osmolality,Calculated 319.8 MOS/KG (273-304); Potassium 5.8 MMOL/L (3.5-5.1)
[2020-08-30] MEDS: CLINDAMYCIN INJ 600 MG/50 ML PREMIX IV SCH ×3 (08:10→22:22)
[2020-08-30] MEDS: ENOXAPARIN 30 MG/0.3 ML SYRINGE SUBCUT SCH (08:10)
[2020-08-30] MEDS: SEVELAMER CARBONATE 800 MG TABLET PO SCH ×3 (08:11→17:16)
[2020-08-30] MEDS: carvediloL 12.5 MG TABLET PO SCH ×2 (08:11→17:16)
[2020-08-30] MEDS: FERROUS SULFATE 325 MG TABLET PO SCH ×2 (08:36→20:53)
[2020-08-30] MEDS: amLODIPine 10 MG TABLET PO SCH (08:36)
[2020-08-30] MEDS: INSULIN NPH 100 UNIT/ML SUBCUT SCH ×2 (08:36→20:51)
[2020-08-30] MEDS: GABAPENTIN 100 MG CAPSULE PO SCH (08:36)
[2020-08-30] MEDS: hydrALAZINE 25 MG TABLET PO SCH ×3 (08:36→20:53)
[2020-08-30] MEDS ORDERED: cloNIDine 0.1 MG TABLET PO SCH (09:00)
[2020-08-30] MEDS: diphenhydrAMINE CAP 25 MG CAPSULE PO PRN (09:55)
[2020-08-30 10:15] LABS: Osmolality,Calculated 309.5 MOS/KG (273-304); Potassium 5.3 MMOL/L (3.5-5.1)
[2020-08-30] MEDS: ALBUTEROL/IPRATROPIUM 3 ML NEB RESP TX SCH ×2 (12:21→19:46)
[2020-08-30 14:15] LABS: Calcium 8.2 MG/DL (8.5-10.1); Osmolality,Calculated 290.6 MOS/KG (273-304); Potassium 4.9 MMOL/L (3.5-5.1)
[2020-08-30] MEDS ORDERED: HEPARIN 10,000 UNIT/10 ML VIAL IV PRN (14:29)
[2020-08-30 15:06] LABS: Hepatitis B Surface Ag Quant < 0.10 Index; Hepatitis B Surface Ag Result Non-Reactive (NonReactive); Hepatitis C Virus Ab Quant 0.15 Index; Hepatitis C Virus Ab Result Non-Reactive (NonReactive)
[2020-08-30] MEDS: hydrALAZINE 20 MG/1 ML VIAL IV PRN (18:05)
[2020-08-30] MEDS: MONTELUKAST 10 MG TABLET PO SCH (18:05)
[2020-08-30 18:57] LABS: Calcium 8.5 MG/DL (8.5-10.1); Osmolality,Calculated 274.8 MOS/KG (273-304); Potassium 4.3 MMOL/L (3.5-5.1)
[2020-08-30] MEDS ORDERED: INSULIN REGULAR 100 UNIT/ML SUBCUT SCH (20:00)
[2020-08-30] MEDS: INSULIN REGULAR 100 UNIT/ML SUBCUT SCH ×2 (20:52→23:40)
[2020-08-30 22:50] LABS: Calcium 7.9 MG/DL (8.5-10.1); Osmolality,Calculated 277.8 MOS/KG (273-304); Potassium 5.6 MMOL/L (3.5-5.1)
[2020-08-31] MEDS: ALBUTEROL/IPRATROPIUM 3 ML NEB RESP TX SCH ×4 (00:59→19:14)
[2020-08-31 02:31] LABS: Calcium 8.1 MG/DL (8.5-10.1); Osmolality,Calculated 274.8 MOS/KG (273-304); Potassium 5.5 MMOL/L (3.5-5.1)
[2020-08-31] MEDS: INSULIN REGULAR 100 UNIT/ML SUBCUT SCH ×5 (04:48→20:15)
[2020-08-31] MEDS: ENOXAPARIN 30 MG/0.3 ML SYRINGE SUBCUT SCH (05:30)
[2020-08-31] MEDS: CLINDAMYCIN INJ 600 MG/50 ML PREMIX IV SCH (05:30)
[2020-08-31 07:25] LABS: Basophils % 0.2 % (0.0-0.8); Eosinophils % 0.4 % (0.00-10.9); Hematocrit 28.4 VOL% (35.7-47.0); Hemoglobin 9.1 GM/DL (12.0-16.0); Immature Granulocytes % 0.2 %; Immature Granulocytes Absolute 0.01 #; Lymphocytes # 0.7 10*3/uL (1.4-4.0); Lymphocytes % 15.1 % (21.3-54.2); Mean Corpuscular Volume 84.8 FL (87-102); Mean Platelet Volume 11.1 FL (9.6-12.0); Monocytes % 9.7 % (1.7-12.7); Neutrophils % 74.4 % (38.7-73.9); Platelet Count 257 T/CUMM (130-400); Red Blood Count 3.35 MC/CUMM (3.8-5.5); Red Cell Distribution Width 15.8 % (9.3-17.3); White Blood Count 4.6 T/CUMM (4-12)
[2020-08-31] MEDS: amLODIPine 10 MG TABLET PO SCH (08:00)
[2020-08-31] MEDS: SEVELAMER CARBONATE 800 MG TABLET PO SCH ×3 (08:00→16:20)
[2020-08-31] MEDS: GABAPENTIN 100 MG CAPSULE PO SCH (08:00)
[2020-08-31] MEDS: INSULIN NPH 100 UNIT/ML SUBCUT SCH ×2 (08:00→20:16)
[2020-08-31] MEDS: FERROUS SULFATE 325 MG TABLET PO SCH ×2 (08:00→20:13)
[2020-08-31] MEDS: hydrALAZINE 25 MG TABLET PO SCH ×3 (08:00→20:13)
[2020-08-31] MEDS: carvediloL 12.5 MG TABLET PO SCH ×2 (08:00→16:20)
[2020-08-31] MEDS: PANTOPRAZOLE 40 MG TABLET PO SCH (08:25)
[2020-08-31] MEDS: hydrALAZINE 20 MG/1 ML VIAL IV PRN (12:20)
[2020-08-31] MEDS: ONDANSETRON 4 MG/2 ML VIAL IV PRN (18:43)
[2020-08-31] MEDS: MONTELUKAST 10 MG TABLET PO SCH (20:02)
[2020-09-01] MEDS: INSULIN REGULAR 100 UNIT/ML SUBCUT SCH ×7 (00:19→23:49)
[2020-09-01] MEDS: ALBUTEROL/IPRATROPIUM 3 ML NEB RESP TX SCH ×4 (01:26→20:00)
[2020-09-01 05:27] LABS: Basophils % 0.4 % (0.0-0.8); Eosinophils # 0.1 10*3/uL (0.0-0.87); Eosinophils % 1.4 % (0.00-10.9); Hematocrit 29.4 VOL% (35.7-47.0); Hemoglobin 9.5 GM/DL (12.0-16.0); Immature Granulocytes % 0.2 %; Immature Granulocytes Absolute 0.01 #; Lymphocytes % 17.3 % (21.3-54.2); Mean Corpuscular HGB Conc 32.3 GM/DL (32-36); Mean Corpuscular Volume 85.2 FL (87-102); Monocytes % 10.1 % (1.7-12.7); Neutrophils % 70.6 % (38.7-73.9); Red Blood Count 3.45 MC/CUMM (3.8-5.5); Red Cell Distribution Width 16.4 % (9.3-17.3); White Blood Count 5.6 T/CUMM (4-12)
[2020-09-01 05:40] LABS: Platelet Count 195 T/CUMM (130-400)
[2020-09-01 05:47] LABS: Hypochromasia 1+; Microcytosis 1+; Ovalocytes Few; Platelet Estimate Adequate
[2020-09-01] MEDS: ENOXAPARIN 30 MG/0.3 ML SYRINGE SUBCUT SCH (06:34)
[2020-09-01 06:39] LABS: Potassium 4.3 MMOL/L (3.5-5.1)
[2020-09-01 06:41] LABS: Calcium 7.5 MG/DL (8.5-10.1)
[2020-09-01 06:42] LABS: Osmolality,Calculated 283.1 MOS/KG (273-304)
[2020-09-01 06:53] LABS: Albumin 2.5 G/DL (3.4-5.0); Bilirubin,Total 0.4 MG/DL (0.2-1.0); Calcium 7.4 MG/DL (8.5-10.1); Potassium 4.4 MMOL/L (3.5-5.1); Total Protein 6.3 G/DL (6.4-8.2)
[2020-09-01] MEDS: FERROUS SULFATE 325 MG TABLET PO SCH ×2 (09:22→20:20)
[2020-09-01] MEDS: PANTOPRAZOLE 40 MG TABLET PO SCH (09:22)
[2020-09-01] MEDS: hydrALAZINE 25 MG TABLET PO SCH ×3 (09:22→20:20)
[2020-09-01] MEDS: carvediloL 12.5 MG TABLET PO SCH ×2 (09:22→16:08)
[2020-09-01] MEDS: amLODIPine 10 MG TABLET PO SCH (09:22)
[2020-09-01] MEDS: GABAPENTIN 100 MG CAPSULE PO SCH (09:22)
[2020-09-01] MEDS: INSULIN NPH 100 UNIT/ML SUBCUT SCH ×2 (09:23→20:32)
[2020-09-01] MEDS: LEVOFLOXACIN INJ 250 MG/50 ML PREMIX IV SCH (09:26)
[2020-09-01] MEDS: SEVELAMER CARBONATE 800 MG TABLET PO SCH ×3 (09:26→17:56)
[2020-09-01] MEDS ORDERED: CLINDAMYCIN INJ 900 MG/50 ML PREMIX IV ONE (10:00)
[2020-09-01] MEDS: diphenhydrAMINE CAP 25 MG CAPSULE PO PRN (20:20)
[2020-09-01] MEDS: MONTELUKAST 10 MG TABLET PO SCH (20:21)
[2020-09-01] MEDS: ONDANSETRON 4 MG/2 ML VIAL IV PRN (22:51)
[2020-09-02] MEDS: ALBUTEROL/IPRATROPIUM 3 ML NEB RESP TX SCH ×4 (04:33→19:32)
[2020-09-02] MEDS: INSULIN REGULAR 100 UNIT/ML SUBCUT SCH ×6 (04:53→23:58)
[2020-09-02] MEDS: ENOXAPARIN 30 MG/0.3 ML SYRINGE SUBCUT SCH (06:53)
[2020-09-02] MEDS: ONDANSETRON 4 MG/2 ML VIAL IV PRN ×2 (08:34→22:28)
[2020-09-02] MEDS: INSULIN NPH 100 UNIT/ML SUBCUT SCH ×2 (08:35→20:49)
[2020-09-02] MEDS: GABAPENTIN 100 MG CAPSULE PO SCH (08:36)
[2020-09-02] MEDS: SEVELAMER CARBONATE 800 MG TABLET PO SCH ×3 (08:36→16:24)
[2020-09-02] MEDS: amLODIPine 10 MG TABLET PO SCH (08:36)
[2020-09-02] MEDS: PANTOPRAZOLE 40 MG TABLET PO SCH (08:36)
[2020-09-02] MEDS: hydrALAZINE 25 MG TABLET PO SCH ×3 (08:36→20:29)
[2020-09-02] MEDS: FERROUS SULFATE 325 MG TABLET PO SCH ×2 (08:36→20:29)
[2020-09-02] MEDS: carvediloL 12.5 MG TABLET PO SCH ×2 (08:36→16:23)
[2020-09-02] MEDS: MONTELUKAST 10 MG TABLET PO SCH (18:35)
[2020-09-03] MEDS: ALBUTEROL/IPRATROPIUM 3 ML NEB RESP TX SCH ×4 (01:39→14:10)
[2020-09-03] MEDS: INSULIN REGULAR 100 UNIT/ML SUBCUT SCH ×3 (03:46→12:26)
[2020-09-03] MEDS: ENOXAPARIN 30 MG/0.3 ML SYRINGE SUBCUT SCH (05:50)
[2020-09-03] MEDS ORDERED: POLYETHYLENE GLYCOL POWDER 17 GM PACK PO SCH (09:00)
[2020-09-03] MEDS: amLODIPine 10 MG TABLET PO SCH (09:23)
[2020-09-03] MEDS: carvediloL 12.5 MG TABLET PO SCH (09:23)
[2020-09-03] MEDS: hydrALAZINE 25 MG TABLET PO SCH ×2 (09:23→15:05)
[2020-09-03] MEDS: FERROUS SULFATE 325 MG TABLET PO SCH (09:23)
[2020-09-03] MEDS: INSULIN NPH 100 UNIT/ML SUBCUT SCH (09:23)
[2020-09-03] MEDS: GABAPENTIN 100 MG CAPSULE PO SCH (09:23)
[2020-09-03] MEDS: PANTOPRAZOLE 40 MG TABLET PO SCH (09:23)
[2020-09-03] MEDS: LEVOFLOXACIN INJ 250 MG/50 ML PREMIX IV SCH (10:42)
[2020-09-03] MEDS: SEVELAMER CARBONATE 800 MG TABLET PO SCH ×2 (10:52→12:28)
[2020-09-03 12:03] VITALS: BP 157/74
== END 2020-09-03 15:05 | disposition home or self-care (01) | DRG 637 ==
LOC: N.ED 03:25 → N.EDINP 05:25 → SUATTDRO 05:25 → N.ICU 06:10 → N.3E 09-02 17:42
PROVIDERS: ADMIT Internal Medicine; ATTEND Family Medicine

== ENCOUNTER 2020-11-25 10:27 | Inpatient (IN) ==
[2020-11-25] MEDS ORDERED: hydrALAZINE 20 MG/1 ML VIAL IV STA (10:38)
[2020-11-25 11:42] LABS: Basophils % 0.4 % (0.0-0.8); Eosinophils # 0.2 10*3/uL (0.0-0.87); Eosinophils % 4.3 % (0.00-10.9); Hematocrit 40.5 VOL% (35.7-47.0); Hemoglobin 12.2 GM/DL (12.0-16.0); Immature Granulocytes % 0.4 %; Immature Granulocytes Absolute 0.02 #; Lymphocytes # 0.9 10*3/uL (1.4-4.0); Lymphocytes % 16.5 % (21.3-54.2); Mean Corpuscular HGB Conc 30.1 GM/DL (32-36); Mean Corpuscular Volume 89.4 FL (87-102); Mean Platelet Volume 10.5 FL (9.6-12.0); Monocytes % 7.4 % (1.7-12.7); Platelet Count 189 T/CUMM (130-400); Red Blood Count 4.53 MC/CUMM (3.8-5.5); White Blood Count 5.2 T/CUMM (4-12)
[2020-11-25 11:56] LABS: INR 1.1; PT Patient Result 12.2 SECS (10.5-12.0); Partial Thromboplastin Time 68.9 SECS (23.9-33.8)
[2020-11-25 11:59] LABS: Albumin 3.4 G/DL (3.4-5.0); Bilirubin,Total 0.8 MG/DL (0.20-1.00); Calcium 8.4 MG/DL (8.5-10.1); Osmolality,Calculated 285.8 MOS/KG (273-304); Potassium 3.4 MMOL/L (3.5-5.1); Total Protein 7.9 G/DL (6.4-8.2)
[2020-11-25] MEDS ORDERED: levETIRAcetam 500 MG/5 ML VIAL IV ONE (12:22)
[2020-11-25] MEDS ORDERED: LORazepam 2 MG/1 ML VIAL ONE (12:39)
[2020-11-25] MEDS ORDERED: LORazepam 2 MG/1 ML VIAL IV STA (12:54)
[2020-11-25] MEDS ORDERED: GLUCAGON 1 MG VIAL IM PRN (13:06)
[2020-11-25] MEDS ORDERED: DEXTROSE 50% 25 GM/50 ML VIAL IV PRN (13:06)
[2020-11-25] MEDS ORDERED: hydrALAZINE 20 MG/1 ML VIAL IV PRN (13:06)
[2020-11-25] MEDS ORDERED: ONDANSETRON 4 MG/2 ML VIAL IV PRN (13:06)
[2020-11-25] MEDS: LORazepam 2 MG/1 ML VIAL IV SCH (17:21)
[2020-11-25] MEDS: INSULIN REGULAR 100 UNIT/ML SUBCUT SCH ×2 (17:21→21:16)
[2020-11-25] MEDS: HEPARIN 5,000 UNIT/1 ML VIAL SUBCUT SCH ×2 (17:21→21:16)
[2020-11-25] MEDS: carvediloL 12.5 MG TABLET PO SCH (17:28)
[2020-11-25] MEDS: cloNIDine 0.1 MG TABLET PO SCH (21:16)
[2020-11-26] MEDS: LORazepam 2 MG/1 ML VIAL IV SCH ×4 (01:24→19:03)
[2020-11-26 05:02] LABS: Basophils % 0.4 % (0.0-0.8); Eosinophils # 0.1 10*3/uL (0.0-0.87); Eosinophils % 1.7 % (0.00-10.9); Hematocrit 40.8 VOL% (35.7-47.0); Hemoglobin 12.6 GM/DL (12.0-16.0); Immature Granulocytes % 0.2 %; Immature Granulocytes Absolute 0.01 #; Lymphocytes # 0.5 10*3/uL (1.4-4.0); Lymphocytes % 9.4 % (21.3-54.2); Mean Corpuscular HGB Conc 30.9 GM/DL (32-36); Mean Corpuscular Volume 88.1 FL (87-102); Monocytes % 15.1 % (1.7-12.7); Neutrophils % 73.2 % (38.7-73.9); Platelet Count 161 T/CUMM (130-400); Red Blood Count 4.63 MC/CUMM (3.8-5.5); Red Cell Distribution Width 21.9 % (9.3-17.3); White Blood Count 4.8 T/CUMM (4-12)
[2020-11-26 05:28] LABS: Hypochromasia Slight; Platelet Estimate Adequate
[2020-11-26 05:31] LABS: Osmolality,Calculated 277.7 MOS/KG (273-304); Potassium 3.6 MMOL/L (3.5-5.1)
[2020-11-26] MEDS: HEPARIN 5,000 UNIT/1 ML VIAL SUBCUT SCH ×3 (06:04→22:40)
[2020-11-26] MEDS: amLODIPine 10 MG TABLET PO SCH (09:48)
[2020-11-26] MEDS: PANTOPRAZOLE 40 MG TABLET PO SCH (09:48)
[2020-11-26] MEDS: cloNIDine 0.1 MG TABLET PO SCH ×2 (09:48→22:37)
[2020-11-26] MEDS: carvediloL 12.5 MG TABLET PO SCH ×2 (09:48→19:03)
[2020-11-26] MEDS: INSULIN REGULAR 100 UNIT/ML SUBCUT SCH ×2 (10:01→11:44)
[2020-11-26] MEDS: SEVELAMER CARBONATE 800 MG TABLET PO SCH ×2 (11:41→19:03)
[2020-11-26] MEDS: INSULIN LISPRO 100 UNIT/ML SUBCUT SCH ×5 (14:15→22:39)
[2020-11-26] MEDS ORDERED: HEPARIN 10,000 UNIT/10 ML VIAL IV SCH (16:00)
[2020-11-26] MEDS ORDERED: INSULIN LISPRO 100 UNIT/ML SUBCUT SCH (16:30)
[2020-11-26] MEDS: INSULIN GLARGINE 100 UNIT/ML SUBCUT SCH (22:40)
[2020-11-27] MEDS: LORazepam 2 MG/1 ML VIAL IV SCH ×3 (01:00→14:44)
[2020-11-27 06:34] LABS: Albumin 2.4 G/DL (3.4-5.0); Bilirubin,Total 1.1 MG/DL (0.20-1.00); Calcium 7.9 MG/DL (8.5-10.1); Osmolality,Calculated 267.4 MOS/KG (273-304); Potassium 4.4 MMOL/L (3.5-5.1); Total Protein 6.4 G/DL (6.4-8.2)
[2020-11-27] MEDS: HEPARIN 5,000 UNIT/1 ML VIAL SUBCUT SCH ×3 (06:46→23:40)
[2020-11-27] MEDS: INSULIN LISPRO 100 UNIT/ML SUBCUT SCH ×10 (07:01→23:40)
[2020-11-27 07:33] LABS: Basophils % 0.4 % (0.0-0.8); Eosinophils # 0.3 10*3/uL (0.0-0.87); Eosinophils % 3.9 % (0.00-10.9); Hematocrit 41.9 VOL% (35.7-47.0); Hemoglobin 12.2 GM/DL (12.0-16.0); Immature Granulocytes % 0.3 %; Immature Granulocytes Absolute 0.02 #; Lymphocytes # 1.4 10*3/uL (1.4-4.0); Lymphocytes % 17.8 % (21.3-54.2); Mean Corpuscular HGB Conc 29.1 GM/DL (32-36); Mean Corpuscular Volume 93.1 FL (87-102); Monocytes % 14.5 % (1.7-12.7); Neutrophils % 63.1 % (38.7-73.9); Platelet Count 104 T/CUMM (130-400); White Blood Count 7.6 T/CUMM (4-12)
[2020-11-27] MEDS: SEVELAMER CARBONATE 800 MG TABLET PO SCH ×3 (10:52→17:02)
[2020-11-27] MEDS: cloNIDine 0.1 MG TABLET PO SCH ×2 (12:35→23:39)
[2020-11-27] MEDS: amLODIPine 10 MG TABLET PO SCH (12:36)
[2020-11-27] MEDS: carvediloL 12.5 MG TABLET PO SCH ×2 (12:36→17:02)
[2020-11-27] MEDS: PANTOPRAZOLE 40 MG TABLET PO SCH (12:37)
[2020-11-27] MEDS ORDERED: LORazepam 2 MG/1 ML VIAL IV PRN (17:35)
[2020-11-27] MEDS: ACETAMINOPHEN 325 MG TABLET PO PRN (21:28)
[2020-11-27] MEDS: INSULIN GLARGINE 100 UNIT/ML SUBCUT SCH (21:29)
[2020-11-28 06:19] LABS: Basophils % 0.4 % (0.0-0.8); Eosinophils # 0.2 10*3/uL (0.0-0.87); Eosinophils % 3.2 % (0.00-10.9); Immature Granulocytes % 0.2 %; Immature Granulocytes Absolute 0.01 #; Mean Corpuscular Volume 90.1 FL (87-102); Monocytes % 19.3 % (1.7-12.7); Neutrophils % 59.9 % (38.7-73.9); Platelet Count 116 T/CUMM (130-400); Red Blood Count 4.44 MC/CUMM (3.8-5.5); Red Cell Distribution Width 21.5 % (9.3-17.3); White Blood Count 5.6 T/CUMM (4-12)
[2020-11-28 06:30] LABS: Calcium 7.8 MG/DL (8.5-10.1); Osmolality,Calculated 277.8 MOS/KG (273-304); Potassium 3.7 MMOL/L (3.5-5.1)
[2020-11-28] MEDS: HEPARIN 5,000 UNIT/1 ML VIAL SUBCUT SCH ×3 (07:35→23:42)
[2020-11-28] MEDS: INSULIN LISPRO 100 UNIT/ML SUBCUT SCH ×5 (07:54→23:41)
[2020-11-28] MEDS: cloNIDine 0.1 MG TABLET PO SCH ×2 (08:39→21:23)
[2020-11-28] MEDS: amLODIPine 10 MG TABLET PO SCH (08:39)
[2020-11-28] MEDS: PANTOPRAZOLE 40 MG TABLET PO SCH (08:40)
[2020-11-28] MEDS: SEVELAMER CARBONATE 800 MG TABLET PO SCH ×3 (08:40→18:00)
[2020-11-28] MEDS: carvediloL 12.5 MG TABLET PO SCH ×2 (08:40→18:00)
[2020-11-28 09:59] LABS: Eosinophils 2 % (0-10); Lymphocytes 4 % (20-55); Platelet Estimate Adequate; Segmented Neutrophils 78 % (50-85); Total Cells Counted 100
[2020-11-28] MEDS: DOCUSATE SODIUM 100 MG CAPSULE PO SCH ×2 (11:20→21:24)
[2020-11-28] MEDS ORDERED: LEVOFLOXACIN 500 MG TABLET PO ONE (13:30)
[2020-11-28] MEDS: INSULIN GLARGINE 100 UNIT/ML SUBCUT SCH (23:41)
[2020-11-29 06:03] LABS: Calcium 7.8 MG/DL (8.5-10.1); Osmolality,Calculated 300.8 MOS/KG (273-304); Potassium 4.7 MMOL/L (3.5-5.1)
[2020-11-29] MEDS: HEPARIN 5,000 UNIT/1 ML VIAL SUBCUT SCH ×3 (06:14→21:57)
[2020-11-29 06:19] LABS: Basophils % 0.2 % (0.0-0.8); Eosinophils # 0.1 10*3/uL (0.0-0.87); Eosinophils % 2.7 % (0.00-10.9); Hematocrit 38.1 VOL% (35.7-47.0); Immature Granulocytes % 0.2 %; Immature Granulocytes Absolute 0.01 #; Lymphocytes # 0.5 10*3/uL (1.4-4.0); Lymphocytes % 10.3 % (21.3-54.2); Mean Corpuscular HGB Conc 29.7 GM/DL (32-36); Mean Corpuscular Volume 92.9 FL (87-102); Monocytes % 10.3 % (1.7-12.7); Neutrophils % 76.3 % (38.7-73.9); Platelet Count 126 T/CUMM (130-400); Red Cell Distribution Width 20.9 % (9.3-17.3); White Blood Count 5.2 T/CUMM (4-12)
[2020-11-29 06:20] LABS: Hemoglobin 11.3 GM/DL (12.0-16.0)
[2020-11-29] MEDS: INSULIN LISPRO 100 UNIT/ML SUBCUT SCH ×4 (08:03→20:21)
[2020-11-29] MEDS: cloNIDine 0.1 MG TABLET PO SCH ×2 (09:25→20:17)
[2020-11-29] MEDS: SEVELAMER CARBONATE 800 MG TABLET PO SCH ×4 (09:25→17:03)
[2020-11-29] MEDS: PANTOPRAZOLE 40 MG TABLET PO SCH (09:26)
[2020-11-29] MEDS: DOCUSATE SODIUM 100 MG CAPSULE PO SCH ×3 (09:26→20:20)
[2020-11-29] MEDS: amLODIPine 10 MG TABLET PO SCH (09:26)
[2020-11-29] MEDS: carvediloL 12.5 MG TABLET PO SCH ×2 (09:26→16:37)
[2020-11-29] MEDS: BISACODYL 5 MG TABLET PO SCH (10:59)
[2020-11-29] MEDS ORDERED: LACTULOSE 20 GM/30 ML UDCUP PO ONE (15:00)
[2020-11-29] MEDS: ACETAMINOPHEN 325 MG TABLET PO PRN (16:37)
[2020-11-29] MEDS: LUBIPROSTONE 8 MCG CAPSULE PO SCH (20:17)
[2020-11-29] MEDS: levETIRAcetam 500 MG TABLET PO SCH (20:18)
[2020-11-29] MEDS: LACTULOSE 20 GM/30 ML UDCUP PO SCH (20:19)
[2020-11-29] MEDS: POLYETHYLENE GLYCOL POWDER 17 GM PACK PO SCH (20:21)
[2020-11-29] MEDS: INSULIN GLARGINE 100 UNIT/ML SUBCUT SCH (21:56)
[2020-11-30 05:09] LABS: Calcium 8.2 MG/DL (8.5-10.1); Osmolality,Calculated 295.4 MOS/KG (273-304); Potassium 5.3 MMOL/L (3.5-5.1)
[2020-11-30 05:40] LABS: Basophils % 0.4 % (0.0-0.8); Eosinophils # 0.2 10*3/uL (0.0-0.87); Eosinophils % 3.8 % (0.00-10.9); Hematocrit 36.3 VOL% (35.7-47.0); Hemoglobin 10.7 GM/DL (12.0-16.0); Immature Granulocytes % 0.2 %; Immature Granulocytes Absolute 0.01 #; Lymphocytes # 0.6 10*3/uL (1.4-4.0); Lymphocytes % 11.5 % (21.3-54.2); Mean Corpuscular HGB Conc 29.5 GM/DL (32-36); Mean Corpuscular Volume 91.7 FL (87-102); Mean Platelet Volume 11.6 FL (9.6-12.0); Monocytes % 11.7 % (1.7-12.7); Neutrophils % 72.4 % (38.7-73.9); Platelet Count 195 T/CUMM (130-400); Red Blood Count 3.96 MC/CUMM (3.8-5.5); Red Cell Distribution Width 20.4 % (9.3-17.3); White Blood Count 4.8 T/CUMM (4-12)
[2020-11-30] MEDS: HEPARIN 5,000 UNIT/1 ML VIAL SUBCUT SCH ×2 (07:26→14:23)
[2020-11-30] MEDS ORDERED: LINACLOTIDE 145 MCG CAPSULE PO SCH (07:30)
[2020-11-30] MEDS: POLYETHYLENE GLYCOL POWDER 17 GM PACK PO SCH (08:32)
[2020-11-30] MEDS: DOCUSATE SODIUM 100 MG CAPSULE PO SCH ×2 (08:32→09:51)
[2020-11-30] MEDS: PANTOPRAZOLE 40 MG TABLET PO SCH (09:45)
[2020-11-30] MEDS: levETIRAcetam 500 MG TABLET PO SCH (09:45)
[2020-11-30] MEDS: amLODIPine 10 MG TABLET PO SCH (09:46)
[2020-11-30] MEDS: cloNIDine 0.1 MG TABLET PO SCH (09:46)
[2020-11-30] MEDS: carvediloL 12.5 MG TABLET PO SCH ×2 (09:47→21:22)
[2020-11-30] MEDS: LUBIPROSTONE 8 MCG CAPSULE PO SCH (09:47)
[2020-11-30] MEDS: INSULIN LISPRO 100 UNIT/ML SUBCUT SCH ×3 (09:49→15:56)
[2020-11-30] MEDS: SEVELAMER CARBONATE 800 MG TABLET PO SCH ×3 (09:50→21:23)
[2020-11-30] MEDS: LACTULOSE 20 GM/30 ML UDCUP PO SCH (09:51)
[2020-11-30] MEDS: BISACODYL 5 MG TABLET PO SCH (09:51)
[2020-11-30] MEDS ORDERED: sitaGLIPtin 25 MG TABLET PO SCH (11:00)
[2020-11-30] MEDS: REPAGLINIDE 1 MG TABLET PO SCH ×2 (11:30→21:22)
[2020-11-30] MEDS ORDERED: LEVOFLOXACIN 250 MG TABLET PO SCH (13:30)
[2020-11-30 16:27] VITALS: BP 199/73
== END 2020-11-30 17:50 | disposition home or self-care (01) | DRG 100 ==
LOC: N.ED 10:27 → N.EDINP 13:06 → SUATTDRO 13:06 → N.5E 16:13
PROVIDERS: ADMIT Emergency Medicine; ATTEND Hospitalist

== ENCOUNTER 2021-01-05 20:14 | Inpatient (IN) ==
[2021-01-05] MEDS ORDERED: ONDANSETRON 4 MG/2 ML VIAL IV STA (21:12)
[2021-01-05] MEDS ORDERED: ASPIRIN 325 MG TABLET PO STA (21:12)
[2021-01-05] MEDS ORDERED: MORPHINE 2 MG/1 ML SYRINGE IV STA (21:12)
[2021-01-05 21:19] LABS: Basophils % 0.2 % (0.0-0.8); Hematocrit 38.2 VOL% (35.7-47.0); Immature Granulocytes % 0.2 %; Immature Granulocytes Absolute 0.01 #; Lymphocytes # 0.6 10*3/uL (1.4-4.0); Lymphocytes % 13.6 % (21.3-54.2); Mean Corpuscular HGB Conc 29.3 GM/DL (32-36); Mean Corpuscular Volume 97.4 FL (87-102); Monocytes % 9.7 % (1.7-12.7); Neutrophils % 75.3 % (38.7-73.9); Platelet Count 141 T/CUMM (130-400); Red Blood Count 3.92 MC/CUMM (3.8-5.5); Red Cell Distribution Width 18.9 % (9.3-17.3)
[2021-01-05 21:20] LABS: Alanine Aminotransferase 220 U/L (13-56); Albumin 3.6 G/DL (3.4-5.0); Alkaline Phosphatase 546 U/L (45-117); Aspartate Amino Transferase 251 U/L (0-37); Blood Urea Nitrogen 61 MG/DL (7-18); Calcium 7.6 MG/DL (8.5-10.1); Carbon Dioxide 24 MMOL/L (21-32); Estimated Glom Filtration Rate 8 ML/MIN; Osmolality,Calculated 315.1 MOS/KG (273-304); Potassium 5.7 MMOL/L (3.5-5.1); Sodium 121 MMOL/L (136-145); Total Protein 8.6 G/DL (6.4-8.2)
[2021-01-05 21:26] LABS: Glucose 1093 MG/DL (74-106)
[2021-01-05] MEDS ORDERED: INSULIN REGULAR 100 UNIT/ML IV STA (21:28)
[2021-01-05 21:29] LABS: Hemoglobin 11.2 GM/DL (12.0-16.0)
[2021-01-05] MEDS ORDERED: GLUCAGON 1 MG VIAL IM PRN (22:40)
[2021-01-05] MEDS ORDERED: DEXTROSE 50% 25 GM/50 ML VIAL IV PRN ×2 (22:40)
[2021-01-05] MEDS ORDERED: ZALEPLON 5 MG CAPSULE PO PRN (22:40)
[2021-01-05 22:42] LABS: Bacteria,Urine Occasional /HPF (Few); Bilirubin,Urine Negative (Negative); Blood, Urine Negative (Negative); Glucose,Urine (UA) >=500 mg/dL (Negative); Ketones,Urine 20 mg/dL (Negative); Nitrite,Urine Negative (Negative); Protein,Urine >=500 MG/DL; RBC,Urine 2 /HPF (0-4); Squamous Epithelial Cell,Urine Moderate /HPF (0-10); Urine Appearance CLOUDY (Clear); Urine Color Yellow (Yellow); Urine Specific Gravity 1.017 (1.001-1.035); Urine Urobilinogen < 2.0 EU/DL (0.2-1.0)
[2021-01-05 22:47] LABS: Barbiturates Screen,Urine Negative (Negative); Benzodiazepines Screen,Urine Negative (Negative); Cannabinoid Screen,Urine Negative (Negative); Opiate Screen,Urine Positive (Negative); Phencyclidine Screen,Urine Negative (Negative)
[2021-01-05] MEDS ORDERED: CYPROHEPTADINE 4 MG TABLET PO PRN (22:48)
[2021-01-05] MEDS ORDERED: CYCLOBENZAPRINE 10 MG TABLET PO PRN (22:48)
[2021-01-05 23:14] LABS: INR 1.2; PT Patient Result 12.8 SECS (10.5-12.0)
[2021-01-05] MEDS ORDERED: INSULIN REGULAR 100 UNIT/ML IV ONE (23:38)
[2021-01-05] MEDS ORDERED: SODIUM CHLORIDE 0.9% 1,000 ML IV ONE (23:38)
[2021-01-05] MEDS ORDERED: INSULIN REGULAR DRIP 100 ML IV SCH (23:45)
[2021-01-05] MEDS ORDERED: carvediloL 12.5 MG TABLET PO ONE (23:46)
[2021-01-06] MEDS ORDERED: INSULIN REGULAR 100 UNIT/ML SUBCUT SCH
[2021-01-06] MEDS ORDERED: LORazepam 2 MG/1 ML VIAL IV PRN (00:25)
[2021-01-06 04:48] LABS: Basophils % 0.2 % (0.0-0.8); Eosinophils # 0.1 10*3/uL (0.0-0.87); Eosinophils % 1.1 % (0.00-10.9); Hematocrit 29.9 VOL% (35.7-47.0); Hemoglobin 9.5 GM/DL (12.0-16.0); Immature Granulocytes % 0.4 %; Immature Granulocytes Absolute 0.02 #; Lymphocytes # 0.8 10*3/uL (1.4-4.0); Lymphocytes % 17.5 % (21.3-54.2); Mean Corpuscular HGB Conc 31.8 GM/DL (32-36); Mean Corpuscular Volume 90.3 FL (87-102); Mean Platelet Volume 11.8 FL (9.6-12.0); Monocytes % 15.4 % (1.7-12.7); Neutrophils % 65.4 % (38.7-73.9); Platelet Count 144 T/CUMM (130-400); Red Blood Count 3.31 MC/CUMM (3.8-5.5); White Blood Count 4.6 T/CUMM (4-12)
[2021-01-06 05:15] LABS: Calcium 7.2 MG/DL (8.5-10.1); Osmolality,Calculated 302.2 MOS/KG (273-304); Potassium 4.5 MMOL/L (3.5-5.1)
[2021-01-06 05:19] LABS: Albumin 3.2 G/DL (3.4-5.0); Calcium 7.2 MG/DL (8.5-10.1); Osmolality,Calculated 303.4 MOS/KG (273-304); Potassium 4.5 MMOL/L (3.5-5.1); Total Protein 6.9 G/DL (6.4-8.2)
[2021-01-06 08:29] LABS: Calcium 7.3 MG/DL (8.5-10.1); Osmolality,Calculated 295.4 MOS/KG (273-304); Potassium 4.4 MMOL/L (3.5-5.1)
[2021-01-06] MEDS: PANTOPRAZOLE 40 MG TABLET PO SCH (08:53)
[2021-01-06] MEDS: FERROUS SULFATE 325 MG TABLET PO SCH ×3 (08:53→20:52)
[2021-01-06] MEDS: levETIRAcetam 500 MG TABLET PO SCH ×3 (08:53→20:53)
[2021-01-06] MEDS: GABAPENTIN 100 MG CAPSULE PO SCH (08:53)
[2021-01-06] MEDS: SEVELAMER CARBONATE 800 MG TABLET PO SCH ×5 (08:54→20:53)
[2021-01-06] MEDS: carvediloL 12.5 MG TABLET PO SCH ×2 (08:54→16:20)
[2021-01-06] MEDS ORDERED: SODIUM CHLORIDE 0.9% 1,000 ML IV ONE (11:00)
[2021-01-06 12:45] LABS: Calcium 7.1 MG/DL (8.5-10.1); Osmolality,Calculated 285.9 MOS/KG (273-304); Potassium 4.4 MMOL/L (3.5-5.1)
[2021-01-06 16:03] LABS: Calcium 7.4 MG/DL (8.5-10.1); Osmolality,Calculated 276.5 MOS/KG (273-304); Potassium 3.8 MMOL/L (3.5-5.1)
[2021-01-06] MEDS: INSULIN REGULAR 100 UNIT/ML SUBCUT SCH ×2 (16:44→21:09)
[2021-01-06] MEDS: MONTELUKAST 10 MG TABLET PO SCH (18:23)
[2021-01-07] MEDS: ONDANSETRON 4 MG/2 ML VIAL IV PRN ×2 (05:12→22:19)
[2021-01-07] MEDS: MORPHINE 2 MG/1 ML SYRINGE IV PRN ×3 (05:12→22:19)
[2021-01-07] MEDS: INSULIN REGULAR 100 UNIT/ML SUBCUT SCH ×6 (05:31→22:12)
[2021-01-07 06:45] LABS: Basophils % 0.3 % (0.0-0.8); Eosinophils # 0.1 10*3/uL (0.0-0.87); Eosinophils % 0.9 % (0.00-10.9); Hematocrit 38.2 VOL% (35.7-47.0); Hemoglobin 12.5 GM/DL (12.0-16.0); Immature Granulocytes % 0.2 %; Immature Granulocytes Absolute 0.01 #; Lymphocytes # 0.5 10*3/uL (1.4-4.0); Lymphocytes % 9.4 % (21.3-54.2); Mean Corpuscular HGB Conc 32.7 GM/DL (32-36); Mean Corpuscular Volume 89.7 FL (87-102); Monocytes % 6.8 % (1.7-12.7); Neutrophils % 82.4 % (38.7-73.9); Platelet Count 150 T/CUMM (130-400); Red Blood Count 4.26 MC/CUMM (3.8-5.5); Red Cell Distribution Width 18.4 % (9.3-17.3); White Blood Count 5.8 T/CUMM (4-12)
[2021-01-07 07:08] LABS: Calcium 7.4 MG/DL (8.5-10.1); Osmolality,Calculated 289.1 MOS/KG (273-304); Potassium 5.3 MMOL/L (3.5-5.1)
[2021-01-07] MEDS: SEVELAMER CARBONATE 800 MG TABLET PO SCH ×5 (07:36→22:13)
[2021-01-07] MEDS: carvediloL 12.5 MG TABLET PO SCH ×2 (07:36→17:08)
[2021-01-07] MEDS: INSULIN ASPART PROTAMINE/ASPART 70/30 100 UNIT/ML SUBCUT SCH (07:36)
[2021-01-07] MEDS: FERROUS SULFATE 325 MG TABLET PO SCH ×3 (09:29→22:13)
[2021-01-07] MEDS: levETIRAcetam 500 MG TABLET PO SCH ×3 (09:29→22:13)
[2021-01-07] MEDS: PANTOPRAZOLE 40 MG TABLET PO SCH ×2 (09:29→09:42)
[2021-01-07] MEDS: GABAPENTIN 100 MG CAPSULE PO SCH ×2 (09:29→09:42)
[2021-01-07] MEDS ORDERED: SODIUM POLYSTYRENE SULFATE 15 GM/60 ML BOTTLE PO ONE (14:47)
[2021-01-07] MEDS: MONTELUKAST 10 MG TABLET PO SCH (18:15)
[2021-01-08] MEDS: INSULIN REGULAR 100 UNIT/ML SUBCUT SCH ×6 (00:56→22:37)
[2021-01-08 07:14] LABS: Calcium 7.1 MG/DL (8.5-10.1); Potassium 4.4 MMOL/L (3.5-5.1)
[2021-01-08] MEDS: MORPHINE 2 MG/1 ML SYRINGE IV PRN ×2 (07:30→22:45)
[2021-01-08] MEDS: carvediloL 12.5 MG TABLET PO SCH ×2 (08:23→16:34)
[2021-01-08] MEDS: SEVELAMER CARBONATE 800 MG TABLET PO SCH ×4 (08:23→22:44)
[2021-01-08] MEDS: GABAPENTIN 100 MG CAPSULE PO SCH (08:23)
[2021-01-08] MEDS: PANTOPRAZOLE 40 MG TABLET PO SCH (08:23)
[2021-01-08] MEDS: FERROUS SULFATE 325 MG TABLET PO SCH ×2 (08:23→22:36)
[2021-01-08] MEDS: INSULIN ASPART PROTAMINE/ASPART 70/30 100 UNIT/ML SUBCUT SCH (08:24)
[2021-01-08] MEDS: levETIRAcetam 500 MG TABLET PO SCH ×2 (08:24→22:37)
[2021-01-08] MEDS ORDERED: HEPARIN 10,000 UNIT/10 ML VIAL IV SCH (10:45)
[2021-01-08] MEDS: ONDANSETRON 4 MG/2 ML VIAL IV PRN ×2 (13:00→22:44)
[2021-01-08] MEDS: ALUM/MAG/SIMETH/LIDO VISC 1:1 30 ML BOTTLE PO ONE ×2 (16:35→17:00)
[2021-01-08] MEDS ORDERED: BISACODYL 10 MG SUPP RECTAL ONE (18:19)
[2021-01-08] MEDS: MONTELUKAST 10 MG TABLET PO SCH (18:50)
[2021-01-08] MEDS: DOCUSATE SODIUM 100 MG CAPSULE PO SCH (22:36)
[2021-01-08] MEDS: LACTULOSE 20 GM/30 ML UDCUP PO SCH (22:38)
[2021-01-08] MEDS: POLYETHYLENE GLYCOL POWDER 17 GM PACK PO SCH (22:38)
[2021-01-09] MEDS: INSULIN REGULAR 100 UNIT/ML SUBCUT SCH ×4 (01:40→12:30)
[2021-01-09 06:50] LABS: Calcium 7.1 MG/DL (8.5-10.1); Osmolality,Calculated 278.2 MOS/KG (273-304)
[2021-01-09] MEDS ORDERED: LINACLOTIDE 145 MCG CAPSULE PO SCH (07:30)
[2021-01-09] MEDS: INSULIN ASPART PROTAMINE/ASPART 70/30 100 UNIT/ML SUBCUT SCH (08:29)
[2021-01-09] MEDS: GABAPENTIN 100 MG CAPSULE PO SCH (09:12)
[2021-01-09] MEDS: POLYETHYLENE GLYCOL POWDER 17 GM PACK PO SCH (09:12)
[2021-01-09] MEDS: SEVELAMER CARBONATE 800 MG TABLET PO SCH ×2 (09:12→12:29)
[2021-01-09] MEDS: FERROUS SULFATE 325 MG TABLET PO SCH (09:12)
[2021-01-09] MEDS: carvediloL 12.5 MG TABLET PO SCH (09:12)
[2021-01-09] MEDS: DOCUSATE SODIUM 100 MG CAPSULE PO SCH (09:14)
[2021-01-09] MEDS: PANTOPRAZOLE 40 MG TABLET PO SCH (09:14)
[2021-01-09] MEDS: LACTULOSE 20 GM/30 ML UDCUP PO SCH (09:14)
[2021-01-09] MEDS: levETIRAcetam 500 MG TABLET PO SCH (09:14)
[2021-01-09 11:14] VITALS: BP 132/75
[2021-01-09] MEDS: ONDANSETRON 4 MG/2 ML VIAL IV PRN (11:43)
[2021-01-09] MEDS: MORPHINE 2 MG/1 ML SYRINGE IV PRN (11:44)
[2021-01-09] MEDS ORDERED: POLYETHYLENE GLYCOL POWDER 17 GM PACK PO SCH (15:00)
[2021-01-10] MEDS ORDERED: FERROUS SULFATE 325 MG TABLET PO SCH (09:00)
== END 2021-01-09 14:40 | disposition home health service (06) | DRG 637 ==
LOC: EDBD → EDUNIT# → N.ED 20:14 → N.EDINP 22:40 → SUATTDRO 22:40 → N.CC 23:08 → N.3E 01-07 15:59
PROVIDERS: ADMIT Internal Medicine; ATTEND Hospitalist

== ENCOUNTER 2021-01-19 16:52 | Observation (INO) ==
[2021-01-19] MEDS ORDERED: SODIUM CHLORIDE 0.9% 1,000 ML IV STA (16:55)
[2021-01-19 17:30] LABS: Basophils % 0.4 % (0.0-0.8); Eosinophils # 0.1 10*3/uL (0.0-0.87); Eosinophils % 2.1 % (0.00-10.9); Hemoglobin 10.9 GM/DL (12.0-16.0); Immature Granulocytes % 0.6 %; Immature Granulocytes Absolute 0.03 #; Lymphocytes # 0.7 10*3/uL (1.4-4.0); Lymphocytes % 12.5 % (21.3-54.2); Mean Corpuscular HGB Conc 32.1 GM/DL (32-36); Mean Corpuscular Volume 89.5 FL (87-102); Mean Platelet Volume 11.2 FL (9.6-12.0); Monocytes % 10.2 % (1.7-12.7); Neutrophils % 74.2 % (38.7-73.9); Platelet Count 278 T/CUMM (130-400); Red Cell Distribution Width 17.6 % (9.3-17.3); White Blood Count 5.2 T/CUMM (4-12)
[2021-01-19] MEDS ORDERED: ACETAMINOPHEN 325 MG TABLET PO ONE (17:35)
[2021-01-19 17:47] LABS: Calcium 8.1 MG/DL (8.5-10.1); Osmolality,Calculated 303.7 MOS/KG (273-304); Potassium 3.8 MMOL/L (3.5-5.1)
[2021-01-19 17:59] LABS: VBG Base Excess 2.4 MEQ/L (0-4); VBG HCO3 26.2 MEQ/L (24-28); VBG Oxygen Saturation 79.2 %; VBG PCO2 45.2 MMHG (41-51); VBG PH 7.396; VBG PO2 46.3 MMHG (17-40)
[2021-01-19] MEDS ORDERED: INSULIN REGULAR 100 UNIT/ML IV ONE (18:05)
[2021-01-19] MEDS ORDERED: DEXTROSE 50% 25 GM/50 ML VIAL IV PRN ×2 (18:08)
[2021-01-19] MEDS ORDERED: ONDANSETRON 4 MG/2 ML VIAL IV PRN (18:08)
[2021-01-19] MEDS ORDERED: ACETAMINOPHEN 325 MG TABLET PO PRN (18:08)
[2021-01-19] MEDS ORDERED: GLUCAGON 1 MG VIAL IM PRN ×2 (18:08)
[2021-01-19 18:22] LABS: Bacteria,Urine Occasional /HPF (Few); Bilirubin,Urine Negative (Negative); Blood, Urine Negative (Negative); Glucose,Urine (UA) >=500 mg/dL (Negative); Hyaline Casts,Urine 1 /LPF (0-3); Ketones,Urine Negative (Negative); Mucus,Urine Occasional /LPF (Occasional); Nitrite,Urine Negative (Negative); Protein,Urine >=500 MG/DL; RBC,Urine 3 /HPF (0-4); Squamous Epithelial Cell,Urine Few /HPF (0-10); Urine Appearance Slightly Hazy (Clear); Urine Color Yellow (Yellow); Urine Specific Gravity 1.016 (1.001-1.035); Urine Urobilinogen < 2.0 EU/DL (0.2-1.0)
[2021-01-19] MEDS: ENOXAPARIN 30 MG/0.3 ML SYRINGE SUBCUT SCH (19:46)
[2021-01-19] MEDS: hydrALAZINE 20 MG/1 ML VIAL IV PRN (19:46)
[2021-01-19] MEDS: INSULIN REGULAR 100 UNIT/ML SUBCUT SCH (22:34)
[2021-01-20] MEDS ORDERED: INSULIN NPH/REGULAR 70/30 100 UNIT/ML SUBCUT ONE (02:42)
[2021-01-20 06:41] LABS: Basophils % 0.2 % (0.0-0.8); Eosinophils # 0.1 10*3/uL (0.0-0.87); Eosinophils % 2.5 % (0.00-10.9); Hematocrit 29.6 VOL% (35.7-47.0); Hemoglobin 9.5 GM/DL (12.0-16.0); Immature Granulocytes % 0.4 %; Immature Granulocytes Absolute 0.02 #; Lymphocytes # 0.9 10*3/uL (1.4-4.0); Lymphocytes % 16.1 % (21.3-54.2); Mean Corpuscular HGB Conc 32.1 GM/DL (32-36); Mean Corpuscular Volume 90.2 FL (87-102); Mean Platelet Volume 11.9 FL (9.6-12.0); Monocytes % 10.1 % (1.7-12.7); Neutrophils % 70.7 % (38.7-73.9); Platelet Count 277 T/CUMM (130-400); Red Blood Count 3.28 MC/CUMM (3.8-5.5); Red Cell Distribution Width 17.7 % (9.3-17.3); White Blood Count 5.7 T/CUMM (4-12)
[2021-01-20 07:03] LABS: Bilirubin,Total 0.9 MG/DL (0.20-1.00); Calcium 7.7 MG/DL (8.5-10.1); Osmolality,Calculated 296.2 MOS/KG (273-304); Potassium 3.7 MMOL/L (3.5-5.1); Total Protein 7.4 G/DL (6.4-8.2)
[2021-01-20] MEDS: PANTOPRAZOLE 40 MG TABLET PO SCH (08:34)
[2021-01-20] MEDS: FERROUS SULFATE 325 MG TABLET PO SCH ×2 (08:34→21:12)
[2021-01-20] MEDS: carvediloL 12.5 MG TABLET PO SCH ×2 (08:34→16:03)
[2021-01-20] MEDS: GABAPENTIN 100 MG CAPSULE PO SCH (08:34)
[2021-01-20] MEDS: DOCUSATE SODIUM 100 MG CAPSULE PO SCH ×2 (08:34→21:12)
[2021-01-20] MEDS: INSULIN NPH/REGULAR 70/30 100 UNIT/ML SUBCUT SCH ×2 (08:35→17:25)
[2021-01-20] MEDS: INSULIN REGULAR 100 UNIT/ML SUBCUT SCH ×4 (08:35→21:05)
[2021-01-20] MEDS: POLYETHYLENE GLYCOL POWDER 17 GM PACK PO SCH ×4 (08:37→21:11)
[2021-01-20] MEDS ORDERED: HEPARIN 10,000 UNIT/10 ML VIAL IV SCH (10:00)
[2021-01-20] MEDS: ENOXAPARIN 30 MG/0.3 ML SYRINGE SUBCUT SCH (18:10)
[2021-01-20] MEDS ORDERED: MONTELUKAST 10 MG TABLET PO SCH ×2 (19:00→21:00)
[2021-01-21] MEDS: hydrALAZINE 20 MG/1 ML VIAL IV PRN (03:42)
[2021-01-21 05:50] LABS: Basophils % 0.3 % (0.0-0.8); Eosinophils # 0.2 10*3/uL (0.0-0.87); Eosinophils % 2.2 % (0.00-10.9); Hematocrit 33.6 VOL% (35.7-47.0); Hemoglobin 10.5 GM/DL (12.0-16.0); Immature Granulocytes % 0.3 %; Immature Granulocytes Absolute 0.02 #; Lymphocytes # 0.9 10*3/uL (1.4-4.0); Lymphocytes % 13.1 % (21.3-54.2); Mean Corpuscular HGB Conc 31.3 GM/DL (32-36); Mean Corpuscular Volume 93.1 FL (87-102); Mean Platelet Volume 11.1 FL (9.6-12.0); Monocytes % 7.1 % (1.7-12.7); Platelet Count 262 T/CUMM (130-400); Red Blood Count 3.61 MC/CUMM (3.8-5.5); White Blood Count 6.9 T/CUMM (4-12)
[2021-01-21 06:07] LABS: Calcium 7.6 MG/DL (8.5-10.1); Osmolality,Calculated 298.5 MOS/KG (273-304); Potassium 4.8 MMOL/L (3.5-5.1)
[2021-01-21] MEDS: SEVELAMER CARBONATE 800 MG TABLET PO SCH ×3 (08:38→19:09)
[2021-01-21] MEDS: GABAPENTIN 100 MG CAPSULE PO SCH (08:38)
[2021-01-21] MEDS: PANTOPRAZOLE 40 MG TABLET PO SCH (08:38)
[2021-01-21] MEDS: POLYETHYLENE GLYCOL POWDER 17 GM PACK PO SCH ×2 (08:39→16:54)
[2021-01-21] MEDS: DOCUSATE SODIUM 100 MG CAPSULE PO SCH (08:39)
[2021-01-21] MEDS: carvediloL 12.5 MG TABLET PO SCH ×2 (08:39→18:28)
[2021-01-21] MEDS: FERROUS SULFATE 325 MG TABLET PO SCH (08:39)
[2021-01-21] MEDS: INSULIN NPH/REGULAR 70/30 100 UNIT/ML SUBCUT SCH ×2 (08:41→18:28)
[2021-01-21] MEDS: INSULIN REGULAR 100 UNIT/ML SUBCUT SCH ×3 (08:42→19:09)
[2021-01-21 19:37] VITALS: BP 168/96
== END 2021-01-21 19:39 | disposition home or self-care (01) ==
LOC: EDBD → EDUNIT# → N.EDINP 16:52 → N.ED 16:52 → SUATTDRO 18:08 → N.5E 19:43
PROVIDERS: ADMIT Internal Medicine; ATTEND Internal Medicine

== ENCOUNTER 2021-03-07 06:47 | Inpatient (IN) ==
[2021-03-07 07:46] LABS: Basophils % 0.2 % (0.0-0.8); Eosinophils # 0.1 10*3/uL (0.0-0.87); Eosinophils % 2.3 % (0.00-10.9); Hematocrit 39.2 VOL% (35.7-47.0); Hemoglobin 12.1 GM/DL (12.0-16.0); Immature Granulocytes % 0.2 %; Immature Granulocytes Absolute 0.01 #; Lymphocytes # 0.5 10*3/uL (1.4-4.0); Lymphocytes % 11.3 % (21.3-54.2); Mean Corpuscular HGB Conc 30.9 GM/DL (32-36); Mean Corpuscular Volume 94.5 FL (87-102); Mean Platelet Volume 12.8 FL (9.6-12.0); Monocytes % 9.9 % (1.7-12.7); Neutrophils % 76.1 % (38.7-73.9); Platelet Count 156 T/CUMM (130-400); Red Blood Count 4.15 MC/CUMM (3.8-5.5); Red Cell Distribution Width 16.3 % (9.3-17.3); White Blood Count 4.3 T/CUMM (4-12)
[2021-03-07 08:17] LABS: Albumin 3.6 G/DL (3.4-5.0); Bilirubin,Total 0.7 MG/DL (0.20-1.00); Osmolality,Calculated 310.8 MOS/KG (273-304); Potassium 4.7 MMOL/L (3.5-5.1); Total Protein 8.1 G/DL (6.4-8.2)
[2021-03-07] MEDS ORDERED: INSULIN REGULAR 100 UNIT/ML IV STA (08:41)
[2021-03-07] MEDS: SODIUM CHLORIDE 0.9% 1,000 ML IV SCH (08:58)
[2021-03-07] MEDS ORDERED: DEXTROSE 50% 25 GM/50 ML SYRINGE IV PRN ×2 (10:15)
[2021-03-07] MEDS ORDERED: GLUCAGON 1 MG VIAL IM PRN ×2 (10:15)
[2021-03-07] MEDS ORDERED: MAGNESIUM SULF RIDER 4 GM/100 ML PREMIX IV PRN (10:15)
[2021-03-07] MEDS ORDERED: DOCUSATE SODIUM 100 MG CAPSULE PO PRN (10:15)
[2021-03-07] MEDS ORDERED: MAGNESIUM SULF RIDER 2 GM/50 ML PREMIX IV PRN (10:15)
[2021-03-07] MEDS ORDERED: SODIUM PHOSPHATE INJ 15.8 MMOL in SODIUM CHLORIDE 0.9% 250 ML IV PRN (10:15)
[2021-03-07] MEDS ORDERED: POTASSIUM CHLORIDE RIDER 10 MEQ/100 ML PREMIX IV PRN (10:15)
[2021-03-07] MEDS ORDERED: DEXTROSE 50% 25 GM/50 ML VIAL IV PRN ×2 (10:15)
[2021-03-07] MEDS ORDERED: SIMETHICONE CHEW 125 MG TABLET PO PRN (10:15)
[2021-03-07] MEDS ORDERED: hydrALAZINE 20 MG/1 ML VIAL IV PRN (10:58)
[2021-03-07] MEDS: INSULIN REGULAR 100 UNIT/ML SUBCUT SCH ×3 (13:03→22:37)
[2021-03-07] MEDS: INSULIN NPH/REGULAR 70/30 100 UNIT/ML SUBCUT SCH ×2 (14:40→18:10)
[2021-03-07] MEDS: amLODIPine 10 MG TABLET PO SCH (15:40)
[2021-03-07] MEDS: PANTOPRAZOLE 40 MG TABLET PO SCH (15:40)
[2021-03-07] MEDS: FERROUS SULFATE 325 MG TABLET PO SCH ×3 (15:40→22:46)
[2021-03-07] MEDS: METHOCARBAMOL 750 MG TABLET PO PRN ×2 (15:40→22:37)
[2021-03-07] MEDS: NICOTINE 21 MG/24 HR PATCH TRANSDERM SCH (15:40)
[2021-03-07] MEDS: GABAPENTIN 100 MG CAPSULE PO SCH ×2 (15:40→22:36)
[2021-03-07] MEDS: HEPARIN 5,000 UNIT/1 ML VIAL SUBCUT SCH ×2 (15:42→22:36)
[2021-03-07 15:47] LABS: Osmolality,Calculated 295.9 MOS/KG (273-304); Potassium 4.4 MMOL/L (3.5-5.1)
[2021-03-07] MEDS: SEVELAMER CARBONATE 800 MG TABLET PO SCH (17:52)
[2021-03-07] MEDS: carvediloL 12.5 MG TABLET PO SCH (17:53)
[2021-03-07] MEDS: MONTELUKAST 10 MG TABLET PO SCH (18:51)
[2021-03-07 19:01] LABS: Calcium 7.8 MG/DL (8.5-10.1); Osmolality,Calculated 291.4 MOS/KG (273-304); Potassium 4.5 MMOL/L (3.5-5.1)
[2021-03-07 23:22] LABS: Calcium 7.6 MG/DL (8.5-10.1); Osmolality,Calculated 285.2 MOS/KG (273-304); Potassium 3.5 MMOL/L (3.5-5.1)
[2021-03-08 03:14] LABS: Calcium 7.5 MG/DL (8.5-10.1); Osmolality,Calculated 283.4 MOS/KG (273-304); Potassium 3.4 MMOL/L (3.5-5.1)
[2021-03-08] MEDS: SODIUM CHLORIDE 0.9% 1,000 ML IV SCH (04:52)
[2021-03-08 05:54] LABS: Basophils % 0.2 % (0.0-0.8); Eosinophils # 0.3 10*3/uL (0.0-0.87); Eosinophils % 4.3 % (0.00-10.9); Hematocrit 34.7 VOL% (35.7-47.0); Hemoglobin 11.4 GM/DL (12.0-16.0); Immature Granulocytes % 0.3 %; Immature Granulocytes Absolute 0.02 #; Lymphocytes % 17.1 % (21.3-54.2); Mean Corpuscular HGB Conc 32.9 GM/DL (32-36); Mean Corpuscular Volume 90.8 FL (87-102); Mean Platelet Volume 12.6 FL (9.6-12.0); Neutrophils % 64.1 % (38.7-73.9); Platelet Count 153 T/CUMM (130-400); Red Blood Count 3.82 MC/CUMM (3.8-5.5); Red Cell Distribution Width 15.4 % (9.3-17.3); White Blood Count 5.8 T/CUMM (4-12)
[2021-03-08 06:06] LABS: Calcium 7.7 MG/DL (8.5-10.1); Osmolality,Calculated 279.4 MOS/KG (273-304); Potassium 3.7 MMOL/L (3.5-5.1)
[2021-03-08 06:16] LABS: Albumin 2.8 G/DL (3.4-5.0); Bilirubin,Total 0.6 MG/DL (0.20-1.00); Calcium 7.8 MG/DL (8.5-10.1); Osmolality,Calculated 274.8 MOS/KG (273-304); Potassium 3.7 MMOL/L (3.5-5.1); Total Protein 6.8 G/DL (6.4-8.2)
[2021-03-08 06:30] LABS: Platelet Estimate Normal
[2021-03-08 06:31] LABS: Anisocytosis 1+; Burr Cells Few; Macrocytosis 1+; Ovalocytes Few; Target Cells Few
[2021-03-08] MEDS: ONDANSETRON 4 MG/2 ML VIAL IV PRN ×2 (07:37→13:08)
[2021-03-08] MEDS: INSULIN REGULAR 100 UNIT/ML SUBCUT SCH ×4 (08:59→21:55)
[2021-03-08] MEDS: amLODIPine 10 MG TABLET PO SCH (10:18)
[2021-03-08] MEDS: SEVELAMER CARBONATE 800 MG TABLET PO SCH ×3 (10:19→16:33)
[2021-03-08] MEDS: PANTOPRAZOLE 40 MG TABLET PO SCH (10:19)
[2021-03-08] MEDS: GABAPENTIN 100 MG CAPSULE PO SCH ×2 (10:19→21:56)
[2021-03-08] MEDS: carvediloL 12.5 MG TABLET PO SCH ×2 (10:19→16:33)
[2021-03-08] MEDS: FERROUS SULFATE 325 MG TABLET PO SCH ×2 (10:19→21:56)
[2021-03-08] MEDS ORDERED: HEPARIN 10,000 UNIT/10 ML VIAL IV SCH (10:45)
[2021-03-08] MEDS: NICOTINE 21 MG/24 HR PATCH TRANSDERM SCH (12:34)
[2021-03-08] MEDS: HEPARIN 5,000 UNIT/1 ML VIAL SUBCUT SCH ×2 (12:35→21:56)
[2021-03-08] MEDS: INSULIN NPH/REGULAR 70/30 100 UNIT/ML SUBCUT SCH ×2 (12:48→17:06)
[2021-03-08] MEDS ORDERED: PROMETHAZINE INJ 25 MG in SODIUM CHLORIDE 0.9% 50 ML IV PRN (14:17)
[2021-03-08] MEDS: MONTELUKAST 10 MG TABLET PO SCH (18:54)
[2021-03-09] MEDS: ONDANSETRON 4 MG/2 ML VIAL IV PRN ×2 (01:54→08:52)
[2021-03-09] MEDS: SODIUM CHLORIDE 0.9% 1,000 ML IV SCH (06:03)
[2021-03-09] MEDS: PANTOPRAZOLE 40 MG TABLET PO SCH (08:33)
[2021-03-09] MEDS: NICOTINE 21 MG/24 HR PATCH TRANSDERM SCH (08:33)
[2021-03-09] MEDS: GABAPENTIN 100 MG CAPSULE PO SCH (08:33)
[2021-03-09] MEDS: carvediloL 12.5 MG TABLET PO SCH (08:34)
[2021-03-09] MEDS: SEVELAMER CARBONATE 800 MG TABLET PO SCH (08:34)
[2021-03-09] MEDS: amLODIPine 10 MG TABLET PO SCH (08:34)
[2021-03-09] MEDS: HEPARIN 5,000 UNIT/1 ML VIAL SUBCUT SCH (08:34)
[2021-03-09] MEDS: INSULIN REGULAR 100 UNIT/ML SUBCUT SCH (08:53)
[2021-03-09] MEDS: INSULIN NPH/REGULAR 70/30 100 UNIT/ML SUBCUT SCH (08:53)
[2021-03-09] MEDS: FERROUS SULFATE 325 MG TABLET PO SCH (09:49)
[2021-03-09 11:07] LABS: Basophils % 0.3 % (0.0-0.8); Eosinophils # 0.2 10*3/uL (0.0-0.87); Eosinophils % 2.8 % (0.00-10.9); Hematocrit 40.6 VOL% (35.7-47.0); Hemoglobin 12.6 GM/DL (12.0-16.0); Immature Granulocytes % 0.2 %; Immature Granulocytes Absolute 0.01 #; Lymphocytes # 0.5 10*3/uL (1.4-4.0); Lymphocytes % 8.5 % (21.3-54.2); Mean Corpuscular Volume 94.2 FL (87-102); Mean Platelet Volume 11.5 FL (9.6-12.0); Monocytes % 7.3 % (1.7-12.7); Neutrophils % 80.9 % (38.7-73.9); Platelet Count 100 T/CUMM (130-400); Red Blood Count 4.31 MC/CUMM (3.8-5.5); Red Cell Distribution Width 15.9 % (9.3-17.3); White Blood Count 5.8 T/CUMM (4-12)
[2021-03-09 11:15] LABS: Calcium 8.4 MG/DL (8.5-10.1); Osmolality,Calculated 274.7 MOS/KG (273-304); Potassium 3.9 MMOL/L (3.5-5.1)
[2021-03-09 11:35] LABS: Hypochromasia 1+; Microcytosis 1+
[2021-03-09 12:03] VITALS: BP 151/85
== END 2021-03-09 14:34 | disposition home or self-care (01) | DRG 637 ==
LOC: EDBD → EDUNIT# → N.ED 06:47 → SUATTDRO 10:15 → N.EDINP 10:15 → N.5E 14:31
PROVIDERS: ADMIT Internal Medicine; ATTEND Internal Medicine

== ENCOUNTER 2021-04-09 18:31 | Observation (INO) ==
[2021-04-09 19:25] LABS: Basophils % 0.3 % (0.0-0.8); Eosinophils # 0.1 10*3/uL (0.0-0.87); Eosinophils % 2.2 % (0.00-10.9); Hematocrit 32.4 VOL% (35.7-47.0); Immature Granulocytes % 0.5 %; Immature Granulocytes Absolute 0.02 #; Lymphocytes # 0.6 10*3/uL (1.4-4.0); Lymphocytes % 15.4 % (21.3-54.2); Mean Corpuscular HGB Conc 30.9 GM/DL (32-36); Mean Corpuscular Volume 95.6 FL (87-102); Mean Platelet Volume 12.3 FL (9.6-12.0); Monocytes % 9.4 % (1.7-12.7); Neutrophils % 72.2 % (38.7-73.9); Platelet Count 192 T/CUMM (130-400); Red Blood Count 3.39 MC/CUMM (3.8-5.5); White Blood Count 3.7 T/CUMM (4-12)
[2021-04-09 19:43] LABS: Bilirubin,Total 0.5 MG/DL (0.20-1.00); Calcium 7.8 MG/DL (8.5-10.1); Osmolality,Calculated 310.1 MOS/KG (273-304); Potassium 4.7 MMOL/L (3.5-5.1); Total Protein 7.6 G/DL (6.4-8.2)
[2021-04-09 20:36] LABS: ABG Base Excess -1.6 MMOL/L (-2.5-2.5); ABG PCO2 45.2 MM HG (35-48); ABG PH 7.338 (7.35-7.45); ABG PO2 78.9 MM HG (80-95); ABG TCO2 22.4 MMOL/L (23-27); Allen Test Positive
[2021-04-09] MEDS ORDERED: INSULIN REGULAR 100 UNIT/ML IV ONE (20:55)
[2021-04-09] MEDS ORDERED: SODIUM CHLORIDE 0.9% 500 ML IV STA ×2 (20:55→22:36)
[2021-04-09] MEDS ORDERED: INSULIN REGULAR 100 UNIT/ML SUBCUT STA (22:39)
[2021-04-09] MEDS ORDERED: ONDANSETRON 4 MG/2 ML VIAL IV STA (22:42)
[2021-04-09] MEDS ORDERED: MORPHINE 2 MG/1 ML SYRINGE IV STA (22:42)
[2021-04-09 23:10] LABS: Calcium 7.7 MG/DL (8.5-10.1); Osmolality,Calculated 300.6 MOS/KG (273-304); Potassium 4.3 MMOL/L (3.5-5.1)
[2021-04-09] MEDS ORDERED: diphenhydrAMINE 50 MG/1 ML VIAL IV STA (23:51)
[2021-04-10] MEDS ORDERED: INSULIN REGULAR 100 UNIT/ML SUBCUT STA (00:21)
[2021-04-10 01:04] LABS: Calcium 7.7 MG/DL (8.5-10.1); Osmolality,Calculated 296.2 MOS/KG (273-304); Potassium 4.1 MMOL/L (3.5-5.1)
[2021-04-10] MEDS ORDERED: hydrALAZINE 20 MG/1 ML VIAL IV STA (01:39)
[2021-04-10] MEDS ORDERED: GLUCAGON 1 MG VIAL IM PRN (01:53)
[2021-04-10] MEDS ORDERED: ONDANSETRON 4 MG/2 ML VIAL IV PRN (01:53)
[2021-04-10] MEDS ORDERED: MORPHINE 2 MG/1 ML SYRINGE IV PRN (01:53)
[2021-04-10] MEDS ORDERED: ACETAMINOPHEN 325 MG TABLET PO PRN (01:53)
[2021-04-10] MEDS ORDERED: diphenhydrAMINE CAP 25 MG CAPSULE PO PRN (01:53)
[2021-04-10] MEDS ORDERED: hydrALAZINE 20 MG/1 ML VIAL IV PRN (01:53)
[2021-04-10] MEDS ORDERED: NICOTINE 21 MG/24 HR PATCH TRANSDERM PRN (01:53)
[2021-04-10] MEDS ORDERED: DEXTROSE 50% 25 GM/50 ML SYRINGE IV PRN (01:53)
[2021-04-10] MEDS ORDERED: SODIUM CHLORIDE 0.45% 1,000 ML IV SCH (02:00)
[2021-04-10 04:39] LABS: Calcium 7.8 MG/DL (8.5-10.1); Osmolality,Calculated 288.1 MOS/KG (273-304); Potassium 3.9 MMOL/L (3.5-5.1)
[2021-04-10] MEDS: INSULIN REGULAR 100 UNIT/ML SUBCUT SCH ×3 (05:07→17:30)
[2021-04-10] MEDS: INSULIN NPH/REGULAR 70/30 100 UNIT/ML SUBCUT SCH ×2 (08:50→17:30)
[2021-04-10] MEDS: carvediloL 12.5 MG TABLET PO SCH ×2 (08:50→17:30)
[2021-04-10] MEDS: amLODIPine 10 MG TABLET PO SCH (08:50)
[2021-04-10 10:44] LABS: Hepatitis B Core IgM Quant 0.16 Index; Hepatitis B Surface Ag Quant < 0.10 Index; Hepatitis B Surface Ag Result Non-Reactive (NonReactive); Hepatitis C Virus Ab Quant 0.02 Index; Hepatitis C Virus Ab Result Non-Reactive (NonReactive)
[2021-04-11] MEDS: INSULIN REGULAR 100 UNIT/ML SUBCUT SCH ×2 (00:47→05:12)
[2021-04-11 07:39] VITALS: BP 152/78
[2021-04-11] MEDS: amLODIPine 10 MG TABLET PO SCH (09:18)
[2021-04-11] MEDS: INSULIN NPH/REGULAR 70/30 100 UNIT/ML SUBCUT SCH (09:18)
[2021-04-11] MEDS: carvediloL 12.5 MG TABLET PO SCH (09:18)
== END 2021-04-11 10:45 | disposition home or self-care (01) ==
LOC: EDUNIT# → EDBD → N.EDINP 18:31 → N.ED 18:31 → SUATTDRO 04-10 02:22 → N.3E 04-10 04:25
PROVIDERS: ADMIT Internal Medicine; ATTEND Internal Medicine

== ENCOUNTER 2021-04-30 06:37 | Observation (INO) ==
[2021-04-30 09:49] LABS: Basophils % 0.2 % (0.0-0.8); Eosinophils # 0.1 10*3/uL (0.0-0.87); Eosinophils % 1.3 % (0.00-10.9); Hematocrit 29.7 VOL% (35.7-47.0); Hemoglobin 9.4 GM/DL (12.0-16.0); Immature Granulocytes % 0.2 %; Immature Granulocytes Absolute 0.01 #; Lymphocytes # 0.7 10*3/uL (1.4-4.0); Lymphocytes % 15.5 % (21.3-54.2); Mean Corpuscular HGB Conc 31.6 GM/DL (32-36); Mean Corpuscular Volume 91.7 FL (87-102); Mean Platelet Volume 12.1 FL (9.6-12.0); Monocytes % 9.4 % (1.7-12.7); Neutrophils % 73.4 % (38.7-73.9); Platelet Count 197 T/CUMM (130-400); Red Blood Count 3.24 MC/CUMM (3.8-5.5); Red Cell Distribution Width 14.8 % (9.3-17.3); White Blood Count 4.5 T/CUMM (4-12)
[2021-04-30 10:03] LABS: Albumin 3.4 G/DL (3.4-5.0); Bilirubin,Total 0.6 MG/DL (0.20-1.00); Calcium 8.4 MG/DL (8.5-10.1); Osmolality,Calculated 296.5 MOS/KG (273-304); Potassium 3.8 MMOL/L (3.5-5.1); Total Protein 8.3 G/DL (6.4-8.2)
[2021-04-30 10:07] LABS: Anisocytosis 1+; Macrocytosis 1+; Platelet Estimate Normal
[2021-04-30] MEDS ORDERED: SODIUM CHLORIDE 0.9% 500 ML IV STA (10:07)
[2021-04-30] MEDS ORDERED: ONDANSETRON 4 MG/2 ML VIAL IV PRN (11:16)
[2021-04-30] MEDS ORDERED: GLUCAGON 1 MG VIAL IM PRN (11:16)
[2021-04-30] MEDS ORDERED: hydrALAZINE 20 MG/1 ML VIAL IV PRN (11:16)
[2021-04-30] MEDS ORDERED: ACETAMINOPHEN 325 MG TABLET PO PRN (11:16)
[2021-04-30] MEDS ORDERED: DEXTROSE 10% 250 ML BAG IV PRN (11:25)
[2021-04-30] MEDS: INSULIN REGULAR 100 UNIT/ML SUBCUT SCH ×3 (11:42→22:06)
[2021-04-30] MEDS ORDERED: INSULIN NPH 100 UNIT/ML SUBCUT SCH (16:30)
[2021-04-30] MEDS: SEVELAMER CARBONATE 800 MG TABLET PO SCH (18:07)
[2021-04-30] MEDS: carvediloL 12.5 MG TABLET PO SCH (18:07)
[2021-04-30] MEDS: DOCUSATE SODIUM 100 MG CAPSULE PO SCH (20:35)
[2021-04-30] MEDS: HEPARIN 5,000 UNIT/1 ML VIAL SUBCUT SCH (20:41)
[2021-04-30] MEDS: GABAPENTIN 100 MG CAPSULE PO SCH (20:44)
[2021-04-30] MEDS ORDERED: MONTELUKAST 10 MG TABLET PO SCH (21:00)
[2021-05-01 06:32] LABS: Basophils % 0.2 % (0.0-0.8); Eosinophils # 0.2 10*3/uL (0.0-0.87); Eosinophils % 4.8 % (0.00-10.9); Hematocrit 34.2 VOL% (35.7-47.0); Hemoglobin 11.1 GM/DL (12.0-16.0); Immature Granulocytes % 0.4 %; Immature Granulocytes Absolute 0.02 #; Lymphocytes # 1.1 10*3/uL (1.4-4.0); Lymphocytes % 23.4 % (21.3-54.2); Mean Corpuscular HGB Conc 32.5 GM/DL (32-36); Mean Corpuscular Volume 89.8 FL (87-102); Mean Platelet Volume 11.9 FL (9.6-12.0); Monocytes % 9.4 % (1.7-12.7); Neutrophils % 61.8 % (38.7-73.9); Platelet Count 226 T/CUMM (130-400); Red Blood Count 3.81 MC/CUMM (3.8-5.5); Red Cell Distribution Width 14.7 % (9.3-17.3); White Blood Count 4.8 T/CUMM (4-12)
[2021-05-01 07:00] LABS: Calcium 7.6 MG/DL (8.5-10.1); Osmolality,Calculated 282.4 MOS/KG (273-304); Potassium 3.8 MMOL/L (3.5-5.1)
[2021-05-01] MEDS ORDERED: INSULIN NPH/REGULAR 70/30 100 UNIT/ML SUBCUT SCH (08:00)
[2021-05-01] MEDS ORDERED: amLODIPine 10 MG TABLET PO SCH (09:00)
[2021-05-01] MEDS ORDERED: levETIRAcetam 500 MG TABLET PO SCH (09:00)
[2021-05-01] MEDS: INSULIN REGULAR 100 UNIT/ML SUBCUT SCH ×2 (09:40→11:29)
[2021-05-01] MEDS: HEPARIN 5,000 UNIT/1 ML VIAL SUBCUT SCH (11:19)
[2021-05-01] MEDS: GABAPENTIN 100 MG CAPSULE PO SCH (11:19)
[2021-05-01] MEDS: SEVELAMER CARBONATE 800 MG TABLET PO SCH ×2 (11:19→11:57)
[2021-05-01] MEDS: carvediloL 12.5 MG TABLET PO SCH (11:20)
[2021-05-01] MEDS: DOCUSATE SODIUM 100 MG CAPSULE PO SCH (11:20)
[2021-05-01 16:02] VITALS: BP 111/55
== END 2021-05-01 16:52 | disposition home or self-care (01) ==
LOC: N.ED 06:37 → N.EDINP 06:37 → N.5E 16:40
PROVIDERS: ADMIT Hospitalist; ATTEND Hospitalist

== ENCOUNTER 2021-05-20 09:02 | Inpatient (IN) ==
[2021-05-20] MEDS ORDERED: ONDANSETRON 4 MG/2 ML VIAL ONE (15:57)
[2021-05-20] MEDS ORDERED: ONDANSETRON 4 MG/2 ML VIAL IV ONE (15:58)
[2021-05-20] MEDS ORDERED: HYDROmorphone 2 MG/1 ML VIAL ONE (15:58)
[2021-05-20] MEDS ORDERED: GLUCAGON 1 MG VIAL IM PRN ×2 (15:58→17:20)
[2021-05-20] MEDS ORDERED: HYDROmorphone 2 MG/1 ML VIAL IV STA (15:58)
[2021-05-20] MEDS ORDERED: DEXTROSE 10% 250 ML BAG IV PRN (16:01)
[2021-05-20 16:36] LABS: Basophils % 0.3 % (0.0-0.8); Eosinophils # 0.1 10*3/uL (0.0-0.87); Immature Granulocytes % 0.7 %; Immature Granulocytes Absolute 0.05 #; Lymphocytes # 0.8 10*3/uL (1.4-4.0); Lymphocytes % 11.8 % (21.3-54.2); Mean Corpuscular HGB Conc 30.3 GM/DL (32-36); Mean Corpuscular Volume 99.4 FL (87-102); Mean Platelet Volume 12.2 FL (9.6-12.0); Neutrophils % 77.2 % (38.7-73.9); Platelet Count 227 T/CUMM (130-400); Red Blood Count 3.32 MC/CUMM (3.8-5.5); Red Cell Distribution Width 17.7 % (9.3-17.3)
[2021-05-20 16:50] LABS: Albumin 3.4 G/DL (3.4-5.0); Bilirubin,Total 0.4 MG/DL (0.20-1.00); Calcium 8.3 MG/DL (8.5-10.1); Osmolality,Calculated 289.5 MOS/KG (273-304); Potassium 3.9 MMOL/L (3.5-5.1); Total Protein 8.3 G/DL (6.4-8.2)
[2021-05-20 17:16] LABS: INR 1.1; PT Patient Result 12.3 SECS (10.5-12.0)
[2021-05-20] MEDS ORDERED: DEXTROSE 50% 25 GM/50 ML VIAL IV PRN (17:20)
[2021-05-20] MEDS ORDERED: INSULIN LISPRO 100 UNIT/ML ONE (17:53)
[2021-05-20] MEDS: INSULIN LISPRO 100 UNIT/ML SUBCUT SCH ×2 (17:58→20:54)
[2021-05-20] MEDS: hydrALAZINE 20 MG/1 ML VIAL IV PRN (20:40)
[2021-05-21] MEDS: MORPHINE 2 MG/1 ML SYRINGE IV PRN ×3 (04:07→19:11)
[2021-05-21] MEDS: hydrALAZINE 20 MG/1 ML VIAL IV PRN (04:18)
[2021-05-21 06:56] LABS: Basophils % 0.3 % (0.0-0.8); Eosinophils % 0.4 % (0.00-10.9); Hematocrit 40.4 VOL% (35.7-47.0); Immature Granulocytes % 0.7 %; Immature Granulocytes Absolute 0.07 #; Lymphocytes # 0.8 10*3/uL (1.4-4.0); Lymphocytes % 7.9 % (21.3-54.2); Mean Corpuscular HGB Conc 29.7 GM/DL (32-36); Mean Corpuscular Volume 101.3 FL (87-102); Mean Platelet Volume 12.1 FL (9.6-12.0); Neutrophils % 80.7 % (38.7-73.9); Platelet Count 186 T/CUMM (130-400); Red Blood Count 3.99 MC/CUMM (3.8-5.5); Red Cell Distribution Width 18.5 % (9.3-17.3); White Blood Count 10.2 T/CUMM (4-12)
[2021-05-21] MEDS: INSULIN LISPRO 100 UNIT/ML SUBCUT SCH ×4 (07:13→20:55)
[2021-05-21 07:34] LABS: Bilirubin,Total 0.5 MG/DL (0.20-1.00); Calcium 8.6 MG/DL (8.5-10.1); Potassium 4.3 MMOL/L (3.5-5.1); Total Protein 8.1 G/DL (6.4-8.2)
[2021-05-21] MEDS ORDERED: fentaNYL 100 MCG/2 ML VIAL ONE (08:34)
[2021-05-21] MEDS ORDERED: LIDOCAINE 2% 5 ML VIAL ONE (08:34)
[2021-05-21] MEDS ORDERED: propofoL 200 MG/20 ML VIAL IV ONE (08:34)
[2021-05-21] MEDS ORDERED: SEVOFLURANE 1 UNIT/15 MINUTE INH ONE ×5 (08:34→10:08)
[2021-05-21] MEDS ORDERED: MIDAZOLAM 2 MG/2 ML VIAL ONE (08:34)
[2021-05-21] MEDS ORDERED: ACETAMINOPHEN INJ 1,000 MG/100 ML VIAL IV ONE (08:39)
[2021-05-21] MEDS: CALCIUM (CARBONATE)/VITAMIN D 600 MG-400 UNIT TABLET PO SCH (08:59)
[2021-05-21] MEDS: amLODIPine 10 MG TABLET PO SCH (09:00)
[2021-05-21] MEDS: levETIRAcetam 500 MG TABLET PO SCH ×2 (09:00→20:55)
[2021-05-21] MEDS: carvediloL 3.125 MG TABLET PO SCH ×2 (09:00→21:58)
[2021-05-21] MEDS ORDERED: ceFAZolin 1,000 MG VIAL ONE (09:18)
[2021-05-21] MEDS ORDERED: PHENYLEPHRINE 1 MG/10 ML SYRINGE IV ONE ×2 (09:56→10:07)
[2021-05-21] MEDS ORDERED: ONDANSETRON 4 MG/2 ML VIAL IV PRN (11:01)
[2021-05-21] MEDS ORDERED: HYDROmorphone 2 MG/1 ML VIAL IV PRN (11:01)
[2021-05-21] MEDS ORDERED: HYDROmorphone 2 MG/1 ML VIAL ONE (11:04)
[2021-05-21] MEDS ORDERED: GLUCAGON 1 MG VIAL IM PRN (11:39)
[2021-05-21] MEDS ORDERED: DEXTROSE 50% 25 GM/50 ML VIAL IV PRN (11:39)
[2021-05-21] MEDS: ENOXAPARIN 30 MG/0.3 ML SYRINGE SUBCUT SCH (11:51)
[2021-05-21] MEDS ORDERED: HEPARIN 10,000 UNIT/10 ML VIAL IV ONE (16:30)
[2021-05-22] MEDS: MORPHINE 2 MG/1 ML SYRINGE IV PRN (00:27)
[2021-05-22 06:31] LABS: Basophils % 0.3 % (0.0-0.8); Eosinophils # 0.1 10*3/uL (0.0-0.87); Eosinophils % 0.7 % (0.00-10.9); Hematocrit 28.3 VOL% (35.7-47.0); Immature Granulocytes % 0.5 %; Immature Granulocytes Absolute 0.04 #; Lymphocytes # 0.8 10*3/uL (1.4-4.0); Mean Corpuscular HGB Conc 30.4 GM/DL (32-36); Mean Corpuscular Volume 100.7 FL (87-102); Mean Platelet Volume 12.1 FL (9.6-12.0); Monocytes % 11.5 % (1.7-12.7); Platelet Count 206 T/CUMM (130-400); Red Cell Distribution Width 18.2 % (9.3-17.3); White Blood Count 7.7 T/CUMM (4-12)
[2021-05-22 06:35] LABS: Hemoglobin 8.6 GM/DL (12.0-16.0); Red Blood Count 2.81 MC/CUMM (3.8-5.5)
[2021-05-22 06:42] LABS: Calcium 8.5 MG/DL (8.5-10.1); Osmolality,Calculated 278.1 MOS/KG (273-304); Potassium 4.3 MMOL/L (3.5-5.1)
[2021-05-22] MEDS: INSULIN LISPRO 100 UNIT/ML SUBCUT SCH ×4 (08:44→20:49)
[2021-05-22] MEDS: amLODIPine 10 MG TABLET PO SCH (08:50)
[2021-05-22] MEDS: carvediloL 3.125 MG TABLET PO SCH ×2 (08:50→20:47)
[2021-05-22] MEDS: CALCIUM (CARBONATE)/VITAMIN D 600 MG-400 UNIT TABLET PO SCH (08:50)
[2021-05-22] MEDS: levETIRAcetam 500 MG TABLET PO SCH ×2 (08:50→20:47)
[2021-05-22] MEDS: hydrALAZINE 20 MG/1 ML VIAL IV PRN (08:55)
[2021-05-22] MEDS: ENOXAPARIN 30 MG/0.3 ML SYRINGE SUBCUT SCH (17:49)
[2021-05-22] MEDS ORDERED: ALPRAZolam 0.5 MG TABLET PO PRN (19:48)
[2021-05-23 06:40] LABS: Basophils % 0.3 % (0.0-0.8); Eosinophils # 0.1 10*3/uL (0.0-0.87); Eosinophils % 1.1 % (0.00-10.9); Hematocrit 26.2 VOL% (35.7-47.0); Hemoglobin 7.8 GM/DL (12.0-16.0); Immature Granulocytes % 0.5 %; Immature Granulocytes Absolute 0.04 #; Lymphocytes # 0.6 10*3/uL (1.4-4.0); Lymphocytes % 8.5 % (21.3-54.2); Mean Corpuscular HGB Conc 29.8 GM/DL (32-36); Mean Corpuscular Volume 101.9 FL (87-102); Mean Platelet Volume 11.1 FL (9.6-12.0); Neutrophils % 78.6 % (38.7-73.9); Platelet Count 184 T/CUMM (130-400); Red Blood Count 2.57 MC/CUMM (3.8-5.5); Red Cell Distribution Width 17.7 % (9.3-17.3); White Blood Count 7.4 T/CUMM (4-12)
[2021-05-23 07:19] LABS: Albumin 2.8 G/DL (3.4-5.0); Bilirubin,Total 0.6 MG/DL (0.20-1.00); Calcium 8.6 MG/DL (8.5-10.1); Osmolality,Calculated 297.7 MOS/KG (273-304); Potassium 5.9 MMOL/L (3.5-5.1); Total Protein 7.4 G/DL (6.4-8.2)
[2021-05-23] MEDS: INSULIN LISPRO 100 UNIT/ML SUBCUT SCH ×4 (07:34→22:30)
[2021-05-23] MEDS: amLODIPine 10 MG TABLET PO SCH (09:55)
[2021-05-23] MEDS: carvediloL 3.125 MG TABLET PO SCH ×2 (09:55→17:34)
[2021-05-23] MEDS: CALCIUM (CARBONATE)/VITAMIN D 600 MG-400 UNIT TABLET PO SCH (09:55)
[2021-05-23] MEDS: levETIRAcetam 500 MG TABLET PO SCH (10:33)
[2021-05-23] MEDS ORDERED: SODIUM CHLORIDE 0.9% 250 ML IV ONE (11:50)
[2021-05-23] MEDS: ENOXAPARIN 30 MG/0.3 ML SYRINGE SUBCUT SCH (12:26)
[2021-05-23 13:52] LABS: % Iron Saturation 28.7 % (18-50)
[2021-05-23] MEDS: SEVELAMER CARBONATE 800 MG TABLET PO SCH (16:15)
[2021-05-23] MEDS: CYCLOBENZAPRINE 10 MG TABLET PO SCH ×2 (16:15→22:31)
[2021-05-23] MEDS: FERROUS SULFATE 325 MG TABLET PO SCH (16:16)
[2021-05-23] MEDS ORDERED: INSULIN NPH 100 UNIT/ML SUBCUT SCH (16:30)
[2021-05-23 18:14] LABS: Folate 7.33 NG/ML (5.38-24.0)
[2021-05-23] MEDS: MONTELUKAST 10 MG TABLET PO SCH (22:30)
[2021-05-24 03:50] LABS: Basophils % 0.3 % (0.0-0.8); Eosinophils # 0.1 10*3/uL (0.0-0.87); Eosinophils % 1.4 % (0.00-10.9); Hematocrit 24.2 VOL% (35.7-47.0); Hemoglobin 7.4 GM/DL (12.0-16.0); Immature Granulocytes % 0.4 %; Immature Granulocytes Absolute 0.03 #; Lymphocytes # 0.7 10*3/uL (1.4-4.0); Lymphocytes % 9.2 % (21.3-54.2); Mean Corpuscular HGB Conc 30.6 GM/DL (32-36); Mean Platelet Volume 11.6 FL (9.6-12.0); Monocytes % 11.7 % (1.7-12.7); Platelet Count 186 T/CUMM (130-400); Red Blood Count 2.47 MC/CUMM (3.8-5.5); Red Cell Distribution Width 17.4 % (9.3-17.3); White Blood Count 7.2 T/CUMM (4-12)
[2021-05-24 04:04] LABS: Calcium 9.2 MG/DL (8.5-10.1); Osmolality,Calculated 302.4 MOS/KG (273-304); Potassium 5.4 MMOL/L (3.5-5.1)
[2021-05-24] MEDS: SEVELAMER CARBONATE 800 MG TABLET PO SCH ×3 (09:12→18:03)
[2021-05-24] MEDS: CALCIUM (CARBONATE)/VITAMIN D 600 MG-400 UNIT TABLET PO SCH (09:12)
[2021-05-24] MEDS: FERROUS SULFATE 325 MG TABLET PO SCH ×2 (09:12→18:04)
[2021-05-24] MEDS: carvediloL 3.125 MG TABLET PO SCH ×2 (09:13→18:04)
[2021-05-24] MEDS: CYCLOBENZAPRINE 10 MG TABLET PO SCH ×3 (09:14→20:37)
[2021-05-24] MEDS: amLODIPine 10 MG TABLET PO SCH (09:15)
[2021-05-24] MEDS: INSULIN LISPRO 100 UNIT/ML SUBCUT SCH ×2 (09:20→11:09)
[2021-05-24] MEDS ORDERED: INSULIN NPH/REGULAR 70/30 100 UNIT/ML SUBCUT SCH (10:00)
[2021-05-24] MEDS ORDERED: HEPARIN 10,000 UNIT/10 ML VIAL IV PRN (10:08)
[2021-05-24] MEDS: ENOXAPARIN 30 MG/0.3 ML SYRINGE SUBCUT SCH (11:09)
[2021-05-24] MEDS ORDERED: DEXTROSE 50% 25 GM/50 ML VIAL IV PRN (13:41)
[2021-05-24] MEDS ORDERED: GLUCAGON 1 MG VIAL IM PRN (13:41)
[2021-05-24] MEDS: CHOLECALCIFEROL 1,000 UNIT TABLET PO SCH (18:04)
[2021-05-24] MEDS: INSULIN REGULAR 100 UNIT/ML SUBCUT SCH ×2 (18:05→20:38)
[2021-05-24] MEDS: ERGOCALCIFEROL 50,000 UNIT CAPSULE PO SCH (18:13)
[2021-05-24] MEDS: DIVALPROEX 250 MG TABLET PO SCH (20:37)
[2021-05-24] MEDS: MONTELUKAST 10 MG TABLET PO SCH (20:37)
[2021-05-24] MEDS ORDERED: CALCIUM (CARBONATE)/VITAMIN D 600 MG-400 UNIT TABLET PO SCH (21:00)
[2021-05-25 05:11] LABS: Basophils % 0.2 % (0.0-0.8); Eosinophils # 0.4 10*3/uL (0.0-0.87); Eosinophils % 4.5 % (0.00-10.9); Hematocrit 27.2 VOL% (35.7-47.0); Hemoglobin 8.1 GM/DL (12.0-16.0); Immature Granulocytes % 0.5 %; Immature Granulocytes Absolute 0.04 #; Lymphocytes # 0.7 10*3/uL (1.4-4.0); Mean Corpuscular HGB Conc 29.8 GM/DL (32-36); Mean Corpuscular Volume 100.4 FL (87-102); Mean Platelet Volume 11.2 FL (9.6-12.0); Monocytes % 10.2 % (1.7-12.7); Neutrophils % 76.6 % (38.7-73.9); Platelet Count 224 T/CUMM (130-400); Red Blood Count 2.71 MC/CUMM (3.8-5.5); Red Cell Distribution Width 17.7 % (9.3-17.3); White Blood Count 8.5 T/CUMM (4-12)
[2021-05-25 05:38] LABS: Calcium 9.3 MG/DL (8.5-10.1); Osmolality,Calculated 294.1 MOS/KG (273-304)
[2021-05-25] MEDS: INSULIN REGULAR 100 UNIT/ML SUBCUT SCH ×5 (08:06→21:37)
[2021-05-25] MEDS ORDERED: TUBERCULIN SKIN TEST 0.1 ML SYRINGE INTRADERM ONE (08:37)
[2021-05-25] MEDS: amLODIPine 10 MG TABLET PO SCH (10:34)
[2021-05-25] MEDS: FERROUS SULFATE 325 MG TABLET PO SCH ×2 (10:34→16:13)
[2021-05-25] MEDS: carvediloL 3.125 MG TABLET PO SCH ×2 (10:34→16:12)
[2021-05-25] MEDS: CYCLOBENZAPRINE 10 MG TABLET PO SCH ×4 (10:35→21:37)
[2021-05-25] MEDS: SEVELAMER CARBONATE 800 MG TABLET PO SCH ×3 (10:35→16:13)
[2021-05-25] MEDS: CHOLECALCIFEROL 1,000 UNIT TABLET PO SCH (10:35)
[2021-05-25] MEDS: DIVALPROEX 250 MG TABLET PO SCH ×4 (10:35→21:48)
[2021-05-25] MEDS: ENOXAPARIN 30 MG/0.3 ML SYRINGE SUBCUT SCH (12:36)
[2021-05-25] MEDS: DOCUSATE SODIUM 100 MG CAPSULE PO SCH ×2 (12:37→21:47)
[2021-05-25] MEDS: MONTELUKAST 10 MG TABLET PO SCH (21:48)
[2021-05-26 05:33] LABS: Basophils % 0.3 % (0.0-0.8); Eosinophils # 0.3 10*3/uL (0.0-0.87); Eosinophils % 4.2 % (0.00-10.9); Hemoglobin 8.4 GM/DL (12.0-16.0); Immature Granulocytes % 0.5 %; Immature Granulocytes Absolute 0.04 #; Lymphocytes # 0.6 10*3/uL (1.4-4.0); Lymphocytes % 7.5 % (21.3-54.2); Mean Corpuscular Volume 100.4 FL (87-102); Mean Platelet Volume 10.9 FL (9.6-12.0); Monocytes % 9.4 % (1.7-12.7); Neutrophils % 78.1 % (38.7-73.9); Platelet Count 259 T/CUMM (130-400); Red Blood Count 2.79 MC/CUMM (3.8-5.5); Red Cell Distribution Width 17.7 % (9.3-17.3); White Blood Count 7.9 T/CUMM (4-12)
[2021-05-26 05:50] LABS: Osmolality,Calculated 297.4 MOS/KG (273-304); Potassium 5.4 MMOL/L (3.5-5.1)
[2021-05-26] MEDS: amLODIPine 10 MG TABLET PO SCH (08:17)
[2021-05-26] MEDS: SEVELAMER CARBONATE 800 MG TABLET PO SCH ×3 (08:17→17:00)
[2021-05-26] MEDS: carvediloL 3.125 MG TABLET PO SCH ×2 (08:17→17:00)
[2021-05-26] MEDS: INSULIN REGULAR 100 UNIT/ML SUBCUT SCH ×2 (08:17→12:08)
[2021-05-26] MEDS: DIVALPROEX 250 MG TABLET PO SCH ×3 (08:18→21:34)
[2021-05-26] MEDS: CHOLECALCIFEROL 1,000 UNIT TABLET PO SCH (08:18)
[2021-05-26] MEDS: FERROUS SULFATE 325 MG TABLET PO SCH ×2 (08:18→17:00)
[2021-05-26] MEDS: CYCLOBENZAPRINE 10 MG TABLET PO SCH ×2 (08:18→14:20)
[2021-05-26] MEDS: DOCUSATE SODIUM 100 MG CAPSULE PO SCH ×2 (08:18→21:35)
[2021-05-26] MEDS ORDERED: INSULIN NPH 100 UNIT/ML SUBCUT SCH ×2 (09:30→17:00)
[2021-05-26 11:14] LABS: Hepatitis B Core IgM Quant 0.22 Index; Hepatitis B Surface Ag Quant < 0.10 Index; Hepatitis B Surface Ag Result Non-Reactive (NonReactive); Hepatitis C Virus Ab Quant 0.12 Index; Hepatitis C Virus Ab Result Non-Reactive (NonReactive)
[2021-05-26] MEDS: ENOXAPARIN 30 MG/0.3 ML SYRINGE SUBCUT SCH (12:29)
[2021-05-26] MEDS ORDERED: SODIUM CHLORIDE 0.9% 1,000 ML IV ONE (14:15)
[2021-05-26] MEDS ORDERED: SODIUM BICARBONATE 50 MEQ/50 ML VIAL IV ONE ×2 (16:00→16:11)
[2021-05-26 16:17] LABS: ABG Base Excess 3.5 MMOL/L (-2.5-2.5); ABG HCO3 27.6 MMOL/L (20-26); ABG Oxygen Saturation 98.7 % (95-100); ABG PCO2 48.6 MM HG (35-48); ABG PH 7.388 (7.35-7.45); ABG TCO2 26.6 MMOL/L (23-27)
[2021-05-26] MEDS ORDERED: DEXTROSE 10% 25 GM/250 ML BAG IV PRN (16:21)
[2021-05-26] MEDS ORDERED: DEXTROSE 10% 1,000 ML IV SCH (16:30)
[2021-05-26 17:15] LABS: Alanine Aminotransferase < 6 U/L (13-56); Albumin 2.1 G/DL (3.4-5.0); Alkaline Phosphatase 239 U/L (45-117); Aspartate Amino Transferase 13 U/L (0-37); Blood Urea Nitrogen 27 MG/DL (7-18); Calcium 7.6 MG/DL (8.5-10.1); Carbon Dioxide 25 MMOL/L (21-32); Estimated Glom Filtration Rate 14 ML/MIN; Glucose 145 MG/DL (74-106); Osmolality,Calculated 277.1 MOS/KG (273-304); Potassium 2.9 MMOL/L (3.5-5.1); Sodium 135 MMOL/L (136-145); Total Protein 7.1 G/DL (6.4-8.2)
[2021-05-26] MEDS ORDERED: POTASSIUM CHLORIDE 20 MEQ TABLET PO ONE (17:22)
[2021-05-26 18:19] LABS: Basophils % 0.1 % (0.0-0.8); Eosinophils # 0.3 10*3/uL (0.0-0.87); Eosinophils % 2.7 % (0.00-10.9); Hematocrit 27.2 VOL% (35.7-47.0); Hemoglobin 8.2 GM/DL (12.0-16.0); Immature Granulocytes % 0.3 %; Immature Granulocytes Absolute 0.03 #; Lymphocytes # 0.5 10*3/uL (1.4-4.0); Lymphocytes % 5.2 % (21.3-54.2); Mean Corpuscular HGB Conc 30.1 GM/DL (32-36); Mean Corpuscular Volume 97.5 FL (87-102); Mean Platelet Volume 10.2 FL (9.6-12.0); Monocytes % 8.3 % (1.7-12.7); Neutrophils % 83.4 % (38.7-73.9); Platelet Count 223 T/CUMM (130-400); Red Blood Count 2.79 MC/CUMM (3.8-5.5); Red Cell Distribution Width 17.5 % (9.3-17.3); White Blood Count 9.1 T/CUMM (4-12)
[2021-05-26 18:41] LABS: Calcium 7.1 MG/DL (8.5-10.1); Osmolality,Calculated 284.5 MOS/KG (273-304)
[2021-05-26] MEDS ORDERED: SODIUM CHLORIDE 0.9% 500 ML IV ONE (18:52)
[2021-05-26] MEDS ORDERED: NOREPINEPHRINE 8 MG in SODIUM CHLORIDE 0.9% 242 ML IV PRN (18:52)
[2021-05-26] MEDS: MONTELUKAST 10 MG TABLET PO SCH (21:36)
[2021-05-27 06:13] LABS: Basophils % 0.3 % (0.0-0.8); Eosinophils # 0.2 10*3/uL (0.0-0.87); Hematocrit 27.9 VOL% (35.7-47.0); Hemoglobin 8.6 GM/DL (12.0-16.0); Immature Granulocytes % 0.3 %; Immature Granulocytes Absolute 0.02 #; Lymphocytes # 0.5 10*3/uL (1.4-4.0); Lymphocytes % 7.2 % (21.3-54.2); Mean Corpuscular HGB Conc 30.8 GM/DL (32-36); Mean Corpuscular Volume 97.6 FL (87-102); Mean Platelet Volume 10.8 FL (9.6-12.0); Monocytes % 8.2 % (1.7-12.7); Platelet Count 265 T/CUMM (130-400); Red Blood Count 2.86 MC/CUMM (3.8-5.5); Red Cell Distribution Width 17.5 % (9.3-17.3)
[2021-05-27 06:43] LABS: Albumin 2.3 G/DL (3.4-5.0); Bilirubin,Total 1.4 MG/DL (0.20-1.00); Calcium 7.3 MG/DL (8.5-10.1); Osmolality,Calculated 285.1 MOS/KG (273-304); Potassium 4.7 MMOL/L (3.5-5.1)
[2021-05-27] MEDS: amLODIPine 10 MG TABLET PO SCH (08:30)
[2021-05-27] MEDS: DOCUSATE SODIUM 100 MG CAPSULE PO SCH ×2 (08:30→21:47)
[2021-05-27] MEDS: SEVELAMER CARBONATE 800 MG TABLET PO SCH ×3 (08:31→16:03)
[2021-05-27] MEDS: PANTOPRAZOLE 40 MG TABLET PO SCH (08:31)
[2021-05-27] MEDS: FERROUS SULFATE 325 MG TABLET PO SCH ×2 (08:31→16:03)
[2021-05-27] MEDS: DIVALPROEX 250 MG TABLET PO SCH ×3 (08:31→21:48)
[2021-05-27] MEDS: CHOLECALCIFEROL 1,000 UNIT TABLET PO SCH (08:31)
[2021-05-27] MEDS: carvediloL 3.125 MG TABLET PO SCH ×2 (08:31→16:03)
[2021-05-27] MEDS: INSULIN LISPRO 100 UNIT/ML SUBCUT SCH ×3 (11:28→21:55)
[2021-05-27] MEDS: ENOXAPARIN 30 MG/0.3 ML SYRINGE SUBCUT SCH (11:28)
[2021-05-27] MEDS ORDERED: INSULIN LISPRO 100 UNIT/ML SUBCUT ONE (13:19)
[2021-05-27] MEDS ORDERED: ACETAMINOPHEN 325 MG TABLET PO PRN (16:09)
[2021-05-27] MEDS: MONTELUKAST 10 MG TABLET PO SCH (21:48)
[2021-05-28 06:50] LABS: Basophils % 0.2 % (0.0-0.8); Eosinophils # 0.2 10*3/uL (0.0-0.87); Eosinophils % 1.7 % (0.00-10.9); Hematocrit 29.2 VOL% (35.7-47.0); Hemoglobin 8.6 GM/DL (12.0-16.0); Lymphocytes # 0.5 10*3/uL (1.4-4.0); Lymphocytes % 6.2 % (21.3-54.2); Mean Corpuscular HGB Conc 29.5 GM/DL (32-36); Mean Corpuscular Volume 101.4 FL (87-102); Mean Platelet Volume 10.9 FL (9.6-12.0); Monocytes % 6.9 % (1.7-12.7); Neutrophils % 84.5 % (38.7-73.9); Platelet Count 252 T/CUMM (130-400); Red Blood Count 2.88 MC/CUMM (3.8-5.5); Red Cell Distribution Width 17.9 % (9.3-17.3); White Blood Count 8.6 T/CUMM (4-12)
[2021-05-28 07:09] LABS: Alanine Aminotransferase < 6 U/L (13-56); Albumin 2.6 G/DL (3.4-5.0); Alkaline Phosphatase 226 U/L (45-117); Aspartate Amino Transferase 15 U/L (0-37); Blood Urea Nitrogen 54 MG/DL (7-18); Calcium 8.1 MG/DL (8.5-10.1); Carbon Dioxide 14 MMOL/L (21-32); Estimated Glom Filtration Rate 8 ML/MIN; Glucose 437 MG/DL (74-106); Osmolality,Calculated 293.8 MOS/KG (273-304); Potassium 5.2 MMOL/L (3.5-5.1); Sodium 130 MMOL/L (136-145); Total Protein 7.5 G/DL (6.4-8.2)
[2021-05-28] MEDS: INSULIN LISPRO 100 UNIT/ML SUBCUT SCH ×4 (08:30→21:09)
[2021-05-28] MEDS: carvediloL 3.125 MG TABLET PO SCH ×2 (08:31→17:27)
[2021-05-28] MEDS: DIVALPROEX 250 MG TABLET PO SCH ×3 (08:31→20:24)
[2021-05-28] MEDS: SEVELAMER CARBONATE 800 MG TABLET PO SCH ×3 (08:31→17:27)
[2021-05-28] MEDS: amLODIPine 10 MG TABLET PO SCH (08:31)
[2021-05-28] MEDS: PANTOPRAZOLE 40 MG TABLET PO SCH (08:33)
[2021-05-28] MEDS: FERROUS SULFATE 325 MG TABLET PO SCH ×2 (08:33→17:27)
[2021-05-28] MEDS: DOCUSATE SODIUM 100 MG CAPSULE PO SCH ×2 (08:34→20:24)
[2021-05-28] MEDS: CHOLECALCIFEROL 1,000 UNIT TABLET PO SCH (08:34)
[2021-05-28] MEDS: ENOXAPARIN 30 MG/0.3 ML SYRINGE SUBCUT SCH (12:09)
[2021-05-28] MEDS: MONTELUKAST 10 MG TABLET PO SCH (20:24)
[2021-05-29 06:19] LABS: Basophils % 0.3 % (0.0-0.8); Eosinophils # 0.1 10*3/uL (0.0-0.87); Eosinophils % 1.8 % (0.00-10.9); Hematocrit 29.2 VOL% (35.7-47.0); Hemoglobin 8.6 GM/DL (12.0-16.0); Immature Granulocytes % 0.3 %; Immature Granulocytes Absolute 0.02 #; Lymphocytes # 0.5 10*3/uL (1.4-4.0); Lymphocytes % 6.6 % (21.3-54.2); Mean Corpuscular HGB Conc 29.5 GM/DL (32-36); Mean Corpuscular Volume 102.1 FL (87-102); Mean Platelet Volume 10.7 FL (9.6-12.0); Platelet Count 266 T/CUMM (130-400); Red Blood Count 2.86 MC/CUMM (3.8-5.5); White Blood Count 7.9 T/CUMM (4-12)
[2021-05-29 06:37] LABS: Calcium 8.5 MG/DL (8.5-10.1); Osmolality,Calculated 285.9 MOS/KG (273-304); Potassium 4.7 MMOL/L (3.5-5.1)
[2021-05-29] MEDS: INSULIN LISPRO 100 UNIT/ML SUBCUT SCH ×4 (08:36→23:19)
[2021-05-29] MEDS: amLODIPine 10 MG TABLET PO SCH (08:37)
[2021-05-29] MEDS: FERROUS SULFATE 325 MG TABLET PO SCH ×2 (08:37→16:10)
[2021-05-29] MEDS: PANTOPRAZOLE 40 MG TABLET PO SCH (08:37)
[2021-05-29] MEDS: CHOLECALCIFEROL 1,000 UNIT TABLET PO SCH (08:37)
[2021-05-29] MEDS: DIVALPROEX 250 MG TABLET PO SCH ×3 (08:37→21:00)
[2021-05-29] MEDS: carvediloL 3.125 MG TABLET PO SCH ×2 (08:37→16:10)
[2021-05-29] MEDS: SEVELAMER CARBONATE 800 MG TABLET PO SCH ×3 (08:37→16:11)
[2021-05-29] MEDS: DOCUSATE SODIUM 100 MG CAPSULE PO SCH ×2 (08:42→21:00)
[2021-05-29] MEDS ORDERED: EPOETIN ALFA-EPBX 3,000 UNIT/ML VIAL IV PRN (09:20)
[2021-05-29] MEDS: ENOXAPARIN 30 MG/0.3 ML SYRINGE SUBCUT SCH (11:21)
[2021-05-29] MEDS: MONTELUKAST 10 MG TABLET PO SCH (21:00)
[2021-05-30 04:55] LABS: Basophils % 0.3 % (0.0-0.8); Eosinophils # 0.2 10*3/uL (0.0-0.87); Eosinophils % 2.6 % (0.00-10.9); Hematocrit 32.4 VOL% (35.7-47.0); Hemoglobin 9.6 GM/DL (12.0-16.0); Immature Granulocytes % 0.3 %; Immature Granulocytes Absolute 0.02 #; Lymphocytes # 0.6 10*3/uL (1.4-4.0); Lymphocytes % 8.9 % (21.3-54.2); Mean Corpuscular HGB Conc 29.6 GM/DL (32-36); Mean Corpuscular Volume 101.9 FL (87-102); Mean Platelet Volume 10.5 FL (9.6-12.0); Monocytes % 8.2 % (1.7-12.7); Neutrophils % 79.7 % (38.7-73.9); Platelet Count 274 T/CUMM (130-400); Red Blood Count 3.18 MC/CUMM (3.8-5.5); White Blood Count 6.8 T/CUMM (4-12)
[2021-05-30 05:15] LABS: Calcium 8.6 MG/DL (8.5-10.1); Osmolality,Calculated 277.5 MOS/KG (273-304); Potassium 4.5 MMOL/L (3.5-5.1)
[2021-05-30 05:15] LABS: Anisocytosis 1+; Macrocytosis 1+; Platelet Estimate Normal
[2021-05-30] MEDS ORDERED: DEXTROSE 10% 250 ML BAG IV PRN (09:42)
[2021-05-30] MEDS: INSULIN LISPRO 100 UNIT/ML SUBCUT SCH ×4 (09:50→22:36)
[2021-05-30] MEDS: CHOLECALCIFEROL 1,000 UNIT TABLET PO SCH (09:52)
[2021-05-30] MEDS: SEVELAMER CARBONATE 800 MG TABLET PO SCH ×3 (09:52→17:37)
[2021-05-30] MEDS: FERROUS SULFATE 325 MG TABLET PO SCH ×2 (09:53→17:37)
[2021-05-30] MEDS: DOCUSATE SODIUM 100 MG CAPSULE PO SCH ×2 (09:53→22:36)
[2021-05-30] MEDS: amLODIPine 10 MG TABLET PO SCH (09:53)
[2021-05-30] MEDS: PANTOPRAZOLE 40 MG TABLET PO SCH (09:53)
[2021-05-30] MEDS: carvediloL 3.125 MG TABLET PO SCH ×2 (09:53→17:37)
[2021-05-30] MEDS: DIVALPROEX 250 MG TABLET PO SCH ×3 (09:53→22:36)
[2021-05-30] MEDS: ENOXAPARIN 30 MG/0.3 ML SYRINGE SUBCUT SCH (11:21)
[2021-05-30] MEDS ORDERED: TUBERCULIN SKIN TEST 0.1 ML SYRINGE INTRADERM ONE (12:37)
[2021-05-30] MEDS ORDERED: hydrALAZINE 20 MG/1 ML VIAL IV PRN (15:00)
[2021-05-30] MEDS: ONDANSETRON 4 MG/2 ML VIAL IV PRN (18:45)
[2021-05-30] MEDS ORDERED: INSULIN GLARGINE 100 UNIT/ML SUBCUT SCH (21:00)
[2021-05-30] MEDS: MONTELUKAST 10 MG TABLET PO SCH (22:36)
[2021-05-31 05:25] LABS: Basophils % 0.3 % (0.0-0.8); Eosinophils # 0.2 10*3/uL (0.0-0.87); Eosinophils % 2.8 % (0.00-10.9); Hematocrit 28.2 VOL% (35.7-47.0); Hemoglobin 8.4 GM/DL (12.0-16.0); Immature Granulocytes % 0.4 %; Immature Granulocytes Absolute 0.03 #; Lymphocytes # 0.6 10*3/uL (1.4-4.0); Lymphocytes % 8.7 % (21.3-54.2); Mean Corpuscular HGB Conc 29.8 GM/DL (32-36); Mean Corpuscular Volume 99.6 FL (87-102); Mean Platelet Volume 10.3 FL (9.6-12.0); Monocytes % 9.1 % (1.7-12.7); Neutrophils % 78.7 % (38.7-73.9); Platelet Count 387 T/CUMM (130-400); Red Blood Count 2.83 MC/CUMM (3.8-5.5); Red Cell Distribution Width 17.7 % (9.3-17.3); White Blood Count 7.1 T/CUMM (4-12)
[2021-05-31 05:54] LABS: Calcium 8.4 MG/DL (8.5-10.1); Osmolality,Calculated 288.1 MOS/KG (273-304); Potassium 4.9 MMOL/L (3.5-5.1)
[2021-05-31] MEDS: INSULIN LISPRO 100 UNIT/ML SUBCUT SCH ×4 (07:44→20:47)
[2021-05-31] MEDS: DOCUSATE SODIUM 100 MG CAPSULE PO SCH ×3 (09:13→20:55)
[2021-05-31] MEDS: PANTOPRAZOLE 40 MG TABLET PO SCH (09:14)
[2021-05-31] MEDS: FERROUS SULFATE 325 MG TABLET PO SCH ×2 (09:14→17:50)
[2021-05-31] MEDS: DIVALPROEX 250 MG TABLET PO SCH ×3 (09:14→20:47)
[2021-05-31] MEDS: NICOTINE 21 MG/24 HR PATCH TRANSDERM SCH (09:42)
[2021-05-31] MEDS: SEVELAMER CARBONATE 800 MG TABLET PO SCH ×3 (09:42→17:30)
[2021-05-31] MEDS ORDERED: INSULIN GLARGINE 100 UNIT/ML SUBCUT ONE (12:00)
[2021-05-31] MEDS: amLODIPine 10 MG TABLET PO SCH (14:00)
[2021-05-31] MEDS: carvediloL 3.125 MG TABLET PO SCH ×2 (14:00→17:30)
[2021-05-31] MEDS: CHOLECALCIFEROL 1,000 UNIT TABLET PO SCH (15:21)
[2021-05-31] MEDS: ENOXAPARIN 30 MG/0.3 ML SYRINGE SUBCUT SCH (15:21)
[2021-05-31] MEDS: ERGOCALCIFEROL 50,000 UNIT CAPSULE PO SCH (17:50)
[2021-05-31] MEDS: MONTELUKAST 10 MG TABLET PO SCH ×2 (20:47→20:55)
[2021-06-01 05:42] LABS: Basophils % 0.4 % (0.0-0.8); Eosinophils # 0.3 10*3/uL (0.0-0.87); Eosinophils % 3.6 % (0.00-10.9); Hematocrit 28.5 VOL% (35.7-47.0); Hemoglobin 8.7 GM/DL (12.0-16.0); Immature Granulocytes % 0.3 %; Immature Granulocytes Absolute 0.02 #; Lymphocytes % 13.1 % (21.3-54.2); Mean Corpuscular HGB Conc 30.5 GM/DL (32-36); Mean Platelet Volume 10.4 FL (9.6-12.0); Monocytes % 14.1 % (1.7-12.7); Neutrophils % 68.5 % (38.7-73.9); Platelet Count 351 T/CUMM (130-400); Red Blood Count 2.85 MC/CUMM (3.8-5.5); Red Cell Distribution Width 17.8 % (9.3-17.3); White Blood Count 7.6 T/CUMM (4-12)
[2021-06-01 06:04] LABS: Calcium 8.5 MG/DL (8.5-10.1); Osmolality,Calculated 270.5 MOS/KG (273-304); Potassium 4.3 MMOL/L (3.5-5.1)
[2021-06-01] MEDS: DIVALPROEX 250 MG TABLET PO SCH ×2 (08:54→15:45)
[2021-06-01] MEDS: PANTOPRAZOLE 40 MG TABLET PO SCH (08:55)
[2021-06-01] MEDS: CHOLECALCIFEROL 1,000 UNIT TABLET PO SCH (08:55)
[2021-06-01] MEDS: FERROUS SULFATE 325 MG TABLET PO SCH (08:55)
[2021-06-01] MEDS: DOCUSATE SODIUM 100 MG CAPSULE PO SCH (08:55)
[2021-06-01] MEDS: carvediloL 3.125 MG TABLET PO SCH (08:55)
[2021-06-01] MEDS: amLODIPine 10 MG TABLET PO SCH (08:55)
[2021-06-01] MEDS ORDERED: INSULIN GLARGINE 100 UNIT/ML SUBCUT SCH (09:00)
[2021-06-01] MEDS: INSULIN LISPRO 100 UNIT/ML SUBCUT SCH ×3 (09:32→17:02)
[2021-06-01] MEDS: SEVELAMER CARBONATE 800 MG TABLET PO SCH ×2 (09:35→13:10)
[2021-06-01] MEDS: NICOTINE 21 MG/24 HR PATCH TRANSDERM SCH (09:36)
[2021-06-01] MEDS: ONDANSETRON 4 MG/2 ML VIAL IV PRN (13:19)
[2021-06-01] MEDS: ENOXAPARIN 30 MG/0.3 ML SYRINGE SUBCUT SCH (13:21)
[2021-06-01 16:04] VITALS: BP 129/70
== END 2021-06-01 17:55 | disposition home health service (06) | DRG 480 ==
LOC: EDBD → EDUNIT# → N.ED 09:02 → SUATTDRO 17:21 → N.EDINP 17:21 → N.3E 20:42 → N.ICU 05-26 16:31 → N.3E 05-30 18:47
PROVIDERS: ADMIT Internal Medicine; ATTEND Internal Medicine